=== PATIENT | female | born 1945 | race Caucasian/White ===

== ENCOUNTER 2025-03-30 12:19 | Emergency (ER) | payer MEDICARE, SELFPAY ==
[2025-03-30] VITALS (37 sets, daily range): BP systolic 88–157; BP diastolic 46–127; PULSE 69–85; RESP 13–25; TEMP 36.3–36.6; O2SAT 87–100
--- NOTE | ~2025-03-30 | XR_ITS ---
Clinical Indication: Weakness PA and lateral views of the chest: Comparison: None Findings: There is extensive bibasilar chronic interstitial disease and/or possibly superimposed inte rstitial pulmonary edema. There is a hazy 3 cm airspace opacity in the left infrahilar region. Right- sided Mediport in place.. Cardiomediastinal silhouette is within normal limits. Bones and soft tissu es are unremarkable. Impression: Probable extensive chronic interstitial disease. Possible superimposed interstitial pulmonary edema. 3 cm hazy opacity left perihilar region. Mass lesion not completely excluded. Consider chest CT as in dicated. Reviewed, dictated and finalized at location . Impression: Probable extensive chronic interstitial disease. Possible superimposed intersti tial pulmonary edema. 3 cm hazy opacity left perihilar region. Mass lesion not completely excluded. C onsider chest CT as indicated.
--- NOTE | 2025-03-30 12:26 | ED_ITS ---
HPI - General Adult General Chief complaint: Weakness Stated complaint: weakness History of Present Illness HPI narrative: 79-year-old female presenting to the emergency department from [facility] outpatient care. Patient has been having decreasing blood pressures and increased lethargy over the course of the last week. Patient does have a history a left lower leg amputation approximately month and half ago had [facility]. Initially EMS was hoping to take the patient back to [facility] but patient was having low blood pressures so they brought her to [facility]. The position [facility] urgent care told EMS that they are anticipating doing a amputation the right lower extremity as well. Patient's blood pressures were 60-70 systolic. Patient was treated with a L of normal saline by EMS and upon arrival to the emergency department patient's blood pressure was 90/45 patient is alert and appropriate Related Data Home Medications ?Medication ?Instructions ?Recorded ?Confirmed ?Last Taken ?Type acetaminophen 500 mg capsule 1,000 mg PO Q6H PRN pain, 01/08/25 01/08/25 01/07/25 History headaches or fever aspirin 81 mg tablet,delayed 81 mg PO DAILY 01/08/25 01/08/25 01/08/25 History release (Enteric Coated Aspirin) atorvastatin 20 mg tablet (Lipitor) 20 mg PO HS 01/08/25 01/08/25 01/07/25 History calcium carb-vit D3-magnesium 250 1 cap PO DAILY 01/08/25 01/08/25 Unknown History mg-200 unit-125 mg capsule cholecalciferol (vitamin D3) 25 1,000 unit PO DAILY 01/08/25 01/08/25 Unknown History mcg (1,000 unit) capsule cilostazol 100 mg tablet 100 mg PO BID 01/08/25 01/08/25 Unknown History ferrous sulfate 325 mg (65 mg 325 mg PO DAILY 01/08/25 01/08/25 Unknown History iron) tablet folic acid 1 mg tablet 1 mg PO DAILY 01/08/25 01/08/25 Unknown History magnesium oxide 400 mg (241.3 mg 500 mg PO DAILY 01/08/25 01/08/25 Unknown History magnesium) tablet metoprolol succinate 50 mg 50 mg PO DAILY 01/08/25 01/08/25 01/08/25 History tablet,extended release 24 hr (Toprol XL) multivitamin with folic acid 400 1 tablet PO DAILY 01/08/25 01/08/25 Unknown History mcg tablet povidone-iodine 10 % topical 1 applic topical DAILY 01/08/25 01/08/25 Unknown History ointment sennosides 8.6 mg-docusate sodium 2 tab-cap PO BID 01/08/25 01/08/25 Unknown History 50 mg tablet (Senna with Docusate Sodium) Allergies Allergy/AdvReac Type Severity Reaction Status Date / Time No Known Allergies Allergy Verified 01/08/25 18:31 Review of Systems 2 Review of Systems: All systems reviewed & are unremarkable except as noted in HPI and below PMFSH Past Medical History Medical History Emesis Anemia PVD (peripheral vascular disease) Breast cancer Emphysema lung CKD (chronic kidney disease) Cervical cancer Atrial fibrillation Social History Social History Years smoked: 60 Smoking status: Current every day smoker Tobacco type: cigarettes Alcohol intake: never Substance use: never Do You Feel Safe in your Home?: Yes Lack of Transportation: No Lack of Food: Never True Current Housing: I Have Housing Concerned About Future Housing: No Difficulty Paying Gas/Electric Bills: No Difficulty Paying for Meds: No Currently Unemployed: No Education: Grade School Difficulty w/ Childcare or Family Care: No Spiritual care concerns: No Exam 2 Narrative: APPEARANCE: Well appearing, no pain, no distress, well-nourished. HEAD: normocephalic, atraumatic. EYES: PERRLA/EOMI, conjunctivae clear. NOSE: Normal no drainage EARS:TMS clear with good light reflex. THROAT: Pharynx clear, no exudate. NECK: Supple. No adenopathy, no masses. RESPIRATORY: Airway patent, respirations nonlabored. Clear to auscultation bilaterally, no rales, rhonchi, wheezing. CARDIOVASCULAR: Regular rate and rhythm without murmurs rubs or gallops. ABDOMINAL: Soft, nontender, nondistended, normal bowel sounds MUSCULOSKELETAL: Moves all extremities. Strength/ROM intact, No edema, No calf tenderness. NEURO: Alert. Cranial nerves II through XII intact. Good gait. Good coordination SKIN: Warm, dry. Normal Color Course Vital Signs Vital signs: Vital Signs Temperature 97.9 F 03/30/25 12:17 Pulse Rate 85 03/30/25 12:17 Respiratory Rate 13 03/30/25 12:17 Blood Pressure 101/46 L 03/30/25 12:17 Pulse Oximetry 96 03/30/25 12:17 Oxygen Delivery Room Air 03/30/25 12:17 Temperature 97.8 F 03/30/25 18:06 Pulse Rate 79 03/30/25 18:15 Respiratory Rate 21 H 03/30/25 18:15 Blood Pressure 106/46 L 03/30/25 18:11 Pulse Oximetry 98 03/30/25 18:06 Oxygen Delivery Room Air 03/30/25 12:17 Medical Decision Making MDM Narrative Medical decision making narrative: 79-year-old female present to the emergency department for evaluation for increasing generalized fatigue. Patient had been in the urgent care and patient was to be transferred by EMS to both the [facility] but patient's blood pressure was too low in route. Upon arrival emergency department patient's blood pressure was 90 systolic after a partial fluid bolus. Patient was found to have any worsening anemia. Patient does have history of chronic kidney disease. Patient is this may was checked and patient did have trace Hemoccult-positive stool. Patient was started on famotidine and Protonix by IV. Patient's hemoglobin was down to 6.7 patient was treated with 2 units of packed red blood cells. Patient is afebrile but does have a leukocytosis. Patient's creatinine is 2.17 which is worse than her baseline. Patient was treated with 2 L of lactated Ringer's. UA was positive for a urinary tract infection. Patient has no previous urine cultures on file here patient was treated with 1 g of IV Rocephin. Patient was negative for influenza RSV and for COVID. Case was discussed with the hospitalist at [facility] and patient was accepted for transfer. Patient and family were updated on results of the workup and plan for transfer. Patient's blood pressure did respond appropriately after IV fluids and 2 units of packed red blood cells. Pain is mental status also improved as well and patient was well-appearing at time of transfer. Differential Diagnosis Differential Diagnosis: Urinary tract infection, anemia, vasculitis, pneumonia, pulmonary edema Vital Signs Vital Signs: Vital Signs Temperature 97.9 F 03/30/25 12:17 Pulse Rate 85 03/30/25 12:17 Respiratory Rate 13 03/30/25 12:17 Blood Pressure 101/46 L 03/30/25 12:17 Pulse Oximetry 96 03/30/25 12:17 Oxygen Delivery Room Air 03/30/25 12:17 Temperature 97.8 F 03/30/25 18:06 Pulse Rate 79 03/30/25 18:15 Respiratory Rate 21 H 03/30/25 18:15 Blood Pressure 106/46 L 03/30/25 18:11 Pulse Oximetry 98 03/30/25 18:06 Oxygen Delivery Room Air 03/30/25 12:17 Lab Data Lab results reviewed: Yes I reviewed the patient's lab results. 03/30/25 12:53 03/30/25 12:53 Labs: Lab Results 03/30/25 03/30/25 03/30/25 Range/Units 12:52 12:53 12:54 WBC 13.3 H (4.5-10.0) K/mm3 RBC 2.20 L (4.2-5.4) M/mm3 Hgb 6.7 L* (12.0-15.0) g/dL Hct 22.6 L (37.0-47.0) % MCV 102.7 H (80-100) fl MCH 30.5 (26-34) pg MCHC 29.6 L (32-36) g/dl RDW 21.1 H (11.5-14.5) % Plt Count 303 (150-375) k/mm3 MPV 8.4 (7.4-10.4) fl Immature Gran % (Auto) 0.8 H (0-0.5) % Neut % (Auto) 88.0 H (45.5-73.1) % Lymph % (Auto) 6.8 L (18.3-44.2) % Armstrong % (Auto) 4.0 (2.6-8.5) % Eos % (Auto) 0.2 (0-4.4) % Baso % (Auto) 0.2 (0.2-1.2) % Lymph # (Auto) 0.90 (0.9-3.2) K/mm3 Armstrong # (Auto) 0.5 (0.1-0.6) K/mm3 Eos # (Auto) 0.0 (0-0.3) K/mm3 Baso # (Auto) 0.0 (0.0-0.1) K/mm3 Abs Immat Gran (auto) 0.11 H (0.00-0.031) K/mm3 Absolute Neuts (auto) 11.7 H (1.3-6.7) K/mm3 Absolute Nucleated RBC 0.000 (0.0-0.012) K/mm3 Band Neutrophils % Not Reportable Nucleated RBC % 0.0 (0.0-0.2) % Platelet Estimate Adequate (Adequate) Hypochromasia 2+ Anisocytosis 2+ Schistocytes Rare PT 14.5 (11.1-14.7) Seconds INR 1.1 APTT 39.7 H (22.3-36.8) Seconds Sodium 130 L (137-145) mmol/L Potassium 3.5 (3.4-5.0) mmol/L Chloride 100 (98-107) mmol/L Carbon Dioxide 24 (22-30) mmol/L Anion Gap 6 (4-12) mmol/L BUN 31 H (7-17) mg/dL Creatinine 2.17 H (0.7-1.0) mg/dL Estim Creat Clear Calc 14 ml/min Estimated GFR 22 L (59 - ) Glucose 99 (65-110) mg/dL Lactic Acid 1.1 (0.7-2.0) mmol/L Calcium 9.5 (8.4-10.2) mg/dL Total Bilirubin 0.3 (0.2-1.3) mg/dL AST 17 (14-36) U/L ALT 6 (6-35) U/L Alkaline Phosphatase 116 (38-126) U/L C-Reactive Protein 16.6 H (<1.0) mg/dL Total Protein 5.2 L (6.3-8.2) g/dL Albumin 2.0 L (3.5-5.1) g/dL Lipase < 10 L (23-300) U/L Urine Color (Yellow) Urine Appearance (Clear) Urine pH (5.0-9.0) Ur Specific Charlotte (1.001-1.035) Urine Protein (Negative) mg/dL Urine Glucose (UA) (Negative) mg/dL Urine Ketones (Negative) mg/dL Ur Blood (Man) (Negative) Urine Nitrate (Negative) Urine Bilirubin (Negative) Urine Urobilinogen (<2.0) mg/dL Add Ur Microanalysis Leukocyte Esterase Rfl (Negative) JANE/UL Urine RBC (0-2) /hpf Urine WBC (0-3) /hpf Urine WBC Clumps (None) /HPF Ur Squamous Epith Cells (Few) /hpf Urine Bacteria /hpf Urine Casts Influenza A (RT-PCR) Negative (Negative) Influenza B (RT-PCR) Negative (Negative) RSV (RT-PCR) Negative (Negative) SARS-CoV-2 RNA (RT-PCR) Negative (Negative) Blood Type O Positive Antibody Screen Negative Crossmatch See Detail 03/30/25 Range/Units 12:55 WBC (4.5-10.0) K/mm3 RBC (4.2-5.4) M/mm3 Hgb (12.0-15.0) g/dL Hct (37.0-47.0) % MCV (80-100) fl MCH (26-34) pg MCHC (32-36) g/dl RDW (11.5-14.5) % Plt Count (150-375) k/mm3 MPV (7.4-10.4) fl Immature Gran % (Auto) (0-0.5) % Neut % (Auto) (45.5-73.1) % Lymph % (Auto) (18.3-44.2) % Armstrong % (Auto) (2.6-8.5) % Eos % (Auto) (0-4.4) % Baso % (Auto) (0.2-1.2) % Lymph # (Auto) (0.9-3.2) K/mm3 Armstrong # (Auto) (0.1-0.6) K/mm3 Eos # (Auto) (0-0.3) K/mm3 Baso # (Auto) (0.0-0.1) K/mm3 Abs Immat Gran (auto) (0.00-0.031) K/mm3 Absolute Neuts (auto) (1.3-6.7) K/mm3 Absolute Nucleated RBC (0.0-0.012) K/mm3 Band Neutrophils % Nucleated RBC % (0.0-0.2) % Platelet Estimate (Adequate) Hypochromasia Anisocytosis Schistocytes PT (11.1-14.7) Seconds INR APTT (22.3-36.8) Seconds Sodium (137-145) mmol/L Potassium (3.4-5.0) mmol/L Chloride (98-107) mmol/L Carbon Dioxide (22-30) mmol/L Anion Gap (4-12) mmol/L BUN (7-17) mg/dL Creatinine (0.7-1.0) mg/dL Estim Creat Clear Calc ml/min Estimated GFR (59 - ) Glucose (65-110) mg/dL Lactic Acid (0.7-2.0) mmol/L Calcium (8.4-10.2) mg/dL Total Bilirubin (0.2-1.3) mg/dL AST (14-36) U/L ALT (6-35) U/L Alkaline Phosphatase (38-126) U/L C-Reactive Protein (<1.0) mg/dL Total Protein (6.3-8.2) g/dL Albumin (3.5-5.1) g/dL Lipase (23-300) U/L Urine Color Yellow (Yellow) Urine Appearance Turbid H (Clear) Urine pH 6.5 (5.0-9.0) Ur Specific Charlotte 1.014 (1.001-1.035) Urine Protein 2+ H (Negative) mg/dL Urine Glucose (UA) Negative (Negative) mg/dL Urine Ketones Trace H (Negative) mg/dL Ur Blood (Man) 3+ H (Negative) Urine Nitrate Positive H (Negative) Urine Bilirubin Negative (Negative) Urine Urobilinogen 0.2 (<2.0) mg/dL Add Ur Microanalysis Reviewed Leukocyte Esterase Rfl 3+ H (Negative) JANE/UL Urine RBC >100 H (0-2) /hpf Urine WBC >100 H (0-3) /hpf Urine WBC Clumps Present H (None) /HPF Ur Squamous Epith Cells Many H (Few) /hpf Urine Bacteria 4+ H /hpf Urine Casts >20 Influenza A (RT-PCR) (Negative) Influenza B (RT-PCR) (Negative) RSV (RT-PCR) (Negative) SARS-CoV-2 RNA (RT-PCR) (Negative) Blood Type Antibody Screen Crossmatch Imaging Data Radiologist's impression: Impressions Chest X-Ray 03/30/25 13:17 Impression: Probable extensive chronic interstitial disease. Possible superimposed interstitial pulmonary edema. 3 cm hazy opacity left perihilar region. Mass lesion not completely excluded. Consider chest CT as indicated. Critical Care Time Critical Care Time Critical Care Time: Yes Total Critical Care Time: 40 Discharge Plan Discharge Clinical Impression: Acute hypotension, Anemia, Acute kidney injury superimposed on chronic kidney disease Patient Disposition: Acute Care Hospital Condition: Stable Patient Language: Honduran Prescriptions: No Action acetaminophen 500 mg capsule 1,000 mg PO Q6H PRN (Reason: pain, headaches or fever) aspirin [Enteric Coated Aspirin] 81 mg tablet,delayed release (DR/EC) 81 mg PO DAILY atorvastatin [Lipitor] 20 mg tablet 20 mg PO HS cholecalciferol (vitamin D3) 25 mcg (1,000 unit) capsule 1,000 unit PO DAILY cilostazol 100 mg tablet 100 mg PO BID ferrous sulfate 325 mg (65 mg iron) tablet 325 mg PO DAILY calcium carb-vit D3-magnesium 250-200-125 mg-unit-mg capsule 1 cap PO DAILY folic acid 1 mg tablet 1 mg PO DAILY magnesium oxide 400 mg (241.3 mg magnesium) tablet 500 mg PO DAILY metoprolol succinate [Toprol XL] 50 mg tablet extended release 24 hr 50 mg PO DAILY multivitamin with folic acid 400 mcg tablet 1 tablet PO DAILY sennosides-docusate sodium [Senna with Docusate Sodium] 8.6-50 mg tablet 2 tab-cap PO BID povidone-iodine 10 % ointment 1 applic topical DAILY atorvastatin 20 mg Tablet 20 mg PO HS Qty: 30 0RF gabapentin 400 mg Capsule 400 mg PO HS Qty: 10 0RF sulfamethoxazole-trimethoprim 800-160 mg Tablet 0.5 tab PO Q12HR Qty: 6 0RF Follow-up/Referrals: PHYSICIAN NOT ON STAFF,NONSTAFF [Non-Staff] -
[2025-03-30] MEDS: LACTATED RINGERS 1,000 ML 999 ML IV CONT (12:38)
--- NOTE | 2025-03-30 12:41 | PC.NURSE ---
spoke with ERP about urostomy in place, asked if urine sample could be taken from that and sent from lab and he said that was appropriate
[2025-03-30 13:02] LABS: Basophils Percent Auto 0.2 % (0.2-1.2); Eosinophils Percent Auto 0.2 % (0-4.4); Hematocrit 22.6 % (37.0-47.0); Immature Granulocyte Absolute 0.11 K/mm3 (0.00-0.031); Immature Granulocyte Percent A 0.8 % (0-0.5); Lymphocytes Percent Auto 6.8 % (18.3-44.2); Mean Corpuscular HGB Conc 29.6 g/dl (32-36); Mean Corpuscular Hemoglobin 30.5 pg (26-34); Mean Corpuscular Volume 102.7 fl (80-100); Mean Platelet Volume 8.4 fl (7.4-10.4); Monocytes Absolute Auto 0.5 K/mm3 (0.1-0.6); Neutrophils Absolute Auto 11.7 K/mm3 (1.3-6.7); Platelet Count Result 303 k/mm3 (150-375); Red Cell Distribution Width 21.1 % (11.5-14.5); White Blood Count 13.3 K/mm3 (4.5-10.0)
[2025-03-30 13:12] LABS: INR 1.1; Prothrombin Time 14.5 Seconds (11.1-14.7)
[2025-03-30 13:12] LABS: Lactic Acid Reflex 1.1 mmol/L (0.7-2.0)
[2025-03-30 13:14] LABS: Partial Thromboplastin Time 39.7 Seconds (22.3-36.8)
[2025-03-30 13:15] LABS: Alanine Aminotransferase 6 U/L (6-35); Alkaline Phosphatase 116 U/L (38-126); Anion Gap 6 mmol/L (4-12); Aspartate Amino Transferase 17 U/L (14-36); Bilirubin,Total 0.3 mg/dL (0.2-1.3); Blood Urea Nitrogen 31 mg/dL (7-17); Calcium 9.5 mg/dL (8.4-10.2); Carbon Dioxide 24 mmol/L (22-30); Chloride 100 mmol/L (98-107); Estimated CRCL calculation 14 ml/min; Estimated Glomerular Filt Rate 22; Glucose 99 mg/dL (65-110); Potassium 3.5 mmol/L (3.4-5.0); Sodium 130 mmol/L (137-145); Total Protein 5.2 g/dL (6.3-8.2)
[2025-03-30 13:17] LABS: Add Urine Microscopic? YES; Appearance Urine Turbid (Clear); Bacteria Urine 4+ /hpf; Bilirubin Urine Negative (Negative); Blood Urine 3+ (Negative); Color Urine Yellow (Yellow); Glucose Urine UA Negative (Negative); Ketones Urine Trace mg/dL (Negative); Leukocyte Esterase Ur 3+ LEU/UL (Negative); Nitrate Urine Positive (Negative); Non Pathogenic Casts >20; Protein Urine 2+ mg/dL (Negative); RBC Urine >100 /hpf (0-2); Specific Grav Ur 1.014 (1.001-1.035); Squamous Epithelial Cell Urine Many /hpf (Few); Urobilinogen Urine 0.2 mg/dL (<2.0); WBC Urine >100 /hpf (0-3); pH Urine 6.5 (5.0-9.0)
[2025-03-30 13:20] LABS: Need Manual Microscopic Reviewed; WBC Clumps Urine Present /HPF
[2025-03-30 13:24] LABS: Anisocytosis 2+; Hemoglobin 6.7 g/dL (12.0-15.0); Hypochromasia 2+; Platelet Estimate Adequate (Adequate)
[2025-03-30 13:25] LABS: Schistocytes Rare
[2025-03-30 13:40] LABS: Influenza A QL RT-PCR Negative (Negative); Influenza B QL RT-PCR Negative (Negative); RSV RNA, RT-PCR Negative (Negative); SARS-CoV-2 RNA PCR Negative (Negative)
--- OUTSIDE RECORDS SUMMARY | 2025-03-30 13:51 | XMS_ITS | Encounter Summary ---
Author Organization [facility] Address [address] [place] [address] Phone Care Team Providers Care Spiritual Minister Name Role Phone Sherri Gil DO Primary Care Provider Reason for Visit * Auth/Cert (Routine) Specialty Diagnoses / Procedures Referred By Yonatan t Referred To Contact Referral ID Status Reason Start Date Expiration Date Visits Re quested Visits Authorized [id number] 1 1 Encounter Details Date Type Department Care Team (Latest Contact Info) Description 03/29/2025 11:30 AM CDT Home Care Visit [facility] [address] [place] [address] Britt Cortes, NOODLE PRESS OPERATOR PT - MAINTENANCE VISIT Social History Tobacco Use Types Packs/Day Years Used Date Smoking Tobacco: Every Day Cigarettes 0.3 40 Smokeless Tobacco: Never Comments:Down to 6 cigarette s a day Alcohol Use Standard Drinks/Week Comments Yes 1 (1 standard drink = 0.6 oz pur e alcohol) very little [facility] Utilities Answer Date Recorded In the past 12 months has e electric, gas, oil, or water company threatened to shut off services in your home? No 02/08/2025 Social Connection and Isolation Panel [NHANES] A nswer Date Recorded In a typical week, how many times do you talk on the phone with family, friends, or neighbors? Twice a week 02/08/2025 How often do you get together with friends or re latives? Once a week 02/08/2025 How often do you attend restoration or jainism serv ices? Never 02/08/2025 Do you belong to any clubs o r organizations such as restoration groups, unions, fraternal or athletic groups, or school groups? No 02/08/2025 How often do you attend meet ings of the clubs or organizations you belong to? Never 02/08/2025 Are you , , di vorced, , never , or living with a partner? 02/08/2025 AUDIT-C Answer Date Recorded Q1: How often do you have a drink containing alc ohol? Monthly or less 02/08/2025 Q2: How many drinks containi ng alcohol do you have on a typical day when you are drinking? 1 or 2 02/08/2025 Q3: How often do you have si x or more drinks on one occasion? Never 02/08/2025 Overall Financial Resource Strain (CARDIA) Answe r Date Recorded How hard is it for you to pa y for the very basics like food, housing, medical care, and heating? Not hard at all 02/08/2025 PHQ-2 Answer Date Recorded Total Score - Questions 1-9 0 01/26 [facility] - Occupational Stress Questionnaire Answer Date Recorded Do you feel stress - tense, restless, nervous, or anxious, or unable to sleep at night because your mind is troubled all the time - these days? Not at all 02/08/2025 Exercise Vital Sign Answer Date Recorde d On average, how many days pe r week do you engage in moderate to strenuous exercise (like a brisk walk)? 2 days 02/08/2025 On average, how many minutes do you engage in exercise at this level? 20 min 02/08/2025 Hunger Vital Sign Answer Date Recorded Within the past 12 months, y ou worried that your food would run out before you got the money to buy more. Never true 02/09/20 25 Within the past 12 months, t he food you bought just didn't last and you didn't have money to get more. Never true 02/08/2025 PRAPARE - Transportation Answer Date Re corded In the past 12 months, has l ack of transportation kept you from medical appointments or from getting medications? No 01/25 In the past 12 months, has l ack of transportation kept you from meetings, work, or from getting things needed for daily living? No 02/08/2025 Housing Stability Vital Sign Answer Italo e Recorded In the last 12 months, was t here a time when you were not able to pay the mortgage or rent on time? No 02/08/2025 In the past 12 months, how m any times have you moved where you were living? 1 02/08/2025 At any time in the past 12 m [facility], were you homeless or living in a [facility] (including now)? No 02/08/2025 Education Answer Date Recorded What is the highest level of school you have completed or the highest degree you have received? 10th grade 05/15/2023 Sexually Active Control Partners Comments Not Currently Comments No Sex and Gender Information Value Date Recorded Sex Assigned at Not on file Legal Sex Female 12:19 AM CDT Gender Identity Not on file Sexual Orientation Not on file Occupation Industry Job Start Date Job End Date retired from school Not on file Not on file Not on f ile documented as of this encounter Last Filed Vital Signs Vital Sign Reading Time Taken Comments Blood Pressure 98/54 03/29/2025 11:52 AM CDT Pulse 71 03/29/2025 11:52 AM CDT Temperature 36.3 C (97.4 F) 03/29/2025 11:52 AM CDT Respiratory Rate 16 03/29/2025 11:52 AM CDT Oxygen Saturation 93% 03/29/2025 11:52 AM CDT Inhaled Oxygen Concentration - - Weight - - Height - - Body Mass Index - - documented in this encounter Plan of Treatment Upcoming Encounters Date Type Department Care Team (Late st Contact Info) Description 04/01/2025 1:00 AM CDT [facility] [address] [place] [address] Kristyn Washington RN [place] 04/05/2025 1:00 AM CDT [facility] [address] [place] [address] Kristyn Washington RN [place] 04/05/2025 2:00 AM CDT Home Care Visit [facility] [address] Britt Cortes, NOODLE PRESS OPERATOR 04/08/2025 1:00 AM CDT Home Care Visit [facility] [address] Kristyn Washington RN [place] 04/12/2025 1:00 AM CDT Home Care Visit [facility] [address] Kristyn Washington RN [place] 04/12/2025 8:00 AM CDT Home Care Visit [facility] [address] Jacqueline Yoon, PT [place] 04/15/2025 1:00 AM CDT Home Care Visit [facility] [address] Kristyn [place] RN [place] 04/19/2025 1:00 AM CDT Home Care Visit [facility] [address] Britt Cortes, NOODLE PRESS OPERATOR 04/20/2025 1:00 AM CDT Home Care Visit [facility] [address] Kristyn Washington RN [place] 04/25/2025 1:00 AM CDT Home Care Visit [facility] [address] Jacqueline Yoon, PT [place] 04/27/2025 1:00 AM CDT Home Care Visit [facility] [address] Kristyn [place] RN [place] 05/04/2025 1:00 AM CDT Home Care Visit [facility] [address] Kristyn [place] RN [place] 05/11/2025 1:00 AM CDT Home Care Visit [facility] [address] Kristyn [place] RN [place] 05/12/2025 1:00 PM CDT [facility] - [address] [place] [address] Sherri Gil DO [address] [place] [address] 05/18/2025 1:00 AM CDT [facility] [address] [place] [address] Kristyn Washington RN [place] 05/24/2025 1:00 AM CDT [facility] [address] [place] [address] Kristyn Washington RN [place] documented as of this encounter Goals Goal Patient Goal Type Associated Problems Recent Progress Patient-Stated? Author Help patient manage COPD Care Plan [facility] COPD CONCERN No Sherri Gil, DO Help patient manage hypertension Care Plan [facility] HYPERTENSION CONCERN (PATIENT NOT ON HIGH BLOOD PRESSURE MEDICATIONS) No Sherri Gil, DO Help patients manage type 2 diabetes Care Plan [facility] TYPE 2 DIABETES CONCERN No Sherri Gil, DO Help patient manage blood glucose Care Plan [facility] TYPE 2 DIABETES NO MEDICATION PATTERN CONCERN No Sherri Gil, DO documented as of this encounter Visit Diagnoses Not on filedocumented in this encounter Additional Health Concerns Active Problems Noted Date Diagnosed Date [facility] COPD CONCERN 02/28/2025 [facility] HYPERTENSION CONCERN (P ATIENT NOT ON HIGH BLOOD PRESSURE MEDICATIONS) 02/28/2025 [facility] TYPE 2 DIABETES CONCERN 02/28/2025 [facility] TYPE 2 DIABETES NO MEDICATION PATTERN FELECIA RN 02/28/2025 Assessment Noted Time PHQ-9 Depression Total Score: 0 02/16/20 25 10:09 AM CDT documented as of this encounter Home Health Visit - Care Plan Visit Details Visit Type -PT - MAINTENANCE VISIT Discipline -Physical Therapy Problems Problem Description Start Date Status Goals Interve ntions PT DM MAINTENANCE THERAPY Disciplines: Physical Therapy 03/16/2025 Active 1 goal linked to scheduled/document ed intervention 1 goal intervention scheduled/document ed in this visit Goals Goal Associated Problem Outcome Goal Met? Visit Notes PT Maintenance HEP Description: Filtrose Crusher Goal: Patient and Caregiver will be independent with final HEP of strengthening/ROM in order to prevent decline in strength, to be met by 04/23/25. PT DM MAINTENANCE THERAPY No Interventions Intervention Associated Problem/Goal Status Variance Visit Notes PT Home Exercise Program Description: Instruct on Home Exercise Program. Problem:PT DM MAINTENANCE THERAPY Goal:PT Maintenance HEP Completed Instructed on Home Exercise reviewed supine HEP and instructed patient to perform as tolerated, not perform this date due to increased pain and not feeling well. Instruction provided to Patient. Response verbalize understanding. documented in this encounter Care Teams Spiritual Minister Relationship Specialty Start Date End Date Sherri Gil DO [address] [facility] [address] [address] PCP - General Family Medicine 07/08/24 documented as of this encounter
--- OUTSIDE RECORDS SUMMARY | 2025-03-30 13:51 | XMS_ITS | Encounter Summary ---
Author Organization [facility] Address [address] [place] [address] [place] [address] Phone Care Team Providers Care Communications Instructor Name Role Phone Sherri Gil DO Primary Care Provider [phone] Encounter Details Date Type Department Care Team (Late st Contact Info) Description 03/11/2025 Lab Requisition [facility] Services [address] [place] [address] Patrick Rubi MD 2 [facility] [address] [address] Sepsis, unspecified organism (HCC) Social History Tobacco Use Types Packs/Day Years Used Date Smoking Tobacco: Every Day Cigarettes 0.3 40 Smokeless Tobacco: Never Comments:Down to 6 cigarette s a day Alcohol Use Standard Drinks/Week Comments Yes 1 (1 standard drink = 0.6 oz pur e alcohol) very little [facility] Utilities Answer Date Recorded In the past 12 months has [employer] electric, gas, oil, or water company threatened [...] week 02/08/2025 How often do you attend scientology or yazdanism serv ices? Never 02/08/2025 Do you belong to any clubs o r organizations such as scientology groups, unions, fraternal or athletic groups, or [...] Total Score - Questions 1-9 0 01/26 [facility] - Occupational Stress [...] No 02/08/2025 Housing Stability Vital Sign Answer Itlao e Recorded In the last 12 months, was t here a time when you were not able to pay the mortgage or rent on time? No 02/08/2025 In the past 12 months, how m any times have you moved where you were living? 1 02/08/2025 At any time in the past 12 m [facility], were you homeless or living in a fci (including now)? No 02/08/2025 Education Answer Date [...] f ile documented as of this encounter Plan of Treatment Upcoming Encounters Date Type Department Care Team (Late st Contact Info) Description 04/01/2025 1:00 AM CDT Home Care Visit [address] [address] Kristyn Washington RN [place] 04/05/2025 1:00 AM CDT Home Care Visit [address] [address] Kristyn Washington RN [place] 04/05/2025 2:00 AM CDT Home Care Visit [address] [address] Britt Cortes PTA 04/08/2025 1:00 AM CDT Home Care Visit [address] [address] Kristyn Washington RN [place] 04/12/2025 1:00 AM CDT Home Care Visit [address] [address] Kristyn Washington RN [place] 04/12/2025 8:00 AM CDT Home Care Visit [address] [address] Jacqueline Yoon, PT [place] 04/15/2025 1:00 AM CDT Home Care Visit [address] [address] Kristyn Washington RN [place] 04/19/2025 1:00 AM CDT Home Care Visit [address] [address] Britt Cortes, RN HEMODIALYSIS CHARGE 04/20/2025 1:00 AM CDT Home Care Visit [address] [address] Kristyn Washington RN [place] 04/25/2025 1:00 AM CDT Home Care Visit [address] [address] Jacqueline Yoon, PT [place] 04/27/2025 1:00 AM CDT Home Care Visit [address] [address] Kristyn Washington RN [place] 05/04/2025 1:00 AM CDT Home Care Visit [address] [address] Kristyn Washington, RN [place] 05/11/2025 1:00 AM CDT Home Care Visit [address] [address] Kristyn Washington RN [place] 05/12/2025 1:00 PM CDT Office Visit [facility] - [facility] [address] [place] [address] Sherri Gil, DO 2 [facility]. [address] [place] [address] 05/18/2025 1:00 AM CDT Home Care Visit [facility] [address] [place] [address] Kristyn Washington RN [place] 05/24/2025 1:00 AM CDT Appointment [facility] [address] [place] [address] Kristyn Washington RN [place] documented as of this encounter Goals Goal Patient Goal Type Associated Problems Recent Progress Patient-Stated? Author Help patient manage COPD Care Plan MCCP COPD CONCERN No Louise, Sherri L, DO Help patient manage hypertension Care Plan [facility]P HYPERTENSION CONCERN (PATIENT NOT ON HIGH BLOOD PRESSURE MEDICATIONS) No Louise Sherri L, DO Help patients manage type 2 diabetes Care Plan [facility]CCP TYPE 2 DIABETES CONCERN No Louise, Sherri L, DO Help patient manage blood glucose Care Plan MCCP TYPE 2 DIABETES NO MEDICATION PATTERN CONCERN No Sherri Gil L, DO documented as of this encounter Procedures Procedure Name Priority Date/Time Associated Diagnosis Comments IRON,TRANSFERN,CALC.T IBC,%SAT Routine 03/11/2025 3:25 PM CDT Sepsis, unspecified organism (HCC) CBC WITH AUTO DIFFERENTIAL Routine 03/11/2025 3:25 PM CDT Sepsis, unspecified organism (HCC) UR PROTEIN/CREATININE RATIO Routine 03/11/2025 3:25 PM CDT Sepsis, unspecified organism (HCC) RENAL FUNCTION PANEL (RFP) Routine 03/11/2025 3:25 PM CDT Sepsis, unspecified organism (HCC) PARATHYROID HORMONE PTH INTACT Routine 03/11/2025 3:25 PM CDT Sepsis, unspecified organism (HCC) COMPLETE BLOOD COUNT (CBC) WITH DIFF Routine 03/11/2025 3:25 PM CDT Sepsis, unspecified organism (HCC) documented in this encounter Results * (ABNORMAL) CBC WITH AUTO DIFFERENTIAL (03/11/2025 3:25 PM CDT) WBC 8.75 4.00 - 12.00 10(3)/mcL 03/11/2025 4:20 PM CDT [facility] RBC 2.58(L) 3.80 - 5.30 10(6)/mcL 03/11/2025 4:20 PM CDT [facility] HEMOGLOBIN (HGB) 7.7(L) 12.0 - 15.8 g/dL 03/11/2025 4:20 PM CDT [facility] HEMATOCRIT (HCT) 25.9(L) 36.0 - 47.0 % 03/11/2025 4:20 PM CDT [facility] MCV 100.4(H) 82.0 - 96.0 fL 03/11/2025 4:20 PM CDT [facility] MCH 29.8 26.0 - 34.0 pg 03/11/2025 4:20 PM CDT [facility] MCHC 29.7(L) 31.0 - 36.0 g/dL 03/11/2025 4:20 PM CDT [facility] PLATELET COUNT 354 140 - 440 10(3)/[facility] 03/11/2025 4:20 PM CDT [facility] RDW 20.0(H) 11.8 - 15.5 % 03/11/2025 4:20 PM CDT [facility] MPV 8.8(L) 9.7 - 12.4 fL 03/11/2025 4:20 PM CDT [facility] NEUTROPHILS 66.2 47.0 - 73.0 % 03/11/2025 4:20 PM CDT [facility] LYMPHOCYTES 24.8 18.0 - 42.0 % 03/11/2025 4:20 PM CDT [facility] MONOCYTES 7.5 4.0 - 12.0 % 03/11/2025 4:20 PM CDT [facility] EOSINOPHILS 0.8 0.0 - 5.0 % 03/11/2025 4:20 PM CDT [facility] BASOPHILS 0.7 0.0 - 1.0 % 03/11/2025 4:20 PM CDT [facility] ABSOLUTE NEUTROPHILS 5.79 1.60 - 7.70 10(3)/[facility] 03/11/2025 4:20 PM CDT [facility] ABSOLUTE LYMPHOCYTES 2.17 1.30 - 3.20 10(3)/[facility] 03/11/2025 4:20 PM CDT [facility] ABSOLUTE MONOCYTES 0.66 0.20 - 1.00 10(3)/[facility] 03/11/2025 4:20 PM CDT [facility] ABSOLUTE EOSINOPHIL 0.07 0.00 - 0.40 10(3)/[facility] 03/11/2025 4:20 PM CDT [facility] ABSOLUTE BASOPHILS 0.06 0.00 - 0.10 10(3)/[facility] 03/11/2025 4:20 PM CDT [facility] NRBC PER 100 WBC 0 03/11/20 4:20 PM CDT [facility] RESULTS ARE CONSISTENT WITH PERIPHERAL SMEAR REVIEW Yes 03/11/2025 4:20 PM CDT [facility] RBC MORPHOLOGY CONSISTENT WITH INDICES Yes 03/11/2025 4:20 PM CDT [facility] Blood No Phlebotomy Charged / Unknown 03/11/2025 3:25 PM CDT 03/11/2025 3:57 PM CDT Narrative [facility] - 03/11/2025 4:20 PM CDT Anisocytosis, hypochromia us Patrick Rubi MD HEMATOLOGY ORDERABLES Final Re sult [facility] [address] [place] [address] * (ABNORMAL) UR PROTEIN/CREATININE RATIO (03/11/2025 3:25 PM CDT) UR PROTEIN RAND, QT 109.9 mg/dL 03/11/2025 4:22 PM CDT [facility] Comment:No reference range h as been established. Consider Clinical Correlation. URINE CREATININE 43.8 mg/dL 03/11/2025 4:22 PM CDT [facility] Comment:No reference range h as been established. Consider Clinical Correlation. URINE PROTEIN/CREATIN INE RATIO 2.51(H) <0.25 03/11/2025 4:22 PM CDT [facility] Urine Non-Phlebotomy Collection / Unknown 03/11/2025 3:25 PM CDT 03/11/2025 3:57 PM CDT us Patrick Rubi MD URINE ORDERABLES Final Result Performing Organization Address [facility]/ZIP Co de Phone Number [facility] [address] [place] [address] * PARATHYROID HORMONE PTH INTACT (03/11/2025 3:25 PM CDT) PTH INTACT 18 13 - 85 pg/mL 03/11/2025 4:28 PM CDT [facility] Blood No Phlebotomy Charged / Unknown 03/11/2025 3:25 PM CDT 03/11/2025 3:57 PM CDT us Patrick Rubi MD CHEMISTRY ORDERABLES Final Res ult Performing Organization Address City/[facility]/ZIP Co de Phone Number [facility] [address] [place] [address] * (ABNORMAL) IRON,TRANSFERN,CALC.TIBC,%SAT (03/11/2025 3:25 PM CDT) IRON 16(L) 25 - 156 mcg/dL 03/11/2025 4:22 PM CDT [facility] TRANSFERRIN 62(L) 173 - 360 mg/dL 03/11/2025 4:22 PM CDT [facility] TIBC, CALCULATED 78(L) 265 - 497 mcg/dL 03/11/2025 4:22 PM CDT [facility] % SATURATION * 21 15 - 62 % 03/11/2025 4:22 PM CDT [facility] Blood No Phlebotomy Charged / Unknown 03/11/2025 3:25 PM CDT 03/11/2025 3:57 PM CDT us Patrick Rubi MD CHEMISTRY ORDERABLES Final Res ult [facility] [address] [place] [address] * (ABNORMAL) RENAL FUNCTION PANEL (RFP) (03/11/2025 3:25 PM CDT) SODIUM 143 136 - 145 mmol/L 03/11/2025 4:22 PM CDT [facility] POTASSIUM 3.5 3.5 - 5.1 mmol/L 03/11/2025 4:22 PM CDT [facility] CHLORIDE 104 98 - 107 mmol/L 03/11/2025 4:22 PM CDT [facility] CO2, VENOUS 25 22 - 30 mmol/L 03/11/2025 4:22 PM CDT [facility] ANION GAP 17.5 <18.0 mmol/L 03/11/2025 4:22 PM CDT [facility] GLUCOSE 87 70 - 99 mg/dL 03/11/2025 4:22 PM CDT [facility] BUN 21(H) 10 - 20 mg/dL 03/11/2025 4:22 PM CDT [facility] CREATININE, BLOOD 1.24(H) 0.60 - 1.00 mg/dL 03/11/2025 4:22 PM CDT [facility] BUN/CREATININE RATIO 17 12 - 20 ratio 03/11/2025 4:22 PM CDT [facility] ALBUMIN 1.8(L) 3.5 - 5.0 g/dL 03/11/2025 4:22 PM CDT [facility] CALCIUM 8.6(L) 8.7 - 10.5 mg/dL 03/11/2025 4:22 PM CDT [facility] PHOSPHORUS 3.1 2.5 - 4.5 mg/dL 03/11/2025 4:22 PM CDT [facility] GFR, ESTIMATED 44(L) >=60 03/11/2025 4:22 PM CDT [facility] Comment: Creatinine Clearance is the preferred criteria for selecting drug dose adjustments in renally impaired patients. The GFR is provided as additional pertinent clinical information. GFR is reported in mL/min/1.73 sq m. Calculation based on the Chronic Kidney Disease Epidemiology Collaboration (CKD- EPI) equation refit without adjustment for race. GFR, EST. 50(L) >=60 025 4:22 PM CDT [facility] GFR, EST. NONAFRICAN 42(L) >=60 03/11/2025 4:22 PM CDT [facility] Blood No Phlebotomy Charged / Unknown 03/11/2025 3:25 PM CDT 03/11/2025 3:57 PM CDT us Patrick Rubi MD CHEMISTRY ORDERABLES Final Res ult [facility] [address] [place] [address] documented in this encounter Visit Diagnoses Diagnosis Sepsis, unspecified organism (HCC) documented in this encounter Additional Health Concerns Active Problems Noted Date Diagnosed Date MCCP COPD CONCERN 02/28/2025 MCCP HYPERTENSION CONCERN (P ATIENT NOT ON HIGH BLOOD PRESSURE MEDICATIONS) 02/28/2025 MCCP TYPE 2 DIABETES CONCERN 02/28/2025 MCCP TYPE 2 DIABETES NO MEDICATION PATTERN FELECIA RN 02/28/2025 Assessment Noted Time PHQ-9 Depression Total Score: 0 02/16/20 25 10:09 AM CDT documented as of this encounter Care Teams Communications Instructor Relationship Specialty Start Date End Date Sherri Gil DO 2 [address] [facility]. [address] [place] [address] PCP - General Family Medicine 07/08/24 documented as of this encounter
--- OUTSIDE RECORDS SUMMARY | 2025-03-30 13:51 | XMS_ITS | Encounter Summary ---
Author Organization [facility] Address [address] [place] [address] Phone Care Team Providers Care Supervisor Of Operations Name Role Phone Sherri Gil DO Primary Care Provider [phone] Reason for Visit * Auth/Cert (Routine) Specialty Diagnoses / Procedures Referred By Yonatan t Referred To Contact Referral ID Status Reason Start Date Expiration Date Visits Re quested Visits Authorized [id number] 1 1 Encounter Details Date Type Department Care Team (Latest Contact Info) Description 03/23/2025 3:00 PM CDT Home Care Visit [facility] [address] [place] [address] Kristyn [place] RN [place] - OASIS RECERTIFICATION Social History Tobacco Use Types Packs/Day Years Used Date Smoking Tobacco: Every Day Cigarettes 0.3 40 Smokeless Tobacco: Never Comments:Down to 6 cigarette s a day Alcohol Use Standard Drinks/Week Comments Yes 1 (1 standard drink = 0.6 oz pur e alcohol) very little [facility] Utilities Answer Date Recorded In the past 12 months has [employer] electric, gas, oil, or water company [...] How often do you attend restoration or jewish serv ices? Never 02/08/2025 Do you belong [...] Total Score - Questions 1-9 0 01/26 [facility] Occupat ional Health - Occupational [...] any time in the past 12 m [facility], were you homeless or living in a [...] Sign Reading Time Taken Comments Blood Pressure 104/54 03/23/2025 3:25 PM CDT Pulse 76 03/23/2025 3:25 PM CDT Temperature 36 C (96.8 F) 03/23/2025 3:25 PM CDT Respiratory Rate 18 03/23/2025 3:25 PM CDT Oxygen Saturation 97% 03/23/2025 3:25 PM CDT Inhaled Oxygen Concentration - - Weight - - Height - - Body Mass Index - - documented in this encounter Plan of Treatment Upcoming Encounters Date Type Department Care Team (Late st Contact Info) Description 04/01/2025 1:00 AM CDT Home Care Visit [address] [address] Kristyn Washington RN [place] 04/05/2025 1:00 AM CD[facility] [address] [place] [address] Kristyn Washington RN [place] 04/05/2025 2:00 AM CDT Home Care Visit [address] [address] Britt Cortes, AGRISCIENCE TEACHER 04/08/2025 1:00 AM CDT Home Care Visit [address] [address] Kristyn Washington RN [place] 04/12/2025 1:00 AM CDT Home Care Visit [address] [address] Kristyn Washington RN [place] 04/12/2025 8:00 AM CDT Home Care Visit [address] [address] Jacqueline Yoon, PT [place] 04/15/2025 1:00 AM CDT Home Care Visit [address] [address] Kristyn Washington RN [place] 04/19/2025 1:00 AM CDT Home Care Visit [address] [address] Britt Cortes, AGRISCIENCE TEACHER 04/20/2025 1:00 AM CDT Home Care Visit [address] [address] Kristyn Washington RN [place] 04/25/2025 1:00 AM CDT Home Care Visit [address] [address] Jacqueline Yoon, PT [place] 04/27/2025 1:00 AM CDT Home Care Visit [address] [address] Kristyn Washington RN [place] 05/04/2025 1:00 AM CDT Home Care Visit [address] [address] Kristyn Washington RN [place] 05/11/2025 1:00 AM CDT Home Care Visit [address] [address] Kristyn Washington RN [place] 05/12/2025 1:00 PM CDT [facility] [address] [place] [address] Sherri Gil DO 2 [facility] [address] [place] [address] 05/18/2025 1:00 AM CDT [facility] [address] [place] [address] Kristyn Washington RN [place] 05/24/2025 1:00 AM CDT [facility] [address] [place] [address] Kristyn Washington RN [place] documented as of this encounter Goals Goal Patient Goal Type Associated Problems Recent Progress Patient-Stated? Author Help patient manage COPD Care Plan MCCP COPD CONCERN No Sherri Gil, DO Help patient manage hypertension Care Plan MCCP HYPERTENSION CONCERN (PATIENT NOT ON HIGH BLOOD PRESSURE MEDICATIONS) No Sherri Gil DO Help patients manage type 2 diabetes Care Plan MCCP TYPE 2 DIABETES CONCERN No Sherri Gil, Help patient manage blood glucose [facility] 2 DIABETES NO MEDICATION PATTERN CONCERN No Sherri Gil DO documented as of this encounter Visit [...] documented as of this encounter Care Teams Supervisor Of Operations Relationship Specialty Start Date End Date Sherri Gil DO 2 [address] [facility] [address] [place] [address] PCP - General Family Medicine 07/08/24 documented as of this encounter
--- OUTSIDE RECORDS SUMMARY | 2025-03-30 13:51 | XMS_ITS | Clinical Summary ---
Author Organization [facility] Address [address] [facility] [place] [address] Phone Care Team Providers Care Owner/Photographer Name Role Phone Sherri Gil Primary Care Provider [phone] Allergies No known active allergies Medications Ferrous Sulfate (IRON) 325 (65 Fe) MG Tablet Take 1 Tab by mouth daily. Active Calcium-Magnesi um-Vitamin D (CALCIUM 1200+D3 PO) Take 1 Tab by mouth daily. Active cilostazol (PLETAL) 100 MG Tablet TAKE 1 TABLET BY MOUTH TWICE DAILY 180 Tablet 1 05/24/20 23 Active atorvastatin (LIPITOR) 20 MG Tablet TAKE 1 TABLET BY MOUTH DAILY 90 Tablet 1 11/04/19 25 Active Additional Information Patient taking differently:20 mg Oral DAILY,Hold medication while taking Diflucan., Reported on 03/24/2025 metoprolol Succinate (TOPROL-XL) 50 MG TABLET SR 24 HR Take 1 Tablet by mouth daily. 90 Tablet 1 01/04/20 25 Active folic acid (FOLVITE) 1 MG Tablet Take 1 mg by mouth. 12/15/19 24 Active multi-vitamins (Quintabs) Tablet Take 1 Tablet by mouth daily. 12/17/19 25 026 Active magnesium oxide (MAG-OX) 400 MG Tablet Take 500 mg by mouth daily. Active lidocaine-prilo rory 2.5-2.5 % Cream APPLY TO RIGHT CHEST PORT SITE ONCE FOR 1 DOSE 10/28/19 25 Active Cholecalciferol (Vitamin D3) 25 mcg Capsule Take 1,000 Units by mouth. Active Acetaminophen 500 MG Capsule Take 1,000 mg by mouth. 12/16/19 25 Active Aspirin 81 MG Capsule Take 1 Tablet by mouth daily. 02/08/20 25 Active Sennosides-Docu sate Sodium (senna-docusate sodium) 8.6-50 MG Tablet Take 2 Tablets by mouth 2 times daily as needed for Other (constipation). 02/19/20 25 Active Umeclidinium [place] (Incruse Ellipta) 62.5 MCG/ACT AEROSOL POWDER, BREATH ACTIVATED take 1 Puff by inhalation daily. 1 Each 6 03/04/20 25 Active oxyCODONE (ROXICODONE) 5 MG TabletIndicatio ns:Pressure injury of skin, unspecified injury stage, unspecified location Take 1 Tablet by mouth every 6 hours as needed for Severe pain. 45 Tablet 03/17/20 25 Active gabapentin (NEURONTIN) 400 MG CapsuleIndicati ons:Neuropathic Pain Take 1 Capsule by mouth 2 times daily. Indications: Neuropathic Pain 120 Capsule 1 03/14/20 25 Active fluconazole (DIFLUCAN) 150 MG Tablet Take 1 Tablet by mouth daily. X 3 days, 3 Tablet 03/14/20 25 Active nystatin (MYCOSTATIN) 494926 UNIT/GM Cream Apply 3 times daily. Application Site: apply to gluteal and inner thighs and perineum area. 30 g 1 03/14/20 25 Active levoFLOXacin (LEVAQUIN) 750 MG Tablet Take 1 Tablet by mouth every 48 hours for 14 days. 7 Tablet 03/17/20 25 025 Active gabapentin (NEURONTIN) 400 MG CapsuleIndicati ons:Neuropathic Pain Take 400 mg by mouth 2 times daily. Indications: Neuropathic Pain 01/23/20 25 025 Discontinu ed(Reorder ) oxyCODONE (ROXICODONE) 5 MG TabletIndicatio ns:Pressure injury of skin, unspecified injury stage, unspecified location Take 1 Tablet by mouth every 6 hours as needed for Severe pain. 45 Tablet 02/29/20 25 025 Discontinu ed(Reorder ) tiotropium (SPIRIVA) 18 MCG Capsule take 1 Puff by inhalation daily. 90 Capsule 3 02/29/20 25 025 Discontinu ed(Formula ry change) amoxicillin (AMOXIL) 500 MG CapsuleIndicati ons:Urinary Tract Infection Take 1 Capsule by mouth 2 times daily for 7 days. Indications: Urinary Tract Infection 14 Capsule 03/16/20 25 025 Misc. Devices Misc Supply and instructions: 1 Each 03/24/20 25 025 Discontinu ed(Med List Clean Up) Active Problems Problem Noted Date Diagnosed Date Abnormal chest CT 06/30/2023 Pulmonary emphysema 06/30/2023 Abnormal CXR 06/15/2023 Atelectasis 06/15/2023 Tobacco abuse 04/04/2023 URI, acute 04/04/2023 Colostomy infection 01/09/2023 Paroxysmal atrial fibrillation 10/14/2022 Acute cystitis 07/10/2022 Lesion of ala of nose 03/04/2017 Iron deficiency 07/10/2016 MGUS (monoclonal gammopathy of unknown significa nce) 06/27/2016 Acute deep vein thrombosis ( DVT) of femoral vein of left lower extremity 04/12/2016 Dyslipidemia 02/06/2016 Chronic renal impairment, stage 3 (moderate) 09/2016 Tobacco use 02/06/2016 Anemia due to vitamin B12 deficiency 02/06/2016 Anemia, unspecified anemia type 12/11/2015 DVT (deep venous thrombosis) 10/27/2014 Breast CA 10/27/2009 History of cervical cancer 02/06/1996 PVD (peripheral vascular disease) Osteoporosis Anemia Breast cancer Kidney disease Hyperlipidemia Cervical cancer Ureteral stent present A-fib CKD (chronic kidney disease) HTN (hypertension) PVD (peripheral vascular disease) DM type 2 (diabetes mellitus, type 2) Tobacco abuse Ureteral stent present Resolved Problems Problem Noted Date Diagnosed Date Resolved Date Sepsis with acute organ dysf unction and septic shock, due to unspecified organism, unspecified organ dysfunction type 02/08/202502/11 Hyperthyroidism 02/06/2016 Encounters Date Type Department Care Team Description 03/29/2025 11:30 AM CDT Home Care Visit [facility] [address] [place] [address] Britt Cortes, CLEAN ROOM ASSEMBLER PT - MAINTENANCE VISIT 03/29/2025 11:00 AM CDT Home Care Visit [address] [address] Kristyn Washington, BRIANNA SN - WOUND VISIT 03/29/2025 Telephone [facility] [address] [place] [phone] Sherri Gil, DO Advice Only 03/24/2025 2:20 PM CDT Telemedicine [facility] [address] [place] [address] Sherri Gil, DO S/P AKA (above knee amputation), left (HCC) (Primary Dx); PVD (peripheral vascular disease) (HCC); Wounds, multiple 03/23/2025 3:00 PM CDT Home Care Visit [address] [address] Kristyn Washington RN SN - OASIS RECERTIFICATION 03/23/2025 Plan of Care Documentation [address] [address] 03/23/2025 Travel 03/18/2025 Home Care Visit [address] [address] Rufina Nguyen LPN CASE COMMUNICATION 03/17/2025 Telephone [facility] [address] [place] [address] Tien Sotomayor MD 03/16/2025 2:00 PM CDT Home Care Visit [address] [address] Bette Abel RN SN - WOUND VISIT 03/16/2025 12:00 PM CDT Home Care Visit [address] [address] Britt Cortes PTA PT - MAINTENANCE VISIT 03/16/2025 Results Follow-Up [facility] [address] [place] [phone] Sandra Steiner, DRAPERY WORKER, WELLNESS SPECIALIST URINALYSIS REFLEX IF INDICATED BY ABNORMAL RESULTS 03/16/2025 Lab Requisition [facility] Services [address] [place] [phone] Sherri Gil, DO Pyonephrosis; Infection and inflammatory reaction due to nephrostomy catheter, subsequent encounter; Hypertensive chronic kidney disease with stage 1 through stage 4 chronic kidney disease, or unspecified chronic kidney disease 03/15/2025 11:30 AM CDT Home Care Visit [facility] [address] [place] [address] Jacqueline Yoon, PT PT - REASSESSMENT 03/15/2025 Telephone [facility] [address] [place] [phone] Sherri Gil, DO Blood in Urine 03/14/2025 [facility] [place] [phone] Tien Sotomayor MD 03/14/2025 [facility] [place] [address] Tien Sotomayor MD 03/14/2025 Telephone [facility] [address] [place] [phone] Sherri Gil, DO Medication Refill 03/14/2025 [facility] [place] [address] Sherri Gil, DO Medication Refill 03/13/2025 Travel 03/11/2025 12:00 PM CDT Home Care Visit [facility] [address] [place] [address] Kristyn Washington, RN SN - WOUND VISIT 03/11/2025 Lab Requisition [facility] Services [address] [place] [phone] Patrick Rubi MD Sepsis, unspecified organism (HCC) 03/10/2025 12:30 PM CDT Home Care Visit [address] [address] Savannah Melendez OT OT - DISCIPLINE DISCHARGE 03/09/2025 12:00 PM CDT Home Care Visit [address] [address] Cassie Qureshi OTA OT - HOME VISIT 03/09/2025 9:00 AM CDT Home Care Visit [address] [address] Jacqueline Yoon PT PT - INITIAL EVALUATION 03/09/2025 Travel 03/08/2025 2:00 PM CDT Home Care Visit [address] [address] Kristyn Washington RN SN - WOUND VISIT 03/08/[address] [address] Zenaida Gallagher RN Lab orders 03/07/2025 1:00 PM CDT Home Care Visit [address] [address] Britt Cortes PTA PT - HOME VISIT 03/04/2025 4:00 PM CDT Home Care Visit [address] [address] Kristyn Washington RN SN - WOUND VISIT 03/04/2025 8:30 AM CDT Home Care Visit [address] [address] Serene Carty OTA OT - HOME VISIT 03/04/2025 Travel 03/03/2025 10:00 AM CDT Home Care Visit [address] [address] Britt Cortes PTA PT - HOME VISIT 03/03/[address] [address] Isabella Bach, RN Appointment 03/02/2025 9:30 AM CDT Home Care Visit [address] [address] Serene Carty OTA OT - HOME VISIT 03/02/2025 Telephone [facility] [address] [place] [phone] Sherri Gil, Prior Authorization 03/02/2025 Telephone [facility] [address] [place] [address] Sherri Gil, Care Management 03/01/2025 10:30 AM CDT Home Care Visit [address] [address] Britt Cortes PTA PT - HOME VISIT Discharge Disposition: Discharged to home or Selfcare 03/01/[address] [facility] [address] [place] [address] Latanya Head, [facility] Care Management (Enrollment) 02/28/2025 12:00 PM CDT Home Care Visit [address] [address] Kristyn Washington RN SN - WOUND VISIT Discharge Disposition: Discharged to home or Selfcare 02/28/2025 10:20 AM CDT Clinical Support [facility] Oncology Services [address] [place] [address] Sherri Gil, Iron deficiency anemia due to chronic blood loss (Primary Dx) Discharge Disposition: Discharged to home or Selfcare 02/28/2025 8:00 AM CDT Office Visit [facility] [address] [place] [address] Sherri Gil DO Pressure injury of skin, unspecified injury stage, unspecified location (Primary Dx); Colostomy care ([facility]); Presence of urostomy ([facility]); Chronic renal impairment, stage 3 (moderate), unspecified whether stage 3a or 3b CKD ([facility]); Kidney disease; Chronic kidney disease, unspecified CKD stage; Ureteral stent present; Chronic obstructive pulmonary disease, unspecified COPD type ([facility]) Discharge Disposition: Discharged to home or Selfcare 02/28/2025 Results Follow-Up [facility] [address] [place] [address] Sherri Gil DO CMP (COMPREHENSIVE METABOLIC PANEL), MAGNESIUM (MG), PARATHYROID HORMONE PTH INTACT, Additional followed-up results: 3 02/28/2025 Travel 02/26/2025 Travel 02/25/2025 12:00 PM CDT Home Care Visit [address] [address] Kristyn Washington RN SN - WOUND VISIT 02/25/2025 9:30 AM CDT Home Care Visit [address] [address] Britt Cortes, CLEAN ROOM ASSEMBLER PT - HOME VISIT 02/25/2025 Telephone [facility] [address] [place] [address] Sherri Gil DO 02/23/2025 11:30 AM CDT Home Care Visit [address] [address] Britt Cortes, CLEAN ROOM ASSEMBLER PT - HOME VISIT 02/23/2025 11:00 AM CDT Home Care Visit [address] [address] Kristyn Washington RN SN - WOUND VISIT 02/23/2025 Telephone [facility] [address] [place] [address] Sherri Gil DO 02/22/2025 3:30 PM CDT Home Care Visit [address] [address] Serene Carty OTA OT - HOME VISIT 02/18/2025 11:00 AM CDT Home Care Visit [address] [address] Kristyn Washington, RN SN - WOUND VISIT 02/18/2025 Telephone [facility] [address] [place] [address] Sherri Gil DO Fatigue; Wheezing; Nausea; Vomiting 02/17/2025 11:00 AM CDT Home Care Visit [address] [address] Guillermina Bardales, Student PT - INITIAL EVALUATION 02/17/2025 9:30 AM CDT Home Care Visit [address] [address] Savannah Melendez OT OT - INITIAL EVALUATION 02/15/2025 3:00 PM CDT Home Care Visit [address] [address] Kristyn Washington, RN SN - OASIS RESUMPTION OF CARE Discharge Disposition: Discharged to home or Selfcare 02/15/2025 10:00 AM CDT Office Visit [facility] [address] [place] [address] Chandra Bella MD Anemia due to stage 4 chronic kidney disease (HCC) (Primary Dx); Paroxysmal atrial fibrillation (HCC); Aspiration pneumonia of left lower lobe, unspecified aspiration pneumonia type (HCC) Discharge Disposition: Discharged to home or Selfcare 02/15/2025 Plan of Care Documentation [address] [address] 02/15/2025 Travel 02/09/2025 Home Care Visit [address] [address] Kristyn Capellan, RN SN - OASIS TRANSFER W/OUT DC 02/09/[address] [address] Sherri Gil, DO Pressure Relief Mattress 02/08/2025 9:23 AM CDT - 02/11/2025 1:30 PM CDT Hospital Encounter [facility] Medical/Surgical Intensive Care [address] [place] [address] Toro Kat MD Dianati, Behfar, MD Patel, Satyen V, MD Sepsis with acute organ dysfunction and septic shock, due to unspecified organism, unspecified organ dysfunction type (HCC) Discharge Disposition: Home Health Care Svc 02/08/2025 Travel 02/08/2025 Results Follow-Up [facility] Medical [facility] - Family [facility] [address] [place] [address] Addie Beeeb APRN, WELLNESS SPECIALIST URINALYSIS REFLEX IF INDICATED BY ABNORMAL RESULTS 02/07/2025 2:00 PM CDT Home Care Visit [address] [address] Kristyn Washington RN SN - WOUND VISIT 02/07/2025 12:30 PM CDT Home Care Visit [address] [address] Cassie Qureshi OTA OT - HOME VISIT 02/07/2025 Lab Requisition [facility] Services [address] [place] [address] Sherri Gil, DO Gross hematuria 02/07/2025 Nurse Triage [facility] [address] [place] [phone] Sherri Gil, DO Advice Only; Blood in Urine 02/05/[address] [address] Sandee Hayes, clinical informatics manager Management 02/04/2025 1:00 PM CDT Home Care Visit [address] [address] Cassie Qureshi OTA OT - HOME VISIT 02/04/2025 10:30 AM CDT Home Care Visit [address] [address] Britt Cortes CLEAN ROOM ASSEMBLER PT - HOME VISIT 02/04/2025 Travel 02/03/2025 2:00 PM CDT Home Care Visit [address] [address] Kristyn Washington RN SN - WOUND VISIT 02/03/[address] [address] Jacqueline Yoon, PT Need Order; Advice Only 02/01/2025 2:00 PM CDT Home Care Visit [address] [address] Britt Cortes CLEAN ROOM ASSEMBLER PT - HOME VISIT 02/01/2025 11:00 AM CDT Home Care Visit [address] [address] Clarice Yancey, PROFESSOR OF MANAGEMENT PROFESSOR OF MANAGEMENT - INITIAL EVALUATION 02/01/2025 Telephone [facility] [address] [place] [phone] Sherri Gil, DO Advice Only 02/01/2025 Home Care Visit [address] [address] Laila Byrd RN SN - DISCHARGE SUMMARY 02/01/2025 Home Care Visit [address] [address] Kristyn Washington RN CARE CONFERENCE 01/31/2025 4:00 PM CDT Office Visit [facility] Medical Group [facility] [facility] [address] Sandra Steiner, DRAPERY WORKER, WELLNESS SPECIALIST General weakness (Primary Dx); Wounds, multiple; Anemia due to stage 4 chronic kidney disease (HCC); Amputation above knee (HCC); Paroxysmal atrial fibrillation (HCC) Discharge Disposition: Discharged to home or Selfcare 01/31/2025 1:30 PM CDT Home Care Visit [address] [address] Cassie Qureshi OTA OT - HOME VISIT 01/31/2025 12:00 PM CDT Home Care Visit [address] [address] Kristyn Washington RN SN - WOUND VISIT Discharge Disposition: Discharged to home or Selfcare 01/31/[address] [address] Danuta Guardado RN Supplies 01/31/2025 Travel 01/31/2025 Home Care Visit [address] [address] Bette Richards OT OT - DISCHARGE SUMMARY 01/28/2025 Home Care Visit [address] [address] Padmini Willis, PT PT - DISCHARGE SUMMARY 01/27/2025 4:30 PM CDT Home Care Visit [address] [address] Jacqueline Yoon, PT PT - INITIAL EVALUATION 01/27/2025 1:30 PM CDT Home Care Visit [address] [address] Bette Richards OT OT - INITIAL EVALUATION 01/27/2025 Plan of Care Documentation [address] [address] 01/26/2025 12:00 PM CDT Home Care Visit [address] [address] Kristyn Washington RN SN - OASIS START OF CARE 01/06/2025 Home Care Visit [address] [address] Rachna Cortez RN SN - OASIS TRANSFER W/OUT DC 01/03/2025 [facility] [place] [address] Sherri Gil, Medication Refill 12/30/2024 [facility] [place] [address] Kristyn Parker, PAC Medication Refill 12/28/2024 3:15 PM FLIGHT READINESS TECHNICIAN Home Care Visit [address] [address] Bette Richards OT OT - HOME VISIT 12/28/2024 1:00 AM FLIGHT READINESS TECHNICIAN Home Care Visit [address] [address] Fátima Robert RN SN - HOME VISIT 12/28/2024 [facility] [address] [place] [phone] Sherri Gil, Appointment from Last 3 Months Immunizations Immunization Administration Dates Next Due Covid-19, Mrna, Lnp-s, PF, 1 00 mcg/0.5 mL Dose (Moderna) 01/25/2021 Covid-19, Mrna, Lnp-s, Pf, 3 0 Mcg/0.3 Ml Dose (Pfizer) 02/22/2021,01/25/2021 Influenza Vaccine greater than 3 yrs 08/14/2016, 08/09/2015,10/27/2012 Influenza Vaccine, Quadrivalent, PF 09/27,08/30/2020,08/27/2019,2017,08/04/2017 Influenza Vaccine,unspecifie d Formulation 07/27/2023 Influenza, High-dose, Quadrivalent 08/14/2022 Influenza, Quadrivalent, Adjuvanted 08/29/2023 Influenza, Seasonal, Injecta ble, Undefined 10/27/2012 Influenza, high-dose, trivalent, PF 10/17/2024,1 ,08/09/2015 PUR FLU HIGH DOSE (FLUZONE) 08/14/2016 PUR PCV-13 02/06/2016 Pneumococcal PCV, Unspecifie d Formulation 10/27/2010 Pneumococcal Vaccine - 13 Valent 02/06/2016 Pneumococcal Vaccine Adult - 23 Valent 10/27/2010 RSV, Bivalent, Protein Subun it Rsvpref, Diluent Reconstit (Abrysvo) 10/17/2024 TDAP Vaccine 04/14/2023 Family History Medical History Relation Name Comments No Known Problems Brother Lung Cancer Father Liver Cancer Mother Cancer Sister throat cancer Lung Cancer Sister Relation Name Status Comments Brother Alive Father Mother Sister Social History Tobacco Use Types Packs/Day Years Used Date Smoking Tobacco: Every Day Cigarettes 0.3 40 Smokeless Tobacco: Never Tobacco Cessation:Ready to Q uit: Not Asked; Counseling Given: Not Answered Comments:Down to 6 cigarettes a day Alcohol Use Standard Drinks/Week Comments Yes 1 (1 standard drink = 0.6 oz pur e alcohol) very little [employer] Answer Date Recorded In the past 12 months has [employer], gas, oil, or water [employer] threatened to shut off services in your home? No 02/08/2025 Social Connection and Isolation Panel [NHANES] A nswer Date Recorded In a typical week, how many times do you talk on the phone with family, friends, or neighbors? Twice a week 02/08/2025 How often do you get together with friends or re latives? Once a week 02/08/2025 How often do you attend samaritan or latter-day serv ices? Never 02/08/2025 Do you belong to any clubs o r organizations such as samaritan groups, unions, fraternal or athletic groups, or [...] Total Score - Questions 1-9 0 01/26 [facility] - Occupational Stress Questionnaire Answer Date Recorded [...] any time in the past 12 [facility], were you homeless or living in a senior living (including now)? No 02/08/2025 Education Answer Date [...] Not on file Not on f ile Last Filed Vital Signs Vital Sign Reading Time Taken Comments Blood Pressure 98/50 03/29/2025 12:10 PM CDT Pulse 80 03/29/2025 12:10 PM CDT Temperature 36.2 C (97.2 F) 03/29/2025 12:10 PM CDT Respiratory Rate 16 03/29/2025 12:10 PM CDT Oxygen Saturation 93% 03/29/2025 12:10 PM CDT Inhaled Oxygen Concentration - - Weight 50.8 kg (112 lb) 03/04/2025 11:07 AM CDT Height 154.9 cm (5' 1) 03/04/2025 11:07 AM CDT Body Mass Index 21.16 03/04/2025 11:07 AM CDT Plan of Treatment Upcoming Encounters Date Type Department Care Team (Late st Contact Info) Description 04/01/2025 1:00 AM CDT Home Care Visit [address] [address] Kristyn Washington RN [place] 04/05/2025 1:00 AM CDT Home Care Visit [address] [address] Kristyn Washington RN [place] 04/05/2025 2:00 AM CDT Home Care Visit [address] [address] Britt Cortes PTA 04/08/2025 1:00 AM CDT Home Care Visit [address] [address] Kristyn Washington RN [place] 04/12/2025 1:00 AM CDT Home Care Visit [address] [address] Kristyn Washington RN [place] 04/12/2025 8:00 AM CDT Home Care Visit [address] [address] Jacqueline Yoon, PT [place] 04/15/2025 1:00 AM CDT Home Care Visit [address] [address] Kristyn Washington RN [place] 04/19/2025 1:00 AM CDT Home Care Visit [address] [address] Britt Cortes, CLEAN ROOM ASSEMBLER 04/20/2025 1:00 AM CDT Home Care Visit [address] [address] Kristyn Washington RN [place] 04/25/2025 1:00 AM CDT Home Care Visit [address] [address] Jacqueline Yoon, PT [place] 04/27/2025 1:00 AM CDT Home Care Visit [address] [address] Kristyn Washington RN [place] 05/04/2025 1:00 AM CDT Home Care Visit [address] [address] Kristyn Washington RN [place] 05/11/2025 1:00 AM CDT Home Care Visit [address] [address] Kristyn Washington, RN [place] 05/12/2025 1:00 PM CDT Office Visit [facility] Medical Group - Family Medicine [facility] [address] [place] [address] Sherri Gil, DO 2 [facility] [address] [address] 05/18/2025 1:00 AM CDT [facility] Visit [facility] [address] [place] [address] Kristyn Washington RN [place] 05/24/2025 1:00 AM CDT Appointment [facility] [address] [place] [address] Kristyn Washington RN [place] Health Maintenance Due Date Last Done Comments Diabetes: Hemoglobin A1c 08/10/2025 025, 12/14/2024, 07/08/2024 SARS-COV-2 Immunization () 09/06/2025 08/14/2022, 02/22/2021, 01/25/2021, Additional history exists Postponed from 06/27/2024 (Lower Priority for Now) Mammogram Unilateral 12/27/2025 12/27/2024, 12/22/2023, 12/22/2023, Additional history exists DEXA Bone Density 02/28/2026 10/04/2020 Postponed from 10/04/2022 (Lower Priority for Now) Diabetes: Eye Exam 02/28/2026 Postponed from 1944 (Lower Priority for Now) Diabetes: Foot Exam 02/28/2026 02/28/2025 Diabetes: Nephropathy Screening 02/28/2026 02/28/2025, 02/08/2025, 07/08/2024, Additional history exists Td Immunization Every 10 Years (Adults With 1 Tdap) 04/14/2033 04/14/2023 Pneumococcal Immunization (50+ years) Completed 02/06/2016, 02/06/2016, 10/27/2010, Additional history exists Pneumococcal Immunization Combined Discontinued 02/06/2016, 02/06/2016, 10/27/2010, Additional history exists Immunochemical Fecal Occult Blood Discontinued 10/13/2017 Colonoscopy High Risk Discontinued 12/29/2017 Colonoscopy Discontinued 12/29/2017 Colorectal Cancer Screening Discontinued Hepatitis C Virus (HCV) Screening Completed 05/01/2021, 04/05/2017 Lung Cancer Screening Discontinued 06/25/2023 Influenza Immunization Completed , 08/29/2023, 07/27/2023, Additional history exists Respiratory Syncytial Virus (RSV) Immunization (Adult) Completed 10/17/2024 Discussion re Stopping Mammograms Completed 02/28/2025 Cologuard Discontinued Hepatitis B Immunization Discontinued Human Papillomavirus (HPV) Immunization Aged Out No longer eligible based on patient's age to complete this topic Meningococcal Immunization (ACWY) Aged Out No longer eligible based on patient's age to complete this topic Rotavirus Immunization Aged Out No lo nger eligible based on patient's age to complete this topic Zoster Immunization Discontinued Goals Goal Patient Goal Type Associated Problems [...] MEDICATION PATTERN CONCERN No Sherri Gil, DO Procedures Procedure Name Priority Date/Time Associated Diagnosis Comments URINALYSIS REFLEX IF INDICATED BY ABNORMAL RESULTS Routine 03/16/2025 1:00 PM CDT Pyonephrosis Infection and inflammatory reaction due to nephrostomy catheter, subsequent encounter Hypertensive chronic kidney disease with stage 1 through stage 4 chronic kidney disease, or unspecified chronic kidney disease CULTURE, URINE Routine 03/16/2025 1:00 PM CDT Pyonephrosis Infection and inflammatory reaction due to nephrostomy catheter, subsequent encounter Hypertensive chronic kidney disease with stage 1 through stage 4 chronic kidney disease, or unspecified chronic kidney disease NEPHROLOGY CONSULT 03/15/2025 12:00 AM CDT CULTURE, AEROBIC ONLY Routine 03/14/2025 4:14 PM CDT Pressure injury of skin, unspecified injury stage, unspecified location CBC WITH AUTO DIFFERENTIAL Routine 03/11/2025 3:25 PM CDT Sepsis, unspecified organism (HCC) UR PROTEIN/CREATININE RATIO Routine 03/11/2025 3:25 PM CDT Sepsis, unspecified organism (HCC) COMPLETE BLOOD COUNT (CBC) WITH DIFF Routine 03/11/2025 3:25 PM CDT Sepsis, unspecified organism (HCC) PARATHYROID HORMONE PTH INTACT Routine 03/11/2025 3:25 PM CDT Sepsis, unspecified organism (HCC) IRON,TRANSFERN,CALC .TIBC,%SAT Routine 03/11/2025 3:25 PM CDT Sepsis, unspecified organism (HCC) RENAL FUNCTION PANEL (RFP) Routine 03/11/2025 3:25 PM CDT Sepsis, unspecified organism (HCC) CBC WITH AUTO DIFFERENTIAL Routine 02/28/2025 9:37 AM CDT Pressure injury of skin, unspecified injury stage, unspecified location 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) PHOSPHORUS (PO4) Routine 02/28/2025 9:37 AM CDT Pressure injury of skin, unspecified injury stage, unspecified location 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) Chronic renal impairment, stage 3 (moderate), unspecified whether stage 3a or 3b CKD (HCC) Kidney disease Chronic kidney disease, unspecified CKD stage Ureteral stent present IRON,TRANSFERN,CALC .TIBC,%SAT Routine 02/28/2025 9:37 AM CDT Pressure injury of skin, unspecified injury stage, unspecified location 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) Chronic renal impairment, stage 3 (moderate), unspecified whether stage 3a or 3b CKD (HCC) Kidney disease Chronic kidney disease, unspecified CKD stage Ureteral stent present PARATHYROID HORMONE PTH INTACT Routine 02/28/2025 9:37 AM CDT Pressure injury of skin, unspecified injury stage, unspecified location 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) Chronic renal impairment, stage 3 (moderate), unspecified whether stage 3a or 3b CKD (HCC) Kidney disease Chronic kidney disease, unspecified CKD stage Ureteral stent present MAGNESIUM (MG) Routine 02/28/2025 9:37 AM CDT Pressure injury of skin, unspecified injury stage, unspecified location 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) CMP (COMPREHENSIVE METABOLIC PANEL) Routine 02/28/2025 9:37 AM CDT Pressure injury of skin, unspecified injury stage, unspecified location 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) COMPLETE BLOOD COUNT (CBC) WITH DIFF Routine 02/28/2025 9:37 AM CDT Pressure injury of skin, unspecified injury stage, unspecified location 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) CBC WITH AUTO DIFFERENTIAL Routine 02/11/2025 4:40 AM CDT COMPLETE BLOOD COUNT (CBC) WITH DIFF Routine 02/11/2025 4:40 AM CDT BASIC METABOLIC PANEL W/ CALCIUM TOTAL Routine 02/11/2025 4:40 AM CDT RHYTHM STRIP 02/11/2025 12:00 AM CDT RHYTHM STRIP 02/11/2025 12:00 AM CDT HEMOGLOBIN & HEMATOCRIT (H&H) Routine 02/10/2025 3:04 PM CDT TRANSFUSE RED BLOOD CELLS Routine 02/10/2025 9:40 AM CDT PREPARE RED BLOOD CELLS Routine 02/10/2025 8:26 AM CDT POCT GLUCOSE Routine 02/10/2025 7:47 AM CDT TYPE & SCREEN (CROSSMATCH CONVERTIBLE) Routine 02/10/2025 7:15 AM CDT CROSSMATCH W/ ABO & RH, ANTIBODY SCREEN Routine 02/10/2025 7:15 AM CDT CBC WITH AUTO DIFFERENTIAL Routine 02/10/2025 5:00 AM CDT COMPLETE BLOOD COUNT (CBC) WITH DIFF Routine 02/10/2025 5:00 AM CDT BASIC METABOLIC PANEL W/ CALCIUM TOTAL Routine 02/10/2025 5:00 AM CDT RHYTHM STRIP 02/10/2025 12:00 AM CDT RHYTHM STRIP 02/10/2025 12:00 AM CDT POCT GLUCOSE Routine 02/09/2025 9:08 PM CDT URINALYSIS REFLEX IF INDICATED BY ABNORMAL RESULTS Routine 02/09/2025 5:54 PM CDT CULTURE, URINE Routine 02/09/2025 5:54 PM CDT POCT GLUCOSE Routine 02/09/2025 5:16 PM CDT POCT GLUCOSE Routine 02/09/2025 12:29 PM CDT POCT GLUCOSE Routine 02/09/2025 8:19 AM CDT CBC WITH AUTO DIFFERENTIAL Routine 02/09/2025 3:55 AM CDT COMPLETE BLOOD COUNT (CBC) WITH DIFF Routine 02/09/2025 3:55 AM CDT BASIC METABOLIC PANEL W/ CALCIUM TOTAL Routine 02/09/2025 3:55 AM CDT RHYTHM STRIP 02/09/2025 12:00 AM CDT RHYTHM STRIP 02/09/2025 12:00 AM CDT RHYTHM STRIP 02/09/2025 12:00 AM CDT BLOOD GASES, ARTERIAL W/ O2 SATURATION Routine 02/08/2025 9:47 PM CDT POCT GLUCOSE Routine 02/08/2025 9:01 PM CDT POCT GLUCOSE Routine 02/08/2025 5:36 PM CDT STREPTOCOCCUS PNEUMONIAE ANTIGEN, URINE Routine 02/08/2025 3:40 PM CDT UR LEGIONELLA ANTIGEN Routine 02/08/2025 3:40 PM CDT AEROSOL NEBULIZER-INITIAL Routine 02/08/2025 3:05 PM CDT LACTIC ACID (LACTATE) STAT 02/08/2025 2:45 PM CDT POCT GLUCOSE Routine 02/08/2025 2:[address] ABDOMEN PELVIS W/O CONTRAST Stat with Interpretation 02/08/2025 10:37 AM CDT XR CHEST SINGLE VIEW PORTABLE STAT 02/08/2025 10:20 AM CDT RSV,SARS-COV-2,INFL UENZA A&B BY PCR STAT 02/08/2025 9:44 AM CDT GOLD TOP TUBE STAT 02/08/2025 9:41 AM CDT BLUE TOP TUBE STAT 02/08/2025 9:41 AM CDT EXTRA TUBES STAT 02/08/2025 9:41 AM CDT CULTURE, BLOOD STAT 02/08/2025 9:41 AM CDT CBC WITH AUTO DIFFERENTIAL STAT 02/08/2025 9:35 AM CDT CORTISOL Routine 02/08/2025 9:35 AM CDT THYROID STIMULATING HORMONE (TSH) Routine 02/08/2025 9:35 AM CDT PROCALCITONIN Routine 02/08/2025 9:35 AM CDT HEMOGLOBIN A1C W/ ESTIMATED GLUCOSE Routine 02/08/2025 9:35 AM CDT LACTIC ACID (LACTATE) STAT 02/08/2025 9:35 AM CDT CMP (COMPREHENSIVE METABOLIC PANEL) STAT 02/08/2025 9:35 AM CDT COMPLETE BLOOD COUNT (CBC) WITH DIFF STAT 02/08/2025 9:35 AM CDT CULTURE, BLOOD STAT 02/08/2025 9:35 AM CDT CRITICAL CARE Routine 02/08/2025 9:34 AM CDT EKG 12 LEAD STAT 02/08/2025 9:23 AM CDT RHYTHM STRIP 02/08/2025 12:00 AM CDT EKG SCAN 02/08/2025 12:00 AM CDT URINALYSIS REFLEX IF INDICATED BY ABNORMAL RESULTS Routine 02/07/2025 5:10 PM CDT Gross hematuria CULTURE, URINE Routine 02/07/2025 5:10 PM CDT Gross hematuria MAMMOGRAM UNILATERAL GENERIC 12/22/2023 12:00 AM [employer] CT CHEST W/O CONTRAST Routine 06/25/2023 9:00 AM CDT Dyspnea, unspecified type Abnormal CXR Atelectasis HEPATITIS C ANTIBODY Routine 05/01/2021 11:09 AM CDT Psoriasis vulgaris RACHEL BONE DENSITOMETRY AXIAL SKELETON Routine 10/04/2020 8:40 AM [employer] TECHNICIAN Menopause STOOL, OCCULT BLOOD IMMUNOASSAY (IFOB) Routine 10/13/2017 10:31 AM [employer] READINESS TECHNICIAN Screen for colon cancer from Last 3 Months or Most Recently Relevant to Health Maintenance Results * (ABNORMAL) URINALYSIS REFLEX IF INDICATED BY ABNORMAL RESULTS (03/16/2025 1:00 PM CDT) Only the most recent of3 resultswithin the time period is included. SPECIFIC GRAVITY 1.015 1.003 - 1.030 03/16/2025 3:14 PM CDT [facility] URINE PH 8.0 5.0 - 9.0 03/16/2025 3:14 PM CDT [facility] WBC ESTERASE 500 /uL(A) Negative 03/16/2025 3:14 PM CDT [facility] NITRITE Positive(A) Negative 03/16/2025 3:14 PM CDT [facility] PROTEIN, RANDOM URINE 100 mg/dL(A) Negative 03/16/2025 3:14 PM CDT [facility] URINE GLUCOSE, QUAL Negative Negative 03/16/2025 3:14 PM CDT [facility] URINE KETONES Negative Negative 03/16/2025 3:14 PM CDT [facility] UROBILINOGEN Normal Normal mg/dL 03/16/2025 3:14 PM CDT [facility] URINE BLOOD 250 /uL(A) Negative darvin/ul 03/16/2025 3:[address] [facility] URINALYSIS COLOR Yellow 03/16/20 3:14 PM CDT [facility] URINALYSIS CLARITY Very Cloudy 03/16/2025 3:[address] [facility] WBC (Urine) Packed(A) Negative, 0-5 /hpf 03/16/2025 3:[address] [facility] URINE RBC'S 11-20(A) Negative, 0-2 /hpf 03/16/2025 3:14 PM CDT [facility] EPITHELIAL CELLS Small amount /lpf 2024 3:14 PM CDT [facility] BACTERIA, URINE Moderate(A) Negative /hpf 03/16/2025 3:14 PM CDT [facility] CRYSTALS Triple phosphate 03/16/2025 3:[address] [facility] Urine URINE SPECIMEN / Unknown Non-Phlebotomy Collection / Unknown 03/16/2025 1:00 PM CDT 03/16/2025 2:[address] [facility] - 03/16/2025 3:14 PM CDT Amorphous sediment present Moderate renal epithelial cells present us Sherri L Louise DO URINE ORDERABLES Final Result Performing Organization Address [facility] de Phone Number [facility] [place] [address] * CULTURE, URINE (03/16/2025 1:00 PM CDT) Only the most recent of3 resultswithin the time period is included. CULTURE RESULTS Mixed Growth or 3 or More Organisms, Probable Collection Contamination, Suggest Repeat 03/18/2025 6:01 PM CDT [facility] Urine URINE SPECIMEN / Unknown Non-Phlebotomy Collection / Unknown 03/16/2025 1:00 PM CDT 03/16/2025 2:30 PM CDT us Sherri L Louise DO MICROBIOLOGY - GENERAL ORDERA BLES Final Result Performing Organization Address [facility] Co de Phone Number [facility] [address] [place] [address], [place] * NEPHROLOGY CONSULT (03/15/2025 12:00 AM CDT) 03/15/2025 us Provider Scan GENERIC SCAN ORDERS CONSULT Mary Alice l Result Performing Organization Address [facility] de Phone Number SCAN * CULTURE, AEROBIC ONLY (03/14/2025 4:14 PM CDT) CULTURE RESULTS PSEUDOMONAS AERUGINOSA 03/16/2025 5:17 PM CDT [facility] CULTURE RESULTS Heavy Mixed rubens 03/16/2025 5:17 PM CDT [facility] Culture (Superficial Wound) Non-Phlebotomy Collection / Unknown 03/14/2025 4:14 PM CDT 03/14/2025 4:33 PM CDT Narrative Organism Antibiotic Method Susceptibility Pseudomonas aeruginosa Cefepime [facility] IIB 4 mcg/ml: Susceptible Pseudomonas aeruginosa Levofloxacin [facility] IIB 0.5 mcg/ml: Susceptible Pseudomonas aeruginosa Meropenem [facility] IIB 1 mcg/ml: Susceptible Pseudomonas aeruginosa Piperacillin/Tazobactam [facility] IIB 16 mcg/ml: Susceptible Pseudomonas aeruginosa Tobramycin [facility] IIB <=1 mcg/ml: Susceptible Tien Sotomayor MD MICROBIOLOGY - GENERAL ORDERABLE S Final Result Performing Organization Address City/[facility]/ZIP Co de Phone Number [facility] [address] [place] [address], * (ABNORMAL) IRON,TRANSFERN,CALC.TIBC,%SAT (03/11/2025 3:25 PM CDT) Only the most recent of2 resultswithin the time period is included. IRON 16(L) 25 - 156 mcg/dL 03/11/2025 4:22 PM CDT [facility] TRANSFERRIN 62(L) 173 - 360 mg/dL 03/11/2025 4:[address] [facility] TIBC, CALCULATED 78(L) 265 - 497 mcg/dL 03/11/2025 4:[address] [facility] % SATURATION * 21 15 - 62 % 03/11/2025 4:[address] [facility] Blood No Phlebotomy Charged / Unknown 03/11/2025 3:25 PM CDT 03/11/2025 3:57 PM CDT us Patrick Rubi MD CHEMISTRY ORDERABLES Final Res ult Performing Organization Address City/[facility]/ZIP Co de Phone Number [facility] [place] [address] * (ABNORMAL) CBC WITH AUTO DIFFERENTIAL (03/11/2025 3:25 PM CDT) Only the most recent of6 resultswithin the time period is included. WBC 8.75 4.00 - 12.00 10(3)/mcL 03/11/2025 4:[address] [facility] RBC 2.58(L) 3.80 - 5.30 10(6)/mcL 03/11/2025 4:[address] [facility] HEMOGLOBIN (HGB) 7.7(L) 12.0 - 15.8 g/dL 03/11/2025 4:[address] [facility] HEMATOCRIT (HCT) 25.9(L) 36.0 - 47.0 % 03/11/2025 4:20 PM CDT [facility] MCV 100.4(H) 82.0 - 96.0 fL 03/11/2025 4:20 PM CDT [facility] MCH 29.8 26.0 - 34.0 pg 03/11/2025 4:[address] [facility] MCHC 29.7(L) 31.0 - 36.0 g/dL 03/11/2025 4:[address] [facility] PLATELET COUNT 354 140 - 440 10(3)/mcL 03/11/2025 4:[address] [facility] RDW 20.0(H) 11.8 - 15.5 % 03/11/2025 4:[address] [facility] MPV 8.8(L) 9.7 - 12.4 fL 03/11/2025 4:[address] [facility] NEUTROPHILS 66.2 47.0 - 73.0 % 03/11/2025 4:[address] [facility] LYMPHOCYTES 24.8 18.0 - 42.0 % 03/11/2025 4:[address] [facility] MONOCYTES 7.5 4.0 - 12.0 % 03/11/2025 4:[address] [facility] EOSINOPHILS 0.8 0.0 - 5.0 % 03/11/2025 4:[address] [facility] BASOPHILS 0.7 0.0 - 1.0 % 03/11/2025 4:[address] [facility] ABSOLUTE NEUTROPHILS 5.79 1.60 - 7.70 10(3)/mcL 03/11/2025 4:20 PM CDT [facility] ABSOLUTE LYMPHOCYTES 2.17 1.30 - 3.20 10(3)/mcL 03/11/2025 4:20 PM CDT [facility] ABSOLUTE MONOCYTES 0.66 0.20 - 1.00 10(3)/[facility] 03/11/2025 4:20 PM CDT [facility] ABSOLUTE EOSINOPHIL 0.07 0.00 - 0.40 10(3)/[facility] 03/11/2025 4:20 PM CDT [facility] ABSOLUTE BASOPHILS 0.06 0.00 - 0.10 10(3)/[facility] 03/11/2025 4:[address] [facility] NRBC PER 100 WBC 0 03/11/20 4:[address] [facility] RESULTS ARE CONSISTENT WITH PERIPHERAL SMEAR REVIEW Yes 03/11/2025 4:[address] [facility] RBC MORPHOLOGY CONSISTENT WITH INDICES Yes 03/11/2025 4:[address] [facility] Blood No Phlebotomy Charged / Unknown 03/11/2025 3:25 PM CDT 03/11/2025 3:[address] [facility] - 03/11/2025 4:20 PM CDT Anisocytosis, hypochromia us Patrick Rubi MD HEMATOLOGY ORDERABLES Final Re sult [facility] [place] [address] * (ABNORMAL) UR PROTEIN/CREATININE RATIO (03/11/2025 3:25 PM CDT) UR PROTEIN RAND, QT 109.9 mg/dL 03/11/2025 4:[address] [facility] Comment:No reference range h as been established. Consider Clinical Correlation. URINE CREATININE 43.8 mg/dL 03/11/2025 4:[address] [facility] Comment:No reference range h as been established. Consider Clinical Correlation. URINE PROTEIN/CREATIN INE RATIO 2.51(H) <0.25 03/11/2025 4:[address] [facility] Urine Non-Phlebotomy Collection / Unknown 03/11/2025 3:25 PM CDT 03/11/2025 3:57 PM CDT Patrick Rubi MD URINE ORDERABLES Final Result [facility] [place] [address] * (ABNORMAL) RENAL FUNCTION PANEL (RFP) (03/11/2025 3:25 PM CDT) SODIUM 143 136 - 145 mmol/L 03/11/2025 4:[address] [facility] POTASSIUM 3.5 3.5 - 5.1 mmol/L 03/11/2025 4:[address] [facility] CHLORIDE 104 98 - 107 mmol/L 03/11/2025 4:[address] [facility] CO2, VENOUS 25 22 - 30 mmol/L 03/11/2025 4:[address] [facility] ANION GAP 17.5 <18.0 mmol/L 03/11/2025 4:[address] [facility] GLUCOSE 87 70 - 99 mg/dL 03/11/2025 4:[address] [facility] BUN 21(H) 10 - 20 mg/dL 03/11/2025 4:[address] [facility] CREATININE, BLOOD 1.24(H) 0.60 - 1.00 mg/dL 03/11/2025 4:[address] [facility] BUN/CREATININE RATIO 17 12 - 20 ratio 03/11/2025 4:[address] [facility] ALBUMIN 1.8(L) 3.5 - 5.0 g/dL 03/11/2025 4:[address] [facility] CALCIUM 8.6(L) 8.7 - 10.5 mg/dL 03/11/2025 4:22 PM CDT [facility] PHOSPHORUS 3.1 2.5 - 4.5 mg/dL 03/11/2025 4:22 PM CDT [facility] GFR, ESTIMATED 44(L) >=60 03/11/2025 4:[address] [facility] Comment: Creatinine Clearance is the preferred criteria for selecting drug dose adjustments in renally impaired patients. The GFR is provided as additional pertinent clinical information. GFR is reported in mL/min/1.73 sq m. Calculation based on the Chronic Kidney Disease Epidemiology Collaboration (CKD- EPI) equation refit without adjustment for race. GFR, EST. 50(L) >=60 025 4:[address] [facility] GFR, EST. NONAFRICAN 42(L) >=60 03/11/2025 4:22 PM CDT [facility] Blood No Phlebotomy Charged / Unknown 03/11/2025 3:25 PM CDT 03/11/2025 3:57 PM CDT us Patrick Rubi MD CHEMISTRY ORDERABLES Final Res ult [facility] [place] [address] * PARATHYROID HORMONE PTH INTACT (03/11/2025 3:25 PM CDT) Only the most recent of2 resultswithin the time period is included. PTH INTACT 18 13 - 85 pg/mL 03/11/2025 4:[address] [facility] Blood No Phlebotomy Charged / Unknown 03/11/2025 3:25 PM CDT 03/11/2025 3:57 PM CDT us Patrick Rubi MD CHEMISTRY ORDERABLES Final Res ult Performing Organization Address City/[facility]/ZIP Co de Phone Number [facility] [place] [address] * PHOSPHORUS (PO4) (02/28/2025 9:37 AM CDT) PHOSPHORUS 2.6 2.5 - 4.5 mg/dL 02/28/2025 11:52 AM CDT [facility] Blood Sub-Q Port Venou s Access Device (Medi-Port, Implanted Port) / Unknown 02/28/2025 9:37 AM CDT 02/28/2025 10:10 AM CDT us Sherri Gil DO CHEMISTRY ORDERABLES Final Re sult Performing Organization Address [facility] Co de Phone Number [facility] [address] [place] [address] * MAGNESIUM (MG) (02/28/2025 9:37 AM CDT) MAGNESIUM 2.2 1.6 - 2.6 mg/dL 02/28/2025 11:52 AM CDT [facility] Blood Sub-Q Port Venou s Access Device (Medi-Port, Implanted Port) / Unknown 02/28/2025 9:37 AM CDT 02/28/2025 10:10 AM CDT us Sherri Gil DO CHEMISTRY ORDERABLES Final Re sult Performing Organization Address [facility] Co de Phone Number [facility] [place] [address] * (ABNORMAL) CMP (COMPREHENSIVE METABOLIC PANEL) (02/28/2025 9:37 AM CDT) Only the most recent of2 resultswithin the time period is included. SODIUM 134(L) 136 - 145 mmol/L 02/28/2025 11:[address] [facility] POTASSIUM 3.6 3.5 - 5.1 mmol/L 02/28/2025 11:[address] [facility] CHLORIDE 104 98 - 107 mmol/L 02/28/2025 11:[address] [facility] CO2, VENOUS 23 22 - 30 mmol/L 02/28/2025 11:[address] [facility] ANION GAP 10.6 <18.0 mmol/L 02/28/2025 11:[address] [facility] GLUCOSE 97 70 - 99 mg/dL 02/28/2025 11:[address] [facility] BUN 26(H) 10 - 20 mg/dL 02/28/2025 11:[address] [facility] CREATININE, BLOOD 1.18(H) 0.60 - 1.00 mg/dL 02/28/2025 11:[address] [facility] BUN/CREATININE RATIO 22(H) 12 - 20 ratio 02/28/2025 11:[address] [facility] TOTAL PROTEIN 5.9(L) 6.0 - 8.0 g/dL 02/28/2025 11:[address] [facility] ALBUMIN 2.0(L) 3.5 - 5.0 g/dL 02/28/2025 11:52 AM [facility] A/G RATIO 0.5(L) 1.0 - 2.2 02/28/2025 11:[address] [facility] CALCIUM 8.4(L) 8.7 - 10.5 mg/dL 02/28/2025 11:[address] [facility] T BILI 0.3 0.2 - 1.2 mg/dL 02/28/2025 11:[address] [facility] SGOT (AST) 19 <43 U/L 02/28/2025 11:[address] [facility] SGPT (ALT) <6 <56 U/L 02/28/2025 11:[address] [facility] ALKALINE PHOSPHATASE 123 40 - 150 U/L 02/28/2025 11:[address] [facility] IS THE PATIENT REQUIRED TO BE FASTING? No 02/28/2025 11:[address] [facility] GFR, ESTIMATED 47(L) >=60 02/28/2025 11:[address] [facility] Comment: Creatinine Clearance is the preferred criteria for selecting drug dose adjustments in renally impaired patients. The GFR is provided as additional pertinent clinical information. GFR is reported in mL/min/1.73 sq m. Calculation based on the Chronic Kidney Disease Epidemiology Collaboration (CKD- EPI) equation refit without adjustment for race. GFR, EST. 53(L) >=60 025 11:[address] [facility] GFR, EST. NONAFRICAN 44(L) >=60 02/28/2025 11:[address] [facility] Blood Sub-Q Port Venou s Access Device (Medi-Port, Implanted Port) / Unknown 02/28/2025 9:37 AM CDT 02/28/2025 10:10 AM CDT us Sherri Gil DO CHEMISTRY ORDERABLES Final Re sult [facility] [place] [address] * (ABNORMAL) BMP with Ca, Total (02/11/2025 4:40 AM CDT) Only the most recent of3 resultswithin the time period is included. SODIUM 140 136 - 145 mmol/L 02/11/2025 6:[address] [facility] POTASSIUM 3.9 3.5 - 5.1 mmol/L 02/11/2025 6:[address] [facility] CHLORIDE 116(H) 98 - 107 mmol/L 02/11/2025 6:[address] [facility] CO2, VENOUS 18(L) 22 - 30 mmol/L 02/11/2025 6:[address] [facility] ANION GAP 9.9 <18.0 mmol/L 02/11/2025 6:[address] [facility] GLUCOSE 91 70 - 99 mg/dL 02/11/2025 6:[address] [facility] BUN 34(H) 10 - 20 mg/dL 02/11/2025 6:02 AM CDT [facility] CREATININE, BLOOD 1.13(H) 0.60 - 1.00 mg/dL 02/11/2025 6:[address] [facility] BUN/CREATININE RATIO 30(H) 12 - 20 ratio 02/11/2025 6:[address] [facility] CALCIUM 8.1(L) 8.7 - 10.5 mg/dL 02/11/2025 6:[address] [facility] GFR, ESTIMATED 49(L) >=60 02/11/2025 6:[address] [facility] Comment: Creatinine Clearance is the preferred criteria for selecting drug dose adjustments in renally impaired patients. The GFR is provided as additional pertinent clinical information. GFR is reported in mL/min/1.73 sq m. Calculation based on the Chronic Kidney Disease Epidemiology Collaboration (CKD- EPI) equation refit without adjustment for race. GFR, EST. 56(L) >=60 025 6:[address] [facility] GFR, EST. NONAFRICAN 46(L) >=60 02/11/2025 6:[address] [facility] Blood Venipuncture / Unknown 02/11/2025 4:40 AM CDT 02/11/2025 5:37 AM CDT us David Gentile DRAPERY WORKER, WELLNESS SPECIALIST CHEMISTRY ORDERABLES Fi nal Result [facility] [place] [address] * RHYTHM STRIP (02/11/2025 12:00 AM CDT) Only the most recent of8 resultswithin the time period is included. 02/11/2025 us Provider Scan IMG ECG ORDERABLES Final Result RESULTING AGENCY * (ABNORMAL) Hemoglobin & Hematrocrit (H&H) (02/10/2025 3:04 PM CDT) HEMOGLOBIN (HGB) 8.3(L) 12.0 - 15.8 g/dL 02/10/2025 3:13 PM CDT [facility] HEMATOCRIT (HCT) 27.2(L) 36.0 - 47.0 % 02/10/2025 3:13 PM CDT [facility] Blood Venipuncture / Unknown 02/10/2025 3:04 PM CDT 02/10/2025 3:07 PM CDT Karely Amin MD HEMATOLOGY ORDERABLES Final Re sult [facility] [place] [address] * Transfuse - Leukoreduced Packed RBCs (02/10/2025 2:56 PM CDT) Mac Otero MD NURSING TREATMENT - BLOOD ADMIN ISTRATION Final Result * PREPARE RED BLOOD CELLS (02/10/2025 8:26 AM CDT) Product Code [id number] [facility] [address] [facility]OD [facility] Unit Number [id number] [facility] BLOOD B[facility] UNIT_ABO O [facility] [address] BLOOD [facility]ANK UNIT_RH POS [facility] [address] BLOOD [facility] XM Compatible [facility] [address] BLOO D BANK Dispense Status TRANSFUSED [facility] [address] BLOOD BANK Blood Expiration Date [facility] [address] BLOOD B[facility] Blood Type Barcode 5100 [facility] [address] BLO[facility] Product Volume 300 [facility] [address] BLOOD BANK Coding System [id number] [facility] [address] B LOOD BANK Blood 02/10/2025 8:26 AM CDT 02/10/2025 8:26 AM CDT us Mac Otero MD BLOOD BANK ORDERABLES Final Res ult [facility] [address] BLOOD [facility] [place] [address] * (ABNORMAL) POCT Glucose (02/10/2025 7:47 AM CDT) Only the most recent of8 resultswithin the time period is included. GLUCOSE,BEDSID E POCT 102(H) 70 - 99 mg/dL 02/10/2025 7:53 AM CDT [facility] Blood 02/10/2025 7:47 AM CDT 02/10/2025 7:53 AM CDT us None Provider POINT OF CARE TESTING Final Resu lt Performing Organization Address City/[facility]/ZIP Co de Phone Number [facility] [place] [address] * TYPE & SCREEN (CROSSMATCH CONVERTIBLE) (02/10/2025 7:15 AM CDT) ABO TYPING O 02/10/2025 9:09 AM CDT [facility] BLOOD BANK RH Positive 02/10/2025 9:09 AM CDT [facility] BLOOD BANK ABSC Negative 02/10/2025 9:09 AM CDT [facility] BLOOD BANK Blood Venipuncture / Unknown 02/10/2025 7:15 AM CDT 02/10/2025 7:23 AM CDT us Mac Otero MD BLOOD BANK ORDERABLES Edited Re sult - Final [facility] BLOOD BANK #[address] [place] [address] * CROSSMATCH W/ ABO & RH, ANTIBODY SCREEN (02/10/2025 7:15 AM CDT) ABO TYPING O 02/10/2025 9:16 AM CDT [facility] BLOOD BANK RH Positive 02/10/2025 9:16 AM CDT [facility] BLOOD BANK ABSC Negative 02/10/2025 9:16 AM CDT [facility] BLOOD BANK Blood Venipuncture / Unknown 02/10/2025 7:15 AM CDT 02/10/2025 7:23 AM CDT us Mac Otero MD BLOOD BANK ORDERABLES Final Res ult [facility] BLOOD BANK #[address] [place] [address] * Blood Gases, Arterial w/ O2 Saturation (02/08/2025 9:47 PM CDT) O2 STATUS 1L 02/08/2025 9:50 PM CDT [facility] PH ARTERIAL 7.41 7.35 - 7.45 02/08/2025 9:50 PM CDT [facility] PC02 (ARTERIAL) 38 35 - 45 mmHg 02/08/2025 9:50 PM CDT [facility] PO2 (ARTERIAL) 99 75 - 100 mmHg 02/08/2025 9:50 PM CDT [facility] O2 SAT ART, MEASURED 99 94 - 100 % 02/08/2025 9:50 PM CDT [facility] BASE ARTERIAL 0.4 -2.0 - 2.0 mmol/L 02/08/2025 9:50 PM CDT [facility] BICARBONATE 24.3 22.0 - 26.0 mmol/L 02/08/2025 9:50 PM CDT [facility] BERE'S TEST RESULTS Non-Radia l Site 02/08/2025 9:50 PM CDT [facility] CARBOXYHEMOGLOBIN 1.1 0.0 - 5.0 % 02/08/2025 9:50 PM CDT [facility] METHEMOGLOBIN 0.4 0.0 - 1.5 % 02/08/2025 9:[address] [facility] ART Blood Gas Arterial Punctur e / Unknown 02/08/2025 9:47 PM CDT 02/08/2025 9:47 PM CDT Daily Carlsoniday DRAPERY WORKER, WELLNESS SPECIALIST CHEMISTRY ORDERABLES Final Result Performing Organization Address City/[facility]/ZIP Co de Phone Number [facility] [address] [place] [address] * Streptococcus Pneumoniae Antigen (02/08/2025 3:40 PM CDT) STREP PNEUMO ANTIGEN Negative Negative 02/08/2025 9:12 PM CDT [facility] Comment:Negative result sugg ests no current or recent pneumococcal infection. Infection due to S. pneumoniae cannot be ruled out since the antigen present in the sample may be below the detection limit of the test. Other Non-Phlebotomy Collection / Unknown 02/08/2025 3:40 PM CDT 02/08/2025 3:45 PM CDT David Gentile DRAPERY WORKER, WELLNESS SPECIALIST URINE ORDERABLES Final Result Performing Organization Address [facility] Co de Phone Number [facility] [address] [place] [address], * Ur Legionella Antigen (02/08/2025 3:40 PM CDT) [facility] Negative Negative 02/08/2025 9:12 PM CDT [facility] Comment:Presumptive Negative for Legionella Pneumophila Serogroup 1 Antigen in urine, suggesting no recent or current infection. Infection due to Legionella cannot be ruled out since other serogroups and species may cause disease. Antigen may not be present in urine in early infection, and the level of antigen present in the urine may be below the detection limit of the test. Other Non-Phlebotomy Collection / Unknown 02/08/2025 3:40 PM CDT 02/08/2025 3:45 PM CDT us David Gentile DRAPERY WORKER, WELLNESS SPECIALIST URINE ORDERABLES Final Result [facility] [address] [place] [address], [place] * Lactic Acid (Lactate) (02/08/2025 2:45 PM CDT) Only the most recent of2 resultswithin the time period is included. LACTIC ACID 0.7 0.7 - 2.0 mmol/L 02/08/2025 3:11 PM CDT [facility] Blood Venipuncture / Unknown 02/08/2025 2:45 PM CDT 02/08/2025 2:51 PM CDT us Mac Otero MD CHEMISTRY ORDERABLES Final Resu lt [facility] [address] [place] [address] * CT ABDOMEN PELVIS W/O CONTRAST (02/08/2025 10:37 AM CDT) Anatomical Region Laterality Modality Abdomen N/A Computed Tomogra phy 02/08/2025 11:2 7 AM CDT Impressions 02/08/2025 11:30 AM CDT IMPRESSION: 1. New diffuse ground-glass and nodular opacities in the partially imaged lung bases superimposed on chronic lung changes. Findings are concerning for pneumonia. 2. 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 There is right-sided pelvicaliectasis. No hydroureter. 3. Right lower quadrant parastomal hernia containing multiple loops of bowel. No evidence of bowel obstruction. 4. Left lower quadrant ostomy with a parastomal hernia containing multiple loops of bowel. No evidence of bowel obstruction. 5. Sacral decubitus ulcer. Recommend clinical correlation. 6. Additional findings as above. Narrative 02/08/2025 11:30 AM CDT EXAM DESCRIPTION: CT ABDOMEN PELVIS W/O CONTRAST REASON FOR STUDY: Nausea, vomiting and fever that began today. Sepsis. History of paroxysmal atrial fibrillation on Eliquis, peripheral vascular disease status post left AKA a month ago, cervical cancer status post pelvic exenteration, now with colostomy, CKD,HTN,DM, MUG TECHNIQUE: CT scan of the abdomen and pelvis performed without intravenous and without oral contrast using helical scanning technique. Reconstructed coronal and sagittal MPR images reviewed. All images stored on PACS. Automated exposure control was used as a dose optimization technique for this examination. COMPARISON: CT abdomen pelvis 10/06/2023 ; MR abdomen 05/21/2017 FINDINGS: The sensitivity for detection of visceral lesions is diminished without the use of intravenous contrast. LOWER CHEST: There are new diffuse ground-glass and nodular opacities in the partially imaged lung bases superimposed on chronic lung changes. There are multivessel coronary artery calcifications. There is a small pericardial effusion, which is unchanged. There is a small hiatal hernia. LIVER: Normal size. No identified cystic or solid masses. GALLBLADDER: No stones identified. No wall thickening or inflammatory changes. BILE DUCTS: No intrahepatic or extrahepatic ductal dilatation. SPLEEN: Normal size. No focal lesions. PANCREAS: No identified cystic or solid masses. No significant calcifications. No adjacent inflammation or peripancreatic fluid collections. Pancreatic duct not dilated. ADRENALS: There is similar size and appearance of a 2.4 cm left adrenal gland nodule with low-density consistent with adrenal adenoma. A 2 cm right adrenal gland nodule is also grossly unchanged and shows borderline low-density, also likely an adrenal adenoma. KIDNEYS/URINARY TRACT: There is severe atrophy of the left kidney. Right kidney size is at the lower limits of normal and there is cortical scarring present. There is a right lower quadrant ileal conduit with cystectomy changes noted. There are bilateral ureteral stents with the proximal portions coiled in the renal collecting systems bilaterally. The stents extend through the ileal conduit into the urostomy bag. There is mild right-sided pelvicaliectasis. No hydroureter. There is a right lower quadrant parastomal hernia containing multiple loops of bowel. GI: There is a small hiatal hernia. Stomach is otherwise unremarkable on CT. There appear to be changes of abdominal peroneal resection and there is a left lower quadrant ostomy. There is a parastomal hernia containing multiple loops of bowel in the left lower quadrant. No dilated or thick-walled loops of bowel appreciated. PERITONEUM: No ascites or free air. RETROPERITONEUM: There is a prominent but nonenlarged left para-aortic lymph node measuring 8 mm in short axis (series 4, image 65). REPRODUCTIVE: Absent. Abdominopelvic resection changes. VASCULATURE: Extensive atherosclerotic plaque in the aorta and iliac vessels without aneurysm. MUSCULOSKELETAL: Similar appearance of extensive sclerotic changes of the bilateral sacroiliac joints, which could be related to sacroiliitis. There is also a similar sclerotic appearance of the posterior left acetabulum. There are severe multilevel degenerative changes throughout the lumbar spine. OTHER: There is mild skin thickening and suspected ulceration in the sacral region. THIS IS AN ELECTRONICALLY VERIFIED FINAL REPORT 02/08/2025 11:27 AM - Electronically signed by Erwin Wood M.D. AM: AM Report ID: [id number] Reading Location: [id number] Procedure Note Erwin Wood MD - 02/08/2025 EXAM DESCRIPTION: CT ABDOMEN PELVIS W/O CONTRAST REASON FOR STUDY: Nausea, vomiting and fever that began today. Sepsis. History of paroxysmal atrial fibrillation on Eliquis, peripheral vascular disease status post left AKA a month ago, cervical cancer status post pelvic exenteration, now with colostomy, CKD,HTN,DM, MUG TECHNIQUE: CT scan of the abdomen and pelvis performed without intravenous and without oral contrast using helical scanning technique. Reconstructed coronal and sagittal MPR images reviewed. All images stored on PACS. Automated exposure control was used as a dose optimization technique for this examination. COMPARISON: CT abdomen pelvis 10/06/2023 ; MR abdomen 05/21/2017 FINDINGS: The sensitivity for detection of visceral lesions is diminished without the use of intravenous contrast. LOWER CHEST: There are new diffuse ground-glass and nodular opacities in the partially imaged lung bases superimposed on chronic lung changes. There are multivessel coronary artery calcifications. There is a small pericardial effusion, which is unchanged. There is a small hiatal hernia. LIVER: Normal size. No identified cystic or solid masses. GALLBLADDER: No stones identified. No wall thickening or inflammatory changes. BILE DUCTS: No intrahepatic or extrahepatic ductal dilatation. SPLEEN: Normal size. No focal lesions. PANCREAS: No identified cystic or solid masses. No significant calcifications. No adjacent inflammation or peripancreatic fluid collections. Pancreatic duct not dilated. ADRENALS: There is similar size and appearance of a 2.4 cm left adrenal gland nodule with low-density consistent with adrenal adenoma. A 2 cm right adrenal gland nodule is also grossly unchanged and shows borderline low-density, also likely an adrenal adenoma. KIDNEYS/URINARY TRACT: There is severe atrophy of the left kidney. Right kidney size is at the lower limits of normal and there is cortical scarring present. There is a right lower quadrant ileal conduit with cystectomy changes noted. There are bilateral ureteral stents with the proximal portions coiled in the renal collecting systems bilaterally. The stents extend through the ileal conduit into the urostomy bag. There is mild right-sided pelvicaliectasis. No hydroureter. There is a right lower quadrant parastomal hernia containing multiple loops of bowel. GI: There is a small hiatal hernia. Stomach is otherwise unremarkable on CT. There appear to be changes of abdominal peroneal resection and there is a left lower quadrant ostomy. There is a parastomal hernia containing multiple loops of bowel in the left lower quadrant. No dilated or thick-walled loops of bowel appreciated. PERITONEUM: No ascites or free air. RETROPERITONEUM: There is a prominent but nonenlarged left para-aortic lymph node measuring 8 mm in short axis (series 4, image 65). REPRODUCTIVE: Absent. Abdominopelvic resection changes. VASCULATURE: Extensive atherosclerotic plaque in the aorta and iliac vessels without aneurysm. MUSCULOSKELETAL: Similar appearance of extensive sclerotic changes of the bilateral sacroiliac joints, which could be related to sacroiliitis. There is also a similar sclerotic appearance of the posterior left acetabulum. There are severe multilevel degenerative changes throughout the lumbar spine. OTHER: There is mild skin thickening and suspected ulceration in the sacral region. THIS IS AN ELECTRONICALLY VERIFIED FINAL REPORT 02/08/2025 11:27 AM - Electronically signed by Erwin Wood M.D. AM: AM Report ID: [id number] Reading Location: [id number] [id number] IMPRESSION: 1. New diffuse ground-glass and nodular opacities in the partially imaged lung bases superimposed on chronic lung changes. Findings are concerning for pneumonia. 2. 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 There is right-sided pelvicaliectasis. No hydroureter. 3. Right lower quadrant parastomal hernia containing multiple loops of bowel. No evidence of bowel obstruction. 4. Left lower quadrant ostomy with a parastomal hernia containing multiple loops of bowel. No evidence of bowel obstruction. 5. Sacral decubitus ulcer. Recommend clinical correlation. 6. Additional findings as above. Toro Kat MD IMG CT ORDERABLES Final R esult * XR CHEST SINGLE VIEW PORTABLE (02/08/2025 10:20 AM CDT) Anatomical Region Laterality Modality Chest N/A Computed Radiogr aphy 02/08/2025 11:0 5 AM CDT Impressions 02/08/2025 11:07 AM CDT IMPRESSION: New patchy nodular opacities throughout the lower lung zones bilaterally. Findings are concerning for multifocal pneumonia. Recommend follow-up to ensure resolution. Narrative 02/08/2025 11:07 AM CDT EXAM DESCRIPTION: XR CHEST SINGLE VIEW PORTABLE REASON FOR STUDY: Sepsis-knausea, vomiting, fever today- hypoxic and hypotensive on arrival to ED today- HX smoker, cervical and breast cancer TECHNIQUE: Single radiographic view(s) of the chest. COMPARISON: 04/23/2023 chest radiograph FINDINGS: LUNGS: There are new patchy nodular opacities throughout the lower lung zones bilaterally. There is no sizable pleural effusion or pneumothorax. HEART/MEDIASTINUM: Cardiac silhouette normal in size. Mediastinal and hilar contours appear normal. There is dense atherosclerotic calcification of the aorta. LINES/TUBES: There is a right-sided Port-A-Cath with the tip near the superior cavoatrial junction. BONES: No acute osseous abnormality. THIS IS AN ELECTRONICALLY VERIFIED FINAL REPORT 02/08/2025 11:05 AM - Electronically signed by Erwin Wood M.D. AM: AM Report ID: [id number] Reading Location: [id number] Procedure Note Erwin Wood MD - 02/08/2025 EXAM DESCRIPTION: XR CHEST SINGLE VIEW PORTABLE REASON FOR STUDY: Sepsis-knausea, vomiting, fever today- hypoxic and hypotensive on arrival to ED today- HX smoker, cervical and breast cancer TECHNIQUE: Single radiographic view(s) of the chest. COMPARISON: 04/23/2023 chest radiograph FINDINGS: LUNGS: There are new patchy nodular opacities throughout the lower lung zones bilaterally. There is no sizable pleural effusion or pneumothorax. HEART/MEDIASTINUM: Cardiac silhouette normal in size. Mediastinal and hilar contours appear normal. There is dense atherosclerotic calcification of the aorta. LINES/TUBES: There is a right-sided Port-A-Cath with the tip near the superior cavoatrial junction. BONES: No acute osseous abnormality. THIS IS AN ELECTRONICALLY VERIFIED FINAL REPORT 02/08/2025 11:05 AM - Electronically signed by Erwin Wood M.D. AM: AM Report ID: [id number] Reading Location: [id number] IMPRESSION: New patchy nodular opacities throughout the lower lung zones bilaterally. Findings are concerning for multifocal pneumonia. Recommend follow-up to ensure resolution. us Toro Kat MD IM DIAGNOSTIC ORDERABLES Final Result * ANNE-MARIE-COV-2 Flu RSV - (Quad PCR) (02/08/2025 9:44 AM CDT) FLU A Negative Negative, Error 02/08/2025 10:35 AM CDT [facility] FLU B Negative Negative 02/08/2025 10:35 AM CDT [facility] RESP SYNC VIRUS Negative Negative 10:35 AM CDT [facility] SARSCOV2 NOT DETECTED (Reference Range for this test is Not Detected) 02/08/2025 10:35 AM CDT [facility] Comment:This test was perfor med by a Reverse Clerical Associate PCR Method. Swab NASOPHARYNGEAL SWAB / Unknown Non-Phlebotomy Collection / Unknown 02/08/2025 9:44 AM CDT 02/08/2025 9:53 AM CDT us Toro Kat MD MICROBIOLOGY - GENERAL OR DERABLES Final Result Performing Organization Address City/[facility]/ZIP Co de Phone Number [facility] [address] [place] [address] * Gold Top Tube (02/08/2025 9:41 AM CDT) Blood No Phlebotomy Charged / Unknown 02/08/2025 9:41 AM CDT 02/08/2025 10:02 AM CDT us Elias Patel MD PhD CHEMISTRY ORDERABLES Final R esult Performing Organization Address [facility] Co de Phone Number [facility] [address] [place] [address] * Blue Top Tube (02/08/2025 9:41 AM CDT) Blood No Phlebotomy Charged / Unknown 02/08/2025 9:41 AM CDT 02/08/2025 10:02 AM CDT us Elias Patel MD PhD HEMATOLOGY ORDERABLES Final Result Performing Organization Address [facility] Co de Phone Number [facility] [address] [place] [address] * Blood Culture #2 (02/08/2025 9:41 AM CDT) Only the most recent of2 resultswithin the time period is included. CULTURE RESULTS NO GROWTH WITHIN 5 DAYS, FINAL RESULT 02/13/2025 10:00 AM CDT [facility] Culture BLOOD SPECIMEN / Unknown Venipuncture / Unknown 02/08/2025 9:41 AM CDT 02/08/2025 9:53 AM CDT us Toro Kat MD MICROBIOLOGY - GENERAL OR DERABLES Final Result Performing Organization Address City/[facility]/ZIP Co de Phone Number [facility] [address] [place] [address], [place] * (ABNORMAL) Procalcitonin (02/08/2025 9:35 AM CDT) Pathologist [facility] PROCALCITONIN 3.45(H) <=0.25 ng/mL 02/08/2025 6:13 PM CDT [facility] Blood Venipuncture / Unknown 02/08/2025 9:35 AM CDT 02/08/2025 2:41 PM CDT Narrative [facility] - 02/08/2025 6:13 PM CDT If the differential diagnosis is systemic bacterial infection, sepsis, or septic shock use these guidelines: <=0.25 ng/mL: Low risk for systemic bacterial infection, sepsis, or septic shock. Localized bacterial infection possible: Suggest re-testing in 24 hours >=0.50 ng/mL: Systemic bacterial infection, sepsis, or septic shock are possible: suggest re-testing in approximately 24 hours. If the differential diagnosis is suspected lower respiratory tract infection (LRTI) or there is confirmed LRTI: < 0.1 ng/mL: Suggests absence of bacterial infection. Antibiotic therapy strongly discouraged. 0.1-0.25 ng/mL: Suggests bacterial infection is unlikely. Antibiotic therapy discouraged. 0.26-0.5 ng/mL: Suggests possible bacterial infection. Antibiotic therapy encouraged. > 0.5 ng/mL: Suggests bacterial infection. Antibiotic therapy strongly encouraged us David Gentile APRN, WELLNESS SPECIALIST IMMUNOLOGY ORDERABLES F inal Result [facility] [address] [place] [address] * Hemoglobin A1C (if indicated) (02/08/2025 9:35 AM CDT) Pathologist [facility] HGB-A1C 5.0 4.0 - 6.0 % 02/08/2025 2:32 PM CDT [facility] Est Average Glucose 96.8 mg/dL 02/08/2025 2:32 PM CDT [facility] Blood Venipuncture / Unknown 02/08/2025 9:35 AM CDT 02/08/2025 9:44 AM CDT Narrative [facility] - 02/08/2025 2:32 PM CDT HEMOGLOBIN A1C: DIABETIC PATIENTS: WELL-CONTROLLED: 6.2 - 7.0 INTERMEDIATE WELL-CONTROLLED: 7.0 - 9.0 POORLY-CONTROLLED: >9.0 Specimens containing greater than 5% of Hemoglobin F may result in lower than expected % HbA1C results. David Gentile APRN, WELLNESS SPECIALIST CHEMISTRY ORDERABLES Fi nal Result Performing Organization Address City/[facility] Co de Phone Number [facility] [address] [place] [address] * Thyroid Stimulating Hormone (TSH) (02/08/2025 9:35 AM CDT) TSH 1.855 0.300 - 5.000 mIU/L 02/08/2025 3:58 PM CDT [facility] Blood Venipuncture / Unknown 02/08/2025 9:35 AM CDT 02/08/2025 9:44 AM CDT Mac Otero MD CHEMISTRY ORDERABLES Final Resu lt Performing Organization Address [facility] Co de Phone Number [facility] [address] [place] [address] * Cortisol (02/08/2025 9:35 AM CDT) CORTISOL 44.9 mcg/dL 02/08/2025 3:5 8 PM CDT [facility] Blood Venipuncture / Unknown 02/08/2025 9:35 AM CDT 02/08/2025 9:44 AM CDT Narrative [facility] - 02/08/2025 3:58 PM CDT AM: 4 TO 19 mcg/dL PM: Approx. Half of AM Value Mac Otero MD CHEMISTRY ORDERABLES Final Resu lt [facility] [address] [facility] [place] [address] * Critical Care (02/08/2025 9:34 AM CDT) Narrative Toro Kat MD - 02/08/2025 9:34 AM CDT Toro Kat MD 02/08/2025 12:01 PM Critical Care Performed by: Toro Kat MD Authorized by: Toro Kat MD Critical care provider statement: Critical care time (minutes): 45 Critical care time was exclusive of: Separately billable procedures and treating other patients Critical care was necessary to treat or prevent imminent or life-threatening deterioration of the following conditions: Sepsis Critical care was time spent personally by me on the following activities: Development of treatment plan with patient or surrogate, blood draw for specimens, discussions with consultants, discussions with primary provider, evaluation of patient's response to treatment, examination of patient, review of old charts, re-evaluation of patient's condition, pulse oximetry, ordering and review of radiographic studies, ordering and review of laboratory studies, ordering and performing treatments and interventions and obtaining history from patient or surrogate Care discussed with: admitting provider us Toro Kat MD PROCEDURE/MINOR SURGICAL ORDERABLES Final Result * EKG 12 LEAD (02/08/2025 9:23 AM CDT) Ventricular Rate 109 BPM EXTERNAL EKG Atrial Rate 109 BPM EXTERNAL EKG P-R Interval 138 ms EXTERNAL EKG QRS Duration 66 ms EXTERNAL EKG Q-T Duration 332 ms EXTERNAL EKG QTC CALCULATION 447 ms EXTERNAL EKG P [place] 72 degrees EXTERNAL EKG R [place] 55 degrees EXTERNAL EKG T [place] 78 degrees EXTERNAL EKG 02/08/2025 9:23 AM CDT Impressions EXTERNAL EKG - 02/08/2025 4:24 PM CDT Sinus tachycardia with premature atrial complexes Nonspecific ST and T wave abnormality Abnormal ECG When compared with ECG of 10-JUL-2022 17:00, No significant change was found ~ Confirmed by EDD COTA ([id number]) on 02/08/2025 4:24:43 PM Narrative Procedure Note Edd Cota MD - 02/08/2025 IMPRESSION: Sinus tachycardia with premature atrial complexes Nonspecific ST and T wave abnormality Abnormal ECG When compared with ECG of 10-JUL-2022 17:00, No significant change was found ~ Confirmed by EDD COTA ([id number]) on 02/08/2025 4:24:43 PM us Toro Kat MD IMG ECG ORDERABLES Final Result Performing Organization Address City/[facility] Co de Phone Number EXTERNAL EKG * EKG SCAN (02/08/2025 12:00 AM CDT) 02/08/2025 Provider Scan IMG ECG ORDERABLES Final Result Performing Organization Address City/[facility] Co de Phone Number RESULTING AGENCY * MAMMOGRAM UNILATERAL MISCELLANEOUS (12/22/2023 12:00 AM FLIGHT READINESS TECHNICIAN) 12/22/2023 Kristyn Parker PAC IMG MAMMO ORDERABLES Fin al Result Performing Organization Address City/[facility] Co de Phone Number SCAN * CT CHEST W/O CONTRAST (06/25/2023 9:00 AM CDT) Anatomical Region Laterality Modality Chest N/A Computed Tomogra phy 06/27/2023 9:03 AM CDT Impressions 06/27/2023 9:06 AM CDT IMPRESSION: 1. Left lung pulmonary nodules measuring up to 0.6 cm, in the setting of a known history of malignancy, [place] society guidelines do not apply and a three-month follow-up chest CT is recommended. Metastatic disease would need to be excluded, although the nodules currently are too small for specific characterization of the or short-term follow-up. 2. Status post right mastectomy. 3. Combined pulmonary emphysema and mild fibrosis. 4. Lower lobe predominant ground-glass opacities may be partially related atelectasis, viral infection is not completely excluded and would need clinical correlation. Attention to this could be made on the follow-up chest CT. There could also be a component of mild vascular congestion. 5. Small amount of debris in the trachea. 6. Small pericardial effusion. 7. Additional findings detailed above. Narrative 06/27/2023 9:06 AM CDT EXAM DESCRIPTION: CT CHEST W/O CONTRAST REASON FOR STUDY: Dyspnea, abnormal CXR 03/2023, airspace opacities,and mild atelectasis, hx of breast and cervical ca, HTN and smoker TECHNIQUE: CT scan of the chest performed without intravenous contrast using helical scanning technique. Reconstructed coronal and sagittal MPR images reviewed. All images stored on PACS. Automated exposure control was used as a dose optimization technique for this examination. COMPARISON: None. REFERENCE: Per ACR white paper recommendations, unless otherwise specified no follow-up imaging is recommended for incidental renal and adrenal lesions per consensus recommendations based on imaging criteria. Further lab evaluation could be pursued based on clinical findings. FINDINGS: The sensitivity for detection of solid visceral lesions is diminished without the use of intravenous contrast. LUNGS: Central airways are patent. There is some debris present within the trachea. Mild peripheral reticular fibrotic change without overt honeycombing. Mild paraseptal emphysema is identified. There is mild lower lobe predominant bronchial wall thickening. Lower lobe ground-glass opacities may predominantly due to atelectasis. There is a pulmonary nodule which is not definitively calcified posterior left upper lobe paravertebral in location abutting the major fissure 0.6 cm (image 42). There is a nodule in the lingula 0.6 cm (image 71). PLEURA: There is no pleural effusion or pneumothorax. MEDIASTINUM/MAX: No mediastinal or hilar mass. Small mediastinal lymph nodes, example precarinal 1.3 x 1.2 cm (image 51). Granulomatous calcification in the right hilum and subcarinal station. There is a small hiatal hernia. HEART: Heart size is normal. There is a small pericardial effusion. CORONARY ARTERY CALCIFICATION: Coronary artery calcification is seen. VASCULATURE: The thoracic aorta is nonaneurysmal. The thoracic aorta is 3.3 cm and the descending thoracic aorta 2.7 cm. AXILLA: There is no axillary lymphadenopathy. CHEST WALL: No chest wall mass. There appears to be a right mastectomy, the clinical history indicates a history of breast cancer. HARDWARE/LINES/TUBES: There is a right chest port, the tip is seen near the SVC atrial junction. UPPER ABDOMEN: The partially imaged kidneys appear atrophic and there are partially imaged bilateral nephroureteral stents. There is a small amount of air in the left renal collecting system. There is the indeterminate tiny hypodensity lateral segment left hepatic lobe 0.9 cm, too small for characterization, this is indeterminate. There are bilateral adrenal nodules, on the right 9 Hounsfield units and 1 Hounsfield unit on the left, most likely lipid rich adrenal adenomas. MUSCULOSKELETAL: Bone windows demonstrate no acute or aggressive osseous abnormality. Degenerative changes in the upper thoracic spine with anterior wedging, and endplate spurring. No acute or aggressive osseous abnormality. OTHER: No other significant abnormality. THIS IS AN ELECTRONICALLY VERIFIED FINAL REPORT 06/27/2023 9:03 AM - Electronically signed by Stefano Fuentes M.D. CH: RAMILA Report ID: [id number] Reading Location: [id number] Procedure Note Stefano Fuentes Jr., MD - 06/27/2023 EXAM DESCRIPTION: CT CHEST W/O CONTRAST REASON FOR STUDY: Dyspnea, abnormal CXR 03/2023, airspace opacities,and mild atelectasis, hx of breast and cervical ca, HTN and smoker TECHNIQUE: CT scan of the chest performed without intravenous contrast using helical scanning technique. Reconstructed coronal and sagittal MPR images reviewed. All images stored on PACS. Automated exposure control was used as a dose optimization technique for this examination. COMPARISON: None. REFERENCE: Per ACR white paper recommendations, unless otherwise specified no follow-up imaging is recommended for incidental renal and adrenal lesions per consensus recommendations based on imaging criteria. Further lab evaluation could be pursued based on clinical findings. FINDINGS: The sensitivity for detection of solid visceral lesions is diminished without the use of intravenous contrast. LUNGS: Central airways are patent. There is some debris present within the trachea. Mild peripheral reticular fibrotic change without overt honeycombing. Mild paraseptal emphysema is identified. There is mild lower lobe predominant bronchial wall thickening. Lower lobe ground-glass opacities may predominantly due to atelectasis. There is a pulmonary nodule which is not definitively calcified posterior left upper lobe paravertebral in location abutting the major fissure 0.6 cm (image 42). There is a nodule in the lingula 0.6 cm (image 71). PLEURA: There is no pleural effusion or pneumothorax. MEDIASTINUM/MAX: No mediastinal or hilar mass. Small mediastinal lymph nodes, example precarinal 1.3 x 1.2 cm (image 51). Granulomatous calcification in the right hilum and subcarinal station. There is a small hiatal hernia. HEART: Heart size is normal. There is a small pericardial effusion. CORONARY ARTERY CALCIFICATION: Coronary artery calcification is seen. VASCULATURE: The thoracic aorta is nonaneurysmal. The thoracic aorta is 3.3 cm and the descending thoracic aorta 2.7 cm. AXILLA: There is no axillary lymphadenopathy. CHEST WALL: No chest wall mass. There appears to be a right mastectomy, the clinical history indicates a history of breast cancer. HARDWARE/LINES/TUBES: There is a right chest port, the tip is seen near the SVC atrial junction. UPPER ABDOMEN: The partially imaged kidneys appear atrophic and there are partially imaged bilateral nephroureteral stents. There is a small amount of air in the left renal collecting system. There is the indeterminate tiny hypodensity lateral segment left hepatic lobe 0.9 cm, too small for characterization, this is indeterminate. There are bilateral adrenal nodules, on the right 9 Hounsfield units and 1 Hounsfield unit on the left, most likely lipid rich adrenal adenomas. MUSCULOSKELETAL: Bone windows demonstrate no acute or aggressive osseous abnormality. Degenerative changes in the upper thoracic spine with anterior wedging, and endplate spurring. No acute or aggressive osseous abnormality. OTHER: No other significant abnormality. THIS IS AN ELECTRONICALLY VERIFIED FINAL REPORT 06/27/2023 9:03 AM - Electronically signed by Stefano Fuentes M.D. CH: RAMILA Report ID: [id number] Reading Location: [id number] IMPRESSION: 1. Left lung pulmonary nodules measuring up to 0.6 cm, in the setting of a known history of malignancy, [place] society guidelines do not apply and a three-month follow-up chest CT is recommended. Metastatic disease would need to be excluded, although the nodules currently are too small for specific characterization of the or short-term follow-up. 2. Status post right mastectomy. 3. Combined pulmonary emphysema and mild fibrosis. 4. Lower lobe predominant ground-glass opacities may be partially related atelectasis, viral infection is not completely excluded and would need clinical correlation. Attention to this could be made on the follow-up chest CT. There could also be a component of mild vascular congestion. 5. Small amount of debris in the trachea. 6. Small pericardial effusion. 7. Additional findings detailed above. Salomón Gomez MD IMG CT ORDERABLES Final R esult * HEPATITIS C ANTIBODY (05/01/2021 11:09 AM CDT) hepatitis C antibody 0.11 <1 S/CO [facility] ARCH [id number] 05/01/2021 10:26 PM CDT [facility] Comment: Signal/Cutoff ratio < 0.79 is Nondetected Signal/Cutoff ratio 0.80-0.99 is Grayzone Signal/Cutoff ratio > 0.99 is Detected Supplemental assays are recommended if signal/cutoff ratio is >/=1.00. Signal/cutoff ratio result >/= 5.00 is 97% predictive of positivity for recombinant immunoblot assay (RIBA) and will be reported to the [place] [facility] as required. Blood Venipuncture / Unknown 05/01/2021 11:09 AM CDT 05/01/2021 11:17 AM CDT Sintia Alvarez MD CHEMISTRY ORDERABLES Mary Alice l Result [facility] [address] [place] [address], * [facility] BONE DENSITOMETRY AXIAL SKELETON (10/04/2020 8:40 AM FLIGHT READINESS TECHNICIAN) Anatomical Region Laterality Modality BODY N/A Other 10/04/2020 9:07 AM FLIGHT READINESS TECHNICIAN Impressions 10/04/2020 9:09 AM FLIGHT READINESS TECHNICIAN IMPRESSION: 1. Osteoporosis of the left hip. Low bone mass at the lumbar spine. REFERENCE: Bone mineral density: Normal (T-score above or = -1.0) Low bone mass (T-score between -1.0 and -2.5) replaces the previously used term osteopenia Osteoporosis (T-score = or below -2.5) Medical evaluation for secondary causes of low bone mineral density may be appropriate. FRAX is a World Health Organization validated fracture risk assessment tool that calculates a person's 10 year probability of a major osteoporosis related fracture and hip fracture. According to the National Osteoporosis Foundation guidelines, postmenopausal women and men age 50 or older with low bone mass and a 10 year probability of a major osteoporosis related fracture = or greater than 20% or a 10 year probability of a hip fracture = or greater than 3% should be considered for treatment. For further information, including treatment recommendations, please refer to the 2013 ISCD Official Positions (http://www.iscd.org) and the NOF's Clinician's Guide to Prevention and Treatment of Osteoporosis (http://www.nof.org/professionals/clinical-guidelines) Narrative 10/04/2020 9:09 AM FLIGHT READINESS TECHNICIAN EXAM DESCRIPTION: [facility] BONE DENSITOMETRY AXIAL SKELETON REASON FOR STUDY: 74 year old female with given history of screening. Fire Protection Designer/Model: [employer] (S/N [id number]) CLINICAL INFORMATION: Current height: 61 inches Weight: 140 pounds Risk factors: Tobacco user/current smoker COMPARISON: None available. FINDINGS: AP LUMBAR SPINE L1-L3: Total BMD is 1.045 g/cm2 T-score is -1.1 LEFT HIP: Total BMD is 0.667 g/cm2 T-score is -2.7 Femoral neck BMD is 0.623 g/cm2 T-score is -3.0 Fracture risk assessment (FRAX): 10 year risk for a major osteoporotic fracture is 24.9 % 10 year risk for a hip fracture is 13.6 % The FRAX tool has not been validated in patients currently or previously treated with pharmacotherapy for osteoporosis. In such patients, clinical judgement must be exercised in interpreting FRAX scores as the fracture risk may be overestimated. THIS IS AN ELECTRONICALLY VERIFIED FINAL REPORT 10/04/2020 9:07 AM - Electronically signed by Harlan Jacobo M.D. GRACE: GRACE Report ID: [id number] Reading Location: [id number] Procedure Note Harlan Jacobo MD - 10/04/2020 EXAM DESCRIPTION: [facility] BONE DENSITOMETRY AXIAL SKELETON REASON FOR STUDY: 74 year old female with given history of screening. Fire Protection Designer/Model: [employer] (S/N [id number]) CLINICAL INFORMATION: Current height: 61 inches Weight: 140 pounds Risk factors: Tobacco user/current smoker COMPARISON: None available. FINDINGS: AP LUMBAR SPINE L1-L3: Total BMD is 1.045 g/cm2 T-score is -1.1 LEFT HIP: Total BMD is 0.667 g/cm2 T-score is -2.7 Femoral neck BMD is 0.623 g/cm2 T-score is -3.0 Fracture risk assessment (FRAX): 10 year risk for a major osteoporotic fracture is 24.9 % 10 year risk for a hip fracture is 13.6 % The FRAX tool has not been validated in patients currently or previously treated with pharmacotherapy for osteoporosis. In such patients, clinical judgement must be exercised in interpreting FRAX scores as the fracture risk may be overestimated. THIS IS AN ELECTRONICALLY VERIFIED FINAL REPORT 10/04/2020 9:07 AM - Electronically signed by Harlan Jacobo M.D. GRACE: GRACE Report ID: [id number] Reading Location: [id number] IMPRESSION: 1. Osteoporosis of the left hip. Low bone mass at the lumbar spine. REFERENCE: Bone mineral density: Normal (T-score above or = -1.0) Low bone mass (T-score between -1.0 and -2.5) replaces the previously used term osteopenia Osteoporosis (T-score = or below -2.5) Medical evaluation for secondary causes of low bone mineral density may be appropriate. FRAX is a World Health Organization validated fracture risk assessment tool that calculates a person's 10 year probability of a major osteoporosis related fracture and hip fracture. According to the National Osteoporosis Foundation guidelines, postmenopausal women and men age 50 or older with low bone mass and a 10 year probability of a major osteoporosis related fracture = or greater than 20% or a 10 year probability of a hip fracture = or greater than 3% should be considered for treatment. For further information, including treatment recommendations, please refer to the 2013 ISCD Official Positions (http://www.iscd.org) and the NOF's Clinician's Guide to Prevention and Treatment of Osteoporosis (http://www.nof.org/professionals/clinical-guidelines) Lili Cormier MD IMG DEXA ORDERABLES Final R esult * (ABNORMAL) STOOL, OCCULT BLOOD IMMUNOASSAY (IFOB) (10/13/2017 10:31 AM FLIGHT READINESS TECHNICIAN) OCCULT BLOOD - IFOB Positive(A ) Negative 10/15/2017 4:17 AM FLIGHT READINESS TECHNICIAN [facility] Specimen of unknown material (specimen) STOOL SPECIMEN / Unknown Non-Phlebotomy Collection / Unknown 10/13/2017 10:31 AM FLIGHT READINESS TECHNICIAN 10/13/2017 10:31 AM FLIGHT READINESS TECHNICIAN Lili Cormier MD BODY FLUIDS & STOOLS ORDERA BLES Final Result [facility] [address] [place] [address], from Last 3 Months or Most Recently Relevant to Health Maintenance Additional Health Concerns Active Problems Noted Date Diagnosed Date [facility]P COPD CONCERN 02/28/2025 [facility] HYPERTENSION CONCERN (P ATIENT NOT ON HIGH BLOOD PRESSURE MEDICATIONS) 02/28/2025 [facility] TYPE 2 DIABETES CONCERN 02/28/2025 [facility] TYPE 2 DIABETES NO MEDICATION PATTERN FELECIA RN 02/28/2025 Insurance [employer] SENIOR SUPPLEMENTAL MEDICARE Advance Directives Documents on File Type Date Recorded Patient Horticulture Supervisor Expl anation POLST/POST/AK DNR 02/09/2025 5:23 AM POLST , 02/08/2025 POLST/POST/AK DNR 02/08/2025 4:36 PM POLST , 02/08/2025 Advance Care Planning Discussion 02/08/2025 3:57 PM ACP DISCUSSION, 04/08/2019 Power of Cnc Mechanic for Health Care 02/08/2025 3:57 PM POA-HC, 03/13/2017 Advance Care Planning Discussion 04/08/2019 9:59 AM ACP Discussion Recor d 04/08/19 Power of Cnc Mechanic for Health Care 04/08/2019 9:58 AM POA HC 04/08/19 Advance Care Planning Discussion 04/08/2019 9:57 AM ACP Cover sheet 04/08/19 * No CPR-Selective Treatment (Latest Code Status on File) Date Activated Date Inactivated Comments 02/28/2025 9:15 AM * No CPR-Full Treatment Date Activated Date Inactivated Comments 02/08/2025 3:34 PM 02/28/2025 9:15 AM No CPR - Full Treatment: FULL ARREST: Do Not Attempt Resuscitation. PRE-ARREST: Use entire range of life support measures including intubation and mechanical ventilation in the ICU setting as necessary. Question Answer Comments Physician documentation made in notes? Yes * No CPR-Selective Treatment Date Activated Date Inactivated Comments 02/08/2025 3:12 PM 02/08/2025 3:34 PM No Intubatio n but wants CPR FULL ARREST: Do Not Attempt Resuscitation. PRE-ARREST: DO NOT USE INTUBATION OR MECHANICAL VENTILATION, but may use basic medical treatment like CPAP or BiPAP, antibiotics, IV fluids, oxygen, etc. Avoid care in ICU setting. Question Answer Comments Physician documentation made in notes? Yes * Full Code Date Activated Date Inactivated Comments 02/08/2025 1:37 PM 02/08/2025 3:12 PM CPR-Full Martín atment: FULL ARREST: Attempt Resuscitation/CPR wit intubation and mechanical ventilation. PRE-ARREST: Use entire range of life support measures to stabilize the patient. * Full Code Date Activated Date Inactivated Comments 12/27/2024 11:27 AM 02/08/2025 1:37 PM Care Teams Owner/Photographer Relationship Specialty Start Date End Date Sherri Gil DO [address] [address] PCP - General Family Medicine 07/08/24
--- OUTSIDE RECORDS SUMMARY | 2025-03-30 13:51 | XMS_ITS | Encounter Summary ---
Author Organization [facility] Address [address] [place] [address] Phone Care Team Providers Care Heel Shaper Name Role Phone Sherri Gil DO Primary Care Provider [phone] Latanya Head EXECUTIVE SEARCH CONSULTANT Unavailable Unavai lable Reason for Visit * Auth/Cert (Routine) Specialty Diagnoses / Procedures Referred By Contdaniel t Referred To Contact Diagnoses Urinary tract infection with hematuria, site unspecified Aspiration pneumonia of both lower lobes due to vomit (HCC) Sepsis with acute organ dysfunction and septic shock, due to unspecified organism, unspecified organ dysfunction type (HCC) Karely Amin MD [address] [place] [address] Phone: tel: fax: Referral ID Status Reason Start Date Expiration Date Visits Re quested Visits Authorized [id number] 1 1 Encounter Details Date Type Department Care Team (Late st Contact Info) Description 02/07/2025 Lab Requisition [facility] [address] [place] [id number] Sherri Gil DO [address] [address] Gross hematuria Social History Tobacco Use Types Packs/Day Years Used Date Smoking Tobacco: Every Day Cigarettes 0.3 40 Smokeless Tobacco: Never Comments:Down to 6 cigarette s a day Alcohol Use Standard Drinks/Week Comments Yes 1 (1 standard drink = 0.6 oz pur e alcohol) very little [facility] Utilities Answer Date Recorded In the past [...] week 02/08/2025 How often do you attend confucianism or judaism serv ices? Never 02/08/2025 Do you belong to any clubs o r organizations such as confucianism groups, unions, fraternal or athletic groups, or [...] Recorded Total Score - Questions 1-9 0 03/27 [facility] Occupat ional Health - Occupational Stress [...] any time in the past 12 m [facility], were you homeless or living in a usp (including now)? No 02/08/2025 Education Answer Date [...] f ile documented as of this encounter Functional Status * Audit-C Score Answer Date of Assessment Author 1 02/08/2025 1:55 PM TALITAT Nelly Hannah RN * Question Answer Date of Assessment Author Q1: How often do you have a drink containing alcohol? Monthly or less 02/08/2025 1:55 PM TALITAT Chandra Hannah RN Q2: How many drinks containing alcohol do you have on a typical day when you are drinking? 1 or 2 02/08/2025 1:55 PM CDT Ana Rosa Hannah, RN Q3: How often do you have six or more drinks on one occasion? Never 02/08/2025 1:55 PM CDT Chandra Hannah RN documented as of this encounter Plan of Treatment Upcoming Encounters Date Type Department Care Team (Late st Contact Info) Description 04/01/2025 1:00 AM CDT Home Care Visit [facility] [address] Kristyn [place] RN [place] 04/05/2025 1:00 AM CDT Home Care Visit [facility] [address] Kristyn [place] RN [place] 04/05/2025 2:00 AM CDT Home Care Visit [facility] [address] Britt Cortes, STEAM PRESS TENDER 04/08/2025 1:00 AM CDT Home Care Visit [facility] [address] Kristyn [place] RN [place] 04/12/2025 1:00 AM CDT Home Care Visit [facility] [address] Kristyn [place] RN [place] 04/12/2025 8:00 AM CDT Home Care Visit [facility] [address] Jacqueline Yoon PT [place] 04/15/2025 1:00 AM CDT Home Care Visit [facility] [address] Kristyn [place] RN [place] 04/19/2025 1:00 AM CDT Home Care Visit [facility] [address] Britt Cortes, STEAM PRESS TENDER 04/20/2025 1:00 AM CDT Home Care Visit [facility] [address] Kristyn [place] RN [place] 04/25/2025 1:00 AM CDT Home Care Visit [facility] [address] Jacqueline Yoon PT [place] 04/27/2025 1:00 AM CDT Home Care Visit [facility] [address] Kristyn [place] RN [place] 05/04/2025 1:00 AM CDT Home Care Visit [facility] [address] Kristyn [place] RN [place] 05/11/2025 1:00 AM CDT Home Care Visit [facility] [address] Kristyn [place] RN [place] 05/12/2025 1:00 PM CDT Office Visit [facility] - Family Medicine [facility] [address] [place] [address] Sherri Gil, DO [address] [address] 05/18/2025 1:00 AM CDT Home Care Visit [facility] [address] Kristyn [place] RN [place] 05/24/2025 1:00 AM CDT Appointment [address] [address] Kristyn [place] RN [place] documented as of this encounter Procedures Procedure Name Priority Date/Time Associated Diagnosis Comments URINALYSIS REFLEX IF INDICATED BY ABNORMAL RESULTS Routine 02/07/2025 5:10 PM CDT Gross hematuria CULTURE, URINE Routine 02/07/2025 5:10 PM CDT Gross hematuria documented in this encounter Results * CULTURE, URINE (02/07/2025 5:10 PM CDT) Pathologist [facility] CULTURE RESULTS Mixed Growth or 3 or More Organisms, Probable Collection Contamination, Suggest Repeat 02/09/2025 1:29 PM CDT [facility] Urine URINE SPECIMEN / Unknown Non-Phlebotomy Collection / Unknown 02/07/2025 5:10 PM CDT 02/07/2025 5:37 PM CDT us Sherri Gil DO MICROBIOLOGY - GENERAL ORDERA BLES Final Result [facility] [address] [place] [address], * (ABNORMAL) URINALYSIS REFLEX IF INDICATED BY ABNORMAL RESULTS (02/07/2025 5:10 PM CDT) [facility] SPECIFIC GRAVITY 1.015 1.003 - 1.030 02/08/2025 5:58 PM CDT [facility] URINE PH 6.0 5.0 - 9.0 02/08/2025 5:58 PM CDT [facility] WBC ESTERASE 500 /uL(A) Negative 02/08/2025 5:58 PM CDT [facility] NITRITE Positive(A) Negative 02/08/2025 5:58 PM CDT [facility] PROTEIN, RANDOM URINE 100 mg/dL(A) Negative 02/08/2025 5:58 PM CDT [facility] URINE GLUCOSE, QUAL Negative Negative 02/08/2025 5:58 PM CDT [facility] URINE KETONES Negative Negative 02/08/2025 5:58 PM CDT [facility] UROBILINOGEN Normal Normal mg/dL 02/08/2025 5:58 PM CDT [facility] URINE BLOOD 250 /uL(A) Negative darvin/ul 02/08/2025 5:58 PM CDT [facility] URINALYSIS COLOR Dark Brown 02/08/2025 5:58 PM CDT [facility] URINALYSIS CLARITY Very Cloudy 02/08/2025 5:58 PM CDT [facility] WBC (Urine) Packed(A) Negative, 0-5 /hpf 02/08/2025 5:58 PM CDT [facility] URINE RBC'S 51-150(A) Negative, 0-2 /hpf 02/08/2025 5:58 PM CDT [facility] EPITHELIAL CELLS Occasional /lpf 02/08/2025 5:58 PM CDT [facility] BACTERIA, URINE Many(A) Negative /hpf 02/08/2025 5:58 PM CDT [facility] Urine URINE SPECIMEN / Unknown Non-Phlebotomy Collection / Unknown 02/07/2025 5:10 PM CDT 02/07/2025 5:37 PM CDT us Sherri Gil DO URINE ORDERABLES Edited Resul t - Final [facility] [address] [place] [address] documented in this encounter Visit Diagnoses Diagnosis Gross hematuria documented in this encounter Additional Health Concerns Infection Onset Date Last Indicated Resolved Time COVID - 19 02/08/2025 02/08/2025 02/08/2025 10:3 5 AM CDT Assessment Noted Time PHQ-9 Depression Total Score: 0 04/09/20 24 3:51 PM CDT documented as of this encounter Care Teams Heel Shaper Relationship Specialty Start Date End Date Sherri Gil DO [address] [address] PCP - General Family Medicine 07/08/24 Latanya Head LSW [place] Rope Cleaner Social Work Lecturer 03/01/25 5 documented as of this encounter
--- OUTSIDE RECORDS SUMMARY | 2025-03-30 13:51 | XMS_ITS | Encounter Summary ---
Author Organization [facility] Address [address] [place] [address] [place] [address] Phone Care Team Providers Care Coater Brake Linings Name Role Phone Sherri Gil DO Primary Care Provider [phone] Reason for Visit * Auth/Cert (Routine) Specialty Diagnoses / Procedures Referred By Yonatan t Referred To Contact Referral ID Status Reason Start Date Expiration Date Visits Re quested Visits Authorized [id number] 1 1 Encounter Details Date Type Department Care Team ([facility] st Contact Info) Description 03/29/2025 11:00 AM CDT Home Care Visit [facility] [address] [place] [address] Kristyn [place] RN [place] SN - WOUND VISIT Social History Tobacco Use Types Packs/Day Years Used Date Smoking Tobacco: Every Day Cigarettes 0.3 40 Smokeless Tobacco: Never Comments:Down to 6 cigarette s a day Alcohol Use Standard Drinks/Week Comments Yes 1 (1 standard drink = 0.6 oz pur e alcohol) very little [facility] Utilities Answer Date Recorded In the past 12 months has th e electric, gas, oil, or water company [...] week 02/08/2025 How often do you attend islam or yarsani serv ices? Never 02/08/2025 Do you belong to any clubs o r organizations such as islam groups, unions, fraternal or athletic groups, or [...] Total Score - Questions 1-9 0 01/26 [facility] Occupat ional [facility] - Occupational Stress Questionnaire Answer Date [...] any time in the past 12 m [facility], were you homeless or living in a chcf (including now)? No 02/08/2025 Education Answer Date [...] 04/01/2025 1:00 AM CDT [facility] [address] [place] [address] Kristyn Washington RN [place] 04/05/2025 1:00 AM CDT [facility] [address] [place] [address] Kristyn [place] RN [place] 04/05/2025 2:00 AM CDT Home Care Visit [address] [address] Britt Cortes, KENNEL OPERATOR 04/08/2025 1:00 AM CDT Home Care Visit [address] [address] Kristyn [place] RN [place] 04/12/2025 1:00 AM CDT Home Care Visit [address] [address] Kristyn [place] RN [place] 04/12/2025 8:00 AM CDT Home Care Visit [address] [address] Jacqueline Yoon, PT [place] 04/15/2025 1:00 AM CDT Home Care Visit [address] [address] Kristyn [place] RN [place] 04/19/2025 1:00 AM CDT Home Care Visit [address] [address] Britt Cortes, KENNEL OPERATOR 04/20/2025 1:00 AM CDT Home Care Visit [address] [address] Kristyn [place] RN [place] 04/25/2025 1:00 AM CDT Home Care Visit [address] [address] Jacqueline Yoon, PT [place] 04/27/2025 1:00 AM CDT Home Care Visit [address] [address] Kristyn [place] RN [place] 05/04/2025 1:00 AM CDT Home Care Visit [address] [address] Kristyn [place] RN [place] 05/11/2025 1:00 AM CDT Home Care Visit [address] [address] Kristyn [place] RN [place] 05/12/2025 1:00 PM CDT [facility] [place] [address] [place] [address] Sherri Gil DO 2 [facility] [address], [address] [place] [address] 05/18/2025 1:00 AM CDT [facility] [address] [place] [address] Kristyn [place] RN [place] 05/24/2025 1:00 AM CDT [facility] [address] [place] [address] Kristyn [place] RN [place] documented as of this encounter Goals Goal [...] Help patient manage blood glucose Care Plan [facility] TYPE 2 DIABETES NO MEDICATION PATTERN CONCERN [...] - Care Plan Visit Details Visit Type -SN - Wound Discipline -Senior Living Problems Problem Description Start Date Status Goals Interve ntions COPD ORDERS Disciplines: Senior Living 01/26/2025 Active 1 goal linked to scheduled/documented intervention Goals Goal Associated Problem Outcome Goal Met? Visit Notes COPD Description: Patient will verbalize understanding of methods to prevent exacerbation of COPD. Patient/caregiver will verbalize understanding of COPD self-care management. Target date: within 9 weeks COPD ORDERS Outcome Achieved Yes documented in this encounter Care Teams Coater Brake Linings Relationship Specialty Start Date End Date Sherri Gil DO [address] [place] [address] PCP - General Family Medicine 07/08/24 documented as of this encounter
--- OUTSIDE RECORDS SUMMARY | 2025-03-30 13:51 | XMS_ITS | Encounter Summary ---
Author Organization [facility] Address [address] [place] [address] Phone Care Team Providers Care Transactional Attorney Name Role Phone Sherri Gil DO Primary Care Provider [phone] Latanya Head SHEET HEATER HELPER Unavailable Unavai lable Encounter Details Date Type Department Care Team (Late st Contact Info) Description 02/08/2025 Results Follow-Up [facility] - Family Medicine - [place] [address] [place] [address] Addie Beebe APRN, NUCLEAR CARDIOLOGY TECHNOLOGIST [address] [address] URINALYSIS REFLEX IF INDICATED BY ABNORMAL RESULTS Social History Tobacco Use Types Packs/Day Years Used Date Smoking Tobacco: Every Day Cigarettes 0.3 40 Smokeless Tobacco: Never Comments:Down to 6 cigarette s a day Alcohol Use Standard Drinks/Week Comments Yes 1 (1 standard drink = 0.6 oz pur e alcohol) very little [facility] Utilities Answer Date Recorded In the [...] week 02/08/2025 How often do you attend yazidi or druze serv ices? Never 02/08/2025 Do you belong to any clubs o r organizations such as yazidi groups, unions, fraternal or athletic groups, or [...] Total Score - Questions 1-9 0 03/27 [facility] Occupat ional Health - [...] any time in the past 12 m [facility], were you homeless or living in a nursing home (including now)? No 02/08/2025 Education Answer Date [...] drinking? 1 or 2 02/08/2025 1:55 PM TALITAT Ana Rosa Hannah RN Q3: How often do you have six or more drinks on one occasion? Never 02/08/2025 1:55 PM Chandra Zuniga , RN documented as of this encounter Plan of Treatment Upcoming Encounters Date Type Department Care Team (Late st Contact Info) Description 04/01/2025 1:00 AM CDT Home Care Visit [facility] [address] [place] [address] Kristyn Washington RN [place] 04/05/2025 1:00 AM CDT Home Care Visit [address] [address] Kristyn Washington RN [place] 04/05/2025 2:00 AM CDT Home Care Visit [address] [address] Britt Cortes, WATER SERVER 04/08/2025 1:00 AM CDT Home Care Visit [address] [address] Kristyn Washington RN [place] 04/12/2025 1:00 AM CDT Home Care Visit [address] [address] Kristyn [place] RN [place] 04/12/2025 8:00 AM CDT Home Care Visit [address] [address] Jacqueline Yoon, PT [place] 04/15/2025 1:00 AM CDT Home Care Visit [address] [address] Kristyn Washington RN [place] 04/19/2025 1:00 AM CDT Home Care Visit [address] [address] Britt Cortes, WATER SERVER 04/20/2025 1:00 AM CDT Home Care Visit [address] [address] Kristyn [place] RN [place] 04/25/2025 1:00 AM CDT Home Care Visit [address] [address] Jacqueline Yoon, PT [place] 04/27/2025 1:00 AM CDT Home Care Visit [address] [address] Kristyn [place] RN [place] 05/04/2025 1:00 AM CDT Home Care Visit [address] [address] Kristyn Washington RN [place] 05/11/2025 1:00 AM CDT Home Care Visit [address] [address] Kristyn Washington RN [place] 05/12/2025 1:00 PM CDT Office Visit [facility] Medical Group - Family [facility] [address] [place] [address] Sherri Gil DO 2 [place] [facility] [address] [place] [address] 05/18/2025 1:00 AM CDT Home Care Visit [address] [address] Kristyn Washington RN [place] 05/24/2025 1:00 AM CDT Appointment [address] [address] Kristyn Washington RN [place] documented as of this encounter Visit Diagnoses Diagnosis Acute cystitis with hematuria- Primary Acute cystitis documented in this encounter Additional Health Concerns Infection Onset Date Last Indicated Resolved Time COVID - 19 02/08/2025 02/08/2025 02/08/2025 10:3 5 AM CDT Assessment Noted Time PHQ-9 Depression Total Score: 0 04/09/20 24 3:51 PM CDT documented as of this encounter Care Teams Transactional Attorney Relationship Specialty Start Date End Date Sherri Gil DO 2 [place] [facility] [address] [place] [address] PCP - General Family Medicine 07/08/24 Latanya Head LSW [place] Ecologist Technician Floor Space Allocator 03/01/25 5 documented as of this encounter
--- OUTSIDE RECORDS SUMMARY | 2025-03-30 13:51 | XMS_ITS | Encounter Summary ---
Author Organization [facility] Address [address] [place] [address] Care Team Providers Care Land Economist Name Role Phone Lili Cormier MD Primary Care Provider [phone] Patrick Rubi MD Unavailable [phone] Referring, Unknown Unavailable Unavailabl Sintia Abbott NP Unavailable [phone] Kristyn Parker Primary Care Provider [phone] Ghulam Hoskins MD Unavailable [phone] No, Physician Primary Care Provider [phone] Ghulam Hoskins MD Primary Care Provider + [phone] Sherri Gil DO Primary Care Provider + [phone] Encounter Details Date Type Department Care Team (Late st Contact Info) Description 01/17/2023 Telephone [facility] Radiology [facility] [address] [place] [address] Rekha Thorpe RN Social History Tobacco Use Types Packs/Day Years Used Date Smoking Tobacco: Every Day Cigarettes 1.5 40 Smokeless Tobacco: Never Alcohol Use Standard Drinks/Week Comments Yes 4 (1 standard drink = 0.6 oz pur e alcohol) AUDIT-C Answer Date Recorded Q1: How often do you have a drink containing alcohol? Never 10/29/2022 Q2: How many drinks containi ng alcohol do you have on a typical day when you are drinking? Patient does not drink Q3: How often do you have si x or more drinks on one occasion? Never 10/29/2022 Comments No Sex and Gender Information Value Date Recorded Sex Assigned at Not on file Legal Sex Female 8:47 PM LITIGATION MANAGER Gender Identity Not on file Sexual Orientation Not on file documented as of this encounter Plan of Treatment Not on file documented as of this encounter Visit Diagnoses Not on filedocumented in this encounter Additional Health Concerns Infection Onset Date Last Indicated Resolved Time COVID: Suspected 12/11/2024 12/11/2024 12/11/2024 6:55 PM LITIGATION MANAGER documented as of this encounter Care Teams Land Economist Relationship Specialty Start Date End Date Lili Cormier MD PCP - General 10/26/17 12/21/23 Kristyn Parker PA [address] [place] [address] PCP - General Cloth Shrinker 12/22/23 12/16/24 No, Physician PCP - General 12/17/24 12/23/24 Ghulam Hoskins MD [facility] [place] [address] PCP - General Diagnostic Radiology 12/24/24 03/10/25 Sherri Gil DO [address] [place] [address] PCP - General Family Medicine 03/11/25 Patrick Rubi MD Consulting Physician Nephrology 03/30/20 Pierre Ty MD Referring Physician 12/01/20 Sintia Stone NP Nurse Practitioner Medical Oncology 12/22/20 Ghulam Hoskins MD [address] [facility] [address] [place] [address] Consulting Physician Diagnostic Radiology 03/30/24 documented as of this encounter
--- OUTSIDE RECORDS SUMMARY | 2025-03-30 13:51 | XMS_ITS | Clinical Summary ---
Author Organization [facility] Facility Address [address] [place] [address] Care Team Providers Care Cement Fittings Maker Name Role Phone Lili Cormier MD Primary Care Provider [phone] Allergies No known active allergies Medications calcium carbonate (OS-EDGAR) 1250 (500 Ca) MG chewable tablet Chew 1 tablet 1 (one) time each day Active ferrous sulfate 325 (65 Fe) MG tablet Take 1 tablet by mouth 1 (one) time each day Active Cholecalcifero l (VITAMIN D3) 1000 units capsule Take 1 capsule by mouth 1 (one) time each day Active cilostazol (PLETAL) 100 MG tablet Take 1 tablet by mouth 2 (two) times a day Active Magnesium 500 MG tablet Take 1 tablet by mouth 1 (one) time each day Active atorvastatin (LIPITOR) 20 MG tablet Take 1 tablet by mouth 1 (one) time each day Active senna (SENOKOT) 8.6 MG tablet Take 1 tablet by mouth 1 (one) time each day if needed for constipation Active apixaban (Eliquis) 2.5 MG tablet Take 2.5 mg by mouth in the morning and 2.5 mg in the evening. Active metoprolol succinate XL (TOPROL XL) 50 MG 24 hr tablet Take 50 mg by mouth 1 (one) time each day Do not crush or chew. 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 [address] [facility] [place] [id number] Patrick Rubi MD Stage 3b chronic kidney disease (HCC) (Primary Dx); Hypertension; Anemia in chronic kidney disease 03/11/2025 Documentation Only [facility] [place]. [address] [place] [address] Patrick Rubi MD 03/10/2025 Documentation Only [facility]. [address] [place] [address] Patrick Rubi MD 03/10/2025 Orders Only [facility]. [address] [place] [address] Zainab Disla MA 03/07/2025 Documentation Only [facility] [place]. [address] [place] [address] [address] Patrick Rubi MD 02/14/2025 Documentation Only [facility]. [address] [place] [address] Patrick Rubi MD 01/25/2025 11:15 AM CDT Office Visit [facility] [place] [address] [place] [address] Patrick Rubi MD Chronic kidney disease, stage 4 (severe) (HCC) (Primary Dx); Hypertension; Anemia in chronic kidney disease; Secondary hyperparathyroidism of renal origin (HCC); Peripheral vascular disease (HCC); Chronic kidney disease stage 4 (HCC) 01/19/2025 Documentation Only [facility]. [address] [facility] [address] [place] [address] Patrick Rubi MD 01/19/2025 Documentation Only [facility]. [address] [facility] [address] [place] [address] Patrick Rubi MD from Last 3 Months Immunizations Immunization Administration Dates Next Due Influenza Split High Dose Preservative Free IM 1 ,08/09/2015 Influenza TIV (IM) 10/27/2012 Pneumococcal Conjugate 13-Valent 02/06/2016 Pneumococcal Polysaccharide 10/27/2010 Family History Medical History Relation Comments No Known Problems Brother Cancer Father Cancer Mother Cancer Sibling Cancer Sister Relation Status Comments Brother Alive Father Mother Sibling Sister Social History Tobacco Use Types Packs/Day Years Used Date Smoking Tobacco: Every Day Cigarettes Smokeless Tobacco: Never Alcohol Use Standard Drinks/Week Comments Yes 0 (1 standard drink = 0.6 oz pure alcohol) Alcoholic Drinks/day: Occasional social drink AUDIT-C Answer Date Recorded Frequency of Alcohol Consumption 2-4 times a fri08/03/2019 Average Number of Drinks 1 or 2 019 Frequency of Binge Drinking Not on file 05/2019 Comments Unknown Sex and Gender Information Value Date Recorded Sex Assigned at Not on file Legal Sex Female 6:09 PM EDT Gender Identity Not on file Sexual Orientation Not on file Last Filed Vital Signs Vital Sign Reading Time Taken Comments Blood Pressure 120/60 04/11/2020 10:25 AM CDT Pulse 82 04/11/2020 10:25 AM CDT Temperature 36.2 C (97.1 F) 04/11/2020 10:25 AM CDT Respiratory Rate 18 04/06/2019 11:00 AM CDT Oxygen Saturation 96% 04/11/2020 10:25 AM CDT Inhaled Oxygen Concentration - - Weight 61.9 kg (136 lb 8 oz) 04/11/2020 10:25 AM CDT Height 154.9 cm (5' 1) 04/11/2020 10:25 AM CDT Body Mass Index 25.79 04/11/2020 10:25 AM CDT Plan of Treatment Upcoming Encounters Date Type Department Care Team (Late st Contact Info) Description 07/12/2025 1:45 PM CDT Office Visit [facility]. [address] [facility] [address] [place] [address] Patrick Rubi MD [address] [facility] [place] [address] Health Maintenance Due Date Last Done Comments Diabetes: Ophthalmology Exam 01/12/2024 Diabetes: Pedal Pulse Checked 01/12/2024 Diabetes: Sensory Foot Exam 01/12/2024 Diabetes: Visual Foot Exam 01/12/2024 Diabetes: Hemoglobin A1C 05/10/2025 025, 12/14/2024, 07/08/2024 Pneumococcal Vaccine: 50+ Years Completed 02/06/2016, 10/27/2010 Pneumococcal Vaccine: Peds (0 to 5 Years) and At-Risk Patients (6 to 49 Years) Discontinued 02/06/2016, 10/27/2010 Influenza Vaccine Completed 10/17/2024, , 07/27/2023, Additional history exists Hepatitis B Vaccine Aged Out No longe r eligible based on patient's age to complete this topic Insurance Medicare [facility] ([id number]) Care Teams Cement Fittings Maker Relationship Specialty Start Date End Date Lili Cormier MD [address] [place] [address] PCP - General Family Medicine 05/26/19
--- OUTSIDE RECORDS SUMMARY | 2025-03-30 13:51 | XMS_ITS | Encounter Summary ---
Author Organization [facility] Address [address] [facility] [place] [address] Phone Care Team Providers Care Associate Professor Of Art History Name Role Phone Sherri Gil DO Primary Care Provider [phone] Reason for Visit * Reason Onset Date Comments Advice Only 03/29/2025 Encounter Details Date Type Department Care Team (Late st Contact Info) Description 03/29/2025 Telephone [facility] [address] [place] [address] Sherri Gil, DO 2 [facility] [address] [place] [address] Advice Only Social History Tobacco Use Types Packs/Day Years Used Date Smoking Tobacco: Every Day Cigarettes 0.3 40 Smokeless Tobacco: Never Comments:Down to 6 cigarette s a day Alcohol Use Standard Drinks/Week Comments Yes 1 (1 standard drink = 0.6 oz pur e alcohol) very little [facility] Utilities Answer Date Recorded In the [...] week 02/08/2025 How often do you attend orthodox or advent serv ices? Never 02/08/2025 Do you belong to any clubs o r organizations such as orthodox groups, unions, fraternal or athletic groups, or [...] Total Score - Questions 1-9 0 01/26 [facility] [place] of Occupat ional Health - Occupational Stress [...] any time in the past 12 m [facility], were you homeless or living in a half-way (including now)? No 02/08/2025 Education Answer Date [...] f ile documented as of this encounter Miscellaneous Notes * Telephone Encounter - Holley Angel RN - 03/29/2025 2:43 PM CDT Spoke to Kristyn and relayed message regarding UA. She verbalized understanding. States they won't be able to obtain UA today, but will do it tomorrow. * Telephone Encounter - Sandra Steiner APRN, CNP - 03/29/2025 2:40 PM CDT Collect a UA * Telephone Encounter - Rufina Mckinney - 03/29/2025 12:58 PM CDT Kristyn with home health wanted Dr. Gil to know that Rocio's BP was 88/54 on L and 98/50 on R.She also seems lethargic and concerns that she isn't drinking enough fluids. Oxygen was 93 today which is lower than usual documented in this encounter Plan of Treatment Upcoming Encounters Date Type Department Care Team (Late st Contact Info) Description 04/01/2025 1:00 AM CDT Home Care Visit [address] [address] Kristyn Washington RN [place] 04/05/2025 1:00 AM CDT Home Care Visit [address] [address] Kristyn Washington RN [place] 04/05/2025 2:00 AM CDT Home Care Visit [address] [address] Britt Cortes, OFFICE SPECIALIST 04/08/2025 1:00 AM CDT Home Care Visit [address] [address] Kristyn Washington RN [place] 04/12/2025 1:00 AM CDT Home Care Visit [address] [address] Kristyn [place] RN [place] 04/12/2025 8:00 AM CDT Home Care Visit [address] [address] Jacqueline Yoon, PT [place] 04/15/2025 1:00 AM CDT Home Care Visit [address] [address] Kristyn [place] RN [place] 04/19/2025 1:00 AM CDT Home Care Visit [address] [address] Britt Cortes, OFFICE SPECIALIST 04/20/2025 1:00 AM CDT Home Care Visit [address] [address] Kristyn Washington RN [place] 04/25/2025 1:00 AM CDT Home Care Visit [address] [address] Jacqueline Yoon PT [place] 04/27/2025 1:00 AM CDT Home Care Visit [address] [address] Kristyn [place] RN [place] 05/04/2025 1:00 AM CDT Home Care Visit [address] [address] Kristyn [place] RN [place] 05/11/2025 1:00 AM CDT Home Care Visit [address] [address] Kristyn [place] RN [place] 05/12/2025 1:00 PM CDT Office Visit [facility] - Family Medicine [facility] [address] [place] [address] Sherri Gil DO [address] [address] 05/18/2025 1:00 AM CDT Home Care Visit [address] [address] Kristyn Washington RN [place] 05/24/2025 1:00 AM CDT Appointment [address] [address] Kristyn Washington RN [place] documented as of this encounter Goals Goal [...] documented as of this encounter Care Teams Associate Professor Of Art History Relationship Specialty Start Date End Date Sherri Gil DO [address] [place] [address] PCP - General Family Medicine 07/08/24 documented as of this encounter
--- OUTSIDE RECORDS SUMMARY | 2025-03-30 13:51 | XMS_ITS | Encounter Summary ---
Author Organization [facility] Healthcare Address [address] [place] [address] Care Team Providers Care Wall Mirror Department Supervisor Name Role Phone Lili Cormier MD Primary Care Provider [phone] Patrick uRbi MD Unavailable [phone] Referring, Unknown Unavailable Unavailabl Sintia Abbott NP Unavailable [phone] Kristyn Parker Primary Care Provider [phone] Ghulam Hoskins MD Unavailable [phone] No, Physician Primary Care Provider [phone] Ghulam Hoskins MD Primary Care Provider + [phone] Sherri Gil DO Primary Care Provider + [phone] Encounter Details Date Type Department Care Team (Late st Contact Info) Description 06/09/2023 Telephone [facility] Radiology [address] [place] [address] Herbert Carrington RN Social History Tobacco Use Types Packs/Day Years Used Date Smoking Tobacco: Every Day Cigarettes 1.5 40 Smokeless Tobacco: Never Alcohol Use Standard Drinks/Week Comments Yes 4 (1 standard drink = 0.6 oz pur e alcohol) AUDIT-C Answer Date Recorded Q1: How often do you have a drink containing alcohol? Never 03/18/2023 Q2: How many drinks containi ng alcohol do you have on a typical day when you are drinking? Patient does not drink Q3: How often do you have si x or more drinks on one occasion? Never 03/18/2023 Comments No Sex and Gender Information Value Date Recorded Sex Assigned at Not on file Legal Sex Female 8:47 PM ASSESSMENT ANALYST Gender Identity Not on file Sexual Orientation Not on file documented as of this encounter Plan of Treatment Not on file documented as of this encounter Visit Diagnoses Not on filedocumented in this encounter Additional Health Concerns Infection Onset Date Last Indicated Resolved Time COVID: Suspected 12/11/2024 12/11/2024 12/11/2024 6:55 PM ASSESSMENT ANALYST documented as of this encounter Care Teams Wall Mirror Department Supervisor Relationship Specialty Start Date End Date Lili Cormier MD PCP - General 10/26/17 12/21/23 Kristyn Parker PA [address] [place] [id number] PCP - General Building Wrecker 12/22/23 12/16/24 No, Physician PCP - General 12/17/24 12/23/24 Ghulam Hoskins MD [facility] [place] [address] PCP - General Diagnostic Radiology 12/24/24 03/10/25 Sherri Gil DO [address] [place] [address] PCP - General Family Medicine 03/11/25 Patrick Rubi MD Consulting Physician Nephrology 03/30/20 Pierre Ty MD Referring Physician 12/01/20 Sintia Stone NP Nurse Practitioner Medical Oncology 12/22/20 Ghulam Hoskins MD [address] [facility] [address] [place] [address] Consulting Physician Diagnostic Radiology 03/30/24 documented as of this encounter
--- OUTSIDE RECORDS SUMMARY | 2025-03-30 13:51 | XMS_ITS | Encounter Summary ---
Author Organization [facility] Healthcare Address [address] [place] [address] Care Team Providers Care Tree Driller Name Role Phone Lili Cormier MD Primary Care Provider [phone] Patrick Rubi MD Unavailable [phone] Referring, Unknown Unavailable Unavailabl Sintia Abbott NP Unavailable [phone] Kristyn Parker Primary Care Provider + [phone] Ghulam Hoskins MD Unavailable [phone] No, Physician Primary Care Provider [phone] Ghulam Hoskins MD Primary Care Provider + [phone] Sherri Gil DO Primary Care Provider + [phone] Encounter Details Date Type Department Care Team (Late st Contact Info) Description 02/08/2022 Telephone [facility] Radiology [address] [place], [place] [id number] Dusty Goyal RN Social History Tobacco Use Types Packs/Day Years Used Date Smoking Tobacco: Every Day Cigarettes 1.5 40 Smokeless Tobacco: Never Alcohol Use Standard Drinks/Week Comments Yes 4 (1 standard drink = 0.6 oz pur e alcohol) AUDIT-C Answer Date Recorded Q1: How often do you have a drink containing alc ohol? 2-3 times a week 01/15/2022 Q2: How many drinks containi ng alcohol do you have on a typical day when you are drinking? 1 or 2 01/15/2022 Q3: How often do you have si x or more drinks on one occasion? Never 01/15/2022 Comments No Sex and Gender Information Value Date Recorded Sex Assigned at Not on file Legal Sex Female 8:47 PM SPLICING MACHINE OPERATOR Gender Identity Not on file Sexual Orientation Not on file documented as of this encounter Plan of Treatment Not on file documented as of this encounter Visit Diagnoses Not on filedocumented in this encounter Additional Health Concerns Infection Onset Date Last Indicated Resolved Time COVID: Suspected 12/11/2024 12/11/2024 12/11/2024 6:55 PM SPLICING MACHINE OPERATOR documented as of this encounter Care Teams Tree Driller Relationship Specialty Start Date End Date Lili Cormier MD PCP - General 10/26/17 12/21/23 Kristyn Parker PA [address] [place] [address] PCP - General Home Theater Expert 12/22/23 12/16/24 No, Physician PCP - General 12/17/24 12/23/24 Ghulam Hoskins MD [facility] S [facility] [place] [place] [address] PCP - General Diagnostic Radiology 12/24/24 03/10/25 Sherri Gil DO [address] [place] [address] PCP - General Family Medicine 03/11/25 Patrick Rubi MD Consulting Physician Nephrology 03/30/20 Pierre Ty MD Referring Physician 12/01/20 Sintia Stone NP Nurse Practitioner Medical Oncology 12/22/20 Ghulam Hoskins MD [address] [facility] [address] [place] [address] Consulting Physician Diagnostic Radiology 03/30/24 documented as of this encounter
--- OUTSIDE RECORDS SUMMARY | 2025-03-30 13:51 | XMS_ITS | Encounter Summary ---
Author Organization [facility] Address [address] [place] [address] Phone Care Team Providers Care Blocking Machine Operator Second Name Role Phone Lili Cormier MD Primary Care Provider Encounter Details Date Type Department Care Team (Latest Contact Info) Description 03/13/2020 Orders Only [facility]. [address] [place] [address] Patrick Rubi MD [address] [place] [address] Chronic kidney disease, stage 4 (severe) (HCC); Hypertension; Anemia in chronic kidney disease; Secondary hyperparathyroidism of renal origin (HCC); Hypertensive chronic kidney disease, unspecified, with chronic kidney disease stage I through stage IV, or unspecified; Chronic kidney disease stage 4 (HCC) Social History Tobacco Use Types Packs/Day [...] Description 07/12/2025 1:45 PM CDT Office Visit [facility]. [address] [place] [address] Patrick Rubi MD [address] [place] [address] documented as of this encounter Visit Diagnoses Diagnosis Chronic kidney disease, stage 4 (severe) (HCC) Hypertension Anemia in chronic kidney disease Secondary hyperparathyroidism of renal origin (HCC) Secondary hyperparathyroidism of renal origin Hypertensive chronic kidney disease, unspecified, with chronic kidney disease stage I through stage IV, or unspecified Chronic kidney disease stage 4 (HCC) documented in this encounter Care Teams Blocking Machine Operator Second Relationship Specialty Start Date End Date Lili Cormier MD [address] [place] [address] PCP - General Family Medicine 05/26/19 documented as of this encounter
--- OUTSIDE RECORDS SUMMARY | 2025-03-30 13:51 | XMS_ITS | Encounter Summary ---
Author Organization [facility] Address [address] [place] [address] Phone Care Team Providers Care Neurophysiologist Name Role Phone Sherri Gil DO Primary Care Provider [phone] Encounter Details Date Type Department Care Team (Late st Contact Info) Description 03/16/2025 Lab Requisition [facility] [address] [place] [address] Sherri Gil DO [address] [address] Pyonephrosis; Infection and inflammatory reaction due to nephrostomy catheter, subsequent encounter; Hypertensive chronic kidney disease with stage 1 through stage 4 chronic kidney disease, or unspecified chronic kidney disease Social History Tobacco Use Types Packs/Day Years Used Date Smoking Tobacco: Every Day Cigarettes 0.3 40 Smokeless Tobacco: Never Comments:Down to 6 cigarette s a day Alcohol Use Standard Drinks/Week Comments Yes 1 (1 standard drink = 0.6 oz pur e alcohol) very little [facility] Utilities Answer Date Recorded In the past 12 months has [employer] electric, gas, oil, or water company threatened [...] week 02/08/2025 How often do you attend temple or shinto serv ices? Never 02/08/2025 Do you belong to any clubs o r organizations such as temple groups, unions, fraternal or athletic groups, or [...] Total Score - Questions 1-9 0 01/26 [facility] - Occupational Stress Questionnaire Answer Date Recorded [...] any time in the past 12 m [facility], were you homeless or living in [...] 04/01/2025 1:00 AM CDT Home Care Visit [address] [address] Kristyn [place] RN [place] 04/05/2025 1:00 AM CDT Home Care Visit [address] [address] Kristyn [place] RN [place] 04/05/2025 2:00 AM CDT Home Care Visit [address] [address] Britt Cortes, FOOD SAFETY FIELD SPECIALIST 04/08/2025 1:00 AM CDT Home Care Visit [address] [address] Kristyn [place] RN [place] 04/12/2025 1:00 AM CDT Home Care Visit [address] [address] Kristyn [place] RN [place] 04/12/2025 8:00 AM CDT Home Care Visit [address] [address] Jacqueline Yoon, PT [place] 04/15/2025 1:00 AM CDT Home Care Visit [address] [address] Kristyn [place] RN [place] 04/19/2025 1:00 AM CDT Home Care Visit [address] [address] Britt Cortes, FOOD SAFETY FIELD SPECIALIST 04/20/2025 1:00 AM CDT Home Care Visit [address] [address] Kristyn [place] RN [place] 04/25/2025 1:00 AM CDT Home Care Visit [address] [address] Jacqueline Yoon, PT [place] 04/27/2025 1:00 AM CDT Home Care Visit [address] [address] Kristyn [place] RN [place] 05/04/2025 1:00 AM CDT Home Care Visit [address] [address] Kristyn [place] RN [place] 05/11/2025 1:00 AM CDT Home Care Visit [address] [address] Kristyn [place], RN [place] 05/12/2025 1:00 PM CDT Office Visit [facility] - Family Medicine [facility] [address] [place] [address] Sherri Gil, DO [address] [facility] [address] [place] [address] 05/18/2025 1:00 AM CDT Home Care Visit [facility] [address] [place] [address] Krisytn Washington RN [place] 05/24/2025 1:00 AM CDT [facility] [address] [place] [address] Kristyn [place] RN [place] documented as of this encounter Goals Goal Patient Goal Type Associated Problems Recent Progress Patient-Stated? Author Help patient manage COPD Care Plan [facility] COPD CONCERN No Sherri Gil DO Help patient manage hypertension Care Plan [facility] HYPERTENSION CONCERN (PATIENT NOT ON HIGH BLOOD PRESSURE MEDICATIONS) No Sherri Gil DO Help patients manage type 2 diabetes Care Plan [facility] TYPE 2 DIABETES CONCERN No Sherri Gil DO Help patient manage blood glucose Care Plan [facility] TYPE 2 DIABETES NO MEDICATION PATTERN CONCERN No Sherri Gil, DO documented as of this encounter Procedures [...] kidney disease, or unspecified chronic kidney disease documented in this encounter Results * CULTURE, URINE (03/16/2025 1:00 PM CDT) CULTURE RESULTS Mixed Growth or 3 or More Organisms, Probable Collection Contamination, Suggest Repeat 03/18/2025 6:[address] PM [address] [facility] Urine URINE SPECIMEN / Unknown Non-Phlebotomy Collection / Unknown 03/16/2025 1:00 PM CDT 03/16/2025 2:30 PM CDT us Sherri Gil DO MICROBIOLOGY - GENERAL ORDERA BLES Final Result [facility] [address] [place] [address], [place] * (ABNORMAL) URINALYSIS REFLEX IF INDICATED BY ABNORMAL RESULTS (03/16/2025 1:00 PM CDT) SPECIFIC GRAVITY 1.015 1.003 - 1.030 03/16/2025 3:14 PM CDT [facility] URINE PH 8.0 5.0 - 9.0 03/16/2025 3:14 PM CDT [facility] WBC ESTERASE 500 /uL(A) Negative 03/16/2025 3:14 PM CDT [facility] NITRITE Positive(A) Negative 03/16/2025 3:14 PM CDT [facility] PROTEIN, RANDOM URINE 100 mg/dL(A) Negative 03/16/2025 3:14 PM CDT [facility] URINE GLUCOSE, QUAL Negative Negative 03/16/2025 3:14 PM CDT [facility] URINE KETONES Negative Negative 03/16/2025 3:14 PM CDT [facility] UROBILINOGEN Normal Normal mg/dL 03/16/2025 3:14 PM CDT [facility] URINE BLOOD 250 /uL(A) Negative darvin/ul 03/16/2025 3:14 PM CDT [facility] URINALYSIS COLOR Yellow 03/16/20 3:14 PM CDT [facility] URINALYSIS CLARITY Very Cloudy 03/16/2025 3:14 PM CDT [facility] WBC (Urine) Packed(A) Negative, 0-5 /hpf 03/16/2025 3:14 PM CDT [facility] URINE RBC'S 11-20(A) Negative, 0-2 /hpf 03/16/2025 3:14 PM CDT [facility] EPITHELIAL CELLS Small amount /lpf 2024 3:14 PM CDT [facility] BACTERIA, URINE Moderate(A) Negative /hpf 03/16/2025 3:14 PM CDT [facility] CRYSTALS Triple phosphate 03/16/2025 3:14 PM CDT [facility] Urine URINE SPECIMEN / Unknown Non-Phlebotomy Collection / Unknown 03/16/2025 1:00 PM CDT 03/16/2025 2:30 PM CDT Narrative [facility] - 03/16/2025 3:14 PM CDT Amorphous sediment present Moderate renal epithelial cells present us Sherri Gil DO URINE ORDERABLES Final Result [facility] [address] [place] [address] documented in this encounter Visit Diagnoses Diagnosis Pyonephrosis Pyelonephritis, unspecified Infection and inflammatory reaction due to nephrostomy catheter, subsequent encounter Hypertensive chronic kidney disease with stage 1 through stage 4 chronic kidney disease, or unspecified chronic kidney disease documented in this encounter Additional Health Concerns [...] documented as of this encounter Care Teams Neurophysiologist Relationship Specialty Start Date End Date Sherri Gil DO [address] [place] [address] PCP - General Family Medicine 07/08/24 documented as of this encounter
--- OUTSIDE RECORDS SUMMARY | 2025-03-30 13:51 | XMS_ITS ---
Author Organization [facility] Address [address] [place] [address] Care Team Providers Care Sales Floor Team Member Name Role Phone Patrick Rubi MD Unavailable [phone] Referring, Unknown Unavailable Unavailabl Sintia Abbott NP Unavailable [phone] Ghulam Hoskins MD Unavailable [phone] Sherri Gil DO Primary Care Provider [phone] Active Problems Problem Noted Date Diagnosed Date PVD (peripheral vascular disease) 01/03/2025 Assessment & Plan (02/02/2025 9:17 AM CDT): Status post left above-knee amputation. Overall doing well we will remove jos today. Can start working with Bicycle Rental Clerk. Has a small pressure wound right lower extremity, discussed importance of offloading with the patient and her daughter. 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 Patient is recovering well incision is healing well jos are intact. Not ready to be removed yet. Follow-up in 1 week for staple removal. Can start to use color specialist to the left AKA. Gangrene of toe of left foot 12/27/2024 Assessment & Plan (12/27/2024 3:22 PM MAJOR APPLIANCE ASSEMBLY SUPERVISOR): Impression: Patient has gangrene to the left 5th toe that has been present for approximately 1 month. She is also complaining of pain to left foot. Plan: Recommend daily dressing changes with Betadine paint to the left 5th toe, Kerlix and Julio bandage. Septic shock 12/12/2024 Chronic renal disease, stage IV 12/16/2023 Secondary hyperparathyroidism of renal origin Type 2 diabetes mellitus wit h stage 1 chronic kidney disease, with long-term current use of insulin 12/16/2023 Hematuria 10/07/2023 Pulmonary emphysema 06/30/[address] 06/15/2023 Atelectasis 06/15/2023 Colostomy infection 01/09/2023 Paroxysmal atrial fibrillation 10/14/2022 Hydronephrosis with ureteral stricture, not elsewhere classified 09/16/2022 Acute cystitis 07/10/2022 Parotid mass 12/19/2020 Monoclonal paraproteinemia 06/21/2019 Renal mass 06/21/2019 Absence of right breast 01/07/2019 Aortoiliac occlusive disease 05/27/2018 Assessment & Plan (12/27/2024 3:32 PM MAJOR APPLIANCE ASSEMBLY SUPERVISOR): Impression: Patient has a 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 Patient has ischemic rest pain to the left foot and gangrene to left 5th toe for approximately 1 month. Plan: Patient was seen and evaluated with Dr. Elvira Rangel. -Had a long discussion with the patient and her daughter regarding interventions to include angiogram vs primary amputation. Patient is not a surgical candidate for vascular interventions due to her abdominal surgical history with radiation. 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 - recommend upper extremity arterial doppler for further evaluation of subclavian arteries as patient has diminished radial pulses bilateral and potential intervention access her upper extremities in 1 week. - Recommend left lower extremity angiogram possible intervention. Risks of the procedure communicate with the patient to include bleeding, infection, kidney injury in relation to contrast dye use, limb loss and . Patient voices understanding of these risks and wishes to proceed. -Discussed with the patient and her daughter, if they decide to proceed with left above the knee amputation instead of the angiogram they can call to schedule. - Assessment & Plan (06/30/2024 10:32 AM CDT): Impression: Patient continues to complain of bilateral lower extremity pain with her right lower extremity worse than left however discomfort has not worsened. No open ulcerations are noted. She is minimally ambulatory. Patient has a known stent thrombosis. Lower extremity arterial duplex reveals biphasic to monophasic waveforms to bilateral lower extremities with ABIs of the right/left lower extremity are 0.34/0.54. Plan: Discussed patient and plan of care with Dr. Elvria Rangel. No surgical interventions indicated at this time. -continue ongoing risk factor modifications. -encourage a walking program. -recommend follow-up in 6 months for re-evaluation with repeat lower extremity arterial duplex. Encouraged patient make a sooner appointment if she develops any ischemic rest pain or nonhealing ulcerations. Patient voices understanding. 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 The next step would be an angiogram if this claudication overall his life limiting or she has ischemic rest pain or wounds, again given her complex history I have recommended repeat noninvasives and ongoing surveillance as I think some of her symptoms are due to deconditioning. Recommend PT OT. Continue ASA follow up in the office with repeat noninvasives. Hyperlipidemia 05/27/2018 Assessment & Plan (06/30/2024 10:12 AM CDT): Impression: Chronic and stable. Plan: Continue Lipitor Assessment & Plan (05/28/2024 11:56 AM CDT): Stable continue Lipitor 20 mg. Hypertension 05/27/2018 Assessment & Plan (12/27/2024 3:33 PM MAJOR APPLIANCE ASSEMBLY SUPERVISOR): Impression: Chronic stable Plan: Continue metoprolol Assessment & Plan (06/30/2024 10:12 AM CDT): Impression: Chronic stable. Plan: Continue metoprolol Assessment & Plan (05/28/2024 11:56 AM CDT): Stable continue metoprolol. Personal history of malignant neoplasm of breast 05/27/2018 Lesion of ala of nose 03/04/2017 Iron deficiency 07/10/2016 MGUS (monoclonal gammopathy of unknown significa nce) 06/27/2016 Acute deep vein thrombosis ( DVT) of femoral vein of left lower extremity 04/12/2016 International Federation of Gynecology and Obstetrics (FIGO) stage IIIB malignant neoplasm of cervix 04/03/2016 Anemia due to vitamin B12 deficiency 02/06/2016 Stage 3b chronic kidney disease 02/06/2016 Dyslipidemia 02/06/2016 Assessment & Plan (12/27/2024 3:32 PM MAJOR APPLIANCE ASSEMBLY SUPERVISOR): Impression: Chronic and stable. Plan: Continue atorvastatin. Tobacco use 02/06/2016 Serum creatinine raised 01/11/2016 Anemia 12/11/2015 ER+ (estrogen receptor positive status) 07/21/20 15 Osteoporosis 08/26/2013 Malignant neoplasm of cervix 10/11/2011 Breast cancer 10/04/2011 Malignant neoplasm of upper- outer quadrant of right breast in female, estrogen receptor positive 10/01/2010 Encounter for preventive health examination 02/25 History of malignant neoplasm of cervix 02/05/19 96 Current Treatment and Therapy Plans No current plan information found. Past Treatment and Therapy Plans Oncology Supportive Care Therapy Plan Plan Name Start Date Discontinue Date Treatment Medications Discontinue Reason Plan Provider IV MAINTENANCE THERAPY PLAN 04/10/2018 01/06/2024 No medications scheduled. Automatic discontinuation of dormant plans Jazmyn King MD PhD Specialty Infusion Treatment Plan Name Start Date Discontinue Date Treatment Medications Discontinue Reason Plan Provider DENOSUMAB (PROLIA) INJECTION - STARTED 12/201707/13/2018 03/15/2019 No medications scheduled. Therapy Complete Jazmyn King MD PhD Lifetime Dose Tracking * Chemical Lifetime Dose Automatic Entry Manual Entr y Fluoro Time 313.2 minutes 313.2 minutes 0 minutes Air kerma at the reference point (Ka,r) 1,516 mGy 1 ,516 mGy 0 mGy DLP 4,729 mGycm 4,729 mGycm 0 mGycm
--- OUTSIDE RECORDS SUMMARY | 2025-03-30 13:51 | XMS_ITS | Encounter Summary ---
Author Organization [facility] Address [address] [facility] [address] Phone Care Team Providers Care Creping Machine Operator Helper Name Role Phone Sherri Gil DO Primary Care Provider [phone] Latanya Head POLICE SERVICE TECHNICIAN Unavailable Unavai lable Reason for Visit * Reason Comments Medication Refill Encounter Details Date Type Department Care Team (Late st Contact Info) Description 12/30/2024 Refill [facility] Medical Group - Family Medicine [facility] [address] [place] [id number] Kristyn Parker, CLEMENTE [address] [place] [address] Medication Refill Social History Tobacco Use Types Packs/Day Years Used Date Smoking Tobacco: Every Day Cigarettes 0.3 40 Smokeless Tobacco: Never Comments:Down to 6 cigarette s a day Alcohol Use Standard Drinks/Week Comments Yes 1 (1 standard drink = 0.6 oz pur e alcohol) very little [facility] Utilities Answer Date Recorded In the past 12 months has [employer] electric, gas, oil, or water company threatened to shut off services in your home? No 04/09/2024 Social Connection and Isolation Panel [NHANES] A nswer Date Recorded In a typical week, how many times do you talk on the phone with family, friends, or neighbors? Twice a week 04/09/2024 How often do you get together with friends or re latives? Once a week 04/09/2024 How often do you attend christian or confucianist serv ices? Never 04/09/2024 Do you belong to any clubs o r organizations such as christian groups, unions, fraternal or athletic groups, or school groups? No 04/09/2024 How often do you attend meet ings of the clubs or organizations you belong to? Never 04/09/2024 Are you , , di vorced, , never , or living with a partner? 04/09/2024 AUDIT-C Answer Date Recorded Q1: How often do you have a drink containing alc ohol? Monthly or less 04/09/2024 Q2: How many drinks containi ng alcohol do you have on a typical day when you are drinking? 1 or 2 04/09/2024 Q3: How often do you have si x or more drinks on one occasion? Never 04/09/2024 Overall Financial Resource Strain (CARDIA) Answe r Date Recorded How hard is it for you to pa y for the very basics like food, housing, medical care, and heating? Not hard at all 04/09/2024 PHQ-2 Answer Date Recorded Total Score - Questions 1-9 0 03/27 [facility] alexander camp[facility] Health - Occupational Stress Questionnaire Answer Date Recorded Do you feel stress - tense, restless, nervous, or anxious, or unable to sleep at night because your mind is troubled all the time - these days? Not at all 04/09/2024 Exercise Vital Sign Answer Date Recorde d On average, how many days pe r week do you engage in moderate to strenuous exercise (like a brisk walk)? 2 days 04/09/2024 On average, how many minutes do you engage in exercise at this level? 20 min 04/09/2024 Hunger Vital Sign Answer Date Recorded Within the past 12 months, y ou worried that your food would run out before you got the money to buy more. Never true 04/09/20 24 Within the past 12 months, t he food you bought just didn't last and you didn't have money to get more. Never true 04/09/2024 PRAPARE - Transportation Answer Date Re corded In the past 12 months, has l ack of transportation kept you from medical appointments or from getting medications? No 03/27 In the past 12 months, has l ack of transportation kept you from meetings, work, or from getting things needed for daily living? No 04/09/2024 Housing Stability Vital Sign Answer Italo e Recorded In the last 12 months, was t here a time when you were not able to pay the mortgage or rent on time? No 04/09/2024 In the past 12 months, how m any times have you moved where you were living? 1 04/09/2024 At any time in the past 12 m [facility], were you homeless or living in a senior care (including now)? No 04/09/2024 Education Answer Date Recorded What is the [...] encounter Miscellaneous Notes * Telephone Encounter - Serene Teague RN - 12/30/2024 10:39 AM CST Images from the original note were not included. Metoprolol Succinate Dispensed Days Supply Quantity Provider Pharmacy METOPROLOL ER SUCCINATE 50MG TABS 12/21/2024 90 90 Each Kristyn Parker PAC [facility] METOPROLOL ER SUCCINATE 50MG TABS 10/06/2024 90 90 Each Kristyn Parker, PAC [facility]... Y MACHINERY OPERATOR documented in this encounter Plan of Treatment Upcoming Encounters Date Type Department Care Team (Late st Contact Info) Description 04/01/2025 1:00 AM CDT Home Care Visit [facility] [address] [place] [address] Kristyn [place] RN [place] 04/05/2025 1:00 AM CDT Home Care Visit [address] [address] Kristyn [place] RN [place] 04/05/2025 2:00 AM CDT Home Care Visit [address] [address] Britt Cortes, LOADING INSPECTOR 04/08/2025 1:00 AM CDT Home Care Visit [address] [address] Kristyn [place] RN [place] 04/12/2025 1:00 AM CDT Home Care Visit [address] [address] Kristyn [place] RN [place] 04/12/2025 8:00 AM CDT Home Care Visit [address] [address] Jacqueline Yoon, PT [place] 04/15/2025 1:00 AM CDT Home Care Visit [address] [address] Kristyn [place] RN [place] 04/19/2025 1:00 AM CDT Home Care Visit [address] [address] Britt Cortes, LOADING INSPECTOR 04/20/2025 1:00 AM CDT Home Care Visit [address] [address] Kristyn [place] RN [place] 04/25/2025 1:00 AM CDT Home Care Visit [address] [address] Jacqueline Yoon, PT [place] 04/27/2025 1:00 AM CDT Home Care Visit [address] [address] Kristyn [place] RN [place] 05/04/2025 1:00 AM CDT Home Care Visit [address] [address] Kristyn [place] RN [place] 05/11/2025 1:00 AM CDT Home Care Visit [address] [address] Kristyn [place] RN [place] 05/12/2025 1:00 PM CDT Office Visit [facility] Medical Group - Family [facility] [address] [place] [address] Sherri Gil DO [address] [facility] [address] [place] [address] 05/18/2025 1:00 AM CDT Home Care Visit [address] [address] Kristyn [place] RN [place] 05/24/2025 1:00 AM CDT Appointment [address] [address] Kristyn Washington RN [place] documented as of this encounter Visit Diagnoses Not on filedocumented in this encounter Additional Health Concerns Infection Onset Date Last Indicated Resolved Time COVID - 19 02/08/2025 02/08/2025 02/08/2025 10:3 5 AM CDT Assessment Noted Time PHQ-9 Depression Total Score: 0 04/09/20 3:51 PM CDT documented as of this encounter Care Teams Creping Machine Operator Helper Relationship Specialty Start Date End Date Sherri Gil DO [address] [facility] [address] [place] [address] PCP - General Family Medicine 07/08/24 Latanya Head LSW [place] Peer Health Promoter Table Assembler Metal 03/01/25 5 documented as of this encounter
--- OUTSIDE RECORDS SUMMARY | 2025-03-30 13:52 | XMS_ITS | Encounter Summary ---
Author Organization [facility] Healthcare Address [address] [place] [address] Care Team Providers Care Outbound Telemarketer Name Role Phone Patrick Rubi MD Unavailable [phone] Referring, Unknown Unavailable Unavailabl Sintia Abbott NP Unavailable [phone] Kristyn Parker Primary Care Provider + [phone] Ghulam Hoskins MD Unavailable [phone] No, Physician Primary Care Provider [phone] Ghulam Hoskins MD Primary Care Provider + [phone] Sherri Gil DO Primary Care Provider + [phone] Encounter Details Date Type Department Care Team (Late st Contact Info) Description 01/15/2024 Telephone [facility] Radiology [facility] [address] [place] [address] Kristyn Ramires RN Social History Tobacco Use Types Packs/Day Years Used Date Smoking Tobacco: Every Day Cigarettes 1.5 40 Smokeless Tobacco: Never Alcohol Use Standard Drinks/Week Comments Yes 4 (1 standard drink = 0.6 oz pur e alcohol) OASIS D0700: Social Isolation Answer Da te Recorded Frequency of experiencing loneliness or isolatio n Never 11/10/2023 OASIS A1250: Transportation Answer Date Recorded Lack of Transportation (Medical) No 11/10/2023 Lack of Transportation (Non-Medical) No 11/10/2023 Patient Unable or Declines to Respond No 11/10/2023 OASIS B1300: Health Literacy Answer Italo e Recorded Frequency of needing help to read materials from doctor or pharmacy Never 11/10/2023 AUDIT-C Answer Date Recorded Q1: How often do you have a drink containing alcohol? Never 12/23/2023 Q2: How many drinks containi ng alcohol do you have on a typical day when you are drinking? Patient does not drink Q3: How often do you have si x or more drinks on one occasion? Never 12/23/2023 Personal Safety Answer Date Recorded Have you ever been in or are you currently in a harmful physical or emotional relationship or is someone making you feel afraid or unsafe? Denies 12/23/2023 Comments No Sex and Gender Information Value Date Recorded Sex Assigned at Not on file Legal Sex Female 8:47 PM CAMP BOSS Gender Identity Not on file Sexual Orientation Not on file documented as of this encounter Plan of Treatment Not on file documented as of this encounter Visit Diagnoses Not on filedocumented in this encounter Additional Health Concerns Infection Onset Date Last Indicated Resolved Time COVID: Suspected 12/11/2024 12/11/2024 12/11/2024 6:55 PM CAMP BOSS documented as of this encounter Care Teams Outbound Telemarketer Relationship Specialty Start Date End Date Kristyn Parker PA [address] [address] PCP - General Plant Controls Specialist 12/22/23 12/16/24 No, Physician PCP - General 12/17/24 12/23/24 Ghulam Hoskins MD [facility] S [facility] [place] [address] PCP - General Diagnostic Radiology 12/24/24 03/10/25 Sherri Gil DO [address] [place] [address] PCP - General Family Medicine 03/11/25 Patrick Rubi MD Consulting Physician Nephrology 03/30/20 Referring, MD Pierre Referring Physician 12/01/20 Sintia Stone NP Nurse Practitioner Medical Oncology 12/22/20 Ghulam Hoskins MD [address] [facility] [address] [place] [address] Consulting Physician Diagnostic Radiology 03/30/24 documented as of this encounter
--- OUTSIDE RECORDS SUMMARY | 2025-03-30 13:52 | XMS_ITS | Encounter Summary ---
Author Organization [facility] Address [address] [place] [address] Phone Care Team Providers Care Filling Room Operator Name Role Phone Lili Cormier MD Primary Care Provider [phone] Kristyn Parker Primary Care Provider + Jessika Ferrara LPN Unavailable Unavailable Shannan Ocampo RN Unavailable Unavailable Sherri Gil DO Primary Care Provider [phone] Latanya Head TILE SPRAYER Unavailable Unavai lable Reason for Visit * Reason Comments Medication Refill Encounter Details Date Type Department Care Team (Late st Contact Info) Description 04/28/2023 [facility]ill [facility] Med Surg [address] [place] [phone] Lili Cormier MD [address] [place] [address] Medication Refill Social History Tobacco Use Types Packs/Day Years Used Date Smoking Tobacco: Every Day Cigarettes 0.3 40 Smokeless Tobacco: Never Comments:Down to 6 cigarette s a day Alcohol Use Standard Drinks/Week Comments Yes 1 (1 standard drink = 0.6 oz pur e alcohol) very little PHQ-2 Answer Date Recorded Total Score - Questions 1-9 0 03/0 06/2022 Sexually Active Control Partners Comments Not Currently Comments No Sex and Gender Information Value Date Recorded Sex Assigned at Not on file Legal Sex Female 12:19 AM CDT Gender Identity Not on file Sexual Orientation Not on file Occupation Industry Job Start Date Job End Date retired from school Not on file Not on file Not on f ile COVID-19 Exposure Response Date Recorded In the last 10 days, have yo u been in contact with someone who was confirmed or suspected to have Coronavirus/COVID-19? No / Unsure 04/23/2023 11:17 AM CDT documented as of this encounter Miscellaneous Notes * Telephone Encounter - Darby Munoz RN - 04/28/2023 8:39 AM CDT Medication failed the protocol, provider to review and approve the medication order if appropriate. Requested Prescriptions Pending Prescriptions Disp Refills Eliquis 2.5 MG Tablet [Pharmacy Med Name: ELIQUIS 2.5MG TABLETS] 60 Tablet 2 Sig: TAKE 1 TABLET BY MOUTH TWICE DAILY FOR ATRIAL FIBRILLATION There is no refill protocol information for this order documented in this encounter Plan of Treatment Upcoming Encounters Date Type Department Care Team (Late st Contact Info) Description 04/01/2025 1:00 AM CDT Home Care Visit [address] [address] Kristyn Washington RN [place] 04/05/2025 1:00 AM CDT Home Care Visit [address] [address] Kristyn Washington RN [place] 04/05/2025 2:00 AM CDT Home Care Visit [address] [address] Britt Cortes PTA 04/08/2025 1:00 AM CDT Home Care Visit [address] [address] Kristyn Washington RN [place] 04/12/2025 1:00 AM CDT Home Care Visit [address] [address] Kristyn Washington RN [place] 04/12/2025 8:00 AM CDT Home Care Visit [address] [address] Jacqueline Yoon, PT [place] 04/15/2025 1:00 AM CDT Home Care Visit [address] [address] Kristyn Washington RN [place] 04/19/2025 1:00 AM CDT Home Care Visit [address] [address] Britt Cortes, HEAD OF OPERATION AND LOGISTICS 04/20/2025 1:00 AM CDT Home Care Visit [address] [address] Kristyn Washington RN [place] 04/25/2025 1:00 AM CDT Home Care Visit [address] [address] Jacqueline Yoon, PT [place] 04/27/2025 1:00 AM CDT Home Care Visit [address] [address] Kristyn Washington RN [place] 05/04/2025 1:00 AM CDT Home Care Visit [address] [address] Kristyn Washington RN [place] 05/11/2025 1:00 AM CDT Home Care Visit [address] [address] Kristyn [place] RN [place] 05/12/2025 1:00 PM CDT Office Visit [facility] Medical Group - Family Medicine [facility] [address] [place] [address] Sherri Gil, DO 2 [facility]. [address] [place] [address] 05/18/2025 1:00 AM CDT [facility] Visit [facility] [address] [place] [address] Kristyn [place] RN [place] 05/24/2025 1:00 AM CDT [facility]ointment [facility] [address] [place] [address] Kristyn Washington RN [place] documented as of this encounter Visit Diagnoses Not on filedocumented in this encounter Additional Health Concerns Infection Onset Date Last Indicated Resolved Time COVID - 19 02/08/2025 02/08/2025 02/08/2025 10:3 5 AM CDT Assessment Noted Time PHQ-9 Depression Total Score: 0 01/12/20 21 9:09 AM CDT documented as of this encounter Care Teams Filling Room Operator Relationship Specialty Start Date End Date Lili Cormier MD [address] [place] [address] PCP - General Family Medicine 09/05/15 12/01/23 Kristyn Parker PAC [address] [place] [address] PCP - General Physician Senior Linux Administrator 12/02/23 07/06/24 Sherri Gil DO 2 [facility] [address] [place] [address] PCP - General Family Medicine 07/08/24 Jessika Ferrara LPN [place] Health Clinical Product Specialist 02/27/24 03/29/24 Shannan Ocampo RN [place] Nurse Import Export Coordinator 03/29/24 10/26/24 Latanya Head LSW [place] Health Inspector Food Import Export Coordinator 03/01/25 03/01/25 documented as of this encounter
--- OUTSIDE RECORDS SUMMARY | 2025-03-30 13:52 | XMS_ITS | Encounter Summary ---
Author Organization [facility] Healthcare Address [address] [place] [address] Care Team Providers Care Oil Refinery Process Technician Name Role Phone Patrick Rubi MD Unavailable [phone] Referring, Unknown Unavailable Unavailabl Sintia Abbott NP Unavailable [phone] Kristyn Parker Primary Care Provider [phone] Ghulam Hoskins MD Unavailable +-[phone] [phone] No, Physician Primary Care Provider [phone] Ghulam Hoskins MD Primary Care Provider [phone] Sherri Gil DO Primary Care Provider + [phone] Encounter Details Date Type Department Care Team (Late st Contact Info) Description 12/31/2023 Telephone Radiology [address] [place] [address] Ghulam Hoskins MD [address] [facility] [address] [place] [address] Social History Tobacco Use Types Packs/Day Years [...] on file Legal Sex Female 8:47 PM MANAGER WEALTH MANAGEMENT Gender Identity Not on file Sexual Orientation Not on file documented as of this encounter Ordered Prescriptions Prescription Sig Dispense Quantity Refills Last Filled Start Date End Date cilostazoL (PLETAL) 100 mg tablet Take 1 tablet (100 mg total) by mouth 2 (two) times a day 60 tablet 11 12/31/2023 documented in this encounter Plan of Treatment Not on file documented as of this encounter Visit Diagnoses Diagnosis PVD (peripheral vascular disease)- Primary Unspecified peripheral vascular disease Hyperlipidemia, unspecified hyperlipidemia type documented in this encounter Discontinued Medications Medication Sig Discontinue Reason Start Date End Da te cilostazol (PLETAL) 100 mg tabletIndications:Intermi ttent Claudication Take 1 tablet (100 mg total) by mouth 2 (two) times a day 01/03/2018 12/31/2023 documented as of this encounter Additional Health Concerns Infection Onset Date Last Indicated Resolved Time COVID: Suspected 12/11/2024 12/11/2024 12/11/2024 6:55 PM MANAGER WEALTH MANAGEMENT documented as of this encounter Care Teams Oil Refinery Process Technician Relationship Specialty Start Date End Date Kristyn Parker PA [address] [address] PCP - General Plastic Block Boiler Reliner 12/22/23 12/16/24 No, Physician PCP - General 12/17/24 12/23/24 Ghulam Hoskins MD [address] [facility] [place] [address] PCP - General Diagnostic Radiology 12/24/24 03/10/25 Sherri Gil DO [address] [place] [address] PCP - General Family Medicine 03/11/25 Patrick Rubi MD Consulting Physician Nephrology 03/30/20 ReferringPierre MD Referring Physician 12/01/20 Sintia Stone NP Nurse Practitioner Medical Oncology 12/22/20 Ghulam Hoskins MD [address] [facility] [address] [place] [address] Consulting Physician Diagnostic Radiology 03/30/24 documented as of this encounter
--- OUTSIDE RECORDS SUMMARY | 2025-03-30 13:52 | XMS_ITS | Encounter Summary ---
Author Organization [facility] Healthcare Address [address] [place] [address] Care Team Providers Care Gravity Meter Operator Name Role Phone Patrick Rubi MD Unavailable [phone] Referring, Unknown Unavailable Unavailabl Sintia Abbott NP Unavailable [phone] Ghulam Hoskins MD Unavailable [phone] Sherri Gil DO Primary Care Provider + [phone] Encounter Details Date Type Department Care Team (Late st Contact Info) Description 03/16/2025 Telephone [facility] [address] [place] [address] Kristyn Ramires, BRIANNA Social History Tobacco Use Types Packs/Day Years [...] materials from doctor or pharmacy Never 11/10/2023 [facility] Utilities Answer Date Recorded In the past 12 months has e electric, gas, oil, or water company threatened to shut off services in your home? No 01/04/2025 Social Connection and Isolat ion Panel [NHANES] Answer Date Recorded In a typical week, how many times do you talk on the phone with family, friends, or neighbors? More than three times a week 01/04/2025 How often do you get togethe r with friends or relatives? More than three times a week 01/04/2025 How often do you attend chur ch or adventism services? 1 to 4 times per year 01/04/2025 Do you belong to any clubs o r organizations such as quaker groups, unions, fraternal or athletic groups, or school groups? No 01/04/2025 How often do you attend meet ings of the clubs or organizations you belong to? Never 01/04/2025 Are you , , di vorced, , never , or living with a partner? 01/04/2025 AUDIT-C Answer Date Recorded Q1: How often do you have a drink containing alcohol? Never 03/17/2025 Q2: How many drinks containi ng alcohol do you have on a typical day when you are drinking? Patient does not drink Q3: How often do you have si x or more drinks on one occasion? Never 03/17/2025 Overall Financial Resource Strain (CARDIA) Answe r Date Recorded How hard is it for you to pa y for the very basics like food, housing, medical care, and heating? Not hard at all 01/04/2025 PHQ-2 Answer Date Recorded PHQ-2 Total Score (If total score is 3 or more points, staff should administer the PHQ-9) 3 01/04/2025 Hunger Vital Sign Answer Date Recorded Within the past 12 months, y ou worried that your food would run out before you got the money to buy more. Never true 01/05/20 25 Within the past 12 months, t he food you bought just didn't last and you didn't have money to get more. Never true 01/04/2025 PRAPARE - Transportation Answer Date Re corded In the past 12 months, has l ack of transportation kept you from medical appointments or from getting medications? No 12/25 In the past 12 months, has l ack of transportation kept you from meetings, work, or from getting things needed for daily living? No 01/04/2025 PHQ-9 Answer Date Recorded PHQ-9 Total Score 16 01/04/2025 Housing Stability Vital Sign Answer Italo e Recorded In the last 12 months, was t here a time when you were not able to pay the mortgage or rent on time? No 01/04/2025 In the past 12 months, how m any times have you moved where you were living? 0 01/04/2025 At any time in the past 12 m [facility], were you homeless or living in a retirement (including now)? No 01/04/2025 Personal Safety Answer Date Recorded Have you ever been in or are you currently in a harmful physical or emotional relationship or is someone making you feel afraid or unsafe? Denies 03/17/2025 Comments No Sex and Gender Information Value Date Recorded Sex Assigned at Not on file Legal Sex Female 8:47 PM FRIT MAKER Gender Identity Not on file Sexual Orientation Not on file documented as of this encounter Functional Status * Audit-C Score Answer Date of Assessment Author 0 03/17/2025 10:[address] RN * Question Answer Date of Assessment Author Q1: How often do you have a drink containing alcohol? Never 03/17/2025 10:[address] RN Q2: How many drinks containing alcohol do you have on a typical day when you are drinking? Patient does not drink 03/17/2025 10:[address] RN Q3: How often do you have six or more drinks on one occasion? Never 03/17/2025 10:[address] RN documented as of this encounter Plan of Treatment Not on file documented as of this encounter Visit Diagnoses Not on filedocumented in this encounter Care Teams Gravity Meter Operator Relationship Specialty Start Date End Date Sherri Gil DO [address] [place] [address] PCP - General Family Medicine 03/11/25 Patrick Rubi MD Consulting Physician Nephrology 6/4/20 Referring, Unknown, Referring Physician 12/01/20 Sintia Stone NP Nurse Practitioner Medical Oncology 12/22/20 Ghulam Hoskins MD [facility] [address] [facility] [address] [place] [address] Consulting Physician Diagnostic Radiology 03/30/24 documented as of this encounter
--- OUTSIDE RECORDS SUMMARY | 2025-03-30 13:52 | XMS_ITS | Clinical Summary ---
Author Organization [facility] [employer] Address [address] [place] [address] Care Team Providers Care Sales Service Assistant Name Role Phone Unavailable Primary Care Provider Unavailabl e Source Comments [facility] [employer],non-owned Affiliates and Associated Physician Practices is amultiple site organization consisting of ambulatory clinics and hospital sitesin [place], [place], [place] and [place]. This disclosure is being madepursuant to the Care Everywhere program and may not contain all information available regarding this patient. Last updated [employer] Allergies No known active allergies Medications * Be aware that medications may not be up to date on this document. Always verify current medications with the patient. Magnesium 500 MG Active atorvastatin (LIPITOR) 20 MG tablet Take 20 mg by mouth at bedtime Active Calcium-Magnesi um-Vitamin D (CALCIUM 500 PO) Active vitamin D3 (CHOLECALCIFERO L) 1000 UNITS tablet Take by mouth once daily Active cilostazol (PLETAL) 100 MG tablet Take by mouth 2 times daily Active Cyanocobalamin (B-12 IJ) Active Denosumab (PROLIA SC) Active Social History Tobacco Use Types Packs/Day Years Used Date Smoking Tobacco: Every Day Smokeless Tobacco: Never Comments Unknown Sex and Gender Information Value Date Recorded Sex Assigned at Not on file Legal Sex Female 10:09 AM CDT Gender Identity Not on file Sexual Orientation Not on file Last Filed Vital Signs Vital Sign Reading Time Taken Comments Blood Pressure 126/70 08/04/2017 10:33 AM CDT Pulse 92 08/04/2017 10:33 AM CDT Temperature 37.2 C (99 F) 08/04/2017 10:33 AM CDT Respiratory Rate - - Oxygen Saturation - - Inhaled Oxygen Concentration - - Weight 63.5 kg (140 lb) 08/04/2017 10:33 AM CDT Height 156.2 cm (5' 1.5) 08/04/2017 10:33 AM CD T Body Mass Index 26.02 08/04/2017 10:33 AM CDT Plan of Treatment Health Maintenance Due Date Last Done Comments BONE DENSITY TESTING 1945 MEDICARE AWV 12 MONTHS 1945 DTAP/TDAP/TD VACCINES (1 - Tdap) 1963 PNEUMOCOCCAL VACCINE 50+ (1 of 2 - PCV) 1963 ZOSTER VACCINE (1 of 2) 1994 Respiratory Syncytial Virus (RSV) Vaccine Pt: or over 60 yrs (1 - 1-dose 75+ series) 2019 COVID-19 VACCINE (2 - season) 2024 01/25/2021 DEPRESSION SCREENING 10/27/2024 INFLUENZA VACCINE (Season Ended) 2025 07/27/2023, 10/22/2021, 08/30/2020, Additional history exists HEPATITIS B VACCINE Aged Out No longe r eligible based on patient's age to complete this topic HIB VACCINE Aged Out No longer eligi ble based on patient's age to complete this topic HPV VACCINE Aged Out No longer eligi ble based on patient's age to complete this topic MENINGOCOCCAL (Group B) VACCINE SHARED DECISION-MAKING Aged Out No longer eligible based on patient's age to complete this topic MENINGOCOCCAL GROUPS A/C/Y/W VACCINE Aged Out No longer eligible based on patient's age to complete this topic Insurance MEDICARE MEDICARE MEDICARE
--- OUTSIDE RECORDS SUMMARY | 2025-03-30 13:52 | XMS_ITS | Encounter Summary ---
Author Organization [facility] Address [address] [place] [address] Phone Care Team Providers Care Rn Managed Care Name Role Phone Kristyn Parker Primary Care Provider + Jessika Ferrara LPN Unavailable Unavailable Shannan Ocampo RN Unavailable Unavailable Sherri Gil DO Primary Care Provider [phone] Latanya HeadW Unavailable Unavai lable Reason for Visit * Reason Comments Medication Refill Encounter Details Date Type Department Care Team (Late st Contact Info) Description 02/18/2024 Refill [facility] Medical Group - Family Medicine [facility] [address] [place] [address] Addie Beebe APRN, RETAIL WAREHOUSE SUPERVISOR [address] [address] Medication Refill Social History Tobacco Use Types Packs/Day Years Used Date Smoking Tobacco: Every Day Cigarettes 0.3 40 Smokeless Tobacco: Never Comments:Down to 6 cigarette s a day Alcohol Use Standard Drinks/Week Comments Yes 1 (1 standard drink = 0.6 oz pur e alcohol) very little PHQ-2 Answer Date Recorded Total Score - Questions 1-9 0 02/0 03/2024 Education Answer Date Recorded What is the [...] Telephone Encounter - Serene Teague RN - 02/18/2024 9:16 AM CDT GFR 30 Per nursing clinical judgement, provider to review and approve the medication(s) order(s) if appropriate. Requested Prescriptions Pending Prescriptions Disp Refills atorvastatin (LIPITOR) 20 MG Tablet [Pharmacy Med Name: ATORVASTATIN 20MG TABLETS] 90 Tablet 1 Sig: TAKE 1 TABLET BY MOUTH DAILY Hmg CoA Reductase Inhibitors Protocol Passed - 02/18/2024 5:41 AM Passed - Visit with relevant provider in past 12 months or upcoming 90 days Recent Visits Date Type Provider Dept 12/02/23 Office Visit Kristyn Parker PAC [facility] 05/15/23 Office Visit Lili Cormier MD [facility] 04/04/23 Office Visit Salomón Gomez MD [facility] Showing recent visits within past 365 days and meeting all other requirements Future Appointments Date Type Provider Dept 03/18/24 Appointment Sherri Gil DO [facility] Showing future appointments within next 90 days and meeting all other requirements Passed - Lipid panel in past 12 months LDL Date Value Ref Range Status 12/02/2023 42 <130 mg/dL Final HDL CHOLESTEROL Date Value Ref Range Status 12/02/2023 46 >40 mg/dL Final CHOLESTEROL Date Value Ref Range Status 12/02/2023 104 <200 mg/dL Final TRIGLYCERIDES Date Value Ref Range Status 12/02/2023 82 <150 mg/dL Final VLDL Date Value Ref Range Status 12/02/2023 16 10 - 50 mg/dL Final CHOL/HDL RATIO Date Value Ref Range Status 12/02/2023 2.3 0.0 - 4.4 Final NON-HDL CHOLESTEROL Date Value Ref Range Status 12/02/2023 58 <130 mg/dL Final Passed - CMP in past 12 months SODIUM Date Value Ref Range Status 01/12/2024 134 (L) 136 - 145 mmol/L Final POTASSIUM Date Value Ref Range Status 01/12/2024 3.5 3.5 - 5.1 mmol/L Final CHLORIDE Date Value Ref Range Status 01/12/2024 103 98 - 107 mmol/L Final CO2, VENOUS Date Value Ref Range Status 01/12/2024 22 22 - 30 mmol/L Final ANION GAP Date Value Ref Range Status 01/12/2024 12.5 <18.0 mmol/L Final GLUCOSE Date Value Ref Range Status 01/12/2024 89 70 - 99 mg/dL Final BUN Date Value Ref Range Status 01/12/2024 16 10 - 20 mg/dL Final CREATININE, BLOOD Date Value Ref Range Status 01/12/2024 1.72 (H) 0.60 - 1.00 mg/dL Final BUN/CREATININE RATIO Date Value Ref Range Status 01/12/2024 9 (L) 12 - 20 ratio Final TOTAL PROTEIN Date Value Ref Range Status 01/12/2024 7.2 6.3 - 8.2 g/dL Final ALBUMIN Date Value Ref Range Status 01/12/2024 2.8 (L) 3.5 - 5.0 g/dL Final A/G RATIO Date Value Ref Range Status 01/12/2024 0.6 (L) 1.0 - 2.2 Final A/G RATIO, SERUM Date Value Ref Range Status 01/02/2023 0.9 Final CALCIUM Date Value Ref Range Status 01/12/2024 8.9 8.7 - 10.5 mg/dL Final T BILI Date Value Ref Range Status 01/12/2024 0.3 0.2 - 1.2 mg/dL Final SGOT (AST) Date Value Ref Range Status 01/12/2024 8 5 - 34 U/L Final SGPT (ALT) Date Value Ref Range Status 01/12/2024 <5 0 - 55 U/L Final ALKALINE PHOSPHATASE Date Value Ref Range Status 01/12/2024 162 (H) 40 - 150 U/L Final GFR, EST. NONAFRICAN Date Value Ref Range Status 01/12/2024 29 (L) >=60 Final GFR, EST. Date Value Ref Range Status 01/12/2024 35 (L) >=60 Final GFR, ESTIMATED Date Value Ref Range Status 01/12/2024 30 (L) >=60 Final Comment: Creatinine Clearance is the preferred criteria for selecting drug dose adjustments in renally impaired patients. The GFR is provided as additional pertinent clinical information. GFR is reported in mL/min/1.73 sq m. Calculation based on the Chronic Kidney Disease Epidemiology Collaboration (CKD- EPI) equation refitwithout adjustment for race. IS THE PATIENT REQUIRED TO BE FASTING? Date Value Ref Range Status 01/12/2024 No Final documented in this encounter Plan of Treatment Upcoming Encounters Date Type Department Care Team (Late st Contact Info) Description 04/01/2025 1:00 AM CDT Home Care Visit [address] [address] Kristyn Washington RN [place] 04/05/2025 1:00 AM CDT Home Care Visit [address] [address] Kristyn Washington RN [place] 04/05/2025 2:00 AM CDT Home Care Visit [address] [address] Britt Cortes, SEARCH MARKETING ANALYST 04/08/2025 1:00 AM CDT Home Care Visit [address] [address] Kristyn Washington RN [place] 04/12/2025 1:00 AM CDT Home Care Visit [address] [address] Kristyn Washington RN [place] 04/12/2025 8:00 AM CDT Home Care Visit [address] [address] Jacqueline Yoon PT [place] 04/15/2025 1:00 AM CDT Home Care Visit [address] [address] Kristyn Washington RN [place] 04/19/2025 1:00 AM CDT Home Care Visit [address] [address] Britt Cortes PTA 04/20/2025 1:00 AM CDT Home Care Visit [address] [address] Kristyn Washington RN [place] 04/25/2025 1:00 AM CDT Home Care Visit [address] [address] Jacqueline Yoon PT [place] 04/27/2025 1:00 AM CDT Home Care Visit [address] [address] Kristyn Washington RN [place] 05/04/2025 1:00 AM CDT Home Care Visit [address] [address] Kristyn Washington RN [place] 05/11/2025 1:00 AM CDT Home Care Visit [address] [address] Kristyn Washington RN [place] 05/12/2025 1:00 PM CDT Office Visit [facility] Medical Group - Family Medicine - [place] [address] [place] [address] Sherri Gil, DO [address] [facility] [place] [address] 05/18/2025 1:00 AM CDT Home Care Visit [address] [address] Kristyn Washington RN [place] 05/24/2025 1:00 AM CDT Appointment [address] [address] Kristyn Washington RN [place] documented as of this encounter Visit Diagnoses Not on filedocumented in this encounter Additional Health Concerns Infection Onset Date Last Indicated Resolved Time COVID - 19 02/08/2025 02/08/2025 02/08/2025 10:3 5 AM CDT Assessment Noted Time PHQ-9 Depression Total Score: 0 12/02/19 1:06 PM STONE BREAKER documented as of this encounter Care Teams Rn Managed Care Relationship Specialty Start Date End Date Kristyn Parker PAC [address] [place] [address] PCP - General Physician Corrective Therapy Aide Teacher 12/02/23 07/06/24 Sherri Gil DO [address] [address] PCP - General Family Medicine 07/08/24 Jessika Ferrara LPN [place] Health Supply Chain Buyer 02/27/24 03/29/24 Shannan Ocampo, RN [place] Nurse Night Shift Supervisor 03/29/24 10/26/24 Latanya Head LSW [place] Steward/Stewardess Wine Night Shift Supervisor 03/01/25 03/01/25 documented as of this encounter
--- OUTSIDE RECORDS SUMMARY | 2025-03-30 13:52 | XMS_ITS | Encounter Summary ---
Author Organization [facility] Healthcare Address [address] [place] [address] Care Team Providers Care Surgical Processor Name Role Phone Lili Cormier MD Primary Care Provider [phone] Patrick Rubi MD Unavailable [phone] Referring, Unknown Unavailable Unavailabl Sintia Abbott NP Unavailable [phone] Kristyn Parker Primary Care Provider [phone] Ghulam Hoskins MD Unavailable [phone] No, Physician Primary Care Provider [phone] Ghulam Hoskins MD Primary Care Provider + [phone] Sherri Gil DO Primary Care Provider + [phone] Encounter Details Date Type Department Care Team (Late st Contact Info) Description 03/14/2020 Telephone [facility] Radiology [address] [address] Israel Cameron, Social History Tobacco Use Types Packs/Day Years Used Date Smoking Tobacco: Every Day Cigarettes 1.5 40 Smokeless Tobacco: Never Alcohol Use Standard Drinks/Week Comments Yes 4 (1 standard drink = 0.6 oz pur e alcohol) Comments No Sex and Gender Information Value Date Recorded Sex Assigned at Not on file Legal Sex Female 8:47 PM PSYCHOLOGICAL SCIENCE PROFESSOR Gender Identity Not on file Sexual Orientation Not on file documented as of this encounter Plan of Treatment Not on file documented as of this encounter Visit Diagnoses Not on filedocumented in this encounter Additional Health Concerns Infection Onset Date Last Indicated Resolved Time COVID: Suspected 12/11/2024 12/11/2024 12/11/2024 6:55 PM PSYCHOLOGICAL SCIENCE PROFESSOR documented as of this encounter Care Teams Surgical Processor Relationship Specialty Start Date End Date Lili Cormier MD PCP - General 10/26/17 12/21/23 Kristyn Parker PA [address] [address] PCP - General Pl Sql Developer 12/22/23 12/16/24 Mica Physician PCP - General 12/17/24 12/23/24 Ghulam Hoskins MD [address] [facility] DEPT RADIOLOGY [place], [place] [id number] PCP - General Diagnostic Radiology 12/24/24 03/10/25 Sherri Gil DO [address] [place] [address] PCP - General Family Medicine 03/11/25 Patrick Rubi MD Consulting Physician Nephrology 03/30/20 ReferringPierre MD Referring Physician 12/01/20 Sintia Stone NP Nurse Practitioner Medical Oncology 12/22/20 Ghulam Hoskins MD [address] [facility] [address] [place] [address] Consulting Physician Diagnostic Radiology 03/30/24 documented as of this encounter
--- OUTSIDE RECORDS SUMMARY | 2025-03-30 13:52 | XMS_ITS | Encounter Summary ---
Author Organization [facility] Address [address] [place] [address] Phone Care Team Providers Care Tinsel Machine Operator Name Role Phone Lili Cormier MD Primary Care Provider [phone] Kristyn Parker Primary Care Provider + Jessika Ferrara LPN Unavailable Unavailable Shannan Ocampo RN Unavailable Unavailable Sherri Gil DO Primary Care Provider [phone] Latanya Head FOOD AND BEVERAGE ASSISTANT MANAGER Unavailable Unavai lable Reason for Visit * Reason Comments Medication Refill Encounter Details Date Type Department Care Team (Late st Contact Info) Description 11/27/2023 [facility]ill [facility] Med Surg [address] [place] [id number] Lili Cormier MD [address] [place] [address] Medication Refill Social History Tobacco Use Types Packs/Day Years Used Date Smoking Tobacco: Every Day Cigarettes 0.3 40 Smokeless Tobacco: Never Comments:Down to 6 cigarette s a day Alcohol Use Standard Drinks/Week Comments Yes 1 (1 standard drink = 0.6 oz pur e alcohol) very little PHQ-2 Answer Date Recorded Total Score - Questions 1-9 0 03/0 06/2022 Education Answer Date Recorded What is the [...] Telephone Encounter - Serene Teague RN - 11/28/2023 12:19 PM CST Upcoming with Kristyn 12/02/23 Per nursing clinical judgement, provider to review and approve the medication(s) order(s) if appropriate. Requested Prescriptions Pending Prescriptions Disp Refills Eliquis 2.5 MG Tablet [Pharmacy Med Name: ELIQUIS 2.5MG TABLETS] 60 Tablet 2 Sig: TAKE 1 TABLET BY MOUTH TWICE DAILY FOR ATRIAL FIBRILLATION There is no refill protocol information for this order LOPE MAKER documented in this encounter Plan of Treatment Upcoming Encounters Date Type Department Care Team (Late st Contact Info) Description 04/01/2025 1:00 AM CDT Home Care Visit [address] [address] Kristyn Washington RN [place] 04/05/2025 1:00 AM CDT Home Care Visit [address] [address] Kristyn Washington RN [place] 04/05/2025 2:00 AM CDT Home Care Visit [address] [address] Britt Cortes PTA 04/08/2025 1:00 AM CDT Home Care Visit [address] [address] Kristyn Washington RN [place] 04/12/2025 1:00 AM CDT Home Care Visit [address] [address] Kristyn Washington RN [place] 04/12/2025 8:00 AM CDT Home Care Visit [address] [address] Jacqueline Yoon, PT [place] 04/15/2025 1:00 AM CDT Home Care Visit [address] [address] Kristyn Washington RN [place] 04/19/2025 1:00 AM CDT Home Care Visit [address] [address] Britt Cortes, GIS MANAGER 04/20/2025 1:00 AM CDT Home Care Visit [address] [address] Kristyn Washington RN [place] 04/25/2025 1:00 AM CDT Home Care Visit [address] [address] Jacqueline Yoon, PT [place] 04/27/2025 1:00 AM CDT Home Care Visit [address] [address] Kristyn Washington RN [place] 05/04/2025 1:00 AM CDT Home Care Visit [address] [address] Kristyn Washington RN [place] 05/11/2025 1:00 AM CDT Home Care Visit [address] [address] Kristyn Washington, RN [place] 05/12/2025 1:00 PM CDT Office Visit [facility] Medical Group - Family Medicine [facility] [address] [place] [address] Sherri Gil, DO 2 [facility] [address] [address] 05/18/2025 1:00 AM CDT [facility] Visit [facility] [address] [place] [address] Kristyn Washington RN [place] 05/24/2025 1:00 AM CDT [facility]ointment [facility] [address] [place] [address] Kristyn Washington RN [place] documented as of this encounter Visit Diagnoses Not on filedocumented in this encounter Additional Health Concerns Infection Onset Date Last Indicated Resolved Time COVID - 19 02/08/2025 02/08/2025 02/08/2025 10:3 5 AM CDT Assessment Noted Time PHQ-9 Depression Total Score: 0 01/12/20 21 9:09 AM CDT documented as of this encounter Care Teams Tinsel Machine Operator Relationship Specialty Start Date End Date Lili Cormier MD [address] [place] [address] PCP - General Family Medicine 09/05/15 12/01/23 Kristyn Parker PAC [address] [place] [address] PCP - General Physician Maintenance And Repair Worker 12/02/23 07/06/24 Sherri Gil DO [address] [address] PCP - General Family Medicine 07/08/24 Jessika Ferrara LPN [place] Health Board Runner 02/27/24 03/29/24 Shannan Ocampo RN [place] Nurse Management Consultant 03/29/24 10/26/24 Latanya Head LSW [place] Superintendent Terminal Management Consultant 03/01/25 03/01/25 documented as of this encounter
--- OUTSIDE RECORDS SUMMARY | 2025-03-30 13:52 | XMS_ITS | Referral Summary ---
Author Organization [facility] Address [address] [place] [address] Care Team Providers Care Lining Strap Closer Name Role Phone Patrick Rubi MD Unavailable [phone] Referring, Unknown Unavailable Unavailabl Sintia Abbott NP Unavailable [phone] Ghulam Hoskins MD Unavailable [phone] Sherri Gil DO Primary Care Provider [phone] Encounters Date Type Department Care Team Description 03/30/2025 10:45 AM CDT Office Visit [facility] Vascular at [address] [place] [phone] Nimo Rangel MD 03/25/2025 11:00 AM CDT Ancillary Procedure [facility] Vascular and Vein Surgery at [address] [place] [address] 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 03/17/2025 9:51 AM CDT - 03/17/2025 11:59 PM CDT Hospital Encounter [facility] Radiology [facility] [address] [place] [address] Holley Damian MD PhD Hydronephrosis with ureteral stricture, not elsewhere classified Discharge Disposition: Discharge to home or self care 03/16/2025 Telephone [facility] Radiology [facility] [place] [address] [place] [address] Kristyn Ramires RN 03/16/2025 Telephone [facility] Obstetrics and Gynecology [address] [facility] 13th [place] [address] [place] [address] Bria Martin, BRIANNA 03/16/2025 Telephone [facility] [address] [place] [address] Kristyn Ramires RN 03/15/2025 Orders Only [facility] Vascular and Vein Surgery [address] [place] [address] [place] [phone] Nimo Rangel MD 03/15/2025 Orders Only [facility] Vascular at [address] [place] [address] Nimo Rangel MD 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 (Primary Dx) 02/21/2025 7:20 AM CDT - 02/21/2025 11:59 PM CDT Hospital Encounter [facility] Radiology [facility] [address] [place] [address] Hydronephrosis with ureteral stricture, not elsewhere classified Discharge Disposition: Discharge to home or self care 02/16/2025 Telephone [facility] Vascular and Vein Surgery [address] [place] [address] [place] [phone] Nimo Rangel MD 02/16/2025 Telephone [facility] [address] [place] [address] Savannah Enriquez RN 02/04/2025 Telephone [facility] Vascular and Vein Surgery [address] [place] [address] [place] [phone] Laura Cuevas MA 02/02/2025 Orders Only [facility] Vascular at [address] [place] [address] Nimo Rangel MD 02/02/2025 9:15 AM CDT Office Visit [facility] Vascular at [address] [place] [address] Nimo Rangel MD PVD (peripheral vascular disease) (Primary Dx) 01/27/2025 Orders Only [facility] Vascular and Vein Surgery [address] [phone] Nimo Rangel MD 01/26/2025 Orders Only [facility] Vascular at [address] [place] [address] Nimo Rangel MD S/P AKA (above knee amputation) unilateral, left (HCC) (Primary Dx) 01/26/2025 10:30 AM CDT Office Visit [facility] Vascular at [address] [place] [address] Rachna Brand NP 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) (Primary Dx) 01/24/2025 7:18 AM CDT - 01/24/2025 11:59 PM CDT Hospital Encounter [facility] Radiology [address] [address] Hydronephrosis with ureteral stricture, not elsewhere classified (Primary Dx); Malignant neoplasm of overlapping sites of cervix (HCC) Discharge Disposition: Discharge to home or self care 01/10/2025 Documentation [facility] Vascular and Vein Surgery [facility] [address] [phone] Laura Cuevas MA 01/03/2025 5:55 AM CDT - 01/08/2025 5:25 PM CDT Hospital Encounter [address] [address] Nimo Rangel MD 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 INJURY PREVENTION COORDINATOR 12/29/2024 9:00 AM PAIL BAILER Ancillary Procedure [facility] Vascular and Vein Surgery at [address] [place] [address] Stenosis of left subclavian artery 12/29/2024 1:45 PM PAIL BAILER Office Visit [facility] Obstetrics and Gynecology [address] [place] [address] [facility] 13th [place] [address] [place] [address] Vanessa Castanon MD Malignant neoplasm of overlapping sites of cervix (HCC) (Primary Dx) 12/28/2024 Documentation [facility] Vascular and Vein Surgery [address] [place] [address] [place] [phone] Laura Cuevas MA 12/28/2024 Telephone [facility] Vascular and Vein Surgery [address] [place] [address] [address] [place] [address] Laura Cuevas MA 12/28/2024 Orders Only [facility] Vascular and Vein Surgery [address] [place] [phone] Nimo Rangel MD from Last 3 Months Allergies Active Allergy Reactions Criticality Noted Date Comments No Known Allergies Other (See comments) Low Reaction: Medications atorvastatin (LIPITOR) 20 mg tablet Take 1 tablet (20 mg total) by mouth nightly Active ferrous sulfate 325 mg (65 mg of elemental iron) tablet Take 1 tablet (325 mg total) by mouth daily Active cholecalcifero l (VITAMIN D-3) 1,000 unit capsule Take 1 capsule (1,000 Units total) by mouth daily Active magnesium oxide (MAG-OX) 400 mg (241.3 mg elemental magnesium) tablet Take 500 mg by mouth daily Active calcium carb-vit D3-magnesium 250-200-125 mg-unit-mg capsule Take 1 tablet by mouth daily Active lidocaine-pril ocaine cream APPLY EXTERNALLY TO THE AFFECTED AREA 1 HOUR BEFORE PROCEDURE DIRECTED 30 g 1 Active metoprolol XL (TOPROL-XL) 50 mg extended release tablet Take 1 tablet (50 mg total) by mouth daily 2 Active aspirin 81 mg enteric coated tablet Take 1 tablet (81 mg total) by mouth daily 30 tablet 11 3 Active senna-docusate (PERICOLACE) 8.6-50 mg Take 2 tablets by mouth 2 (two) times a day 60 tablet 3 Active folic acid (FOLVITE) 1 mg tablet Take 1 tablet (1 mg total) by mouth daily 4 Active cilostazoL (PLETAL) 100 mg tablet Take 1 tablet (100 mg total) by mouth 2 (two) times a day 60 tablet 11 4 Active acetaminophen 500 mg capsule Take 2 capsules (1,000 mg total) by mouth every 6 (six) hours as needed for pain, headaches or fever 30 tablet 5 Active gabapentin (NEURONTIN) 100 mg capsule Take 2 capsules (200 mg total) by mouth 2 (two) times a day 120 capsule 11 5 12/16/19 26 Active multivitamin with folic acid 400 mcg tablet Take 1 tablet by mouth daily 30 tablet 11 5 12/17/19 26 Active povidone-iodin e (BETADINE) 10 % ointment Apply topically daily 30 g 5 Active sodium chloride 0.9% injection Administer 10 mL into catheter daily 900 mL 1 5 Active apixaban (ELIQUIS) 2.5 mg tablet Take 1 tablet (2.5 mg total) by mouth 2 (two) times a day Hold for 48 hours prior to surgery last dose 12/31/2024 03/16/20 25 Discontinu ed(Therapy completed) sulfamethoxazo le-trimethopri m (BACTRIM DS) 800-160 mg per tablet Take by mouth 03/16/20 25 Discontinu ed(Therapy completed) Active Problems Problem Noted Date Diagnosed Date PVD (peripheral vascular disease) 01/03/2025 Assessment & Plan (02/02/2025 9:17 AM CDT): Status post left above-knee amputation. Overall doing well we will remove jos today. Can start working with Records Officer. Has a small pressure wound right lower extremity, discussed importance of offloading with the patient and her daughter. 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 Patient is recovering well incision is healing well jos are intact. Not ready to be removed yet. Follow-up in 1 week for staple removal. Can start to use pig conveyor operator to the left AKA. Gangrene of toe of left foot 12/27/2024 Assessment & Plan (12/27/2024 3:22 PM PAIL BAILER): Impression: Patient has gangrene to the left [...] 05/27/2018 Assessment & Plan (12/27/2024 3:32 PM PAIL BAILER): Impression: Patient has a history of a [...] patient and plan of care with Dr. Elvira Rangel. No surgical interventions indicated at this [...] 05/27/2018 Assessment & Plan (12/27/2024 3:33 PM PAIL BAILER): Impression: Chronic stable Plan: Continue metoprolol Assessment [...] 02/06/2016 Assessment & Plan (12/27/2024 3:32 PM PAIL BAILER): Impression: Chronic and stable. Plan: Continue atorvastatin. Tobacco use 02/06/2016 Serum creatinine raised 01/11/2016 Anemia 12/11/2015 ER+ (estrogen receptor positive status) 07/21/20 15 Osteoporosis 08/26/2013 Malignant neoplasm of cervix 10/11/2011 Breast cancer 10/04/2011 Malignant neoplasm of upper- outer quadrant of right breast in female, estrogen receptor positive 10/01/2010 Encounter for preventive health examination 02/25 History of malignant neoplasm of cervix 02/05/19 96 Immunizations Immunization Administration Dates Next Due Influenza, Quad, Adjuvantate d, Intramuscular 08/29/2023 Influenza, Quadrivalent, Hig h Dose, Preservative Free, Intrr 08/14/2022 Influenza, Quadrivalent, Spl it, Preservative Free, Intramuscular 10/22/2021,08/30/2020,08/27/2019,10/08,08/04/2017 Influenza, Trivalent, High D ose, Split, Preservative Free, Intramuscular 08/14/2016,08/09/2015 Influenza, Trivalent, IM (MDV) 10/27/2012 Influenza, Unspecified 07/27/2023,10/27/2012 Moderna SARS-CoV-2 Monovalen t Vaccination (12+ YRS) 01/25/2021 Pneumococcal Conjugate PCV 13 02/06/2016 Pneumococcal Conjugate, Unspecified 10/27/2010 Pneumococcal Polysaccharide PPV23 10/27/2010 Tdap 04/14/2023 Social History Tobacco Use Types Packs/Day Years Used Date Smoking Tobacco: Every Day Cigarettes 1.5 40 Smokeless Tobacco: Never Tobacco Cessation:Ready to Q uit: Not Asked; Counseling Given: Not Answered Alcohol Use Standard Drinks/Week Comments Yes 4 [...] materials from doctor or pharmacy Never 11/10/2023 [facility] Utilities Answer Date Recorded In the past 12 months has e [employer], gas, oil, or water [employer] threatened to shut off services in your [...] 01/04/2025 How often do you attend chur or nondenominational services? 1 to 4 times per year 01/04/2025 Do you belong to any clubs o r organizations such as druze groups, unions, fraternal or athletic groups, or [...] any time in the past 12 m [facility], were you homeless or living in a jail (including now)? No 01/04/2025 Personal Safety Answer Date Recorded Have you ever been in or are you currently in a harmful physical or emotional relationship or is someone making you feel afraid or unsafe? Denies 03/17/2025 Comments No Sex and Gender Information Value Date Recorded Sex Assigned at Not on file Legal Sex Female 8:47 PM PAIL BAILER Gender Identity Not on file Sexual Orientation Not on file Last Filed Vital Signs Vital Sign Reading Time Taken Comments Blood Pressure 60/32 03/30/2025 11:01 AM CDT Pulse 127 03/30/2025 11:01 AM CDT Temperature 35.6 C (96.1 F) 03/17/2025 10:17 AM CDT Respiratory Rate 11 03/17/2025 12:50 PM CDT Oxygen Saturation 95% 03/30/2025 11:01 AM CDT Inhaled Oxygen Concentration - - Weight 56.7 kg (125 lb) 03/30/2025 11:01 AM CDT Height 156.2 cm (5' 1.5) 03/30/2025 11:01 AM CD T Body Mass Index 23.24 03/30/2025 11:01 AM CDT Plan of Treatment Not on file Medical Devices Implanted Type Area Road Grader Device Identifier Shelf Expiration Date Model / Serial / Lot Port Right: Chest [employer] Viabahn 5mm 5cm 120cm Flexible Self Expand Radiopaque Stent [id number] - [id number] - [id number] Implanted:Qty: 1 on 10/07/2023 at [facility] [employer] 03/27/2024 [id number] / [id number] / Procedures Procedure Name Priority Date/Time Associated Diagnosis Comments US ARTERIAL DOPPLER LOWER EXTREMITY BILATERAL Schedule Routine, Read Routine (OP Routine) 03/25/2025 11:40 AM CDT 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 CHANGE URETERAL STENT BILATERAL Schedule Routine, Read Routine (OP Routine) 03/17/2025 12:55 PM CDT Hydronephrosis with ureteral stricture, not elsewhere classified CHANGE URETERAL STENT BILATERAL Schedule Routine, Read Routine (OP Routine) 02/21/2025 8:55 AM CDT Hydronephrosis with ureteral stricture, not elsewhere classified CHANGE URETERAL STENT BILATERAL Schedule Routine, Read Routine (OP Routine) 01/24/2025 8:50 AM CDT Malignant neoplasm of overlapping sites of cervix (HCC) EGFR Routine 01/08/2025 3:59 AM CDT DIFFERENTIAL AUTO Routine 01/08/2025 3:5 9 AM CDT COMPREHENSIVE METABOLIC PANEL Routine 01/08/2025 3:59 AM CDT CBC WITH AUTO DIFFERENTIAL Routine 01/08/2025 3:59 AM CDT EGFR Routine 01/07/2025 8:52 AM CDT DIFFERENTIAL AUTO Routine 01/07/2025 8:5 2 AM CDT COMPREHENSIVE METABOLIC PANEL Routine 01/07/2025 8:52 AM CDT CBC WITH AUTO DIFFERENTIAL Routine 01/07/2025 8:52 AM CDT POCT GLUCOSE DEVICE Routine 01/06/2025 3 :09 PM CDT XR ABDOMEN AP 1 VIEW IP Routine 01/06/2025 10:35 AM CDT EGFR Routine 01/04/2025 4:17 AM CDT BASIC METABOLIC PANEL Routine 01/04/2025 4:17 AM CDT CBC WITHOUT DIFFERENTIAL Routine 01/04/2025 4:17 AM CDT POCT GLUCOSE DEVICE Routine 01/03/2025 1 2:41 PM CDT POCT GLUCOSE DEVICE Routine 01/03/2025 8 :56 AM CDT CV HYBRID ROOM (DEFAULT ORDERABLE) Routine 01/03/2025 8:45 AM CDT 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) SURGICAL PATHOLOGY Routine 01/03/2025 8: 11 AM CDT 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) ID AN PROCEDURE PLACEHOLDER Routine 01/03/2025 7:53 AM CDT ID AN ELECTIVE ENDOTRACHEAL AIRWAY Routine 01/03/2025 7:53 AM CDT TRANSFUSE RED BLOOD CELLS Timed 01/03/2025 7:46 AM CDT PREPARE RBC STAT 01/03/2025 7:30 AM CDT B ABO / RH CONFIRMATION TESTING STAT 01/03/2025 7:00 AM CDT CROSSMATCH Timed 01/03/2025 6:47 AM CDT EGFR Routine 01/03/2025 6:47 AM CDT 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) DIFFERENTIAL AUTO Routine 01/03/2025 6:4 7 AM CDT 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) ANTIBODY SCREEN Timed 01/03/2025 6:47 AM CDT ABO/RH Timed 01/03/2025 6:47 AM CDT PROTIME-INR Routine 01/03/2025 6:47 AM CDT 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) APTT Routine 01/03/2025 6:47 AM CDT 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) Other disorder of circulatory system CBC WITH AUTO DIFFERENTIAL Routine 01/03/2025 6:47 AM CDT 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) COMPREHENSIVE METABOLIC PANEL Routine 01/03/2025 6:47 AM CDT 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) TYPE AND SCREEN Timed 01/03/2025 6:47 AM CDT POCT GLUCOSE DEVICE Routine 01/03/2025 6 :41 AM CDT US ARTERIAL DOPPLER UPPER EXTREMITY BILATERAL Schedule Routine, Read Routine (OP Routine) 12/29/2024 10:22 AM PAIL BAILER Stenosis of left subclavian artery HEMOGLOBIN A1C Timed 12/14/2024 8:34 PM PAIL BAILER BONE MINERAL DENSITY 10/23/2016 COLONOSCOPY 04/02/2011 12:00 AM CDT from Last 3 Months or Most Recently Relevant to Health Maintenance Results * US Arterial Doppler Lower Extremity Bilateral (03/25/2025 11:40 AM CDT) Anatomical Region Laterality Modality Vascular Bilateral Ultrasound 03/25/2025 10:5 9 AM CDT Narrative 03/28/2025 7:33 AM CDT Vascular & Vein Surgery [address] [place] [address] Lower Extremity Arterial Doppler Report Patient Name: MATEUSZ JOHNSON R : 1945 Study Date: 03/25/2025 10:59:00 AM Gender: F Geodetic Technician: Blanca Saab RVT Location: VV Ref Provider: NIMO RANGEL Quality: Adequate Order Provider: NIMO RANGEL PROCEDURES: Arterial Report: Bilateral lower extremity arterial Doppler exam at rest. INDICATIONS: RLE pressure wounds. S/P Lt AKA 01/03/25. Hx Rt iliac stent @ [facility]. HISTORY: HTN. HLD. CKD. DM. DVT. Breast/cervical CA. Afib. Current smoker. COMPARISONS: The previous exam was completed on 12/13/24 @ [facility]: Rt 0.3, Lt 0.3. MEASUREMENTS: Right Value Left Value Rt Brachial Pressure 66 mmHg Lt Brachial Pressure 78 mmHg Rt Calf Pressure 46 mmHg Rt AUTOMATED WEAVER Pressure 82 mmHg Rt DPA Pressure 54 mmHg Rt 1st Digit Pressure 0 mmHg Rt Calf Index 0.59 Rt PT AVIS Resting 1.05 Rt DP AVIS Resting 0.69 Rt Digit 1/Arm Index 0 FINDINGS: Right Leg: The ankle pressures are artifactually elevated. Right Common Femoral Artery Analysis: The common femoral artery waveform is monophasic. Right Popliteal Artery Analysis: The popliteal waveform is monophasic. Right Posterior Tibial Artery Analysis: The posterior tibial waveform is monophasic. Right Anterior Tibial Artery Analysis: The anterior tibial waveform is monophasic. Right Digits: The right digit waveform is absent. Left Common Femoral Artery Analysis: The common femoral artery waveform is monophasic. Comments: Exam done in wheelchair due to patient being on sven pad. CONCLUSIONS: 1. Ankle-brachial index of 0.5-0.8 is consistent with claudication and a moderate occlusive arterial disease in the right lower extremity. 2. There is evidence of right leg arterial insufficiency at the level of aorta- iliac, common femoral (inflow) arteries. ATTESTATION: I have reviewed and interpreted the pertinent images and measurements of this study. I attest to the conclusions in the final report that is provided above. Electronically Signed By: Nimo Rangel MD 03/28/2025 7:26:31 AM CDT Procedure Note Nimo Rangel MD - 03/28/2025 Vascular & Vein Surgery [address] [facility] [place] [address] Lower Extremity Arterial Doppler Report Patient Name: MATEUSZ JOHNSON R : 1945 Study Date: 03/25/2025 10:59:00 AM Gender: F Geodetic Technician: Blanca Saab RVT Location: [facility] Ref Provider: NIMO RANGEL Quality: Adequate Order Provider: NIMO RANGEL PROCEDURES: Arterial Report: Bilateral lower extremity arterial Doppler exam at rest. INDICATIONS: RLE pressure wounds. S/P Lt AKA 01/03/25. Hx Rt iliac stent @ [facility]. HISTORY: HTN. HLD. CKD. DM. DVT. Breast/cervical CA. Afib. Current smoker. COMPARISONS: The previous exam was completed on 12/13/24 @ [facility]: Rt 0.3, Lt 0.3. MEASUREMENTS: Right Value Left Value Rt Brachial Pressure 66 mmHg Lt Brachial Pressure 78 mmHg Rt Calf Pressure 46 mmHg Rt AUTOMATED WEAVER Pressure 82 mmHg Rt DPA Pressure 54 mmHg Rt 1st Digit Pressure 0 mmHg Rt Calf Index 0.59 Rt PT AVIS Resting 1.05 Rt DP AVIS Resting 0.69 Rt Digit 1/Arm Index 0 FINDINGS: Right Leg: The ankle pressures are artifactually elevated. Right Common Femoral Artery Analysis: The common femoral artery waveform is monophasic. Right Popliteal Artery Analysis: The popliteal waveform is monophasic. Right Posterior Tibial Artery Analysis: The posterior tibial waveform is monophasic. Right Anterior Tibial Artery Analysis: The anterior tibial waveform is monophasic. Right Digits: The right digit waveform is absent. Left Common Femoral Artery Analysis: The common femoral artery waveform is monophasic. Comments: Exam done in wheelchair due to patient being on sven pad. CONCLUSIONS: 1. Ankle-brachial index of 0.5-0.8 is consistent with claudication and amoderate occlusive arterial disease in the right lower extremity. 2. There is evidence of right leg arterial insufficiency at the level ofaorta- iliac, common femoral (inflow) arteries. ATTESTATION: I have reviewed and interpreted the pertinent images and measurements ofthis study. I attest to the conclusions in the final report that is provided above. Electronically Signed By: Nimo Rangel MD 03/28/2025 7:26:31 AM CDT Nimo Rangel MD [facility] US PROCEDURES Final Result * IR Change Ureteral Stent Bilateral (03/17/2025 12:55 PM CDT) Anatomical Region Laterality Modality Body Bilateral Radio Fluoroscop y 03/17/2025 2:11 PM CDT Impressions 03/17/2025 2:11 PM CDT Successful bilateral ureteral stent change via ileal conduit (right 12-Guinean UreSil locking loop and left 14-Guinean multipurpose drainage catheter).. PLAN: The patient will return in 4 weeks for the next catheter change. The patient should flush each catheter with 5 mL normal saline once daily. Electronically signed by: Holley Damian MD, PhD Narrative 03/17/2025 2:11 PM CDT EXAMINATION: IR CHANGE URETERAL STENT BILATERAL HISTORY/INDICATION: 79-year-old female with cervical cancer and history of pelvic exenteration status post ileal conduit formation with bilateral ureteral strictures requiring nephroureteral stents for diversion. She presents with concern for clogging of the right stent and plan for preventive maintenance. PROVIDER PRESENCE: Holley Damian MD, PhD was present from the beginning to the end of the procedure. SEDATION: Procedural sedation was administered under the attending physician's direction and continuous monitoring by a trained nurse specialist who was independent from those actually performing the procedure. Total monitored sedation time was 45 minutes. TECHNIQUE: The risks, benefits and alternatives were discussed and informed consent was obtained. Prior to beginning the procedure, [place] Protocol was performed to confirm the patient's identity and the planned procedure. The fluoroscopy time has been recorded in the electronic medical record. Maximum sterile barriers including cap, mask, hand hygiene, sterile gloves, sterile gown, and large sterile drape were used. The skin surrounding the ostomy for the patient's ileal conduit was aseptically prepped and draped using Betadine. Under fluoroscopic guidance, the existing retrograde left ureteral stent was exchanged over an Amplatz guidewire for a new 14-[place]inean 45 cm cope catheter. There was resistance during advancement of the catheter along the distal left ureter related to known stenosis. The contralateral side was exchanged in a similar fashion for a 12-Guinean long locking loop UreSil. Please note that the nephroureteral stent was completely clogged. A series of catheters and wires were used to gain access into the right collecting system. Please note that there was resistance during advancement of the catheter within the ureter, related to known stenosis. ESTIMATED BLOOD LOSS: None CONDITION: Stable DISCHARGED TO: recovery and then home FINDINGS: Limited contrast injection shows the bilateral nephroureteral catheters to be in good position. After exchange, bilateral nephroureteral catheters are in good position. Procedure Note Holley Damian MD PhD - 03/17/2025 EXAMINATION: IR CHANGE URETERAL STENT BILATERAL HISTORY/INDICATION: 79-year-old female with cervical cancer and history of pelvic exenteration status post ileal conduit formation with bilateral ureteral strictures requiring nephroureteral stents for diversion. She presents with concern for clogging of the right stent and plan for preventive maintenance. PROVIDER PRESENCE: Holley Damian MD, PhD was present from the beginning to the end of the procedure. SEDATION: Procedural sedation was administered under the attending physician's direction and continuous monitoring by a trained nurse specialist who was independent from those actually performing the procedure. Total monitored sedation time was 45 minutes. TECHNIQUE: The risks, benefits and alternatives were discussed and informed consent was obtained. Prior to beginning the procedure, [place] Protocol was performed to confirm the patient's identity and the planned procedure. The fluoroscopy time has been recorded in the electronic medical record. Maximum sterile barriers including cap, mask, hand hygiene, sterile gloves, sterile gown, and large sterile drape were used. The skin surrounding the ostomy for the patient's ileal conduit was aseptically prepped and draped using Betadine. Under fluoroscopic guidance, the existing retrograde left ureteral stent was exchanged over an Amplatz guidewire for a new 14-Guinean 45 cm cope catheter. There was resistance during advancement of the catheter along the distal left ureter related to known stenosis. The contralateral side was exchanged in a similar fashion for a 12-Guinean long locking loop UreSil. Please note that the nephroureteral stent was completely clogged. A series of catheters and wires were used to gain access into the right collecting system. Please note that there was resistance during advancement of the catheter within the ureter, related to known stenosis. ESTIMATED BLOOD LOSS: None CONDITION: Stable DISCHARGED TO: recovery and then home FINDINGS: Limited contrast injection shows the bilateral nephroureteral catheters to be in good position. After exchange, bilateral nephroureteral catheters are in good position. IMPRESSION: Successful bilateral ureteral stent change via ileal conduit (right 12-Guinean UreSil locking loop and left 14-Guinean multipurpose drainage catheter).. PLAN: The patient will return in 4 weeks for the next catheter change. The patient should flush each catheter with 5 mL normal saline once daily. Electronically signed by: Holley Damian MD, PhD Azalia PIERCE IMG IR PROCEDURES Fin al Result * IR Change Ureteral Stent Bilateral (02/21/2025 8:55 AM CDT) Anatomical Region Laterality Modality Body Bilateral Radio Fluoroscop y 02/21/2025 10:1 4 AM CDT Impressions 02/21/2025 10:14 AM CDT Successful bilateral ureteral stent change via ileal conduit. PLAN: The patient will return in 4 weeks for the next catheter change. The patient should flush each catheter with 5 mL normal saline once daily. Electronically signed by: Azalia Gotti PA-C Narrative 02/21/2025 10:14 AM CDT EXAMINATION: IR CHANGE URETERAL STENT BILATERAL HISTORY/INDICATION: 79-year-old female with cervical cancer and history of pelvic exenteration status post ileal conduit formation. She presents for routine ureteral stent exchange. PROVIDER PRESENCE: Azalia Gotti PA-C was present from the beginning to the end of the procedure. SEDATION: Conscious sedation was used for this procedure. TECHNIQUE: The risks, benefits and alternatives were discussed and informed consent was obtained. Prior to beginning the procedure, [place] Protocol was performed to confirm the patient's identity and the planned procedure. The fluoroscopy time has been recorded in the electronic medical record. Maximum sterile barriers including cap, mask, hand hygiene, sterile gloves, sterile gown, and large sterile drape were used. The skin surrounding the ostomy for the patient's ileal conduit was aseptically prepped and draped using Betadine. Under fluoroscopic guidance, the existing retrograde left ureteral stent was exchanged over an Amplatz guidewire for a new 14-Guinean 45 cm cope catheter. There was resistance during advancement of the catheter along the distal left ureter related to known stenosis. The contralateral side was exchanged in a similar fashion for a 12-Guinean long UreSil. ESTIMATED BLOOD LOSS: None CONDITION: Stable DISCHARGED TO: recovery and then home FINDINGS: Limited contrast injection shows the catheters to be in good position. The collecting system is decompressed. No complications are identified. Procedure Note Azalia Gotti PA - 02/21/2025 EXAMINATION: IR CHANGE URETERAL STENT BILATERAL HISTORY/INDICATION: 79-year-old female with cervical cancer and history of pelvic exenteration status post ileal conduit formation. She presents for routine ureteral stent exchange. PROVIDER PRESENCE: Azalia Gotti PA-C was present from the beginning to the end of the procedure. SEDATION: Conscious sedation was used for this procedure. TECHNIQUE: The risks, benefits and alternatives were discussed and informed consent was obtained. Prior to beginning the procedure, [place] Protocol was performed to confirm the patient's identity and the planned procedure. The fluoroscopy time has been recorded in the electronic medical record. Maximum sterile barriers including cap, mask, hand hygiene, sterile gloves, sterile gown, and large sterile drape were used. The skin surrounding the ostomy for the patient's ileal conduit was aseptically prepped and draped using Betadine. Under fluoroscopic guidance, the existing retrograde left ureteral stent was exchanged over an Amplatz guidewire for a new 14-Guinean 45 cm cope catheter. There was resistance during advancement of the catheter along the distal left ureter related to known stenosis. The contralateral side was exchanged in a similar fashion for a 12-Guinean long UreSil. ESTIMATED BLOOD LOSS: None CONDITION: Stable DISCHARGED TO: recovery and then home FINDINGS: Limited contrast injection shows the catheters to be in good position. The collecting system is decompressed. No complications are identified. IMPRESSION: Successful bilateral ureteral stent change via ileal conduit. PLAN: The patient will return in 4 weeks for the next catheter change. The patient should flush each catheter with 5 mL normal saline once daily. Electronically signed by: Azalia Gotti PA-C Azalia PIERCE IMG IR PROCEDURES Fin al Result * IR Change Ureteral Stent Bilateral (01/24/2025 8:50 AM CDT) Anatomical Region Laterality Modality Body Bilateral Radio Fluoroscop y 01/24/2025 9:01 AM CDT Impressions 01/24/2025 9:01 AM CDT Successful bilateral ureteral stent change via ileal conduit. PLAN: The patient will return in 4 weeks for the next catheter change. The patient should flush each catheter with 5 mL normal saline once daily. Electronically signed by: Azalia Gotti PA-C Narrative 01/24/2025 9:01 AM CDT EXAMINATION: IR CHANGE URETERAL STENT BILATERAL HISTORY/INDICATION: 79-year-old female with cervical cancer and history of pelvic exenteration status post ileal conduit formation. She presents for routine ureteral stent exchange. PROVIDER PRESENCE: Stephanie Ventura present from the beginning to the end of the procedure. SEDATION: Conscious sedation was used for this procedure. TECHNIQUE: The risks, benefits and alternatives were discussed and informed consent was obtained. Prior to beginning the procedure, [place] Protocol was performed to confirm the patient's identity and the planned procedure. The fluoroscopy time has been recorded in the electronic medical record. Maximum sterile barriers including cap, mask, hand hygiene, sterile gloves, sterile gown, and large sterile drape were used. The skin surrounding the ostomy for the patient's ileal conduit was aseptically prepped and draped using Betadine. Under fluoroscopic guidance, the existing retrograde left ureteral stent was exchanged over an Amplatz guidewire for a new 14-Guinean 45 cm cope catheter. There was resistance during advancement of the catheter along the distal left ureter related to known stenosis. The contralateral side was exchanged in a similar fashion for a 12-Guinean long UreSil. ESTIMATED BLOOD LOSS: None CONDITION: Stable DISCHARGED TO: recovery and then home FINDINGS: Limited contrast injection shows the catheters to be in good position. The collecting system is decompressed. No complications are identified. Procedure Note Azalia Gotti PA - 01/24/2025 EXAMINATION: IR CHANGE URETERAL STENT BILATERAL HISTORY/INDICATION: 79-year-old female with cervical cancer and history of pelvic exenteration status post ileal conduit formation. She presents for routine ureteral stent exchange. PROVIDER PRESENCE: KARI Ventura-Cwas present from the beginning to the end of the procedure. SEDATION: Conscious sedation was used for this procedure. TECHNIQUE: The risks, benefits and alternatives were discussed and informed consent was obtained. Prior to beginning the procedure, [place] Protocol was performed to confirm the patient's identity and the planned procedure. The fluoroscopy time has been recorded in the electronic medical record. Maximum sterile barriers including cap, mask, hand hygiene, sterile gloves, sterile gown, and large sterile drape were used. The skin surrounding the ostomy for the patient's ileal conduit was aseptically prepped and draped using Betadine. Under fluoroscopic guidance, the existing retrograde left ureteral stent was exchanged over an Amplatz guidewire for a new 14-Guinean 45 cm cope catheter. There was resistance during advancement of the catheter along the distal left ureter related to known stenosis. The contralateral side was exchanged in a similar fashion for a 12-Guinean long UreSil. ESTIMATED BLOOD LOSS: None CONDITION: Stable DISCHARGED TO: recovery and then home FINDINGS: Limited contrast injection shows the catheters to be in good position. The collecting system is decompressed. No complications are identified. IMPRESSION: Successful bilateral ureteral stent change via ileal conduit. PLAN: The patient will return in 4 weeks for the next catheter change. The patient should flush each catheter with 5 mL normal saline once daily. Electronically signed by: Azalia Gotti PA-C us Stephanie Isaac MD IMG IR PROCEDURES Final Resu lt * (ABNORMAL) eGFR (01/08/2025 3:59 AM CDT) eGFR 26(L) >=60 mL/min/1. 73 m2 Comment: Interpretive Data Reference Interval Normal >/= 90 mL/min/1.73m2 Mildly decreased* 60 - 89 mL/min/1.73m2 Mildly to moderately decreased 45 - 59 mL/min/1.73m2 Moderately to severely decreased 30 - 44 mL/min/1.73m2 Severely decreased 15 - 29 mL/min/1.73m2 Kidney Failure < 15 mL/min/1.73m2 *Relative to young adult level Estimated glomerular filtration rate is determined by the 2020 CKD-EPI equation recommended by the National Kidney Foundation (A Unifying Approach to GFR Estimation: Recommendations of the NKF-ASK Task Force on Reassessing the Inclusion of Race in Diagnosing Kidney Disease, JASN 2020). The CKD-EPI equation should not be used for patients with unstable renal function and has not been validated in children and those over 70. Current interpretive data was last reviewed 2021. Blood 01/08/2025 3:59 AM CDT 01/08/2025 4:09 AM CDT Leny Miller NP LAB BLOOD ORDERABLES Mary Alice l Result [facility] [address] [facility] Department [place] [address] * (ABNORMAL) Differential, auto (01/08/2025 3:59 AM CDT) Neutrophil abs 7.7(H) 1.5 - 6.5 K/cumm Imm gran abs 0.1 0.0 - 0.1 K/cumm [facility] Lymphocyte abs 1.3 0.8 - 3.3 K/cumm [facility] Monocyte abs 0.9(H) 0.2 - 0.8 K/cumm [facility] Eosinophil abs 0.1 0.0 - 0.5 K/cumm [facility] Basophil abs 0.0 0.0 - 0.1 K/cumm [facility] Neutrophil pct 75.6 % [facility] Comment: Interpretive Data Percent cell count reference ranges are not reported, since discordance with absolute values may lead to misinterpretation of CBC data. Current Interpretive Data was last revised on 2018. Imm gran pct 0.7 % [facility] Comment: Interpretive Data Percent cell count reference ranges are not reported, since discordance with absolute values may lead to misinterpretation of CBC data. Current Interpretive Data was last revised on 2018. Lymphocyte pct 13.0 % [facility] Comment: Interpretive Data Percent cell count reference ranges are not reported, since discordance with absolute values may lead to misinterpretation of CBC data. Current Interpretive Data was last revised on 2018. Monocyte pct 9.0 % [facility] Comment: Interpretive Data Percent cell count reference ranges are not reported, since discordance with absolute values may lead to misinterpretation of CBC data. Current Interpretive Data was last revised on 2018. Eosinophil pct 1.3 % [facility] Comment: Interpretive Data Percent cell count reference ranges are not reported, since discordance with absolute values may lead to misinterpretation of CBC data. Current Interpretive Data was last revised on 2018. Basophil pct 0.4 % [facility] Comment: Interpretive Data Percent cell count reference ranges are not reported, since discordance with absolute values may lead to misinterpretation of CBC data. Current Interpretive Data was last revised on 2018. Blood 01/08/2025 3:59 AM CDT 01/08/2025 4:09 AM CDT Leny Miller INJURY PREVENTION COORDINATOR LAB BLOOD ORDERABLES Mary Alice claudia Result [facility]FREDO [address] [facility] Department [place] [address] * (ABNORMAL) CBC with auto differential (01/08/2025 3:59 AM CDT) WBC 10.2(H) 3.8 - 9.9 K/cumm Hgb 8.0(L) 11.9 - 15.5 g/dL [facility] Hct 26.8(L) 35.6 - 45.5 % [facility] Plt 395 150 - 400 K/cumm [facility] MPV 8.9(L) 9.1 - 12.3 fL [facility] RBC 2.71(L) 3.90 - 5.20 M/cumm [facility] MCV 98.9(H) 81.3 - 96.4 fL [facility] MCH 29.5 27.1 - 33.3 pg [facility] MCHC 29.9(L) 32.3 - 35.7 g/dL [facility] RDW CV 17.2(H) 11.1 - 14.9 % [facility] RDW SD 61.4(H) 35.7 - 48.1 fL [facility] NRBC abs 0.00 0.00 - 0.01 K/cumm [facility] Blood 01/08/2025 3:59 AM CDT 01/08/2025 4:09 AM CDT Leny Miller INJURY PREVENTION COORDINATOR LAB BLOOD ORDERABLES Mary Alice taylor Result [facility] [address] [facility] Department [place] [address] * (ABNORMAL) Comprehensive metabolic panel (01/08/2025 3:59 AM CDT) Sodium 132(L) 135 - 145 mmol/L Potassium, pl 4.0 3.3 - 4.9 mmol/L [facility] Chloride 100 97 - 110 mmol/L [facility] CO2 20(L) 22 - 32 mmol/L [facility] Anion gap 12 2 - 15 mmol/L [facility] BUN 44(H) 6 - 25 mg/dL [facility] Creatinine 1.94(H) 0.60 - 1.10 mg/dL [facility] Glucose 82 70 - 199 mg/dL [facility] Comment: Interpretive Data Fasting glucose >/= 126 mg/dl is diagnostic for diabetes. Fasting is defined as no caloric intake for at least 8 hours. Fasting glucose between 100 mg/dl to 125 mg/dl is diagnostic of prediabetes. In a patient with classic symptoms of hyperglycemia or hyperglycemic crisis, a random glucose >/= 200 mg/dl is diagnostic for diabetes. In the absence of unequivocal hyperglycemia, results should be confirmed by repeat testing. The classification and Diagnosis of Diabetes Diabetes Care 2021; 46: S19-S40. Current interpretive data was last revised 2022. Calcium 8.1(L) 8.5 - 10.3 mg/dL [facility] Bilirubin, total <0.2 0.1 - 1.2 mg/dL [facility] Protein, pl 5.6(L) 6.5 - 8.5 g/dL [facility] Albumin 1.8(L) 3.5 - 5.0 g/dL [facility] Alk phos 120 40 - 130 Units/L [facility] ALT <5(L) 7 - 45 Units/L [facility] AST 16 10 - 45 Units/L [facility] Blood 01/08/2025 3:59 AM CDT 01/08/2025 4:09 AM CDT Leny Miller INJURY PREVENTION COORDINATOR LAB BLOOD ORDERABLES Mary Alice l Result [facility] [address] [facility] Department [place] [address] * (ABNORMAL) eGFR (01/07/2025 8:52 AM CDT) eGFR 26(L) >=60 mL/min/1. 73 m2 Comment: Interpretive Data Reference Interval Normal >/= 90 mL/min/1.73m2 Mildly decreased* 60 - 89 mL/min/1.73m2 Mildly to moderately decreased 45 - 59 mL/min/1.73m2 Moderately to severely decreased 30 - 44 mL/min/1.73m2 Severely decreased 15 - 29 mL/min/1.73m2 Kidney Failure < 15 mL/min/1.73m2 *Relative to young adult level Estimated glomerular filtration rate is determined by the 2020 CKD-EPI equation recommended by the National Kidney Foundation (A Unifying Approach to GFR Estimation: Recommendations of the NKF-ASK Task Force on Reassessing the Inclusion of Race in Diagnosing Kidney Disease, FADYN 2020). The CKD-EPI equation should not be used for patients with unstable renal function and has not been validated in children and those over 70. Current interpretive data was last reviewed 2021. Blood 01/07/2025 8:52 AM CDT 01/07/2025 9:01 AM CDT Leny Miller NP LAB BLOOD ORDERABLES Mary Alice taylor Result [facility] [address] [facility] Department [place] [address] * (ABNORMAL) Differential, auto (01/07/2025 8:52 AM CDT) Neutrophil abs 9.9(H) 1.5 - 6.5 K/cumm Imm gran abs 0.0 0.0 - 0.1 K/cumm [facility] Lymphocyte abs 1.4 0.8 - 3.3 K/cumm [facility] Monocyte abs 0.8 0.2 - 0.8 K/cumm [facility] Eosinophil abs 0.0 0.0 - 0.5 K/cumm [facility] Basophil abs 0.0 0.0 - 0.1 K/cumm [facility] Neutrophil pct 81.1 % [facility] Comment: Interpretive Data Percent cell count reference ranges are not reported, since discordance with absolute values may lead to misinterpretation of CBC data. Current Interpretive Data was last revised on 2018. Imm gran pct 0.3 % [facility] Comment: Interpretive Data Percent cell count reference ranges are not reported, since discordance with absolute values may lead to misinterpretation of CBC data. Current Interpretive Data was last revised on 2018. Lymphocyte pct 11.5 % [facility] Comment: Interpretive Data Percent cell count reference ranges are not reported, since discordance with absolute values may lead to misinterpretation of CBC data. Current Interpretive Data was last revised on 2018. Monocyte pct 6.6 % [facility] Comment: Interpretive Data Percent cell count reference ranges are not reported, since discordance with absolute values may lead to misinterpretation of CBC data. Current Interpretive Data was last revised on 2018. Eosinophil pct 0.2 % [facility] Comment: Interpretive Data Percent cell count reference ranges are not reported, since discordance with absolute values may lead to misinterpretation of CBC data. Current Interpretive Data was last revised on 2018. Basophil pct 0.3 % [facility] Comment: Interpretive Data Percent cell count reference ranges are not reported, since discordance with absolute values may lead to misinterpretation of CBC data. Current Interpretive Data was last revised on 2018. Blood 01/07/2025 8:52 AM CDT 01/07/2025 9:01 AM CDT Leny Miller NP LAB BLOOD ORDERABLES Mary Alice taylor Result [facility] [address] [facility] Department [place] [address] * (ABNORMAL) CBC with auto differential (01/07/2025 8:52 AM CDT) WBC 12.2(H) 3.8 - 9.9 K/cumm Hgb 8.5(L) 11.9 - 15.5 g/dL [facility] Hct 27.9(L) 35.6 - 45.5 % [facility] Plt 390 150 - 400 K/cumm [facility] MPV 8.8(L) 9.1 - 12.3 fL [facility] RBC 2.87(L) 3.90 - 5.20 M/cumm [facility] MCV 97.2(H) 81.3 - 96.4 fL [facility] MCH 29.6 27.1 - 33.3 pg [facility] MCHC 30.5(L) 32.3 - 35.7 g/dL [facility] RDW CV 17.3(H) 11.1 - 14.9 % [facility] RDW SD 61.4(H) 35.7 - 48.1 fL [facility] NRBC abs 0.00 0.00 - 0.01 K/cumm [facility] Blood 01/07/2025 8:52 AM CDT 01/07/2025 9:01 AM CDT Leny Miller NP LAB BLOOD ORDERABLES Mary Alice taylor Result [facility] [address] [facility] Department [place] [address] * (ABNORMAL) Comprehensive metabolic panel (01/07/2025 8:52 AM CDT) Sodium 136 135 - 145 mmol/L Potassium, pl 4.6 3.3 - 4.9 mmol/L [facility] Chloride 102 97 - 110 mmol/L [facility] CO2 23 22 - 32 mmol/L [facility] Anion gap 11 2 - 15 mmol/L [facility] BUN 38(H) 6 - 25 mg/dL [facility] Creatinine 1.92(H) 0.60 - 1.10 mg/dL [facility] Glucose 86 70 - 199 mg/dL [facility] Comment: Interpretive Data Fasting glucose >/= 126 mg/dl is diagnostic for diabetes. Fasting is defined as no caloric intake for at least 8 hours. Fasting glucose between 100 mg/dl to 125 mg/dl is diagnostic of prediabetes. In a patient with classic symptoms of hyperglycemia or hyperglycemic crisis, a random glucose >/= 200 mg/dl is diagnostic for diabetes. In the absence of unequivocal hyperglycemia, results should be confirmed by repeat testing. The classification and Diagnosis of Diabetes Diabetes Care 2021; 46: S19-S40. Current interpretive data was last revised 2022. Calcium 8.6 8.5 - 10.3 mg/dL [facility] Bilirubin, total 0.2 0.1 - 1.2 mg/dL [facility] Protein, pl 6.0(L) 6.5 - 8.5 g/dL [facility] Albumin 2.0(L) 3.5 - 5.0 g/dL [facility] Alk phos 128 40 - 130 Units/L [facility] ALT <5(L) 7 - 45 Units/L [facility] AST 25 10 - 45 Units/L [facility] Blood 01/07/2025 8:52 AM CDT 01/07/2025 9:01 AM CDT Leny Miller NP LAB BLOOD ORDERABLES Mary Alice l Result Performing Organization Address City/[facility]/ZIP Co de Phone Number [facility] [address] [facility] [place] [address] * POCT glucose (01/06/2025 3:09 PM CDT) Glucose, POC 127 70 - 199 mg/dL Glucose comment 1 Use This Result [facility] Blood 01/06/2025 3:09 PM CDT 01/06/2025 3:09 PM CDT Nimo Rangel MD LAB POCT ORDERABLES - DEVICE Fin al Result Performing Organization Address [facility] Co de Phone Number [facility] [address] [place] [address] * XR Abdomen Ap 1 Vw (01/06/2025 10:35 AM CDT) Anatomical Region Laterality Modality Body, Abdomen N/A Computed Radiogr aphy 01/06/2025 1:09 PM CDT Narrative 01/06/2025 1:11 PM CDT EXAM DESCRIPTION: XR ABDOMEN AP 1 VIEW REASON FOR STUDY: vomiting green emesis x3, ileus? vomiting green emesis x3 days COMPARISON: 12/14/2024 TECHNIQUE: Single radiographic view of the abdomen. FINDINGS: LINES/TUBES: Bilateral pigtail catheters within right lower quadrant urinary diversion/conduit terminating at the expected location of the bilateral pelvis. BOWEL: Nonobstructive gas pattern. SOFT TISSUES: Right iliac vascular stent. Vascular calcifications. BONES: Degenerative changes of the visualized spine. Degenerative changes of the bilateral hips. No definite acute osseous abnormality. IMPRESSION: Nonobstructive bowel gas pattern. THIS IS AN ELECTRONICALLY VERIFIED FINAL REPORT 01/06/2025 1:11 PM - Electronically signed by Terrance Howe M.D. NS T: Report ID: [id number] Reading Location: [id number] Procedure Note Terrance Howe MD - 01/06/2025 EXAM DESCRIPTION: XR ABDOMEN AP 1 VIEW REASON FOR STUDY: vomiting green emesis x3, ileus? vomiting green emesis x3 days COMPARISON: 12/14/2024 TECHNIQUE: Single radiographic view of the abdomen. FINDINGS: LINES/TUBES: Bilateral pigtail catheters within right lower quadrant urinary diversion/conduit terminating at the expected location ofthe bilateral pelvis. BOWEL: Nonobstructive gas pattern. SOFT TISSUES: Right iliac vascular stent. Vascular calcifications. BONES: Degenerative changes of the visualized spine. Degenerativechanges of the bilateral hips. No definite acute osseous abnormality. IMPRESSION: Nonobstructive bowel gas pattern. THIS IS AN ELECTRONICALLY VERIFIED FINAL REPORT 01/06/2025 1:11 PM - Electronically signed by Terrance Howe M.D. NS T: Report ID: [id number] Reading Location: [place] [address] [place] Rachna Brand INJURY PREVENTION COORDINATOR IMG XR PROCEDURES Final Result * (ABNORMAL) eGFR (01/04/2025 4:17 AM CDT) eGFR 32(L) >=60 mL/min/1. 73 m2 Comment: Interpretive Data Reference Interval Normal >/= 90 mL/min/1.73m2 Mildly decreased* 60 - 89 mL/min/1.73m2 Mildly to moderately decreased 45 - 59 mL/min/1.73m2 Moderately to severely decreased 30 - 44 mL/min/1.73m2 Severely decreased 15 - 29 mL/min/1.73m2 Kidney Failure < 15 mL/min/1.73m2 *Relative to young adult level Estimated glomerular filtration rate is determined by the 2020 CKD-EPI equation recommended by the National Kidney Foundation (A Unifying Approach to GFR Estimation: Recommendations of the NKF-ASK Task Force on Reassessing the Inclusion of Race in Diagnosing Kidney Disease, JASN 2020). The CKD-EPI equation should not be used for patients with unstable renal function and has not been validated in children and those over 70. Current interpretive data was last reviewed 2021. Blood 01/04/2025 4:17 AM CDT 01/04/2025 4:39 AM CDT Nimo Rangel MD LAB BLOOD ORDERABLES Final Resul t Performing Organization Address [facility] de Phone Number CHETAN [address] [place] [address] * (ABNORMAL) CBC without differential (01/04/2025 4:17 AM CDT) WBC 7.8 3.8 - 9.9 K/cumm Hgb 8.1(L) 11.9 - 15.5 g/dL [facility] Hct 27.3(L) 35.6 - 45.5 % [facility] Plt 369 150 - 400 K/cumm [facility] MPV 8.9(L) 9.1 - 12.3 fL [facility] RBC 2.75(L) 3.90 - 5.20 M/cumm [facility] MCV 99.3(H) 81.3 - 96.4 fL [facility] MCH 29.5 27.1 - 33.3 pg [facility] MCHC 29.7(L) 32.3 - 35.7 g/dL [facility] RDW CV 18.4(H) 11.1 - 14.9 % [facility] RDW SD 65.2(H) 35.7 - 48.1 fL [facility] NRBC abs 0.00 0.00 - 0.01 K/cumm [facility] Blood 01/04/2025 4:1 7 AM CDT 01/04/2025 4:39 AM CDT Nimo Rangel MD LAB BLOOD ORDERABLES Final Resul t Performing Organization Address [facility] Co de Phone Number CHETAN [address] [place] [address] * (ABNORMAL) Basic metabolic panel (01/04/2025 4:17 AM CDT) Sodium 133(L) 135 - 145 mmol/L Potassium, pl 4.5 3.3 - 4.9 mmol/L [facility] Comment:Hemolyzed; Potassium value may be falsely elevated by as much as 1.0 mmol/L. Suggest redraw and reanalysis. Chloride 105 97 - 110 mmol/L [facility] CO2 19(L) 22 - 32 mmol/L [facility] Anion gap 9 2 - 15 mmol/L [facility] BUN 29(H) 6 - 25 mg/dL [facility] Creatinine 1.63(H) 0.60 - 1.10 mg/dL [facility] Glucose 75 70 - 199 mg/dL [facility] Comment: Interpretive Data Fasting glucose >/= 126 mg/dl is diagnostic for diabetes. Fasting is defined as no caloric intake for at least 8 hours. Fasting glucose between 100 mg/dl to 125 mg/dl is diagnostic of prediabetes. In a patient with classic symptoms of hyperglycemia or hyperglycemic crisis, a random glucose >/= 200 mg/dl is diagnostic for diabetes. In the absence of unequivocal hyperglycemia, results should be confirmed by repeat testing. The classification and Diagnosis of Diabetes Diabetes Care 202; 46: S19-S40. Current interpretive data was last revised 2022. Calcium 8.1(L) 8.5 - 10.3 mg/dL [facility] Blood 01/04/2025 4:17 AM CDT 01/04/2025 4:39 AM CDT Nimo Rangel MD LAB BLOOD ORDERABLES Final Resul t Performing Organization Address City/[facility] Co de Phone Number [address] [employer] [place] [address] * POCT glucose (01/03/2025 12:41 PM CDT) Glucose, POC 102 70 - 199 mg/dL Blood 01/03/2025 12:4 1 PM CDT 01/03/2025 12:41 PM CDT Nimo Rangel MD LAB POCT ORDERABLES - DEVICE Fin al Result Performing Organization Address [facility] Co de Phone Number [address] [employer] [place] [address] * POCT glucose (01/03/2025 8:56 AM CDT) Glucose, POC 100 70 - 199 mg/dL Blood 01/03/2025 8:56 AM CDT 01/03/2025 8:56 AM CDT Nimo Rangel MD LAB POCT ORDERABLES - DEVICE Fin al Result Performing Organization Address [facility] Co de Phone Number CHETAN [address] [address] * AMPUTATION ABOVE KNEE (01/03/2025 8:45 AM CDT) Anatomical Region Laterality Modality X-Ray Angiograph y Nimo Rangel MD SURGICAL CASE ORDERS Final Resul t * Transfuse RBC (01/03/2025 8:26 AM CDT) Blood Adi Fischer MD BLOOD TRANSFUSION ORDERA BLES Final Result Performing Organization Address [facility] de Phone Number [address] [address] * Surgical pathology (01/03/2025 8:11 AM CDT) Tissue specimen (specimen) (Amputation non-tramatic) 01/03/2025 8:11 AM CDT Narrative PATHOLOGY [facility] - 01/04/2025 4:04 PM CDT [facility] Department of Pathology [address] [place] [id number] Note to Patients: This report may contain a detailed description of human tissue sent by a health care provider to the laboratory for pathologic evaluation. The content of this report is essential for diagnosis and may provide important critical findings. This information may be unfamiliar to patients to review without a medical professional present. It is advised that the patient review this report in the presence of a health care provider who can answer questions and explain the details. Final Report Patient Name: MATEUSZ JOHNSON : 1945 (Age: 79) Gender: F Address: [address] [place] [id number] Hospital #: [id number] Service: Vascular Location: Patient Type: [facility] INPATIENT Taken: 01/03/2025 Received: 01/03/2025 Accessioned: 01/03/2025 Reported: 01/04/2025 Physician(s): Jorge Luis Resendiz M.D. Diagnosis: Left leg, above-knee amputation: - Ulcer, atherosclerotic plaque (gross diagnosis). Lito Marvin M.D. Report Electronically Reviewed and Signed Out By Lito Marvin M.D. 01/04/2025 16:04:57 Specimen(s) Received: A: Left above the knee amputation Microscopic Description: Unless gross-only is specified, the final diagnosis for each specimen is based on a microscopic examination of each tissue sample. 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 Operative procedure: Left above-knee amputation. Gross Description The specimen is received fresh, labeled with the patient's identifiers and left above-knee amputation, and consists of a left above-knee amputation measuring 22.4 cm from the hallux to the heel, 49.8 cm from the heel to the skin and soft tissue resection margin, with 4.5 cm of exposed femur with a smooth cut resection margin. Located on the fifth toe is a black, indurated ulcer measuring 1.7 x 1.5 cm. The ulcer is 56.5 cm from the skin and soft tissue resection margin. The remaining skin of the leg is light rivas and smooth with a few scattered purple petechiae. All five toes are present with yellow, thickened nails. Sectioning reveals mild stenosis and focal calcification of the femoral, popliteal, anterior tibial and posterior tibial arteries. The surrounding muscle and soft tissue is focally edematous but otherwise grossly unremarkable. Digital photographs are taken and the specimen is for gross examination only. LIZZY Szymanski, PA (ASCP) Microscopic slide review and interpretation for this case was performed at [facility], Department of Surgical Pathology, [address] [facility] [id number], [place] [address] CLIA # [id number] us Nimo Rangel MD LAB PATHOLOGY ORDERABLES Final R esult PATHOLOGY [facility] * ID AN ELECTIVE ENDOTRACHEAL AIRWAY, ID AN PROCEDURE PLACEHOLDER (01/03/2025 7:53 AM CDT) Narrative John Jarvis CRNA - 01/03/2025 7:53 AM CDT John Jarvis CRNA 01/03/2025 7:54 AM Airway Patient location: OR Urgency: elective Date/time: 01/03/2025 7:42 AM Indications for airway management: anesthesia Difficult airway: no Staff: Placed by: LOGGER: John Jarvis CRNA Emergent airway documentation: Risks and benefits discussed: yes Consent obtained: yes Consent given by: patient Airway prep: Preoxygenated: yes Patient position: sniffing Mask difficulty assessment: 2 - vent by mask + OA or adjuvant Spontaneous ventilation during airway: absent Sedation level during airway: deep Final airway details: Final airway type: endotracheal airway Tube type: ETT ETT size: 7.0 mm Cuffed: yes Technique used for successful ETT placement: direct laryngoscopy Devices/Methods used in placement: intubating stylet Insertion site: oral Blade type: Klaus Blade size: 3 Cormack-Lehane (direct): grade I - full view of glottis Cuff volume: 7 mL Cuff inflated with: air ETT to lips: 20 cm Placement verified by: auscultation and CO2 detection Airway secured with: silk tape Number of attempts: 1 Additional comments: Atraumatic intubation. us Adi Fischer MD ANESTHESIA ORDERABLES Fi nal Result * Prepare RBC: 1 Units (01/03/2025 7:30 AM CDT) Units requested 1 Units requested Ready CHETAN Unit Number [id number] Product code [id number] [facility] Blood Ex[facility] Blood Type (for scanning) [facility]100 [facility] Product Blood Type OPOS [facility] Dispense Status DISPENSED [facility] Blood 01/03/2025 7:30 AM CDT 01/03/2025 7:30 AM CDT Adi Fischer MD BLOOD BANK PRODUCT ORDER BALBIR Final Result Performing Organization Address [facility]/ZIP Co de Phone Number [address] [address] * ABO / Rh Confirmation Testing (01/03/2025 7:00 AM CDT) ABO/Rh Confirmation O Positive MHB Blood 01/03/2025 7:00 AM CDT 01/03/2025 7:06 AM CDT Nimo Rangel MD LAB BLOOD ORDERABLES Final Resul t Performing Organization Address [facility] Co de Phone Number [address] [address] [facility] * (ABNORMAL) eGFR (01/03/2025 6:47 AM CDT) eGFR 25(L) >=60 mL/min/1. 73 m2 Comment: Interpretive Data Reference Interval Normal >/= 90 mL/min/1.73m2 Mildly decreased* 60 - 89 mL/min/1.73m2 Mildly to moderately decreased 45 - 59 mL/min/1.73m2 Moderately to severely decreased 30 - 44 mL/min/1.73m2 Severely decreased 15 - 29 mL/min/1.73m2 Kidney Failure < 15 mL/min/1.73m2 *Relative to young adult level Estimated glomerular filtration rate is determined by the 2020 CKD-EPI equation recommended by the National Kidney Foundation (A Unifying Approach to GFR Estimation: Recommendations of the NKF-ASK Task Force on Reassessing the Inclusion of Race in Diagnosing Kidney Disease, JASN 2020). The CKD-EPI equation should not be used for patients with unstable renal function and has not been validated in children and those over 70. Current interpretive data was last reviewed 2021. Blood 01/03/2025 6:47 AM CDT 01/03/2025 6:50 AM CDT us Nimo Rangel MD LAB BLOOD ORDERABLES Final Resul t CHETAN [address] [facility] Department [place] [address] * (ABNORMAL) Differential, auto (01/03/2025 6:47 AM CDT) Neutrophil abs 7.2(H) 1.5 - 6.5 K/cumm Imm gran abs 0.1 0.0 - 0.1 K/cumm [facility] Lymphocyte abs 0.8 0.8 - 3.3 K/cumm [facility] Monocyte abs 0.6 0.2 - 0.8 K/cumm [facility] Eosinophil abs 0.1 0.0 - 0.5 K/cumm [facility] Basophil abs 0.0 0.0 - 0.1 K/cumm [facility] Neutrophil pct 82.1 % [facility] Comment: Interpretive Data Percent cell count reference ranges are not reported, since discordance with absolute values may lead to misinterpretation of CBC data. Current Interpretive Data was last revised on 2018. Imm gran pct 0.6 % [facility] Comment: Interpretive Data Percent cell count reference ranges are not reported, since discordance with absolute values may lead to misinterpretation of CBC data. Current Interpretive Data was last revised on 2018. Lymphocyte pct 9.5 % [facility] Comment: Interpretive Data Percent cell count reference ranges are not reported, since discordance with absolute values may lead to misinterpretation of CBC data. Current Interpretive Data was last revised on 2018. Monocyte pct 6.6 % [facility] Comment: Interpretive Data Percent cell count reference ranges are not reported, since discordance with absolute values may lead to misinterpretation of CBC data. Current Interpretive Data was last revised on 2018. Eosinophil pct 0.9 % [facility] Comment: Interpretive Data Percent cell count reference ranges are not reported, since discordance with absolute values may lead to misinterpretation of CBC data. Current Interpretive Data was last revised on 2018. Basophil pct 0.3 % [facility] Comment: Interpretive Data Percent cell count reference ranges are not reported, since discordance with absolute values may lead to misinterpretation of CBC data. Current Interpretive Data was last revised on 2018. Blood 01/03/2025 6:47 AM CDT 01/03/2025 6:50 AM CDT Nimo Rangel MD LAB BLOOD ORDERABLES Final Resul t [facility] [address] [facility] Department [place] [address] * (ABNORMAL) CBC with auto differential (01/03/2025 6:47 AM CDT) WBC 8.8 3.8 - 9.9 K/cumm Hgb 7.2(L) 11.9 - 15.5 g/dL [facility] Hct 24.2(L) 35.6 - 45.5 % [facility] Plt 404(H) 150 - 400 K/cumm [facility] MPV 8.8(L) 9.1 - 12.3 fL [facility] RBC 2.42(L) 3.90 - 5.20 M/cumm [facility] MCV 100.0(H) 81.3 - 96.4 fL [facility] MCH 29.8 27.1 - 33.3 pg [facility] MCHC 29.8(L) 32.3 - 35.7 g/dL [facility] RDW CV 16.9(H) 11.1 - 14.9 % [facility] RDW SD 61.3(H) 35.7 - 48.1 fL [facility] NRBC abs 0.00 0.00 - 0.01 K/cumm [facility] Blood 01/03/2025 6:47 AM CDT 01/03/2025 6:50 AM CDT Narrative [facility] - 01/03/2025 7:00 AM CDT If most recent labs were drawn prior to 4 AM, draw only prior to initiating procedure. Nimo Rnagel MD LAB BLOOD ORDERABLES Final Resul t Performing Organization Address [facility] de Phone Number [address] [address] * ABO/Rh (01/03/2025 6:47 AM CDT) ABO/Rh O Positive Blood 01/03/2025 6:47 AM CDT 01/03/2025 6:49 AM CDT Narrative CHETAN - 01/03/2025 7:30 AM CDT Has the patient had Daratumumab or Isatuximab in the past 6 months?->Unknown Nimo Rangel MD LAB BLOOD BANK TEST ORDERABLES F inal Result Performing Organization Address [facility] de Phone Number [address] [address] * aPTT (01/03/2025 6:47 AM CDT) aPTT 33 22 - 37 sec Comment: Interpretive data aPTT test has not been evaluated for monitoring heparin therapy. The anti-Xa is the preferred test. Current interpretive data was last revised on 2019. Blood 01/03/2025 6:47 AM CDT 01/03/2025 6:50 AM CDT Nimo Rangel MD LAB BLOOD ORDERABLES Final Resul t Performing Organization Address [facility] Co de Phone Number [address] [place] [address] * (ABNORMAL) Protime-INR (01/03/2025 6:47 AM CDT) PT 15.1(H) 12.0 - 14.6 sec Comment:Ref Range High INR 1.2 0.9 - 1.2 [facility] Comment: Ref Range High Interpretive data Oral anticoagulant therapeutic ranges: Venous thromboembolism prophylaxis or treatment: 2.0-3.0 CARDIOLOGY Standard range: 2.0-3.0 High-intensity range: 2.5-3.5 Refer to indication-specific guidelines for appropriate target ranges for prosthetic heart valve replacement. Current interpretive data was last revised on 2019. Blood 01/03/2025 6:47 AM CDT 01/03/2025 6:50 AM CDT Nimo Rangel MD LAB BLOOD ORDERABLES Final Resul t Performing Organization Address [facility] Co de Phone Number [address] [place] [address] * Crossmatch (01/03/2025 6:47 AM CDT) Pathologist [facility] Crossmatch Compatible [facility] Unit number for crossmatch [id number] [facility] Blood 01/03/2025 6:47 AM CDT 01/03/2025 6:49 AM CDT Nimo Rangel MD LAB BLOOD BANK TEST ORDERABLES F inal Result Performing Organization Address [facility] de Phone Number [address] [address] * Antibody screen (01/03/2025 6:47 AM CDT) Pathologist [facility] [place], indirect, Gel Interpretation Negative ABSC Blood 01/03/2025 6:47 AM CDT 01/03/2025 6:49 AM CDT Narrative [facility] - 01/03/2025 7:30 AM CDT Has the patient had Daratumumab or Isatuximab in the past 6 months?->Unknown Nimo Rangel MD LAB BLOOD BANK TEST ORDERABLES F inal Result Performing Organization Address [facility] Co de Phone Number [address] [place] [address] * (ABNORMAL) Comprehensive metabolic panel (01/03/2025 6:47 AM CDT) Sodium 132(L) 135 - 145 mmol/L Potassium, pl 3.9 3.3 - 4.9 mmol/L [facility] Chloride 101 97 - 110 mmol/L [facility] CO2 23 22 - 32 mmol/L [facility] Anion gap 8 2 - 15 mmol/L [facility] BUN 34(H) 6 - 25 mg/dL [facility] Creatinine 1.99(H) 0.60 - 1.10 mg/dL [facility] Glucose 102 70 - 199 mg/dL [facility] Comment: Interpretive Data Fasting glucose >/= 126 mg/dl is diagnostic for diabetes. Fasting is defined as no caloric intake for at least 8 hours. Fasting glucose between 100 mg/dl to 125 mg/dl is diagnostic of prediabetes. In a patient with classic symptoms of hyperglycemia or hyperglycemic crisis, a random glucose >/= 200 mg/dl is diagnostic for diabetes. In the absence of unequivocal hyperglycemia, results should be confirmed by repeat testing. The classification and Diagnosis of Diabetes Diabetes Care 2021; 46: S19-S40. Current interpretive data was last revised 2022. Calcium 8.8 8.5 - 10.3 mg/dL [facility] Bilirubin, total 0.2 0.1 - 1.2 mg/dL [facility] Protein, pl 6.2(L) 6.5 - 8.5 g/dL [facility] Albumin 2.2(L) 3.5 - 5.0 g/dL [facility] Alk phos 123 40 - 130 Units/L [facility] ALT 7 7 - 45 Units/L [facility] AST 16 10 - 45 Units/L [facility] Blood 01/03/2025 6:47 AM CDT 01/03/2025 6:50 AM CDT us Nimo Rangel MD LAB BLOOD ORDERABLES Final Resul t [facility] [address] [facility] Department [place] [address] * POCT glucose (01/03/2025 6:41 AM CDT) [facility] Signature Glucose, POC 107 70 - 199 mg/dL Glucose comment 1 Use This Result [facility] Blood 01/03/2025 6:41 AM CDT 01/03/2025 6:41 AM CDT us Nimo Rangel MD LAB POCT ORDERABLES - DEVICE Fin al Result [facility] [address] [facility] Department [place] [address] * US Arterial Doppler Upper Extremity Bilateral (12/29/2024 10:22 AM PAIL BAILER) Anatomical Region Laterality Modality Vascular Bilateral Ultrasound 12/29/2024 9:04 AM PAIL BAILER Narrative 12/30/2024 8:07 AM PAIL BAILER [facility] [address] [place] [address] Upper Extremity Arterial Report Patient Name: MATEUSZ JOHNSON R : 1945 (79y 1m) Gender: F Study Date: 12/29/2024 09:04:00 AM Geodetic Technician: Blanca Saab RVT Location: [facility] Order Provider: NIMO RANGEL Quality: Adequate Ref Provider: NIMO RANGEL PROCEDURES: Arterial Report: A non-invasive vascular physiologic study of the bilateral upper extremity arteries was performed using CW Doppler. INDICATIONS: Diminished radial pulses bilaterally. HISTORY: HTN. HLD. DM. Afib. CKD. Cervical/breast CA. Current smoker. COMPARISONS: No previous exams. MEASUREMENTS: Right Value Left Value Rt Brachial Pressure 89 mmHg Lt Brachial Pressure 99 mmHg Rt Radial Pressure 94 mmHg Lt Radial Pressure 103 mmHg Rt Ulnar Pressure 106 mmHg Lt Ulnar Pressure 104 mmHg Rt Radial Index 0.95 Lt Radial Index 1.04 Rt Ulnar Index 1.07 Lt Ulnar Index 1.05 Rt WBI 1.07 Lt WBI 1.05 FINDINGS: Right: Triphasic waveforms in the right subclavian artery, brachial artery, radial artery and ulnar artery. The right digital PPG waveform is dampened. The right WBI is 1.07. Digit brachial index is indeterminate in the right upper extremity due to indiscernible digit waveforms. Absent waveforms noted in right third, fourth and fifth digits. Discoloration noted. Left: Triphasic waveforms in the left subclavian artery, brachial artery, radial artery and ulnar artery. The left digital PPG waveform is dampened. The left WBI is 1.05. Digit brachial index is indeterminate in the left upper extremity due to indiscernible digit waveforms. Absent waveforms noted in left third and fifth digits. Dampened first and fourth digits. Discoloration noted. CONCLUSIONS: 1. Wrist-brachial index of 0.9-1.3 is within normal limits in the bilateral upper extremities. 2. Absent waveforms noted in right 3rd 4th and 5th digits as well as left 3rd and 5th digits. ATTESTATION: I have reviewed and interpreted the pertinent images and measurements of this study. I attest to the conclusions in the final report that is provided above. Electronically Signed By: Nimo Rangel MD 12/30/2024 7:10:54 AM PAIL BAILER Procedure Note Nimo Rangel MD - 12/30/2024 [facility] [address] [facility] [place] [address] Upper Extremity Arterial Report Patient Name: MATEUSZ JOHNSON R : 1945 (79y 1m) Gender: F Study Date: 12/29/2024 09:04:00 AM Geodetic Technician: Katiana,Blanca RVT Location: [facility] Order Provider: NIMO RANGEL Quality: Adequate Ref Provider: NIMO RANGEL PROCEDURES: Arterial Report: A non-invasive vascular physiologic study of thebilateral upper extremity arteries was performed using CW Doppler. INDICATIONS: Diminished radial pulses bilaterally. HISTORY: HTN. HLD. DM. Afib. CKD. Cervical/breast CA. Current smoker. COMPARISONS: No previous exams. MEASUREMENTS: Right Value Left Value Rt Brachial Pressure 89 mmHg Lt Brachial Pressure 99 mmHg Rt Radial Pressure 94 mmHg Lt Radial Pressure 103 mmHg Rt Ulnar Pressure 106 mmHg Lt Ulnar Pressure 104 mmHg Rt Radial Index 0.95 Lt Radial Index 1.04 Rt Ulnar Index 1.07 Lt Ulnar Index 1.05 Rt WBI 1.07 Lt WBI 1.05 FINDINGS: Right: Triphasic waveforms in the right subclavian artery, brachialartery, radial artery and ulnar artery. The right digital PPG waveform is dampened. The rightWBI is 1.07. Digit brachial index is indeterminate in the right upper extremity due toindiscernible digit waveforms. Absent waveforms noted in right third, fourth and fifthdigits. Discoloration noted. Left: Triphasic waveforms in the left subclavian artery, brachial artery,radial artery and ulnar artery. The left digital PPG waveform is dampened. The left WBIis 1.05. Digit brachial index is indeterminate in the left upper extremity due toindiscernible digit waveforms. Absent waveforms noted in left third and fifth digits. Dampenedfirst and fourth digits. Discoloration noted. CONCLUSIONS: 1. Wrist-brachial index of 0.9-1.3 is within normal limits in thebilateral upper extremities. 2. Absent waveforms noted in right 3rd 4th and 5th digits as well as [id number] and 5th digits. ATTESTATION: I have reviewed and interpreted the pertinent images and measurements ofthis study. I attest to the conclusions in the final report that is provided above. Electronically Signed By: Nimo Rangel MD 12/30/2024 7:10:54 AM PAIL BAILER Nimo Rangel MD IMG US PROCEDURES Final Result * Hemoglobin A1c (12/14/2024 8:34 PM PAIL BAILER) Hgb A1C 4.5 4.0 - 5.6 % Estimated Average Glucose 82 mg/dL [facility]OS Comment: The ADA recommends reporting an estimated Average Glucose (eAG) with all Hemoglobin A1c results using the equation derived from a study of 507 normal and diabetic adults. Minority populations were underrepresented and children were not included. (Diabetes Care 2020; 43(S1): S66-S76). The eAG is not equivalent to a fasting glucose. Blood 12/14/2024 8:34 PM PAIL BAILER 12/14/2024 9:58 PM PAIL BAILER Vanessa Castanon MD LAB BLOOD ORDERABLES Final Result [facility] Department [place] [address] * BONE MINERAL DENSITY (10/23/2016) Anatomical Region Laterality Modality Radiographic Priscilla ging Narrative 10/23/2016 Ordered by an unspecified provider. Historical Provider MD STEWART DXA PROCEDURES Final Result * COLONOSCOPY (04/02/2011 12:00 AM CDT) Anatomical Region Laterality Modality Other Narrative 04/02/2011 12:00 AM CDT Ordered by an unspecified provider. Procedure Note Provider, Caryn, - 04/02/2011 12:00 AM CDT PROCEDURE REPORT Patient: MATEUSZ JOHNSON Account: [id number] Room No: : 1945 Patient Type: OPA Attend.: Delfino Gomez M.D. Admit Date: 04/02/2011 Dict.: Delfino Gomez M.D. Disch. Date: NAME OF PROCEDURE: Colonoscopy. DATE OF PROCEDURE: 04/02/11 REFERRING PHYSICIAN: Dr. Solis. PREVIOUS PROCEDURE: Colonoscopy with polyps removed. X-RAYS: None. HISTORY AND PHYSICAL EXAM: The patient is a 65-year-old white femalewith history of colonic polyps. She has an ostomy in the left abdomen. Wehave been asked to see her now for repeat colorectal evaluation. PHYSICAL EXAMINATION: General: Is that of a well-developed,well-nourished white female in no acute distress. She is nonicteric. Lungs: Her lungsare clear with decreased breath sounds. Heart: Regular. GI: Showed two ostomies, one in the right being an ileoconduit and one in the left beinga colonic ostomy. She has had previous radiation therapy for cervical CA. Extremities: Showed no calf pain, cords or edema. PREPROCEDURE DIAGNOSIS: History of colonic polyps. SURGEON: Delfino Gomez M.D. INSTRUMENT USED: Vizsafe video endoscope. MEDICATIONS: Per anesthesia. FINDINGS: The colonoscope was introduced via the ostomy and passed tothe cecum. The patient tolerated procedure well. There were nocomplications. The anatomy was somewhat distorted and the cecum appeared to be in theright lower quadrant near and under the ileoconduit. On withdrawal of the colonoscope, the mucosa appeared normal with normal vascular pattern. Inthe transverse colon, there was some erythema suggestive of radiationchange. There were no polyps and no masses noted. The remainder of the right, transverse and remaining left colons were normal. COMPLICATIONS: None. POSTPROCEDURE DIAGNOSES: 1) No evidence of recurrent adenomatous polyps in this setting. 2) Changes in the transverse colon compatible with radiation therapy. POSTPROCEDURE ORDERS: 1) Post sedation instructions. 2) High fiber diet. 3) Repeat colon in five years for history of polyps. 4) Follow up with Dr. Solis. Delfino Gomez M.D. MAE/geethat TD: 04/02/2011 15:13 CC: Jd Solis M.D. PROCEDURE REPORT Authenticated by Delfino Gomez MD On 04/03/2011 05:57:34 AM us Historical Provider ENDOSCOPY PROCEDURES Mary Alice l Result from Last 3 Months or Most Recently Relevant to Health Maintenance Insurance MEDICARE COMMERCIAL [facility] MEDICARE COMMERCIAL GENERIC AET SENIOR SUPPLEMENT MEDICARE AET SENIOR SUPPLEMENT Advance Directives For more information, please contact: [phone] * Full Code (Latest Code Status on File) Date Activated Date Inactivated Comments 03/17/2025 10:13 AM 03/18/2025 4:57 AM * Full Code Date Activated Date Inactivated Comments 02/21/2025 7:38 AM 02/22/2025 4:56 AM * Full Code Date Activated Date Inactivated Comments 01/24/2025 7:28 AM 01/25/2025 5:02 AM * Full Code Date Activated Date Inactivated Comments 01/03/2025 12:04 PM 01/08/2025 9:36 PM * Full Code Date Activated Date Inactivated Comments 12/12/2024 2:55 AM 12/16/2024 5:52 PM Care Teams Lining Strap Closer Relationship Specialty Start Date End Date Sherri Gil DO [address] [place] [address] PCP - General Family Medicine 03/11/25 Patrick Rubi MD Consulting Physician Nephrology 03/30/20 ReferringPierre MD Referring Physician 12/01/20 Sintia Stone NP Nurse Practitioner Medical Oncology 12/22/20 Ghulam Hoskins MD [address] [facility] [address] [place] [address] Consulting Physician Diagnostic Radiology 03/30/24
--- OUTSIDE RECORDS SUMMARY | 2025-03-30 13:52 | XMS_ITS | Encounter Summary ---
Author Organization [facility] Address [address] [place] [address] Phone Care Team Providers Care Transfusion Aide Name Role Phone Kristyn Parker Primary Care Provider + Jessika Ferrara LPN Unavailable Unavailable Shannan Ocampo RN Unavailable Unavailable Sherri Gil DO Primary Care Provider [phone] Latanya HeadW Unavailable Unavai lable Reason for Visit * Reason Comments Medication Refill Encounter Details Date Type Department Care Team (Late st Contact Info) Description 02/28/2024 [facility]ill [facility] Med Surg [address] South [address] [place] [address] Carlos Paige, FALL INTERN, SENIOR MOBILE SOLUTIONS ARCHITECT #[address] [address] Medication Refill Social History Tobacco Use Types [...] Telephone Encounter - Holley Angel RN - 02/28/2024 12:24 PM CDT Per nursing clinical judgement, provider to review [...] 04/01/2025 1:00 AM CDT Home Care Visit [address] [address] Kristyn Washington RN [place] 04/05/2025 1:00 AM CDT Home Care Visit [address] [address] Kristyn Washington RN [place] 04/05/2025 2:00 AM CDT Home Care Visit [address] [address] Britt Cortes PTA 04/08/2025 1:00 AM CDT Home Care Visit [address] [address] Kristyn Washington RN [place] 04/12/2025 1:00 AM CDT Home Care Visit [address] [address] Kristyn Washington RN [place] 04/12/2025 8:00 AM CDT Home Care Visit [address] [address] Jacqueline Yoon, PT [place] 04/15/2025 1:00 AM CDT Home Care Visit [address] [address] Kristny Washington RN [place] 04/19/2025 1:00 AM CDT Home Care Visit [address] [address] Britt Cortes, LITHOGRAPHIC RETOUCHER APPRENTICE 04/20/2025 1:00 AM CDT Home Care Visit [address] [address] Kristyn Washington RN [place] 04/25/2025 1:00 AM CDT Home Care Visit [address] [address] Jacqueline Yoon, PT [place] 04/27/2025 1:00 AM CDT Home Care Visit [address] [address] Kristyn Washington, RN [place] 05/04/2025 1:00 AM CDT Home Care Visit [address] [address] Kristyn Washington, RN [place] 05/11/2025 1:00 AM CDT Home Care Visit [address] [address] Kristyn [place] RN [place] 05/12/2025 1:00 PM CDT Office Visit [facility] - [facility] [address] [place] [address] Sherri Gil, DO 2 [facility]. [address] [place] [address] 05/18/2025 1:00 AM CDT Home Care Visit [facility] [address] [place] [address] Kristyn [place] RN [place] 05/24/2025 1:00 AM CD[facility] [address] [place] [address] Kristyn Washington RN [place] documented as of this encounter Visit Diagnoses Not on filedocumented in this encounter Additional Health Concerns Infection Onset Date Last Indicated Resolved Time COVID - 19 02/08/2025 02/08/2025 02/08/2025 10:3 5 AM CDT Assessment Noted Time PHQ-9 Depression Total Score: 0 12/02/19 1:06 PM CORPORATE SALES TRAINER documented as of this encounter Care Teams Transfusion Aide Relationship Specialty Start Date End Date Kristyn Parker PAC [address] [place] [address] PCP - General Physician Practice Lead 12/02/23 07/06/24 Sherri Gil DO 2 [facility] [address] [place] [address] PCP - General Family Medicine 07/08/24 Jessika Ferrara LPN [place] Health Sole Stainer 02/27/24 03/29/24 Shannan Ocampo RN [place] Nurse Senior Media Buyer 03/29/24 10/26/24 Latanya Head LSW [place] Billing Control Clerk Senior Media Buyer 03/01/25 03/01/25 documented as of this encounter
--- OUTSIDE RECORDS SUMMARY | 2025-03-30 13:52 | XMS_ITS | Encounter Summary ---
Author Organization [facility] Address [address] [place] [address] Phone Care Team Providers Care Plier Worker Name Role Phone Lili Cormier MD Primary Care Provider [phone] Kristyn Parker Primary Care Provider + Jessika Ferrara LPN Unavailable Unavailable Shannan Ocampo RN Unavailable Unavailable Sherri Gil DO Primary Care Provider [phone] Latanya Head FOREMAN/PILE DRIVING AND ERECTION Unavailable Unavai lable Reason for Visit * Reason Comments Medication Refill Encounter Details Date Type Department Care Team (Late st Contact Info) Description 01/30/2023 [facility]ill [facility] Med Surg 2 South 1 [place] [id number] Kristyn Parker, PAC [address] [place] [address] Medication Refill Social History Tobacco Use Types [...] suspected to have Coronavirus/COVID-19? No / Unsure 02/01/2023 3:15 PM CDT documented as of this encounter Miscellaneous Notes * Telephone Encounter - Serene Teague RN - 01/30/2023 3:58 PM CDT Per nursing clinical judgement, provider [...] 04/01/2025 1:00 AM CDT Home Care Visit [address] [address] Kristyn [place] RN [place] 04/05/2025 1:00 AM CDT Home Care Visit [address] [address] Kristyn [place] RN [place] 04/05/2025 2:00 AM CDT Home Care Visit [address] [address] Britt Cortes PTA 04/08/2025 1:00 AM CDT Home Care Visit [address] [address] Kristyn Washington RN [place] 04/12/2025 1:00 AM CDT Home Care Visit [address] [address] Kristyn [place] RN [place] 04/12/2025 8:00 AM CDT Home Care Visit [address] [address] Jacqueline Yoon, PT [place] 04/15/2025 1:00 AM CDT Home Care Visit [address] [address] Kristyn Wahsington RN [place] 04/19/2025 1:00 AM CDT Home Care Visit [address] [address] Britt Cortes, CHARGING MANIPULATOR 04/20/2025 1:00 AM CDT Home Care Visit [address] [address] Kristyn Washington RN [place] 04/25/2025 1:00 AM CDT Home Care Visit [address] [address] Jacqueline Yoon, PT [place] 04/27/2025 1:00 AM CDT Home Care Visit [address] [address] Kristyn Washington RN [place] 05/04/2025 1:00 AM CDT Home Care Visit [address] [address] Kristyn [place] RN [place] 05/11/2025 1:00 AM CDT Home Care Visit [address] [address] Kristyn Washington, RN [place] 05/12/2025 1:00 PM CDT Office Visit [facility] [address] [place] [address] Sherri Gil, DO 2 [facility] [address] [place] [address] 05/18/2025 1:00 AM CDT Home Care Visit [facility] [address] [place] [address] Kristyn [place] RN [place] 05/24/2025 1:00 AM CD[facility] [address] [place] [address] Kristyn Washington RN [place] documented as of this encounter Visit Diagnoses Not on filedocumented in this encounter Additional Health Concerns Infection Onset Date Last Indicated Resolved Time COVID - 19 02/08/2025 02/08/2025 02/08/2025 10:3 5 AM CDT Assessment Noted Time PHQ-9 Depression Total Score: 0 01/12/20 21 9:09 AM CDT documented as of this encounter Care Teams Plier Worker Relationship Specialty Start Date End Date Lili Cormier MD #2 [place] [address] PCP - General Family Medicine 09/05/15 12/01/23 rKistyn Parker PAC [address] [place] [address] PCP - General Physician Dipper And Baker 12/02/23 07/06/24 Sherri Gil DO 2 [facility] [address] [place] [address] PCP - General Family Medicine 07/08/24 Jessika Ferrara LPN [place] Health Farmworker Egg Producing Farm 02/27/24 03/29/24 Shannan Ocampo RN [place] Nurse Die Sinker Apprentice 03/29/24 10/26/24 Latanya Head LSW [place] Senior Product Development Scientist Die Sinker Apprentice 03/01/25 03/01/25 documented as of this encounter
--- OUTSIDE RECORDS SUMMARY | 2025-03-30 13:52 | XMS_ITS | Encounter Summary ---
Author Organization [facility] Healthcare Address [address] [place] [address] Care Team Providers Care Biodiesel Plant Operations Engineer Name Role Phone Patrick Rubi MD Unavailable [phone] Referring, Unknown Unavailable Unavailabl Sintia Abbott NP Unavailable [phone] Ghulam Hoskins MD Unavailable [phone] Sherri Gil DO Primary Care Provider [phone] Reason for Visit * Reason Comments Follow-up C/O RLE non-healing ulcers / PVDHx: 01/03/25 - Lt AKARt. Iliac stent @ [facility] Kerlix & 4 Julio wrap applied to RLE - MOH Encounter Details Date Type Department Care Team (Late st Contact Info) Description 03/30/2025 10:45 AM CDT Office Visit [facility] Medical Group Vascular at [address] [place] [address] Hunter Rangel MD [address] [facility] [address] [address] Social History Tobacco Use Types Packs/Day Years [...] materials from doctor or pharmacy Never 11/10/2023 [facility] Utilities Answer Date Recorded In the [...] often do you attend chur ch or presybeterian services? 1 to 4 times per year 01/04/2025 Do you belong to any clubs o r organizations such as shinto groups, unions, fraternal or athletic groups, or [...] any time in the past 12 m [facility], were you homeless or living in a skilled nursing (including now)? No 01/04/2025 Personal Safety Answer Date Recorded Have you ever been in or are you currently in a harmful physical or emotional relationship or is someone making you feel afraid or unsafe? Denies 03/17/2025 Comments No Sex and Gender Information Value Date Recorded Sex Assigned at Not on file Legal Sex Female 8:47 PM PAINT PREPPER Gender Identity Not on file Sexual Orientation Not on file documented as of this encounter Last Filed Vital Signs Vital Sign Reading Time Taken Comments Blood Pressure 60/32 03/30/2025 11:01 AM CDT Pulse 127 03/30/2025 11:01 AM CDT Temperature - - Respiratory Rate - - Oxygen Saturation 95% 03/30/2025 11:01 AM CDT Inhaled Oxygen Concentration - - Weight 56.7 kg (125 lb) 03/30/2025 11:01 AM CDT Height 156.2 cm (5' 1.5) 03/30/2025 11:01 AM CD T Body Mass Index 23.24 03/30/2025 11:01 AM CDT documented in this encounter Plan of Treatment Not on file documented as of this encounter Visit Diagnoses Not on filedocumented in this encounter Care Teams Biodiesel Plant Operations Engineer Relationship Specialty Start Date End Date Sherri Gil DO [address] [place] [address] PCP - General Family Medicine 03/11/25 Patrick Rubi MD Consulting Physician Nephrology 03/30/20 ReferringPierre MD Referring Physician 12/01/20 Sintia Stone NP Nurse Practitioner Medical Oncology 12/22/20 Ghulam Hoskins MD [address] [facility] [address] [place] [address] Consulting Physician Diagnostic Radiology 03/30/24 documented as of this encounter
--- OUTSIDE RECORDS SUMMARY | 2025-03-30 13:52 | XMS_ITS | Patient Health Record ---
Author Organization [facility] Address [address] [facility] [address] [facility] [address] [place] [address] Care Team Providers Care Subsystems Engineer Name Role Phone Latanya Anaya Unavailable Unavailable Reason For Referral No Information Medications Medication SIG (Take, Route, Frequency, Duration) Notes Start Date End Date Status Magnesium Oxide 400 MG Orally Active Calcium 600-200 MG-UNIT Orally Active Vitamin D 1000 UNIT 1 capsule Orally Onc e a day Active Atorvastatin Calcium 20 MG 1 tablet Orally Once a day Active Vitamin B-12 2500 MCG Sublingual Active Prolia 60 MG/ML Subcutaneous A ctive Cilostazol 100 MG 1 tablet 30 minutes before or 2 hours after breakfast and dinner Orally Twice a day Active Cephalexin 500 MG 1 capsule Orally Twi ce a day for 10 day(s) 02/13/2016 Active Senna 8.6 MG 2 tablets at bedtime as needed Orally Once a day Active Social History Tobacco Use: Social History Observation Description Date Details (start date - stop date) Current Smoker NA - NA Tobacco Use/Smoking Question Answer Notes Are you a current smoker Alcohol Screen (Audit-C) Question Answer Notes Did you have a drink contain ing alcohol in the past year? Yes How often did you have a dri nk containing alcohol in the past year? Monthly or less (1 point) Points 1 Problems Problem Type SNOMED Code ICD Code Onset Dates Problem Status W/U Status Risk Notes Problem 37851934 Hypertension (I10) Active confirmed Problem 38010868 Hyperlipidemia (E78.5) Active confirmed Problem 25672241 Osteoporosis (M81.0) Active confirmed Problem 734618266 History of breas t cancer (Z85.3) Active confirmed Problem 863577957 History of cervi parvin cancer (Z85.41) Active confirmed Plan Of Treatment No Information Insurance Providers Payer Name Payer Address Payer Phone Subscriber Number Group Number Insured Name Patient Relationship to Insured Coverage Start Date Coverage End Date Medicare MAC NGS [address] [place] [phone] [id number] DayMynor woodalla Self - patient is the insured 6 Aetna [address] [place] [address] [id number] plan F Mynor Daya Self - patient is the insured 6 Medical (General) History Surgical History Surgery Date(Month/Year) mastectomy 2010 pelvic exoneration 2004 cervical cancer 1995 breast cancer 2009
--- OUTSIDE RECORDS SUMMARY | 2025-03-30 13:52 | XMS_ITS | Encounter Summary ---
Author Organization [facility] Healthcare Address [address] [place] [address] Care Team Providers Care Landscaping Crew Leader Name Role Phone Lili Cormier MD Primary Care Provider [phone] Patrick Rubi MD Unavailable [phone] Referring, Unknown Unavailable Unavailabl Sintia Abbott NP Unavailable [phone] Kristyn Parker Primary Care Provider [phone] Ghulam Hoskins MD Unavailable [phone] No, Physician Primary Care Provider [phone] Ghulam Hoskins MD Primary Care Provider + [phone] Sherri Gil DO Primary Care Provider [phone] Encounter Details Date Type Department Care Team (Late st Contact Info) Description 11/20/2023 Telephone [facility] Radiology 1 [place], [place] [id number] Michael Pickard, BRIANNA Social History Tobacco Use Types Packs/Day [...] you have a drink containing alcohol? Never 10/28/2023 Q2: How many drinks containi ng alcohol do you have on a typical day when you are drinking? Patient does not drink Q3: How often do you have si x or more drinks on one occasion? Never 10/28/2023 Personal Safety Answer Date Recorded Getting School Help Needed Denies 10/06 Comments No Sex and Gender Information Value Date Recorded Sex Assigned at Not on file Legal Sex Female 8:47 PM RN CORRECTIONS Gender Identity Not on file Sexual Orientation Not on file documented as of this encounter Plan of Treatment Not on file documented as of this encounter Visit Diagnoses Not on filedocumented in this encounter Additional Health Concerns Infection Onset Date Last Indicated Resolved Time COVID: Suspected 12/11/2024 12/11/2024 12/11/2024 6:55 PM RN CORRECTIONS documented as of this encounter Care Teams Landscaping Crew Leader Relationship Specialty Start Date End Date Lili Cormier MD PCP - General 10/26/17 12/21/23 Kristyn Parker PA [address] [address] PCP - General Skiving Machine Operator 12/22/23 12/16/24 No, Physician PCP - General 12/17/24 12/23/24 Ghulam Hoskins MD [address] [facility] [place] [address] PCP - General Diagnostic Radiology 12/24/24 03/10/25 Sherri Gil DO [address] [place] [address] PCP - General Family Medicine 03/11/25 Patrick Rubi MD Consulting Physician Nephrology 03/30/20 Referring, MD Pierre Referring Physician 12/01/20 Sintia Stone NP Nurse Practitioner Medical Oncology 12/22/20 Ghulam Hoskins MD [address] [facility] [address] [place] [address] Consulting Physician Diagnostic Radiology 03/30/24 documented as of this encounter
--- OUTSIDE RECORDS SUMMARY | 2025-03-30 13:52 | XMS_ITS | Encounter Summary ---
Author Organization [facility] Address [address] [place] [address] Phone Care Team Providers Care Photographic Platemaker Name Role Phone Lili Cormier MD Primary Care Provider [phone] Kristyn Parker Primary Care Provider + Jessika Ferrara LPN Unavailable Unavailable Shannan Ocampo RN Unavailable Unavailable Sherri Gil DO Primary Care Provider [phone] Latanya Head COLDFUSION Unavailable Unavai lable Reason for Visit * Reason Comments Medication Refill Encounter Details Date Type Department Care Team (Late st Contact Info) Description 08/09/2023 Refill [facility] Med Surg [address] [place] [id number] Chandra Bella MD #[address] [address] Medication Refill Social History Tobacco Use Types [...] suspected to have Coronavirus/COVID-19? No / Unsure 07/14/2023 9:31 AM CDT documented as of this encounter Miscellaneous Notes * Telephone Encounter - Holley Angel RN - 08/10/2023 9:34 AM CDT No protocol list Per nursing clinical judgement, provider to review [...] 04/01/2025 1:00 AM CDT Home Care Visit [address] [address] Kristyn Washington RN [place] 04/05/2025 1:00 AM CDT Home Care Visit [address] [address] Kristyn Washington, [place] 04/05/2025 2:00 AM CDT Home Care Visit [address] [address] Britt Cortes PTA 04/08/2025 1:00 AM CDT Home Care Visit [address] [address] Kristyn Washington RN [place] 04/12/2025 1:00 AM CDT Home Care Visit [address] [address] Kristyn Washington RN [place] 04/12/2025 8:00 AM CDT Home Care Visit [address] [address] Jacqueline Yoon, PT [place] 04/15/2025 1:00 AM CDT Home Care Visit [address] [address] Kristyn Washington RN [place] 04/19/2025 1:00 AM CDT Home Care Visit [address] [address] Britt Cortes, DISTRICT REPRESENTATIVE 04/20/2025 1:00 AM CDT Home Care Visit [address] [address] Kristyn Washington RN [place] 04/25/2025 1:00 AM CDT Home Care Visit [address] [address] Jacqueline Yoon, PT [place] 04/27/2025 1:00 AM CDT Home Care Visit [address] [address] Kristyn Washington RN [place] 05/04/2025 1:00 AM CDT Home Care Visit [address] [address] Kristyn Washington, RN [place] 05/11/2025 1:00 AM CDT Home Care Visit [address] [address] Kristyn Washington RN [place] 05/12/2025 1:00 PM CDT Office Visit [facility] Medical Group - Family [facility] #2 [facility] [place] [address] Sherri Gil DO [address] [facility] [place] [address] 05/18/2025 1:00 AM CDT Home Care Visit [facility] [address] [place] [address] Kristyn Washington RN [place] 05/24/2025 1:00 AM CDT Appointment [facility] [address] [place] [address] Kristyn Washington RN [place] documented as of this encounter Visit Diagnoses Not on filedocumented in this encounter Additional Health Concerns Infection Onset Date Last Indicated Resolved Time COVID - 19 02/08/2025 02/08/2025 02/08/2025 10:3 5 AM CDT Assessment Noted Time PHQ-9 Depression Total Score: 0 01/12/20 21 9:09 AM CDT documented as of this encounter Care Teams Photographic Platemaker Relationship Specialty Start Date End Date Lili Cormier MD #2 [facility] [place] [address] PCP - General Family Medicine 09/05/15 12/01/23 Kristyn Parker PAC #2 [place] [address] PCP - General Physician Rn Cardiovascular 12/02/23 07/06/24 Sherri Gil DO [address] [address] PCP - General Family Medicine 07/08/24 Jessika Ferrara LPN [place] Health Senior Stack Engineer 02/27/24 03/29/24 Shannan Ocampo RN [place] Nurse Food Service Kitchen Supervisor 03/29/24 10/26/24 Latanya Head LSW [place] Certified Professional Midwife Food Service Kitchen Supervisor 03/01/25 03/01/25 documented as of this encounter
--- OUTSIDE RECORDS SUMMARY | 2025-03-30 13:52 | XMS_ITS | Encounter Summary ---
Author Organization [facility] Address [address] [place] [address] Phone Care Team Providers Care Sleep Tech Name Role Phone Lili Cormier MD Primary Care Provider [phone] Kristyn Parker Primary Care Provider + Jessika Ferrara LPN Unavailable Unavailable Shannan Ocampo RN Unavailable Unavailable Sherri Gil DO Primary Care Provider [phone] Latanya Head PROJECT TECHNICIAN Unavailable Unavai lable Encounter Details Date Type Department Care Team (Late st Contact Info) Description 06/28/[address] [facility] Patient Access Admitting 1 [place] [id number] Patrick Rubi MD [address] [facility] [place] [address] Stage 3b chronic kidney disease (HCC) (Primary Dx) Social History Tobacco Use Types Packs/Day Years Used Date Smoking Tobacco: Every Day Cigarettes 0.5 40 Smokeless Tobacco: Never Comments:Down to 6 cigarette s a day Alcohol Use Standard Drinks/Week Comments Yes 1 (1 standard drink = 0.6 oz pur e alcohol) very little PHQ-2 Answer Date Recorded Total Score - Questions 1-9 0 12/25 Sexually Active Control Partners Comments Not Currently [...] Exposure Response Date Recorded In the last month, have you been in contact with someone who was confirmed or suspected to have Coronavirus / COVID-19? No / Unsure 06/28/2021 10:00 AM CDT documented as of this encounter Plan of Treatment Upcoming Encounters Date Type Department Care Team (Late st Contact Info) Description 04/01/2025 1:00 AM CDT Home Care Visit [address] [address] Kristyn Washington RN [place] 04/05/2025 1:00 AM CDT Home Care Visit [address] [address] Kristyn Washington RN [place] 04/05/2025 2:00 AM CDT Home Care Visit [address] [address] Britt Cortes, ANESTHESIA TECHNICIAN 04/08/2025 1:00 AM CDT Home Care Visit [address] [address] Kristyn Washington RN [place] 04/12/2025 1:00 AM CDT Home Care Visit [address] [address] Kristyn Washington RN [place] 04/12/2025 8:00 AM CDT Home Care Visit [address] [address] Jacqueline Yoon PT [place] 04/15/2025 1:00 AM CDT Home Care Visit [address] [address] Kristyn Washington RN [place] 04/19/2025 1:00 AM CDT Home Care Visit [address] [address] Britt Cortes PTA 04/20/2025 1:00 AM CDT Home Care Visit [address] [address] Kristyn Washington RN [place] 04/25/2025 1:00 AM CDT Home Care Visit [address] [address] Jacqueline Yoon PT [place] 04/27/2025 1:00 AM CDT Home Care Visit [address] [address] Kristyn Washington RN [place] 05/04/2025 1:00 AM CDT Home Care Visit [address] [address] Kristyn Washington RN [place] 05/11/2025 1:00 AM CDT Home Care Visit [address] [address] Kristyn Washington RN [place] 05/12/2025 1:00 PM CDT Office Visit [facility] - Family Medicine [facility] [address] [place] [address] Sherri Gil, DO [address] [address] 05/18/2025 1:00 AM CDT Home Care Visit [address] [address] Kristyn Washington RN [place] 05/24/2025 1:00 AM CDT Appointment [address] [address] Kristyn Washington RN [place] documented as of this encounter Results * (ABNORMAL) PARATHYROID HORMONE PTH INTACT (06/28/2021 10:10 AM CDT) Pathologist [facility] PTH INTACT 84(H) 15 - 65 pg/mL 06/28/2021 11:28 AM CDT [facility] Blood Venipuncture / Unknown 06/28/2021 10:10 AM CDT 06/28/2021 10:37 AM CDT Patrick Rubi MD CHEMISTRY ORDERABLES Final Res ult [facility] [address] [place] [address] * (ABNORMAL) UR PROTEIN/CREATININE RATIO (06/28/2021 10:10 AM CDT) [facility] UR PROTEIN RAND, QT 70.2 mg/dL 06/28/2021 11:28 AM CDT [facility] URINE CREATININE 32.4 mg/dL 06/28/2021 11:28 AM CDT [facility] URINE PROTEIN/CREATIN INE RATIO 2.17(H) 0.14 - 0.92 06/28/2021 11:28 AM CDT [facility] Urine Non-Phlebotomy Collection / Unknown 06/28/2021 10:10 AM CDT 06/28/2021 10:56 AM CDT Patrick Rubi MD URINE ORDERABLES Final Result [facility] [address] [place] [address] * (ABNORMAL) RENAL FUNCTION PANEL (RFP) (06/28/2021 10:10 AM CDT) [facility] SODIUM 136 136 - 144 mmol/L 06/28/2021 11:17 AM CDT [facility] POTASSIUM 4.2 3.5 - 5.1 mmol/L 06/28/2021 11:17 AM CDT [facility] CHLORIDE 103 100 - 110 mmol/L 06/28/2021 11:17 AM [facility] CO2, VENOUS 26 22 - 32 mmol/L 06/28/2021 11:17 AM [facility] ANION GAP 11.2 8.0 - 20.0 mmol/L 06/28/2021 11:17 AM [facility] GLUCOSE 80 70 - 99 mg/dL 06/28/2021 11:17 AM [facility] BUN 21 8 - 23 mg/dL 06/28/2021 11:17 AM [facility] CREATININE, BLOOD 1.74(H) 0.60 - 1.10 mg/dL 06/28/2021 11:17 AM [facility] BUN/CREATININE RATIO 12 12 - 20 ratio 06/28/2021 11:17 AM [facility] ALBUMIN 3.8 3.5 - 5.2 g/dL 06/28/2021 11:17 AM [facility] Comment: The colormetric methods used for the determination of Albumin may lead to falsely elevated test results in patients suffering from renal failure or insufficiency due to interference with other proteins. CALCIUM 9.3 8.9 - 10.3 mg/dL 06/28/2021 11:17 AM [facility] PHOSPHORUS 2.8 2.4 - 4.7 mg/dL 06/28/2021 11:17 AM [facility] GFR, EST. NONAFRICAN 28(L) >=60 06/28/2021 11:17 AM [facility] GFR, EST. 34(L) >=60 021 11:17 AM [facility] Comment: Creatinine Clearance is the preferred criteria for selecting drug dose adjustments in renally impaired patients. The GFR is provided as addtional pertinent clinical information. GFR is reported in mL/min/1.73 sq m IS THE PATIENT REQUIRED TO BE FASTING? No 06/28/2021 11:17 AM [facility] Blood Venipuncture / Unknown 06/28/2021 10:10 AM CDT 06/28/2021 10:37 AM CDT us Patrick Rubi MD CHEMISTRY ORDERABLES Final Res ult [facility] [place] [address] documented in this encounter Visit Diagnoses Diagnosis Stage 3b chronic kidney disease (HCC)- Primary documented in this encounter Additional Health Concerns Infection Onset Date Last Indicated Resolved Time COVID - 19 07/10/2022 07/10/2022 07/11/2022 8:51 AM CDT Respiratory Rule Out - RPA 07/11/2022 07/11/2022 0 07/11/2022 11:47 PM CDT COVID - 19 02/08/2025 02/08/2025 02/08/2025 10:3 5 AM CDT Assessment Noted Time PHQ-9 Depression Total Score: 0 01/12/20 21 9:09 AM CDT documented as of this encounter Care Teams Sleep Tech Relationship Specialty Start Date End Date Lili Cormier MD [address] [place] [address] PCP - General Family Medicine 09/05/15 12/01/23 Kristyn Parker PAC [address] [place] [address] PCP - General Physician Corner Bead Operator 12/02/23 07/06/24 Sherri Gil DO [address] [address] PCP - General Family Medicine 07/08/24 Jessika Ferrara LPN [place] Health Drying Machine Operator Package Yarns 02/27/24 03/29/24 Shannan Ocampo RN [place] Nurse Wet Finisher Wool 03/29/24 10/26/24 Latanya Head LSW [place] Booth Cashier Wet Finisher Wool 03/01/25 03/01/25 documented as of this encounter
--- OUTSIDE RECORDS SUMMARY | 2025-03-30 13:52 | XMS_ITS | Encounter Summary ---
Author Organization [facility] Address [address] [place] [address] Phone Care Team Providers Care Disease Intervention Specialist Name Role Phone Shannan Ocampo RN Unavailable Unavailable Sherri Gil DO Primary Care Provider Latanya Head REPAIRER ENGINE PRODUCTION Unavailable Unavai lable Encounter Details Date Type Department Care Team (Late st Contact Info) Description 07/08/2024 Transcribe Orders [facility] Services 1 [place] [id number] Patrick Rubi MD [address] [facility] [address] [address] Chronic kidney disease (CKD) stage G3b/A1, moderately decreased glomerular filtration rate (GFR) between 30-44 mL/min/1.73 square meter and albuminuria creatinine ratio less than 30 mg/g (HCC) (Primary Dx); Anemia of chronic renal failure, unspecified CKD stage; Essential hypertension, malignant Social History Tobacco Use Types Packs/Day Years Used Date Smoking Tobacco: Every Day Cigarettes 0.3 40 Smokeless Tobacco: Never Comments:Down to 6 cigarette s a day Alcohol Use Standard Drinks/Week Comments Yes 1 (1 standard drink = 0.6 oz pur e alcohol) very little [facility] Utilities Answer Date Recorded In the [...] week 04/09/2024 How often do you attend buddhist or spiritism serv ices? Never 04/09/2024 Do you belong to any clubs o r organizations such as buddhist groups, unions, fraternal or athletic groups, or [...] Total Score - Questions 1-9 0 03/27 [facility] - Occupational Stress [...] time in the past 12 m [facility], were you homeless or living in a prison (including now)? No 04/09/2024 Education Answer Date [...] 04/01/2025 1:00 AM CDT [facility] [address] [place] [address] Kristyn Washington, RN [place] 04/05/2025 1:00 AM CDT [facility] [address] [place] [address] Kristyn Washington, BRIANNA [place] 04/05/2025 2:00 AM CDT [facility] [address] [place] [address] Britt Cortes, MAT GAUGER 04/08/2025 1:00 AM CDT Home Care Visit [address] [address] Kristyn Washington RN [place] 04/12/2025 1:00 AM CDT Home Care Visit [address] [address] Kristyn Washington RN [place] 04/12/2025 8:00 AM CDT Home Care Visit [address] [address] Jacqueline Yoon, PT [place] 04/15/2025 1:00 AM CDT Home Care Visit [address] [address] Kristyn Washington RN [place] 04/19/2025 1:00 AM CDT Home Care Visit [address] [address] Britt Cortes, MAT GAUGER 04/20/2025 1:00 AM CDT Home Care Visit [address] [address] Kristyn Washington RN [place] 04/25/2025 1:00 AM CDT Home Care Visit [address] [address] Jacqueline Yoon, PT [place] 04/27/2025 1:00 AM CDT Home Care Visit [address] [address] Kristyn Washington RN [place] 05/04/2025 1:00 AM CDT Home Care Visit [address] [address] Kristyn Washington RN [place] 05/11/2025 1:00 AM CDT Home Care Visit [address] [address] Kristyn Washington RN [place] 05/12/2025 1:00 PM CDT Office Visit [facility] - Family Medicine [facility] [address] [place] [address] Sherri Gil, DO [address] [place] [address] 05/18/2025 1:00 AM CDT Home Care Visit [facility] [address] [place] [address] Kristyn Washington RN [place] 05/24/2025 1:00 AM CDT Appointment [facility] [address] [place] [address] Kristyn Washington RN [place] documented as of this encounter Results * PARATHYROID HORMONE PTH INTACT (07/08/2024 12:29 PM CDT) PTH INTACT 59 13 - 85 pg/mL 07/08/2024 2:02 PM CDT [facility] Blood Sub-Q Port Venou s Access Device (Medi-Port, Implanted Port) / Unknown 07/08/2024 12:29 PM CDT 07/08/2024 1:20 PM CDT us Patrick Rubi MD CHEMISTRY ORDERABLES Final Res ult [facility] [place] [address] documented in this encounter Visit Diagnoses Diagnosis Chronic kidney disease (CKD) stage G3b/A1, moderately decreased glomerular filtration rate (GFR) between 30-44 mL/min/1.73 square meter and albuminuria creatinine ratio less than 30 mg/g (HCC)- Primary Anemia of chronic renal failure, unspecified CKD stage Essential hypertension, malignant documented in this encounter Additional Health Concerns Infection Onset Date Last Indicated Resolved Time COVID - 19 02/08/2025 02/08/2025 02/08/2025 10:3 5 AM CDT Assessment Noted Time PHQ-9 Depression Total Score: 0 04/09/20 24 3:51 PM CDT documented as of this encounter Care Teams Disease Intervention Specialist Relationship Specialty Start Date End Date Louise Sherri Wilkins DO [address] [place] [id number] PCP - General Family Medicine 07/08/24 Shannan Ocampo RN [place] Nurse Import Export Coordinator 03/29/24 10/26/24 Latanya Head LSW [place] Entry Level Financial Analyst Import Export Coordinator 03/01/25 5 documented as of this encounter
--- OUTSIDE RECORDS SUMMARY | 2025-03-30 13:52 | XMS_ITS | Encounter Summary ---
Author Organization [facility] Address [address] [place] [address] Phone Care Team Providers Care Payroll And Benefits Coordinator Name Role Phone Lili Cormier MD Primary Care Provider [phone] Kristyn Parker Primary Care Provider + Jessika Ferrara LPN Unavailable Unavailable Shannan Ocampo RN Unavailable Unavailable Sherri Gil DO Primary Care Provider [phone] Latanya Head REFRIGERATION OPERATOR Unavailable Unavai lable Reason for Visit * Reason Comments Medication Refill Encounter Details Date Type Department Care Team (Late st Contact Info) Description 11/20/2023 Refill [facility] - Family Medicine [facility] [address] [place] [address] Lili Cormier MD [address] [place] [address] Medication Refill Social History Tobacco Use Types [...] Telephone Encounter - Serene Teague RN - 11/20/2023 9:09 AM CST Upcoming with Kristyn 12/02/23 Medication failed the protocol, provider to review and approve the medication order if appropriate. Requested Prescriptions Pending Prescriptions Disp Refills atorvastatin (LIPITOR) 20 MG Tablet [Pharmacy Med Name: ATORVASTATIN 20MG TABLETS] 90 Tablet 0 Sig: TAKE 1 TABLET BY MOUTH DAILY Hmg CoA Reductase Inhibitors Protocol Failed - 11/20/2023 5:46 AM Failed - Lipid panel in past 12 months LDL Date Value Ref Range Status 10/10/2022 35 5 - 130 mg/dL Final HDL CHOLESTEROL Date Value Ref Range Status 10/10/2022 59.6 >40 mg/dL Final CHOLESTEROL Date Value Ref Range Status 10/10/2022 123 <=200 mg/dL Final TRIGLYCERIDES Date Value Ref Range Status 10/10/2022 144 <150 mg/dL Final VLDL Date Value Ref Range Status 10/10/2022 29 5 - 55 mg/dL Final CHOL/HDL RATIO Date Value Ref Range Status 10/10/2022 2.1 0.0 - 4.4 Final NON-HDL CHOLESTEROL Date Value Ref Range Status 10/10/2022 63.4 <130 mg/dL Final Passed - Visit with relevant provider in past 12 months or upcoming 90 days Recent Visits Date Type Provider Dept 05/15/23 Office Visit Lili Cormier MD [facility] 04/04/23 Office Visit Salomón Gomez MD [facility] 01/09/23 Office Visit Lili Cormier MD [facility] Showing recent visits within past 365 days and meeting all other requirements Future Appointments Date Type Provider Dept 12/02/23 Appointment Kristyn Parker, CLEMENTE [facility] Showing future appointments within next 90 days and meeting all other requirements Passed - CMP in past 12 months SODIUM Date Value Ref Range Status 10/06/2023 129 (L) 136 - 145 mmol/L Final POTASSIUM Date Value Ref Range Status 10/06/2023 3.2 (L) 3.5 - 5.1 mmol/L Final CHLORIDE Date Value Ref Range Status 10/06/2023 101 98 - 107 mmol/L Final CO2, VENOUS Date Value Ref Range Status 10/06/2023 18 (L) 22 - 30 mmol/L Final ANION GAP Date Value Ref Range Status 10/06/2023 13.2 <18.0 mmol/L Final GLUCOSE Date Value Ref Range Status 10/06/2023 114 (H) 70 - 99 mg/dL Final BUN Date Value Ref Range Status 10/06/2023 39 (H) 10 - 20 mg/dL Final CREATININE, BLOOD Date Value Ref Range Status 10/06/2023 2.73 (H) 0.60 - 1.00 mg/dL Final BUN/CREATININE RATIO Date Value Ref Range Status 10/06/2023 14 12 - 20 ratio Final TOTAL PROTEIN Date Value Ref Range Status 10/06/2023 5.3 (L) 6.3 - 8.2 g/dL Final ALBUMIN Date Value Ref Range Status 10/06/2023 2.3 (L) 3.5 - 5.0 g/dL Final A/G RATIO Date Value Ref Range Status 10/06/2023 0.8 (L) 1.0 - 2.2 Final A/G RATIO, SERUM Date Value Ref Range Status 01/02/2023 0.9 Final CALCIUM Date Value Ref Range Status 10/06/2023 8.0 (L) 8.7 - 10.5 mg/dL Final T BILI Date Value Ref Range Status 10/06/2023 0.5 0.2 - 1.2 mg/dL Final SGOT (AST) Date Value Ref Range Status 10/06/2023 33 5 - 34 U/L Final SGPT (ALT) Date Value Ref Range Status 10/06/2023 7 0 - 55 U/L Final ALKALINE PHOSPHATASE Date Value Ref Range Status 10/06/2023 101 40 - 150 U/L Final GFR, EST. NONAFRICAN Date Value Ref Range Status 10/06/2023 17 (L) >=60 Final GFR, EST. Date Value Ref Range Status 10/06/2023 20 (L) >=60 Final GFR, ESTIMATED Date Value Ref Range Status 10/06/2023 17 (L) >=60 Final Comment: Creatinine Clearance is the preferred criteria for selecting drug dose adjustments in renally impaired patients. The GFR is provided as additional pertinent clinical information. GFR is reported in mL/min/1.73 sq m. Calculation based on the Chronic Kidney Disease Epidemiology Collaboration (CKD- EPI) equation refitwithout adjustment for race. IS THE PATIENT REQUIRED TO BE FASTING? Date Value Ref Range Status 07/14/2023 No Final OR INSTALLER documented in this encounter Plan of Treatment Upcoming Encounters Date Type Department Care Team (Late st Contact Info) Description 04/01/2025 1:00 AM CDT Home Care Visit [address] [address] Kristyn Washington RN [place] 04/05/2025 1:00 AM CDT Home Care Visit [address] [address] Kristyn Washington RN [place] 04/05/2025 2:00 AM CDT Home Care Visit [address] [address] Britt Cortes, RESIDENTIAL LEASING AGENT 04/08/2025 1:00 AM CDT Home Care Visit [address] [address] Kristyn Washington RN [place] 04/12/2025 1:00 AM CDT Home Care Visit [address] [address] Kristyn Washington RN [place] 04/12/2025 8:00 AM CDT Home Care Visit [address] [address] Jacqueline Yoon, PT [place] 04/15/2025 1:00 AM CDT Home Care Visit [address] [address] Kristyn Washington RN [place] 04/19/2025 1:00 AM CDT Home Care Visit [address] [address] Britt Cortes, ANGEL 04/20/2025 1:00 AM CDT Home Care Visit [address] [address] Kristyn Washington RN [place] 04/25/2025 1:00 AM CDT Home Care Visit [address] [address] Jacqueline Yoon, PT [place] 04/27/2025 1:00 AM CDT Home Care Visit [address] [address] Kristyn Washington, BRIANNA [place] 05/04/2025 1:00 AM CDT Home Care Visit [address] [address] Kristyn Washington RN [place] 05/11/2025 1:00 AM CDT Home Care Visit [address] [address] Kristyn Washington RN [place] 05/12/2025 1:00 PM CDT Office Visit [facility] - Family Medicine [facility] [address] [place] [address] Sherri Gil, DO [address] [address] 05/18/2025 1:00 AM CDT Home Care Visit [address] [address] Kristyn Washington, RN [place] 05/24/2025 1:00 AM CDT Appointment [address] [place] [address] Kristyn Washington RN [place] documented as of this encounter Visit Diagnoses Not on filedocumented in this encounter Additional Health Concerns Infection Onset Date Last Indicated Resolved Time COVID - 19 02/08/2025 02/08/2025 02/08/2025 10:3 5 AM CDT Assessment Noted Time PHQ-9 Depression Total Score: 0 01/12/20 21 9:09 AM CDT documented as of this encounter Care Teams Payroll And Benefits Coordinator Relationship Specialty Start Date End Date Lili Cormier MD #[address] [place] [address] PCP - General Family Medicine 09/05/15 12/01/23 Kristyn Parker PAC [address] [place] [address] PCP - General Physician Registered Nurse Nursery 12/02/23 07/06/24 Sherri Gil DO [address] [address] PCP - General Family Medicine 07/08/24 Jessika Ferrara LPN [place] Health Automatic Glove Former 02/27/24 03/29/24 Shannan Ocampo RN [place] Nurse Ambulance Officer 03/29/24 10/26/24 Latanya Head LSW [place] Green End Department Supervisor Ambulance Officer 03/01/25 03/01/25 documented as of this encounter
--- OUTSIDE RECORDS SUMMARY | 2025-03-30 13:52 | XMS_ITS | Encounter Summary ---
Author Organization [facility] Address [address] [place] [address] [place] [address] Phone Care Team Providers Care Side Laster Staple Name Role Phone Lili Cormier MD Primary Care Provider [phone] Kristyn Parker Primary Care Provider + Jessika Ferrara LPN Unavailable Unavailable Shannan Ocampo RN Unavailable Unavailable Sherri Gil DO Primary Care Provider [phone] Latanya Head BASTING CLEANER Unavailable Unavai lable Reason for Referral * Radiology Services (Routine) - Closed Specialty Diagnoses / Procedures Referred By Contac t Referred To Contact Radiology Diagnoses Preop testing Procedures EKG 12 LEAD Lili Cormier MD [address] [place] [address] Phone: tel: fax: Referral ID Status Reason Start Date Expiration Date Visits Re quested Visits Authorized [id number] Closed 12/10/2021 1 1 ESTATE ACCOUNT EXECUTIVE Reason for Visit * Reason Onset Date Comments Pre-Operative Exam 12/10/2021 Encounter Details Date Type Department Care Team (Late st Contact Info) Description 12/10/2021 Telephone [facility] [address] [place] [address] Lili Cormier MD [address] [place] [address] Pre-Operative Exam Social History Tobacco Use Types Packs/Day Years [...] encounter Miscellaneous Notes * Telephone Encounter - Stacey Angeles RN - 12/10/2021 1:17 PM CST Pt notified of order ESTATE ACCOUNT EXECUTIVE * Telephone Encounter - Salina Tillman - 12/10/2021 12:54 PM CST Patient has an upcoming cataract surgery with Dr Walker on 01/10/22. Needs to have an EKG done and patient wants to have done at [facility]. There is not an order available in [facility] and patient not able to schedule with this. Asking if PCP could order the EKG. Patient has preop visit with PCP's office on 12/31/21 ESTATE ACCOUNT EXECUTIVE documented in this encounter Plan of Treatment Upcoming Encounters Date Type Department Care Team (Late st Contact Info) Description 04/01/2025 1:00 AM CDT Home Care Visit [facility] [address] [place] [address] [address] [place] 04/05/2025 1:00 AM CDT Home Care Visit [address] [address] [address] 04/05/2025 2:00 AM CDT Home Care Visit [address] [address] Britt Cortes, UNIX CONSULTANT 04/08/2025 1:00 AM CDT Home Care Visit [facility] [address] [address] 04/12/2025 1:00 AM CDT Home Care Visit [facility] [address] [address] 04/12/2025 8:00 AM CDT Home Care Visit [facility] [address] Jacqueline Yoon, PT CT 04/15/2025 1:00 AM CDT Home Care Visit [facility] [address] [address] [place] 04/19/2025 1:00 AM CDT Home Care Visit [facility] [address] Britt Cortes, UNIX CONSULTANT 04/20/2025 1:00 AM CDT Home Care Visit [facility] [address] Kristyn [place] RN [place] 04/25/2025 1:00 AM CDT Home Care Visit [facility] [address] Jacqueline Yoon, PT [place] 04/27/2025 1:00 AM CDT Home Care Visit [facility] [address] Kristyn [place] RN [place] 05/04/2025 1:00 AM CD[facility] [address] [place] [address] [address] [place] 05/11/2025 1:00 AM CDT Home Care Visit [facility] [address] [address] 05/12/2025 1:00 PM CDT Office Visit [facility] [address] [place] [address] Sherri Gil, DO [address] [place] [address] 05/18/2025 1:00 AM CDT Home Care Visit [address] [address] [address] 05/24/2025 1:00 AM CDT Appointment [address] [address] [address] documented as of this encounter Results * EKG 12 LEAD (12/17/2021 8:56 AM REAL ESTATE ACCOUNT EXECUTIVE) Ventricular Rate BPM EXTERNAL EKG Atrial Rate BPM EXTERNAL EKG P-R Interval 172 ms EXTERNAL EKG QRS Duration 78 ms EXTERNAL EKG Q-T Duration 414 ms EXTERNAL EKG QTC CALCULATION 418 ms EXTERNAL EKG P [place] 76 degrees EXTERNAL EKG R [place] 72 degrees EXTERNAL EKG T [place] 75 degrees EXTERNAL EKG 12/17/2021 8:56 AM REAL ESTATE ACCOUNT EXECUTIVE Impressions EXTERNAL EKG - 12/19/2021 10:41 AM REAL ESTATE ACCOUNT EXECUTIVE Sinus arrhythmia Comparison Summary: No significant change Summary: Normal ECG Compared with:03/22/2016 2:20 PM Confirmed by Natalia Allen [id number] on 12/19/2021 10:41:55 AM Narrative Procedure Note Erica Fisher MD - 12/19/2021 IMPRESSION: Sinus arrhythmia Comparison Summary: No significant change Summary: Normal ECG Compared with:03/22/2016 2:20 PM Confirmed by Natalia Allen [id number] on 12/19/2021 10:41:55 AM Lili Cormier MD IMG ECG ORDERABLES Final Re sult EXTERNAL EKG documented in this encounter Visit Diagnoses Diagnosis Preop testing- Primary Preoperative examination, unspecified Preop testing Preoperative examination, unspecified documented in this encounter Additional Health Concerns [...] documented as of this encounter Care Teams Side Laster Staple Relationship Specialty Start Date End Date Lili Cormier MD [address] [place] [address] PCP - General Family Medicine 09/05/15 12/01/23 Kristyn Parker PAC [address] [place] [address] PCP - General Physician Special Education Teaching Assistant 12/02/23 07/06/24 Sherri Gil DO [address] [address] PCP - General Family Medicine 07/08/24 Jessika Ferrara LPN [place] Health Outside Sales Consultant 02/27/24 03/29/24 Shannan Ocampo RN [place] Nurse Proof Inspector 03/29/24 10/26/24 Latanya Head LSW [place] Picker/Puller Proof Inspector 03/01/25 03/01/25 documented as of this encounter
--- OUTSIDE RECORDS SUMMARY | 2025-03-30 13:52 | XMS_ITS | Encounter Summary ---
Author Organization [facility] Address [address] [place] [address] Phone Care Team Providers Care Executive Personal Assistant Name Role Phone Lili Cormier MD Primary Care Provider [phone] Kristyn Parker Primary Care Provider + Jessika Ferrara LPN Unavailable Unavailable Shannan Ocampo RN Unavailable Unavailable Sherri Gil DO Primary Care Provider [phone] Latanya Head PROCESS TRAINER Unavailable Unavai lable Encounter Details Date Type Department Care Team (Late st Contact Info) Description 07/12/2023 Transcribe Orders [facility] [address] [place] [id number] Patrick Rubi MD [address] [facility] [address] [facility] [place] [place] [address] Monoclonal gammopathy of undetermined significance (Primary Dx); Stage 3b chronic kidney disease (HCC); Hypertension, unspecified type Social History Tobacco Use Types Packs/Day Years [...] 04/01/2025 1:00 AM CDT Home Care Visit [address] [address] Kristyn Washington, [place] 04/05/2025 1:00 AM CDT Home Care Visit [address] [address] Kristyn Washington, RN [place] 04/05/2025 2:00 AM CDT Home Care Visit [address] [address] Britt Cortes, FLAT SHEET MAKER 04/08/2025 1:00 AM CDT Home Care Visit [address] [address] Kristyn Washington RN [place] 04/12/2025 1:00 AM CDT Home Care Visit [address] [address] Kristyn Washington, RN [place] 04/12/2025 8:00 AM CDT Home Care Visit [address] [address] Jacqueline Yoon, PT [place] 04/15/2025 1:00 AM CDT Home Care Visit [address] [address] Kristyn Washington RN [place] 04/19/2025 1:00 AM CDT Home Care Visit [address] [address] Britt Cortes PTA 04/20/2025 1:00 AM CDT Home Care Visit [address] [address] Kristyn Washington RN [place] 04/25/2025 1:00 AM CDT Home Care Visit [address] [address] Jacqueline Yoon PT [place] 04/27/2025 1:00 AM CDT Home Care Visit [address] [address] Kristyn Washington RN [place] 05/04/2025 1:00 AM CDT Home Care Visit [address] [address] Kristyn Washington RN [place] 05/11/2025 1:00 AM CDT Home Care Visit [address] [address] Kristyn Washington RN [place] 05/12/2025 1:00 PM CDT Office Visit [facility] - [facility] [address] [place] [address] Sherri Gil, DO 2 [facility] [address] [place] [address] 05/18/2025 1:00 AM CDT Home Care Visit [address] [address] Kristyn [place] RN [place] 05/24/2025 1:00 AM CDT Appointment [address] [address] Kristyn Washington RN [place] documented as of this encounter Results * (ABNORMAL) PARATHYROID HORMONE PTH INTACT (07/14/2023 9:35 AM CDT) PTH INTACT 121(H) 13 - 85 pg/mL 07/14/2023 10:31 AM CDT [email or web address] Blood Venipuncture / Unknown 07/14/2023 9:35 AM CDT 07/14/2023 9:50 AM CDT Patrick Rubi MD CHEMISTRY ORDERABLES Final Res ult [facility] [address] [place] [address] * (ABNORMAL) UR PROTEIN/CREATININE RATIO (07/14/2023 9:35 AM CDT) Pathologist [facility] UR PROTEIN RAND, QT 185.5 mg/dL 07/14/2023 11:39 AM CDT [email or web address] URINE CREATININE 61.1 mg/dL 07/14/2023 11:39 AM CDT [email or web address] URINE PROTEIN/CREATIN INE RATIO 3.04(H) <0.25 07/14/2023 11:39 AM CDT [email or web address] Urine Non-Phlebotomy Collection / Unknown 07/14/2023 9:35 AM CDT 07/14/2023 11:21 AM CDT us Patrick Rubi MD URINE ORDERABLES Final Result [facility] [address] [place] [address] documented in this encounter Visit Diagnoses Diagnosis Monoclonal gammopathy of undetermined significance- Primary Monoclonal paraproteinemia Stage 3b chronic kidney disease (HCC) Hypertension, unspecified type documented in this encounter Additional Health Concerns Infection Onset Date Last Indicated Resolved Time COVID - 19 02/08/2025 02/08/2025 02/08/2025 10:3 5 AM CDT Assessment Noted Time PHQ-9 Depression Total Score: 0 01/12/20 21 9:09 AM CDT documented as of this encounter Care Teams Executive Personal Assistant Relationship Specialty Start Date End Date Lili Cormier MD [address] [place] [address] PCP - General Family Medicine 09/05/15 12/01/23 Kristyn Parker PAC [address] [place] [address] PCP - General Physician Fork Lift Truck Operator 12/02/23 07/06/24 Sherri Gil DO [address] [address] PCP - General Family Medicine 07/08/24 Jessika Ferrara LPN [place] [facility] Electrical Engineer Mep 02/27/24 03/29/24 Shannan Ocampo, RN [place] Nurse Hydraulic Plumber 03/29/24 10/26/24 Latanya Head LSW [place] Neighborhood Conservation Officer Hydraulic Plumber 03/01/25 03/01/25 documented as of this encounter
--- OUTSIDE RECORDS SUMMARY | 2025-03-30 13:52 | XMS_ITS | Clinical Summary ---
Author Organization [facility] Address [address] [place] [address] Care Team Providers Care Fan Runner Name Role Phone Patrick Rubi MD Unavailable [phone] Referring, Unknown Unavailable Unavailabl Sintia Abbott NP Unavailable [phone] Ghulam Hoskins MD Unavailable [phone] Sherri Gil DO Primary Care Provider [phone] Allergies Active Allergy Reactions Criticality Noted Date [...] remove jos today. Can start working with Product Info Specialist. Has a small pressure wound right lower extremity, discussed importance of offloading with the patient and her daughter. 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 Patient is recovering well incision is healing well jos are intact. Not ready to be removed yet. Follow-up in 1 week for staple removal. Can start to use specialty department supervisor to the left AKA. Gangrene of toe of left foot 12/27/2024 Assessment & Plan (12/27/2024 3:22 PM AIRLINE PILOT): Impression: Patient has gangrene to the left [...] 05/27/2018 Assessment & Plan (12/27/2024 3:32 PM AIRLINE PILOT): Impression: Patient has a history of a [...] 05/27/2018 Assessment & Plan (12/27/2024 3:33 PM AIRLINE PILOT): Impression: Chronic stable Plan: Continue metoprolol Assessment [...] 02/06/2016 Assessment & Plan (12/27/2024 3:32 PM AIRLINE PILOT): Impression: Chronic and stable. Plan: Continue atorvastatin. Tobacco use 02/06/2016 Serum creatinine raised 01/11/2016 Anemia 12/11/2015 ER+ (estrogen receptor positive status) 07/21/20 15 Osteoporosis 08/26/2013 Malignant neoplasm of cervix 10/11/2011 Breast cancer 10/04/2011 Malignant neoplasm of upper- outer quadrant of right breast in female, estrogen receptor positive 10/01/2010 Encounter for preventive health examination 02/25 History of malignant neoplasm of cervix 02/05/19 96 Encounters Date Type Department Care Team Description 03/30/2025 10:45 AM CDT Office Visit [facility] Medical Group Vascular at [address] [place] [address] Nimo Rangel MD 03/25/2025 11:00 AM CDT Ancillary Procedure [facility] Medical Group Vascular and Vein Surgery at [address] [place] [address] 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 03/17/2025 9:51 AM CDT - 03/17/2025 11:59 PM CDT Hospital Encounter [facility] Radiology [facility] [place] [address] [place] [address] Holley Damian MD PhD Hydronephrosis with ureteral stricture, not elsewhere classified Discharge Disposition: Discharge to home or self care 03/16/2025 Telephone [facility] [address] [place] [address] Kristyn Ramires, RN 03/16/2025 Telephone [facility] Obstetrics and Gynecology [address] [place] [address] Medicine 13th [place] [address] [place] [address] Bria Martin RN 03/16/2025 Telephone [facility] Radiology [facility] 1 [place] [address] Kristyn Ramires, RN 03/15/2025 Orders Only [facility] Medical Group Vascular and Vein Surgery [address] [place] [phone] Nimo Rangel MD 03/15/2025 Orders Only [facility] Medical Group Vascular at [address] [place] [address] Nimo Rangel MD 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 (Primary Dx) 02/21/2025 7:20 AM CDT - 02/21/2025 11:59 PM CDT Hospital Encounter [facility] [address] [place] [address] Hydronephrosis with ureteral stricture, not elsewhere classified Discharge Disposition: Discharge to home or self care 02/16/2025 Telephone [facility] Medical Group Vascular and Vein Surgery [address] [facility] [facility] [address] [place] [address] Nimo Rangel MD 02/16/2025 Telephone [facility] Radiology [facility] [place] [address] [place] [address] Savannah Enriquez RN 02/04/2025 Telephone [facility] Medical Group Vascular and Vein Surgery [address] [place] [address] [place] [phone] Laura Cuevas MA 02/02/2025 9:15 AM CDT Office Visit [facility] Group Vascular at [address] [place] [address] Nimo Rangel MD PVD (peripheral vascular disease) (Primary Dx) 02/02/2025 Orders Only [facility] Vascular at [address] [place] [address] Nimo Rangel MD 01/27/2025 Orders Only [facility] Vascular and Vein Surgery [address] [place] [phone] Nimo Rangel MD 01/26/2025 10:30 AM CDT Office Visit [facility] Vascular at [address] [place] [address] Rachna Brand NP 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 (HCC) (Primary Dx) 01/26/2025 Orders Only [facility] Vascular at [address] [place] [phone] Nimo Rangel MD S/P AKA (above knee amputation) unilateral, left (HCC) (Primary Dx) 01/24/2025 7:18 AM CDT - 01/24/2025 11:59 PM CDT Hospital Encounter [facility] Radiology [facility] [place] [address] [place] [address] Hydronephrosis with ureteral stricture, not elsewhere classified (Primary Dx); Malignant neoplasm of overlapping sites of cervix (HCC) Discharge Disposition: Discharge to home or self care 01/10/2025 Documentation [facility] Medical [facility] Vascular and Vein Surgery [address] [place] [phone] Laura Cuevas MA 01/06/2025 Telephone [facility] Radiology 1 [place] [address] Joseph Serra RN 01/03/2025 7:34 AM CDT Anesthesia Event [facility] [place] [address] [place] [address] Adi Fischer MD Taylor-White, Carlotta A., NP 01/03/2025 7:30 AM CDT - 01/03/2025 9:25 AM CDT Surgery [facility] [place] [address] [place] [address] Nimo Rangel MD LEFT AMPUTATION ABOVE KNEE 01/03/2025 5:55 AM CDT - 01/08/2025 5:25 PM CDT Hospital Encounter [facility] [address] [place] [address] Nimo Rangel MD 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 13th [place] [address] [place] [address] Vanessa Castanon MD Malignant neoplasm of overlapping sites of cervix (HCC) (Primary Dx) 12/29/2024 9:00 AM AIRLINE PILOT Ancillary Procedure [facility] Medical Group Vascular and Vein Surgery at [address] [place] [address] Stenosis of left subclavian artery 12/28/2024 Documentation [facility] Medical Group Vascular and Vein Surgery [address] [place] [address] [place] [phone] Laura Cuevas MA 12/28/2024 Telephone [facility] Medical Group Vascular and Vein Surgery [address] [place] [phone] Laura Cuevas MA 12/28/2024 Orders Only [facility] Medical Group Vascular and Vein Surgery [address] [place] [address] [address] [place] [address] Nimo Rangel MD from Last 3 Months Immunizations Immunization Administration Dates Next Due Influenza, [...] 10/27/2010 Pneumococcal Polysaccharide PPV23 10/27/2010 Tdap 04/14/2023 Surgical History Surgery Date Site/Laterality Comments MASTECTOMY Right Breast Surgery Mastectomy - (Added by Conv) COLON SURGERY Colon Surgery - (Added by Conv), colostomy and ileostomy MN TOTAL ABDOMINAL HYSTERECT W/WO RMVL TUBE OVARY Hysterectomy - (Added by Conv) VAGINA SURGERY Vaginal Surgery - (Added by Conv) AMPUTATION ABOVE KNEE 01/03/2025 Thigh/Left Procedure: LEFT AMPUTATION ABOVE KNEE; Surgeon: Nimo Rangel MD; Location: [facility]PER[facility]; Service: Vascular; Laterality: Left; Medical History Medical History Date Comments HGSIL Pap smear of vagina Vagina l Pap Smear Abnormal High Grade Squamous Intraepithelial Lesion - (Added by TW Conv) Tobacco abuse counseling [facility] er for smoking cessation counseling - 07/19/11 (Added by Conv) Cervical cancer (HCC) Breast cancer (HCC) Hyperlipidemia Chronic kidney disease Hypertension Peripheral vascular disease A-fib (HCC) Pulmonary emphysema (HCC) 06/30/2023 Type 2 diabetes mellitus wit h stage 1 chronic kidney disease, with long-term current use of insulin (HCC) 12/16/2023 Cough Family History Medical History Relation Name Comments Lung cancer Father Carcinoma Of Th e Lung - (Added by TW Conv) Laryngeal Cancer Sister Laryngeal C ancer - (Added by TW Conv) Relation Name Status Comments Father Sister Social History Tobacco Use Types Packs/Day [...] materials from doctor or pharmacy Never 11/10/2023 [facility] Utilities Answer Date Recorded In the past 12 months has th e [employer], gas, oil, or water [employer] threatened to shut off services in your [...] often do you attend chur ch or mormonism services? 1 to 4 times per year 01/04/2025 Do you belong to any clubs o r organizations such as adventism groups, unions, fraternal or athletic groups, or [...] any time in the past 12 m [facility], were you homeless or living in a care home (including now)? No 01/04/2025 Personal Safety Answer Date Recorded Have you ever been in or are you currently in a harmful physical or emotional relationship or is someone making you feel afraid or unsafe? Denies 03/17/2025 Comments No Sex and Gender Information Value Date Recorded Sex Assigned at Not on file Legal Sex Female 8:47 PM AIRLINE PILOT Gender Identity Not on file Sexual Orientation Not on file Obstetrics History Para Term AB IAB SAB Ectopic Multiple Livin g Live Births 6 6 6 6 6 Date Outcome GA Total Labor Labor/2nd/3rd Weight Sex Type Anes PTL Stephanie A1 A5 Name Clin Term Term Term Term Term Term Last Filed Vital Signs Vital Sign Reading [...] 03/30/2025 11:01 AM CDT Plan of Treatment Health Maintenance Due Date Last Done Comments Albumin Creatinine Ratio, Urine 1945 Dilated Eye Exam 1945 Foot Exam 1945 Hepatitis B Screening 1962 Lung Cancer Screening 1994 Zoster Vaccine (1 of 2) 1994 Well Visit 65+ 2009 Osteoporosis Screening-Bone Density Scan 10/04/2022 10/04/2020, 10/04/2020, 10/23/2016, Additional history exists Covid-19 Vaccine (2023-2 5 season) 2024 02/22/2021, 01/25/2021, 01/25/2021 Hemoglobin A1C 06/13/2025 12/14/2024 Lipid Panel 07/08/2025 07/08/2024, 02/0 03/2024, 10/10/2022, Additional history exists Depression Screening 12/28/2025 12/28/2024, 12/29/19 25 eGFR 01/08/2026 01/08/2025, 0301/2025, 01/04/2025, Additional history exists Fall Risk Assessment 03/17/2026 03/17/2025 DTaP/Tdap/Td Vaccine (2 - Td or Tdap) 04/14/2033 04/14/2023 Colon Cancer Screening-CT Colonography Discontinued 04/02/2011 Colon Cancer Screening-Colonoscopy Discontinued 04/02/2011 Colon Cancer Screening-DNA Stool Discontinued 04/02/20 Colon Cancer Screening-FIT Discontinued 04/02/2011 Colon Cancer Screening-FOBT Discontinued 04/02/2011 Colon Cancer Screening-Sigmoidoscopy Discontinued 04/02/2011 Colorectal Cancer Screening Discontinued Pneumococcal vaccine 65+ Completed 016, 10/27/2010, 10/27/2010 Influenza Vaccine Completed 10/17/2024, , 07/27/2023, Additional history exists Medical Devices Implanted Type Area Internal Controls Analyst Device Identifier Shelf Expiration Date Model / Serial / Lot Port Right: Chest [employer] Viabahn 5mm 5cm 120cm Flexible Self Expand Radiopaque Stent [id number] - [id number] - [id number] Implanted:Qty: 1 on 10/07/2023 at [facility] [employer] 03/27/2024 [id number] / [id number] / Procedures Procedure Name Priority Date/Time Associated Diagnosis Comments US ARTERIAL DOPPLER LOWER EXTREMITY BILATERAL Schedule Routine, Read Routine (OP Routine) 03/25/2025 11:40 AM CDT Atherosclerosis of [place] river artery of right lower extremity with intermittent [...] Routine 01/03/2025 8:45 AM CDT 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 (HCC) SURGICAL PATHOLOGY Routine 01/03/2025 8: 11 AM CDT 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 (HCC) MN AN PROCEDURE PLACEHOLDER Routine 01/03/2025 7:53 AM CDT MN AN ELECTIVE ENDOTRACHEAL AIRWAY Routine 01/03/2025 7:53 AM CDT TRANSFUSE RED BLOOD CELLS Timed 01/03/2025 7:46 AM CDT PREPARE RBC STAT 01/03/2025 7:30 AM CDT B ABO / RH CONFIRMATION TESTING STAT 01/03/2025 7:00 AM CDT CROSSMATCH Timed 01/03/2025 6:47 AM CDT EGFR Routine 01/03/2025 6:47 AM CDT 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 (HCC) DIFFERENTIAL AUTO Routine 01/03/2025 6:4 7 AM CDT 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 (HCC) ANTIBODY SCREEN Timed 01/03/2025 6:47 AM CDT ABO/RH Timed 01/03/2025 6:47 AM CDT PROTIME-INR Routine 01/03/2025 6:47 AM CDT 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 (HCC) APTT Routine 01/03/2025 6:47 AM CDT 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 (HCC) Other disorder of circulatory system CBC WITH AUTO DIFFERENTIAL Routine 01/03/2025 6:47 AM CDT 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 (HCC) COMPREHENSIVE METABOLIC PANEL Routine 01/03/2025 6:47 AM CDT 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 (HCC) TYPE AND SCREEN Timed 01/03/2025 6:47 AM CDT POCT GLUCOSE DEVICE Routine 01/03/2025 6 :41 AM CDT US ARTERIAL DOPPLER UPPER EXTREMITY BILATERAL Schedule Routine, Read Routine (OP Routine) 12/29/2024 10:22 AM AIRLINE PILOT Stenosis of left subclavian artery HEMOGLOBIN A1C Timed 12/14/2024 8:34 PM AIRLINE PILOT BONE MINERAL DENSITY 10/23/2016 COLONOSCOPY 04/02/2011 12:00 AM CDT from Last 3 Months or Most Recently Relevant to Health Maintenance Results * US Arterial Doppler Lower Extremity Bilateral (03/25/2025 11:40 AM CDT) Anatomical Region Laterality Modality Vascular Bilateral Ultrasound 03/25/2025 10:5 9 AM CDT Narrative 03/28/2025 7:33 AM CDT Vascular & Vein Surgery [facility] [place] [address] Lower Extremity Arterial Doppler Report Patient Name: MATEUSZ JOHNSON R : 1945 Study Date: 03/25/2025 10:59:00 AM Gender: F Form Block Maker: Blanca Saab RVAlida Location: [facility] Ref Provider: NIMO RANGEL Quality: [...] mmHg Rt Calf Pressure 46 mmHg Rt RECONCILEMENT CLERK Pressure 82 mmHg Rt DPA Pressure 54 [...] MD - 03/28/2025 Vascular & Vein Surgery [address] [place] [address] Lower Extremity Arterial Doppler Report Patient Name: MATEUSZ JOHNSON R : 1945 Study Date: 03/25/2025 10:59:00 AM Gender: F Form Block Maker: Blanca Saab Alida Location: [facility] Ref Provider: NIMO RANGEL Quality: [...] mmHg Rt Calf Pressure 46 mmHg Rt RECONCILEMENT CLERK Pressure 82 mmHg Rt DPA Pressure 54 [...] 03/28/2025 7:26:31 AM CDT Nimo Rangel MD [facility] US PROCEDURES Final Result * IR Change Ureteral Stent Bilateral (03/17/2025 12:55 PM CDT) Anatomical Region Laterality Modality Body Bilateral Radio Fluoroscop y 03/17/2025 2:11 PM CDT Impressions 03/17/2025 2:11 PM CDT Successful bilateral ureteral stent change via ileal conduit (right 12-Mexican UreSil locking loop and left 14-Mexican multipurpose drainage catheter).. PLAN: The patient will [...] was obtained. Prior to beginning the procedure, [place] Protocol was performed to confirm the patient's [...] over an Amplatz guidewire for a new 14-Mexican 45 cm cope catheter. There was resistance during advancement of the catheter along the distal left ureter related to known stenosis. The contralateral side was exchanged in a similar fashion for a 12-Mexican long locking loop UreSil. Please note that [...] was obtained. Prior to beginning the procedure, [place] Protocol was performed to confirm the patient's [...] over an Amplatz guidewire for a new 14-Mexican 45 cm cope catheter. There was resistance during advancement of the catheter along the distal left ureter related to known stenosis. The contralateral side was exchanged in a similar fashion for a 12-Mexican long locking loop UreSil. Please note that [...] ureteral stent change via ileal conduit (right 12-Mexican UreSil locking loop and left 14-Mexican multipurpose drainage catheter).. PLAN: The patient will return in 4 weeks for the next catheter change. The patient should flush each catheter with 5 mL normal saline once daily. Electronically signed by: Holley Damian MD, PhD Azalia PIERCE Cindy IR PROCEDURES Fin al Result * IR [...] was obtained. Prior to beginning the procedure, [place] Protocol was performed to confirm the patient's [...] over an Amplatz guidewire for a new 14-Mexican 45 cm cope catheter. There was resistance during advancement of the catheter along the distal left ureter related to known stenosis. The contralateral side was exchanged in a similar fashion for a 12-Mexican long UreSil. ESTIMATED BLOOD LOSS: None CONDITION: [...] was obtained. Prior to beginning the procedure, [place] Protocol was performed to confirm the patient's [...] over an Amplatz guidewire for a new 14-Mexican 45 cm cope catheter. There was resistance during advancement of the catheter along the distal left ureter related to known stenosis. The contralateral side was exchanged in a similar fashion for a 12-Mexican long UreSil. ESTIMATED BLOOD LOSS: None CONDITION: [...] signed by: Azalia Gotti PA-C Azalia PIERCE [facility] IR PROCEDURES Fin al Result * IR [...] normal saline once daily. Electronically signed by: TRISHA Ventura 01/24/2025 9:01 AM CDT EXAMINATION: IR CHANGE [...] was obtained. Prior to beginning the procedure, [place] Protocol was performed to confirm the patient's [...] over an Amplatz guidewire for a new 14-Mexican 45 cm cope catheter. There was resistance during advancement of the catheter along the distal left ureter related to known stenosis. The contralateral side was exchanged in a similar fashion for a 12-Mexican long UreSil. ESTIMATED BLOOD LOSS: None CONDITION: [...] was obtained. Prior to beginning the procedure, [place] Protocol was performed to confirm the patient's [...] over an Amplatz guidewire for a new 14-Mexican 45 cm cope catheter. There was resistance during advancement of the catheter along the distal left ureter related to known stenosis. The contralateral side was exchanged in a similar fashion for a 12-Mexican long UreSil. ESTIMATED BLOOD LOSS: None CONDITION: [...] LAB BLOOD ORDERABLES Mary Alice taylor Result [facility] [address] [facility] Department [place] [address] * (ABNORMAL) Differential, auto (01/08/2025 3:59 AM CDT) Neutrophil abs 7.7(H) 1.5 - 6.5 K/cumm Imm gran abs 0.1 0.0 - 0.1 K/cumm [facility] Lymphocyte abs 1.3 0.8 - 3.3 K/cumm [facility] Monocyte abs 0.9(H) 0.2 - 0.8 K/cumm [facility] Eosinophil abs 0.1 0.0 - 0.5 K/cumm [facility] Basophil abs 0.0 0.0 - 0.1 K/cumm [facility] Neutrophil pct 75.6 % [facility] Comment: Interpretive Data Percent cell count reference ranges are not reported, since discordance with absolute values may lead to misinterpretation of CBC data. Current Interpretive Data was last revised on 2018. Imm gran pct 0.7 % [facility] Comment: Interpretive Data Percent cell count reference ranges are not reported, since discordance with absolute values may lead to misinterpretation of CBC data. Current Interpretive Data was last revised on 2018. Lymphocyte pct 13.0 % [facility] Comment: Interpretive Data Percent cell count reference ranges are not reported, since discordance with absolute values may lead to misinterpretation of CBC data. Current Interpretive Data was last revised on 2018. Monocyte pct 9.0 % [facility] Comment: Interpretive Data Percent cell count reference ranges are not reported, since discordance with absolute values may lead to misinterpretation of CBC data. Current Interpretive Data was last revised on 2018. Eosinophil pct 1.3 % [facility] Comment: Interpretive Data Percent cell count reference ranges are not reported, since discordance with absolute values may lead to misinterpretation of CBC data. Current Interpretive Data was last revised on 2018. Basophil pct 0.4 % [facility] Comment: Interpretive Data Percent cell count reference ranges are not reported, since discordance with absolute values may lead to misinterpretation of CBC data. Current Interpretive Data was last revised on 2018. Blood 01/08/2025 3:59 AM CDT 01/08/2025 4:09 AM CDT Leny Miller BEATER ROOM SUPERVISOR LAB BLOOD ORDERABLES Mary Alice taylor Result [place] [id number] [facility] Department [place] [address] * (ABNORMAL) CBC with auto differential (01/08/2025 3:59 AM CDT) WBC 10.2(H) 3.8 - 9.9 K/cumm Hgb 8.0(L) 11.9 - 15.5 g/dL [facility] Hct 26.8(L) 35.6 - 45.5 % [facility] Plt 395 150 - 400 K/cumm [facility] MPV 8.9(L) 9.1 - 12.3 fL [facility] RBC 2.71(L) 3.90 - 5.20 M/cumm [facility] MCV 98.9(H) 81.3 - 96.4 fL [facility] MCH 29.5 27.1 - 33.3 pg [facility] MCHC 29.9(L) 32.3 - 35.7 g/dL [facility] RDW CV 17.2(H) 11.1 - 14.9 % [facility] RDW SD 61.4(H) 35.7 - 48.1 fL [facility] NRBC abs 0.00 0.00 - 0.01 K/cumm [facility] Blood 01/08/2025 3:59 AM CDT 01/08/2025 4:09 AM CDT Leny Miller BEATER ROOM SUPERVISOR LAB BLOOD ORDERABLES Mary Alice l Result [facility] [address] [facility] [facility] Department [place] [address] * (ABNORMAL) Comprehensive metabolic panel (01/08/2025 3:59 AM CDT) Sodium 132(L) 135 - 145 mmol/L Potassium, pl 4.0 3.3 - 4.9 mmol/L [facility] Chloride 100 97 - 110 mmol/L [facility] CO2 20(L) 22 - 32 mmol/L [facility] Anion gap 12 2 - 15 mmol/L [facility] BUN 44(H) 6 - 25 mg/dL [facility] Creatinine 1.94(H) 0.60 - 1.10 mg/dL [facility] Glucose 82 70 - 199 mg/dL [facility] Comment: Interpretive Data Fasting glucose >/= 126 [...] 2022. Calcium 8.1(L) 8.5 - 10.3 mg/dL [facility] Bilirubin, total <0.2 0.1 - 1.2 mg/dL [facility] Protein, pl 5.6(L) 6.5 - 8.5 g/dL [facility] Albumin 1.8(L) 3.5 - 5.0 g/dL [facility] Alk phos 120 40 - 130 Units/L [facility] ALT <5(L) 7 - 45 Units/L [facility] AST 16 10 - 45 Units/L [facility] Blood 01/08/2025 3:59 AM CDT 01/08/2025 4:09 AM CDT Leny Miller BEATER ROOM SUPERVISOR LAB BLOOD ORDERABLES Mary Alice l Result Performing Organization Address [facility] de Phone Number CHETAN [address] [place] [address] * (ABNORMAL) eGFR (01/07/2025 8:52 AM CDT) [facility] eGFR 26(L) >=60 mL/min/1. 73 m2 Comment: [...] Mary Alice l Result Performing Organization Address [facility] Co de Phone Number CHETAN [address] [place] [address] * (ABNORMAL) Differential, auto (01/07/2025 8:52 AM CDT) [facility] Neutrophil abs 9.9(H) 1.5 - 6.5 K/cumm Imm gran abs 0.0 0.0 - 0.1 K/cumm [facility] Lymphocyte abs 1.4 0.8 - 3.3 K/cumm [facility] Monocyte abs 0.8 0.2 - 0.8 K/cumm [facility] Eosinophil abs 0.0 0.0 - 0.5 K/cumm [facility] Basophil abs 0.0 0.0 - 0.1 K/cumm [facility] Neutrophil pct 81.1 % [facility] Comment: Interpretive Data Percent cell count reference ranges are not reported, since discordance with absolute values may lead to misinterpretation of CBC data. Current Interpretive Data was last revised on 2018. Imm gran pct 0.3 % [facility] Comment: Interpretive Data Percent cell count reference ranges are not reported, since discordance with absolute values may lead to misinterpretation of CBC data. Current Interpretive Data was last revised on 2018. Lymphocyte pct 11.5 % [facility] Comment: Interpretive Data Percent cell count reference ranges are not reported, since discordance with absolute values may lead to misinterpretation of CBC data. Current Interpretive Data was last revised on 2018. Monocyte pct 6.6 % [facility] Comment: Interpretive Data Percent cell count reference ranges are not reported, since discordance with absolute values may lead to misinterpretation of CBC data. Current Interpretive Data was last revised on 2018. Eosinophil pct 0.2 % [facility] Comment: Interpretive Data Percent cell count reference ranges are not reported, since discordance with absolute values may lead to misinterpretation of CBC data. Current Interpretive Data was last revised on 2018. Basophil pct 0.3 % [facility] Comment: Interpretive Data Percent cell count reference ranges are not reported, since discordance with absolute values may lead to misinterpretation of CBC data. Current Interpretive Data was last revised on 2018. Blood 01/07/2025 8:52 AM CDT 01/07/2025 9:01 AM CDT Leny Miller NP LAB BLOOD ORDERABLES Mary Alice taylor Result CHETAN [address] [facility] Department [place] [address] * (ABNORMAL) CBC with auto differential (01/07/2025 8:52 AM CDT) WBC 12.2(H) 3.8 - 9.9 K/cumm Hgb 8.5(L) 11.9 - 15.5 g/dL [facility] Hct 27.9(L) 35.6 - 45.5 % [facility] Plt 390 150 - 400 K/cumm [facility] MPV 8.8(L) 9.1 - 12.3 fL [facility] RBC 2.87(L) 3.90 - 5.20 M/cumm [facility] MCV 97.2(H) 81.3 - 96.4 fL [facility] MCH 29.6 27.1 - 33.3 pg [facility] MCHC 30.5(L) 32.3 - 35.7 g/dL [facility] RDW CV 17.3(H) 11.1 - 14.9 % [facility] RDW SD 61.4(H) 35.7 - 48.1 fL [facility] NRBC abs 0.00 0.00 - 0.01 K/cumm [facility] Blood 01/07/2025 8:52 AM CDT 01/07/2025 9:01 AM CDT Leny Miller BEATER RO[employer] SUPERVISOR LAB BLOOD ORDERABLES Mary Alice l Result [facility] [address] [facility] Department [place] [address] * (ABNORMAL) Comprehensive metabolic panel (01/07/2025 8:52 AM CDT) Sodium 136 135 - 145 mmol/L Potassium, pl 4.6 3.3 - 4.9 mmol/L [facility] Chloride 102 97 - 110 mmol/L [facility] CO2 23 22 - 32 mmol/L [facility] Anion gap 11 2 - 15 mmol/L [facility] BUN 38(H) 6 - 25 mg/dL [facility] Creatinine 1.92(H) 0.60 - 1.10 mg/dL [facility] Glucose 86 70 - 199 mg/dL [facility] Comment: Interpretive Data Fasting glucose >/= 126 [...] 2022. Calcium 8.6 8.5 - 10.3 mg/dL [facility] Bilirubin, total 0.2 0.1 - 1.2 mg/dL [facility] Protein, pl 6.0(L) 6.5 - 8.5 g/dL [facility] Albumin 2.0(L) 3.5 - 5.0 g/dL [facility] Alk phos 128 40 - 130 Units/L [facility] ALT <5(L) 7 - 45 Units/L [facility] AST 25 10 - 45 Units/L [facility] Blood 01/07/2025 8:52 AM CDT 01/07/2025 9:01 AM CDT Leny Miller NP LAB BLOOD ORDERABLES Mary Alice l Result Performing Organization Address City/[facility]/ZIP Co de Phone Number [address] [employer] [place], [place] [id number] * POCT glucose (01/06/2025 3:09 PM CDT) [facility] Glucose, POC 127 70 - 199 mg/dL Glucose comment 1 Use This Result [facility] Blood 01/06/2025 3:09 PM CDT 01/06/2025 3:09 PM CDT Nimo Rangel MD LAB POCT ORDERABLES - DEVICE Fin al Result Performing Organization Address City/[facility]/ZIP Co de Phone Number [address] [place] [address] * XR Abdomen Ap 1 Vw (01/06/2025 [...] Terrance Howe M.D. NS T: Report ID: [id number] Reading Location: [id number] Procedure Note Terrance Howe MD - 01/06/2025 [...] Terrance Howe M.D. NS T: Report ID: [id number] Reading Location: [id number] Rachna Brand BEATER [employer] SUPERVISOR IMG XR PROCEDURES Final Result * (ABNORMAL) eGFR (01/04/2025 4:17 AM CDT) Pathologist [facility] eGFR 32(L) >=60 mL/min/1. 73 m2 Comment: [...] 4:17 AM CDT 01/04/2025 4:39 AM CDT us Nimo Rangel MD LAB BLOOD ORDERABLES Final Resul t [facility] [address] [facility] Department [place] [address] * (ABNORMAL) CBC without differential (01/04/2025 4:17 AM CDT) [facility] WBC 7.8 3.8 - 9.9 K/cumm Hgb 8.1(L) 11.9 - 15.5 g/dL [facility] Hct 27.3(L) 35.6 - 45.5 % [facility] Plt 369 150 - 400 K/cumm [facility] MPV 8.9(L) 9.1 - 12.3 fL [facility] RBC 2.75(L) 3.90 - 5.20 M/cumm [facility] MCV 99.3(H) 81.3 - 96.4 fL [facility] MCH 29.5 27.1 - 33.3 pg [facility] MCHC 29.7(L) 32.3 - 35.7 g/dL [facility] RDW CV 18.4(H) 11.1 - 14.9 % [facility] RDW SD 65.2(H) 35.7 - 48.1 fL [facility] NRBC abs 0.00 0.00 - 0.01 K/cumm [facility] Blood 01/04/2025 4:17 AM CDT 01/04/2025 4:39 AM CDT us Nimo Rangel MD LAB BLOOD ORDERABLES Final Resul t [facility] [address] [facility] Department [place] [address] * (ABNORMAL) Basic metabolic panel (01/04/2025 4:17 AM CDT) Sodium 133(L) 135 - 145 mmol/L Potassium, pl 4.5 3.3 - 4.9 mmol/L [facility] Comment:Hemolyzed; Potassium value may be falsely elevated by as much as 1.0 mmol/L. Suggest redraw and reanalysis. Chloride 105 97 - 110 mmol/L [facility] CO2 19(L) 22 - 32 mmol/L [facility] Anion gap 9 2 - 15 mmol/L [facility] BUN 29(H) 6 - 25 mg/dL [facility] Creatinine 1.63(H) 0.60 - 1.10 mg/dL [facility] Glucose 75 70 - 199 mg/dL [facility] Comment: Interpretive Data Fasting glucose >/= 126 [...] 2022. Calcium 8.1(L) 8.5 - 10.3 mg/dL [facility] Blood 01/04/2025 4:17 AM CDT 01/04/2025 4:39 AM CDT Result [facility] Nimo Rangel MD LAB BLOOD ORDERABLES Final Resul t Performing Organization Address [facility] de Phone Number CHETAN [address] [place] [address] * POCT glucose (01/03/2025 12:41 PM CDT) Glucose, POC 102 70 - 199 mg/dL Blood 01/03/2025 12:4 1 PM CDT 01/03/2025 12:41 PM CDT Result [facility] Nimo Rangel MD LAB POCT ORDERABLES - DEVICE Fin al Result Performing Organization Address [facility] de Phone Number [address] [place] [address] * POCT glucose (01/03/2025 8:56 AM CDT) Glucose, POC 100 70 - 199 mg/dL Blood 01/03/2025 8:56 AM CDT 01/03/2025 8:56 AM CDT Result [facility] Nimo Rangel MD LAB POCT ORDERABLES - DEVICE Fin al Result Performing Organization Address [facility] de Phone Number [address] [place] [address] * AMPUTATION ABOVE KNEE (01/03/2025 8:45 AM CDT) Anatomical Region Laterality Modality X-Ray Angiograph y Result [facility] Nimo Rangel MD SURGICAL CASE ORDERS Final Resul t * Transfuse RBC (01/03/2025 8:26 AM CDT) Blood Adi Fischer MD BLOOD TRANSFUSION ORDERA BLES Final Result CHETAN [address] Department [place] [address] * Surgical pathology (01/03/2025 8:11 AM CDT) Tissue specimen (specimen) (Amputation non-tramatic) 01/03/2025 8:11 AM CDT Narrative PATHOLOGY [facility] - 01/04/2025 4:04 PM CDT [facility] Department of Pathology [address] [place] [id number] Note to Patients: This report may contain [...] : 1945 (Age: 79) Gender: F Address: [address] [place] [address] Hospital #: [id number] Service: Vascular Location: Patient Type: [facility] INPATIENT Taken: 01/03/2025 Received: 01/03/2025 Accessioned: [...] an 79-year-old woman with 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 LIZZY Szymanski, PA ([facility]) Microscopic slide review and interpretation for this case was performed at [facility], Department of Surgical Pathology, [address] [facility], [place] [id number], [place] [id number] CLIA # [id number] us Nimo Rangel MD LAB PATHOLOGY ORDERABLES Final R esult PATHOLOGY [facility] * [place] AN ELECTIVE ENDOTRACHEAL AIRWAY, [place] AN PROCEDURE PLACEHOLDER (01/03/2025 7:53 AM CDT) Narrative John Jarvis CRNA - 01/03/2025 7:53 AM CDT John Jarvis CRNA 01/03/2025 7:54 AM Airway Patient location: OR Urgency: elective Date/time: 01/03/2025 7:42 AM Indications for airway management: anesthesia Difficult airway: no Staff: Placed by: GEAR NICKER: John Jarvis CRNA Emergent airway documentation: Risks [...] of attempts: 1 Additional comments: Atraumatic intubation. Adi Fischer MD ANESTHESIA ORDERABLES Fi nal Result * Prepare RBC: 1 Units (01/03/2025 7:30 AM CDT) Units requested 1 Units requested Ready [facility] Unit Number [id number] Product code [id number] [facility] Blood Expiration Date [id number] [facility] Product Blood Type (for scanning) 5100 [facility] Product Blood Type OPOS [facility] Dispense Status DISPENSED [facility] Blood 01/03/2025 7:30 AM CDT 01/03/2025 7:30 AM CDT Adi Fischer MD BLOOD BANK PRODUCT ORDER BALBIR Final Result Performing Organization Address [facility] de Phone Number [facility] [address] [facility] [place] [address] * ABO / Rh Confirmation Testing (01/03/2025 7:00 AM CDT) ABO/Rh Confirmation O Positive [facility] Blood 01/03/2025 7:00 AM CDT 01/03/2025 7:06 AM CDT Nimo Rangel MD LAB BLOOD ORDERABLES Final Resul t Performing Organization Address City/[facility] Co de Phone Number [facility] [address] [facility] [place] [address] [facility] * (ABNORMAL) eGFR (01/03/2025 6:47 AM CDT) [facility] eGFR 25(L) >=60 mL/min/1. 73 m2 Comment: [...] MD LAB BLOOD ORDERABLES Final Resul t [facility] [address] [facility] Department [place] [address] * (ABNORMAL) Differential, auto (01/03/2025 6:47 AM CDT) [facility] Neutrophil abs 7.2(H) 1.5 - 6.5 K/cumm Imm gran abs 0.1 0.0 - 0.1 K/cumm [facility] Lymphocyte abs 0.8 0.8 - 3.3 K/cumm [facility] Monocyte abs 0.6 0.2 - 0.8 K/cumm [facility] Eosinophil abs 0.1 0.0 - 0.5 K/cumm [facility] Basophil abs 0.0 0.0 - 0.1 K/cumm [facility] Neutrophil pct 82.1 % [facility] Comment: Interpretive Data Percent cell count reference ranges are not reported, since discordance with absolute values may lead to misinterpretation of CBC data. Current Interpretive Data was last revised on 2018. Imm gran pct 0.6 % [facility] Comment: Interpretive Data Percent cell count reference ranges are not reported, since discordance with absolute values may lead to misinterpretation of CBC data. Current Interpretive Data was last revised on 2018. Lymphocyte pct 9.5 % [facility] Comment: Interpretive Data Percent cell count reference ranges are not reported, since discordance with absolute values may lead to misinterpretation of CBC data. Current Interpretive Data was last revised on 2018. Monocyte pct 6.6 % [facility] Comment: Interpretive Data Percent cell count reference ranges are not reported, since discordance with absolute values may lead to misinterpretation of CBC data. Current Interpretive Data was last revised on 2018. Eosinophil pct 0.9 % [facility] Comment: Interpretive Data Percent cell count reference ranges are not reported, since discordance with absolute values may lead to misinterpretation of CBC data. Current Interpretive Data was last revised on 2018. Basophil pct 0.3 % [facility] Comment: Interpretive Data Percent cell count reference ranges are not reported, since discordance with absolute values may lead to misinterpretation of CBC data. Current Interpretive Data was last revised on 2018. Blood 01/03/2025 6:47 AM CDT 01/03/2025 6:50 AM CDT us Nimo Rangel MD LAB BLOOD ORDERABLES Final Resul t [facility] [address] [facility] Department [place] [address] * (ABNORMAL) CBC with auto differential (01/03/2025 6:47 AM CDT) WBC 8.8 3.8 - 9.9 K/cumm Hgb 7.2(L) 11.9 - 15.5 g/dL [facility] Hct 24.2(L) 35.6 - 45.5 % [facility] Plt 404(H) 150 - 400 K/cumm [facility] MPV 8.8(L) 9.1 - 12.3 fL [facility] RBC 2.42(L) 3.90 - 5.20 M/cumm [facility] MCV 100.0(H) 81.3 - 96.4 fL [facility] MCH 29.8 27.1 - 33.3 pg [facility] MCHC 29.8(L) 32.3 - 35.7 g/dL [facility] RDW CV 16.9(H) 11.1 - 14.9 % [facility] RDW SD 61.3(H) 35.7 - 48.1 fL [facility] NRBC abs 0.00 0.00 - 0.01 K/cumm [facility] Blood 01/03/2025 6:47 AM CDT 01/03/2025 6:50 AM CDT [facility] - 01/03/2025 7:00 AM CDT If most recent labs were drawn prior to 4 AM, draw only prior to initiating procedure. Nimo Rangel MD LAB BLOOD ORDERABLES Final Resul t Performing Organization Address [facility]/ZIP Co de Phone Number [address] [place] [address] * ABO/Rh (01/03/2025 6:47 AM CDT) [facility] ABO/Rh O Positive Blood 01/03/2025 6:47 AM CDT 01/03/2025 6:49 AM CDT Narrative [facility] - 01/03/2025 7:30 AM CDT Has the patient had Daratumumab or Isatuximab in the past 6 months?->Unknown Nimo Ranegl MD LAB BLOOD BANK TEST ORDERABLES F inal Result Performing Organization Address City/[facility]/ZIP Co de Phone Number [address] [employer] [place], [place] [id number] * aPTT (01/03/2025 6:47 AM CDT) Pathologist [facility] aPTT 33 22 - 37 sec Comment: Interpretive data aPTT test has not been evaluated for monitoring heparin therapy. The anti-Xa is the preferred test. Current interpretive data was last revised on 2019. Blood 01/03/2025 6:47 AM CDT 01/03/2025 6:50 AM CDT Nimo Rangel MD LAB BLOOD ORDERABLES Final Resul t Performing Organization Address [facility] de Phone Number [address] [place] [address] * (ABNORMAL) Protime-INR (01/03/2025 6:47 AM CDT) PT 15.1(H) 12.0 - 14.6 sec Comment:Ref Range High INR 1.2 0.9 - 1.2 [facility] Comment: Ref Range High Interpretive data Oral [...] ORDERABLES Final Resul t Performing Organization Address [facility] de Phone Number [address] [place] [address] * Crossmatch (01/03/2025 6:47 AM CDT) Crossmatch Compatible [facility] Unit number for crossmatch [id number] [facility] Blood 01/03/2025 6:47 AM CDT 01/03/2025 6:49 AM CDT Nimo Rangel MD LAB BLOOD BANK TEST ORDERABLES F inal Result Performing Organization Address [facility] Co de Phone Number [address] [place] [address] * Antibody screen (01/03/2025 6:47 AM CDT) [facility] [place], indirect, Gel Interpretation Negative ABSC Blood 01/03/2025 6:47 AM CDT 01/03/2025 6:49 AM CDT Narrative [facility] - 01/03/2025 7:30 AM CDT Has the patient had Daratumumab or Isatuximab in the past 6 months?->Unknown Nimo Rangel MD LAB BLOOD BANK TEST ORDERABLES F inal Result [address] [address] * (ABNORMAL) Comprehensive metabolic panel (01/03/2025 6:47 AM CDT) [facility] Sodium 132(L) 135 - 145 mmol/L Potassium, pl 3.9 3.3 - 4.9 mmol/L [facility] Chloride 101 97 - 110 mmol/L [facility] CO2 23 22 - 32 mmol/L [facility] Anion gap 8 2 - 15 mmol/L [facility] BUN 34(H) 6 - 25 mg/dL [facility] Creatinine 1.99(H) 0.60 - 1.10 mg/dL [facility] Glucose 102 70 - 199 mg/dL [facility] Comment: Interpretive Data Fasting glucose >/= 126 [...] 2022. Calcium 8.8 8.5 - 10.3 mg/dL [facility] Bilirubin, total 0.2 0.1 - 1.2 mg/dL [facility] Protein, pl 6.2(L) 6.5 - 8.5 g/dL [facility] Albumin 2.2(L) 3.5 - 5.0 g/dL [facility] Alk phos 123 40 - 130 Units/L [facility] ALT 7 7 - 45 Units/L [facility] AST 16 10 - 45 Units/L [facility] Blood 01/03/2025 6:47 AM CDT 01/03/2025 6:50 AM CDT Nimo Rangel MD LAB BLOOD ORDERABLES Final Resul t Performing Organization Address City/[facility] Co de Phone Number [address] [address] * POCT glucose (01/03/2025 6:41 AM CDT) Glucose, POC 107 70 - 199 mg/dL Glucose comment 1 Use This Result [facility] Blood 01/03/2025 6:41 AM CDT 01/03/2025 6:41 AM CDT Nimo Rangel MD LAB POCT ORDERABLES - DEVICE Fin al Result Performing Organization Address [facility] Co de Phone Number [address] [address] * US Arterial Doppler Upper Extremity Bilateral (12/29/2024 10:22 AM AIRLINE PILOT) Anatomical Region Laterality Modality Vascular Bilateral Ultrasound 12/29/2024 9:04 AM AIRLINE PILOT Narrative 12/30/2024 8:07 AM AIRLINE PILOT [facility] [address] [place] [address] Upper Extremity Arterial Report Patient Name: MATEUSZ JOHNSON R : 1945 (79y 1m) Gender: F Study Date: 12/29/2024 09:04:00 AM Form Block Maker: Como,Blanca RVT Location: [facility] Order Provider: NIMO RANGEL [...] By: Nimo Rangel MD 12/30/2024 7:10:54 AM AIRLINE PILOT Procedure Note Nimo Rangel MD - 12/30/2024 [facility] [address] [place] [address] Upper Extremity Arterial Report Patient Name: MATEUSZ JOHNSON R : 1945 (79y 1m) Gender: F Study Date: 12/29/2024 09:04:00 AM Form Block Maker: Blnaca Saab RVT Location: [facility] Order Provider: NIMO [...] 4th and 5th digits as well as ubvm2qr and 5th digits. ATTESTATION: I have reviewed and interpreted the pertinent images and measurements ofthis study. I attest to the conclusions in the final report that is provided above. Electronically Signed By: Nimo Rangel MD 12/30/2024 7:10:54 AM AIRLINE PILOT Nimo Rangel MD [facility] US PROCEDURES Final Result * Hemoglobin A1c (12/14/2024 8:34 PM AIRLINE PILOT) Hgb A1C 4.5 4.0 - 5.6 % Estimated Average Glucose 82 mg/dL [facility] Comment: The ADA recommends reporting an estimated Average Glucose (eAG) with all Hemoglobin A1c results using the equation derived from a study of 507 normal and diabetic adults. Minority populations were underrepresented and children were not included. (Diabetes Care 2020; 43(S1): S66-S76). The eAG is not equivalent to a fasting glucose. Blood 12/14/2024 8:34 PM AIRLINE PILOT 12/14/2024 9:58 PM AIRLINE PILOT us Vanessa Castanon MD LAB BLOOD ORDERABLES Final Result [facility] Department [place] [address] * BONE MINERAL DENSITY (10/23/2016) Anatomical Region Laterality Modality Radiographic Priscilla ging Narrative 10/23/2016 Ordered by an unspecified provider. Historical Provider MD [facility] DXA PROCEDURES Final Result * COLONOSCOPY (04/02/2011 12:00 AM CDT) Anatomical Region Laterality Modality Other Narrative 04/02/2011 12:00 AM CDT Ordered by an unspecified provider. Procedure Note Provider, MD Caryn - 04/02/2011 12:00 AM CDT PROCEDURE REPORT Patient: MATEUSZ JOHNSON Account: [id number] Room No: : 1945 Patient Type: [facility] Attend.: Delfino Gomez M.D. Admit Date: 04/02/2011 [...] polyps. SURGEON: Delfino Gomez M.D. INSTRUMENT USED: [employer].ruinon video endoscope. MEDICATIONS: Per anesthesia. FINDINGS: The [...] up with Dr. Solis. Delfino Gomez M.D. MAE/maribel TD: 04/02/2011 15:13 CC: Jd Solis M.D. PROCEDURE REPORT Authenticated by Delfino Gomez MD On 04/03/2011 05:57:34 AM Historical Provider MD ENDOSCOPY PROCEDURES Mary Alice l Result from Last 3 Months or Most Recently Relevant to Health Maintenance Insurance MEDICARE COMMERCIAL GENERIC MEDICARE [facility] Address: [address] [address] [place] [address] COMMERCIAL GENERIC [employer] SENIOR SUPPLEMENT MEDICARE [employer] SENIOR SUPPLEMENT Advance Directives For more information, please contact: [phone] * Full Code (Latest Code Status on [...] 2:55 AM 12/16/2024 5:52 PM Care Teams Fan Runner Relationship Specialty Start Date End Date Sherri Gil DO [address] [place] [address] PCP - General Family Medicine 03/11/25 Patrick Rubi MD Consulting Physician Nephrology 03/30/20 Referring, Pierre, Referring Physician 12/01/20 Sintia Stone [employer] SUPERVISOR Nurse Practitioner Medical Oncology 12/22/20 Ghulam Hoskins MD [facility] [address] [place] [address] Consulting Physician Diagnostic Radiology 03/30/24
[2025-03-30 13:57] LABS: Lipase < 10 U/L (23-300)
[2025-03-30 14:00] LABS: CRP 16.6 mg/dL (<1.0)
[2025-03-30] MEDS: PANTOPRAZOLE SODIUM IV 40 MG VIAL IV PUSH (14:05)
[2025-03-30] MEDS: FAMOTIDINE 20 MG/2 ML VIAL IV PUSH (14:05)
[2025-03-30] MEDS: SODIUM CHLORIDE 0.9% IV 250 ML 30 ML IV CONT (15:14)
--- NOTE | 2025-03-30 17:46 | PC.NURSE ---
attempted to call report at this time to [facility] 4th floor and the call got disconnected, will attempt again
== END 2025-03-30 18:45 | disposition short-term general hospital (02) ==
LOC: ANHED 13:45
PROVIDERS: Emergency Provider Emergency Medicine
DX: I95.9 Hypotension, unspecified (principal); N17.9 Acute kidney failure, unspecified; N18.9 Chronic kidney disease, unspecified; D64.9 Anemia, unspecified; Z20.822 Contact with and (suspected) exposure to COVID-19; I73.9 Peripheral vascular disease, unspecified; I48.91 Unspecified atrial fibrillation; J43.9 Emphysema, unspecified; F17.210 Nicotine dependence, cigarettes, uncomplicated; Z89.512 Acquired absence of left leg below knee; Z85.3 Personal history of malignant neoplasm of breast; Z85.41 Personal history of malignant neoplasm of cervix uteri; Z79.82 Long term (current) use of aspirin; Z79.899 Other long term (current) drug therapy
CPT/HCPCS: 36415; 36430; 71046; 80053; 81001; 83605; 83690; 85025; 85610; 85730; 86140; 86850; 86900; 86901; 86923; 87040; 87637; 96361; 96365; 96366; 96375; 99285; J0696; J2470; J7050; J7120; P9016